=== PATIENT | female | born 1940 | race Caucasian/White ===

== ENCOUNTER → 2016-10-29 | Outpatient (REF) | payer OTHER ==
[2016-10-29 11:11] LABS: BASO # 0.1 K/mm3 (0.0-0.2); BASO % 1.7 % (0.0-1.0); EOS # 0.1 K/mm3 (0.0-0.50); EOS % 3.5 % (0.0-3.0); LARGE UNSTAINED CELL # 0.1 K/mm3 (0.0-0.4); LYMPH # 1.3 K/mm3 (1.5-4.5); LYMPH % 33.5 % (24.0-44.0); MEAN CORPUSCULAR HEMOGLOBIN 32.1 pg (27.0-33.0); MEAN CORPUSCULAR HGB CONC 32.7 g/dl (32.0-36.5); MEAN CORPUSCULAR VOLUME 98.2 fl (80.0-96.0); MONO # 0.2 K/mm3 (0.0-0.8); MONO % 5.1 % (0.0-5.0); NEUTROPHILS % 54.2 % (36.0-66.0); PLATELET COUNT, AUTOMATED 207 k/mm3 (150-450); RED CELL DISTRIBUTION WIDTH 13.3 % (11.5-14.5); WHITE BLOOD COUNT 3.7 K/mm3 (4.0-10.0)
[2016-10-29 11:36] LABS: ANION GAP 9 MEQ/L (8-16); BLOOD UREA NITROGEN 14 MG/DL (7-18); CALCIUM LEVEL 9.1 MG/DL (8.8-10.2); CARBON DIOXIDE LEVEL 29 MEQ/L (21-32); CHLORIDE LEVEL 106 MEQ/L (98-107); CHOLESTEROL LEVEL 180 MG/DL (<200); CREATININE FOR GFR 0.68 MG/DL (0.55-1.02); GLOMERULAR FILTRATION RATE > 60.0 (>39); GLUCOSE, FASTING 88 MG/DL (83-110); SODIUM LEVEL 144 MEQ/L (136-145); TRIGLYCERIDES LEVEL 96 MG/DL (<150)
== END ==
LOC: M LABDRAW1 10:57
PROVIDERS: ATTEND Physician Assistant Medical
DX: E78.2 Mixed hyperlipidemia (principal); K58.0 Irritable bowel syndrome with diarrhea; K21.9 Gastro-esophageal reflux disease without esophagitis

== ENCOUNTER → 2017-02-23 | Outpatient (CLI) | payer OTHER ==
[~2017-02-23] MED LIST: ACIDTAB16 PO; ASPI81TA85 PO; CALC600T57 PO; GLUC750C4 PO; IBUP200C PO; IMOD2TAB16 PO; MAGN500T5 PO; MULT1TAB18 PO; NASA1SPR; NATU400T PO; OMEP40CA2 PO; SALI0.653; VITA10006 PO; VITA100L PO
--- NOTE | 2017-02-23 15:43 | REPMRS ---
Patient History The patient states she has not had a clinical breast exam in over a year. Patient is postmenopausal. No known family history of cancer. Digital Woman Screen Mammo: February 23, 2017 - Exam #: [id number] Bilateral CC and MLO view(s) were taken. Technologist: Tata Yost Technologist Prior study comparison: February 26, 2016, digital woman screen mammo performed at [facility] to [facility]. February 23, 2015, digital woman screen mammo performed at [facility] to [facility]. FINDINGS: There are scattered fibroglandular densities. There has been no change in the appearance of the mammogram from the prior studies. There is a mild amount of residual fibroglandular tissue which is fairly symmetric. There is no interval development of dominant mass, architectural distortion, or clustered microcalcification suggestive of malignancy. ASSESSMENT: BI-RADS/ACR category 1 mammogram. Negative. Recommendation Routine screening mammogram in 1 year (for women over age 40). This mammogram was interpreted with the aid of an FDA-approved computer-aided dectection system. Electronically Signed By: Vincent Hare MD 02/23/17 0829
== END ==
LOC: M WHC 15:17
PROVIDERS: ATTEND Physician Assistant Medical
DX: Z12.31 Encounter for screening mammogram for malignant neoplasm of breast (principal)

== ENCOUNTER → 2017-02-25 | Day surgery (SDC) | payer OTHER ==
[~2017-02-25] VITALS: Ht 154.9 cm; Wt 68.0 kg
[~2017-02-25] MED LIST changes: +ACETAMINOPHEN 325 MG TAB PO PRN; +BSS with VANC/TOB/EPI for EYE CASES IR ONE; +CYCLOPENTOLATE 2% OPHTH SOLN OD ONE; +D5W/0.2% SODIUM CHLORIDE 250 ML IV ONE; +HEALON DUET (HEALON 10MG/ML 0.55ML & HEALON ENDOCOAT 30MG/ML 0.85ML) As Ordered ONE; +KETOROLAC 0.5% OPHTH SOLN OD ONE; +LIDOCAINE 1% SDV 5 ML VIAL As Ordered ONE; +LIDOCAINE 4% INJ 5 ML AMP OU ONE; +LIDOCAINE W/EPINEPHRINE 1% 20ML VIAL As Ordered ONE; +MIDAZOLAM INJ 2 MG/2 ML VIAL (J2250) As Ordered ONE; +MOXIFLOXACIN IN BSS 0.25MG/0.25ML INTRACAMERAL INJ (OR EYE ONLY)(J2280) As Ordered ONE; +OFLOXACIN 0.3 % (OCUFLOX) OPTH SOL 5ML OD ONE; +PHENYLEPHRINE 2.5% OPHTH SOL 2ML OD ONE; +POVIDONE-IODINE 5% OPHTH PREP SOL 30ML As Ordered ONE; +PROPARACAINE 0.5% OPHTH SOL 15ML OD PRN; +TRIAMCINOLONE PRES FR 40 MG/ML 1ML(TRIESENCE)(OR EYE ONLY)(J3300 PER 1MG) As Ordered ONE; +TRIMETHOBENZAMIDE 300 MG CAP PO PRN; +TROPICAMIDE 1% OPHTH SOLN 2 ML OD ONE; +fentaNYL 100 MCG/2 ML INJECTION (J3010) As Ordered ONE
[2017-02-25 10:47] VITALS: BP 180/79
== END | disposition home or self-care (01) ==
LOC: M SDC 06:05
PROVIDERS: ATTEND Ophthalmology
DX: H26.9 Unspecified cataract (principal); K21.9 Gastro-esophageal reflux disease without esophagitis; M79.7 Fibromyalgia; Z79.82 Long term (current) use of aspirin; Z79.899 Other long term (current) drug therapy; Z88.1 Allergy status to other antibiotic agents; Z88.2 Allergy status to sulfonamides
CPT/HCPCS: 66984; 67515; J2250; J2280; J3010; J3300; V2632

== ENCOUNTER → 2017-03-10 | Outpatient (REF) | payer OTHER ==
[~2017-03-10] MED LIST changes: -ACETAMINOPHEN 325 MG TAB PO PRN; -BSS with VANC/TOB/EPI for EYE CASES IR ONE; -CYCLOPENTOLATE 2% OPHTH SOLN OD ONE; -D5W/0.2% SODIUM CHLORIDE 250 ML IV ONE; -HEALON DUET (HEALON 10MG/ML 0.55ML & HEALON ENDOCOAT 30MG/ML 0.85ML) As Ordered ONE; -KETOROLAC 0.5% OPHTH SOLN OD ONE; -LIDOCAINE 1% SDV 5 ML VIAL As Ordered ONE; -LIDOCAINE 4% INJ 5 ML AMP OU ONE; -LIDOCAINE W/EPINEPHRINE 1% 20ML VIAL As Ordered ONE; -MIDAZOLAM INJ 2 MG/2 ML VIAL (J2250) As Ordered ONE; -MOXIFLOXACIN IN BSS 0.25MG/0.25ML INTRACAMERAL INJ (OR EYE ONLY)(J2280) As Ordered ONE; -OFLOXACIN 0.3 % (OCUFLOX) OPTH SOL 5ML OD ONE; -PHENYLEPHRINE 2.5% OPHTH SOL 2ML OD ONE; -POVIDONE-IODINE 5% OPHTH PREP SOL 30ML As Ordered ONE; -PROPARACAINE 0.5% OPHTH SOL 15ML OD PRN; -TRIAMCINOLONE PRES FR 40 MG/ML 1ML(TRIESENCE)(OR EYE ONLY)(J3300 PER 1MG) As Ordered ONE; -TRIMETHOBENZAMIDE 300 MG CAP PO PRN; -TROPICAMIDE 1% OPHTH SOLN 2 ML OD ONE; -fentaNYL 100 MCG/2 ML INJECTION (J3010) As Ordered ONE
[2017-03-10 11:43] LABS: BASO % 0.8 % (0.0-1.0); EOS # 0.1 K/mm3 (0.0-0.50); EOS % 2.5 % (0.0-3.0); LARGE UNSTAINED CELL # 0.1 K/mm3 (0.0-0.4); LARGE UNSTAINED CELL % 2.3 % (0.0-4.0); LYMPH # 1.6 K/mm3 (1.5-4.5); LYMPH % 27.6 % (24.0-44.0); MEAN CORPUSCULAR HEMOGLOBIN 33.6 pg (27.0-33.0); MEAN CORPUSCULAR HGB CONC 33.5 g/dl (32.0-36.5); MEAN CORPUSCULAR VOLUME 100.2 fl (80.0-96.0); MONO # 0.4 K/mm3 (0.0-0.8); MONO % 6.6 % (0.0-5.0); NEUTROPHILS # 3.2 K/mm3 (1.8-7.7); NEUTROPHILS % 60.3 % (36.0-66.0); PLATELET COUNT, AUTOMATED 201 k/mm3 (150-450); RED CELL DISTRIBUTION WIDTH 12.9 % (11.5-14.5); WHITE BLOOD COUNT 5.3 K/mm3 (4.0-10.0)
[2017-03-10 12:04] LABS: FOLATE 23.8 NG/ML (>5.4); VITAMIN B12 LEVEL 868 PG/ML (247-911)
[2017-03-10 12:44] LABS: ALBUMIN 4.1 GM/DL (3.2-5.2); ALBUMIN/GLOBULIN RATIO 1.17 (1.00-1.93); ALKALINE PHOSPHATASE 73 U/L (45-117); ALT/SGPT 26 U/L (12-78); ANION GAP 7 MEQ/L (8-16); AST/SGOT 17 U/L (15-37); BILIRUBIN,TOTAL 0.4 MG/DL (0.2-1.0); BLOOD UREA NITROGEN 14 MG/DL (7-18); CALCIUM LEVEL 9.5 MG/DL (8.8-10.2); CARBON DIOXIDE LEVEL 30 MEQ/L (21-32); CHLORIDE LEVEL 105 MEQ/L (98-107); GLOMERULAR FILTRATION RATE > 60.0 (>39); GLUCOSE, FASTING 87 MG/DL (83-110); MAGNESIUM LEVEL 2.4 MG/DL (1.8-2.4); POTASSIUM SERUM 4.5 MEQ/L (3.5-5.1); SODIUM LEVEL 142 MEQ/L (136-145); TOTAL PROTEIN 7.6 GM/DL (6.4-8.2)
== END ==
LOC: M LABDRAW1 11:26
PROVIDERS: ATTEND Emergency Medicine
DX: R53.83 Other fatigue (principal)

== ENCOUNTER → 2017-07-06 | Outpatient (REF) | payer OTHER ==
[~2017-07-06] MED LIST changes: -ACIDTAB16 PO; +ACIDTAB7 PO; -IBUP200C PO; +IBUP200C10 PO; +LIDO5DIS41 TD; +SALI0.6523; -SALI0.653; +TYLE650T35 PO; +VITA10002 PO; +VITA10005 PO; +VITA20008 PO
[2017-07-06 12:01] LABS: ALBUMIN 3.9 GM/DL (3.2-5.2); ALBUMIN/GLOBULIN RATIO 1.34 (1.00-1.93); BILIRUBIN,DIRECT 0.1 MG/DL (0.0-0.2); BILIRUBIN,TOTAL 0.5 MG/DL (0.2-1.0); TOTAL PROTEIN 6.8 GM/DL (6.4-8.2)
== END ==
LOC: M LABDRAW1 11:04
PROVIDERS: ATTEND Internal Medicine Cardiovascular Disease
DX: R94.31 Abnormal electrocardiogram [ECG] [EKG] (principal); E78.00 Pure hypercholesterolemia, unspecified

== ENCOUNTER 2017-07-15 09:52 | Day surgery (SDC) | payer OTHER ==
[~2017-07-15] VITALS: Ht 154.9 cm; Wt 66.9 kg
[~2017-07-15 09:52] MED LIST changes: +BSS with VANC/TOB/EPI for EYE CASES IR ONE; +CYCLOPENTOLATE 2% OPHTH SOLN 2ML BTL OS ONE; +HEALON DUET (HEALON 10MG/ML 0.55ML & HEALON ENDOCOAT 30MG/ML 0.85ML) As Ordered ONE; +LIDOCAINE 1% SDV 5 ML VIAL As Ordered ONE; +LIDOCAINE 3.5 % 1ML OPHTH TOPICAL GEL OU ONE; +OFLOXACIN 0.3 % (OCUFLOX) OPTH SOL 5ML OS ONE; +PHENYLEPHRINE 2.5% OPHTH SOL 2ML OS ONE; +POVIDONE-IODINE 5% OPHTH PREP SOL 30ML As Ordered ONE; +TRIAMCINOLONE PRES FR 40 MG/ML 1ML(TRIESENCE)(OR EYE ONLY)(J3300 PER 1MG) As Ordered ONE; +TROPICAMIDE 1% OPHTH SOLN 2ML OS ONE
[2017-07-15] MEDS ORDERED: LR 500 ML IV ONE (10:00)
[2017-07-15] MEDS ORDERED: fentaNYL 100 MCG/2 ML INJECTION (J3010) As Ordered ONE (10:47)
[2017-07-15] MEDS ORDERED: MIDAZOLAM INJ 2 MG/2 ML VIAL (J2250) As Ordered ONE (10:47)
[2017-07-15] MEDS ORDERED: CEFUROXIME 1MG/0.1ML INTRACAMERAL INJ As Ordered ONE (10:58)
[2017-07-15 11:30] VITALS: BP 127/60
--- NOTE | 2017-07-15 11:47 | RO ---
DATE OF PROCEDURE: 07/15/2017 PREOPERATIVE DIAGNOSES: Miosis and cataract left eye. POSTOPERATIVE DIAGNOSES: Miosis and cataract left eye. PROCEDURE: Phacoemulsification with intraocular lens implantation of Hoya, power 20.5 diopters and placement of the 7 mm Malyugin ring in the left eye. SURGEON: Mynor Robb MD REST ROOM ATTENDANT: None. ANESTHESIA: Local plus monitored anesthesia care (MAC). COMPLICATIONS: None. PROCEDURE IN DETAIL: Patient was brought to the operating room, laid in supine position. The left eye was prepped and draped in a sterile fashion for ophthalmic surgery, following which a lid speculum was placed. Sideport incision was made, and EndoCoat was injected into the anterior chamber. This was followed by temporal clear corneal incision with a 2.5 mm keratome, followed by placement of the Malyugin ring, which was placed with the help of the introducer. Once the pupil was well dilated, then capsulorrhexis was done, followed by hydrodissection and phacoemulsification in a [id number] method within the capsular bag. This was followed by aspiration of the cortical material, insertion of the Healon, and placement of the intraocular lens. Malyugin ring was then removed. Excess viscoelastic was aspirated, wound hydrated, intracameral moxifloxacin given, and sub-Tenon triamcinolone. Lid speculum removed, and patient returned to recovery room in stable condition. Edited: [facility] 07/17/2017 1110
== END 2017-07-15 11:59 | disposition home or self-care (01) ==
LOC: M SDC 09:52
PROVIDERS: ATTEND Ophthalmology
DX: H25.9 Unspecified age-related cataract (principal); H57.03 Miosis; E78.5 Hyperlipidemia, unspecified; K58.9 Irritable bowel syndrome, unspecified; G47.30 Sleep apnea, unspecified; F32.9 Major depressive disorder, single episode, unspecified; Z79.899 Other long term (current) drug therapy; Z88.2 Allergy status to sulfonamides; Z88.8 Allergy status to other drugs, medicaments and biological substances; Z79.82 Long term (current) use of aspirin
CPT/HCPCS: 66982; 67515; J2250; J3010; J3300; V2632

== ENCOUNTER → 2018-01-04 | Outpatient (REF) | payer OTHER | LOC: M LAB REF 16:58 | DX: N39.0 Urinary tract infection, site not specified (principal) | CPT/HCPCS: 87086 ==

== ENCOUNTER 2018-01-14 08:10 | Outpatient (RCR) | payer OTHER | END 2018-01-23 | LOC: M PT 08:10 | DX: Z51.89 Encounter for other specified aftercare (principal); M16.11 Unilateral primary osteoarthritis, right hip; M16.12 Unilateral primary osteoarthritis, left hip; M54.5 Low back pain | CPT/HCPCS: 97110 ==

== ENCOUNTER 2018-01-26 12:15 | Outpatient (RCR) | payer OTHER | END 2018-02-22 | LOC: M PT 12:15 | DX: Z51.89 Encounter for other specified aftercare (principal); M16.11 Unilateral primary osteoarthritis, right hip; M16.12 Unilateral primary osteoarthritis, left hip; M54.5 Low back pain | CPT/HCPCS: 97110 ==

== ENCOUNTER 2018-02-23 11:29 | Outpatient (RCR) | payer OTHER | END 2018-03-25 | LOC: M PT 02-25 08:37 | DX: Z51.89 Encounter for other specified aftercare (principal); M16.11 Unilateral primary osteoarthritis, right hip; M16.12 Unilateral primary osteoarthritis, left hip; M54.5 Low back pain | CPT/HCPCS: 97110 ==

== ENCOUNTER → 2018-02-24 | Outpatient (CLI) | payer OTHER | LOC: M WHC 08:52 | DX: Z12.31 Encounter for screening mammogram for malignant neoplasm of breast (principal) | CPT/HCPCS: 77067 ==

== ENCOUNTER 2018-03-29 11:39 | Outpatient (RCR) | payer OTHER | END 2018-04-24 | LOC: M PT 11:39 | DX: Z51.89 Encounter for other specified aftercare (principal); M16.11 Unilateral primary osteoarthritis, right hip; M16.12 Unilateral primary osteoarthritis, left hip; M51.36 Other intervertebral disc degeneration, lumbar region | CPT/HCPCS: 97110 ==

== ENCOUNTER → 2018-04-05 | Outpatient (CLI) | payer OTHER | LOC: M PLARAD 10:16 | DX: M51.36 Other intervertebral disc degeneration, lumbar region (principal); M47.896 Other spondylosis, lumbar region; M48.061 Spinal stenosis, lumbar region without neurogenic claudication | CPT/HCPCS: 72148 ==

== ENCOUNTER → 2018-06-10 | Outpatient (CLI) | payer OTHER | LOC: M PAIN 10:00 | DX: M47.817 Spondylosis without myelopathy or radiculopathy, lumbosacral region (principal); J30.2 Other seasonal allergic rhinitis; M51.36 Other intervertebral disc degeneration, lumbar region; M48.061 Spinal stenosis, lumbar region without neurogenic claudication; M19.041 Primary osteoarthritis, right hand; M19.042 Primary osteoarthritis, left hand; G47.33 Obstructive sleep apnea (adult) (pediatric); E78.5 Hyperlipidemia, unspecified; K21.9 Gastro-esophageal reflux disease without esophagitis; F32.9 Major depressive disorder, single episode, unspecified; M79.7 Fibromyalgia; R73.01 Impaired fasting glucose; D75.89 Other specified diseases of blood and blood-forming organs; M16.12 Unilateral primary osteoarthritis, left hip; Z79.82 Long term (current) use of aspirin; Z79.899 Other long term (current) drug therapy; Z79.1 Long term (current) use of non-steroidal anti-inflammatories (NSAID); Z88.2 Allergy status to sulfonamides; Z88.1 Allergy status to other antibiotic agents; Z88.8 Allergy status to other drugs, medicaments and biological substances | CPT/HCPCS: G0463 ==

== ENCOUNTER → 2018-07-20 | Outpatient (CLI) | payer OTHER, MEDICARE ==
[~2018-07-20] MED LIST changes: -ACIDTAB7 PO; -ASPI81TA85 PO; -BSS with VANC/TOB/EPI for EYE CASES IR ONE; -CALC600T57 PO; -CYCLOPENTOLATE 2% OPHTH SOLN 2ML BTL OS ONE; -GLUC750C4 PO; -HEALON DUET (HEALON 10MG/ML 0.55ML & HEALON ENDOCOAT 30MG/ML 0.85ML) As Ordered ONE; -IBUP200C10 PO; -IMOD2TAB16 PO; +ISOVUE-M 300 61% 15ML VIAL (Q9967) As Ordered; -LIDO5DIS41 TD; -LIDOCAINE 1% SDV 5 ML VIAL As Ordered ONE; +LIDOCAINE 1% SDV INJ 30 ML VIAL As Ordered; -LIDOCAINE 3.5 % 1ML OPHTH TOPICAL GEL OU ONE; -MAGN500T5 PO; -MULT1TAB18 PO; -NASA1SPR; -NATU400T PO; -OFLOXACIN 0.3 % (OCUFLOX) OPTH SOL 5ML OS ONE; -OMEP40CA2 PO; -PHENYLEPHRINE 2.5% OPHTH SOL 2ML OS ONE; -POVIDONE-IODINE 5% OPHTH PREP SOL 30ML As Ordered ONE; -SALI0.6523; -TRIAMCINOLONE PRES FR 40 MG/ML 1ML(TRIESENCE)(OR EYE ONLY)(J3300 PER 1MG) As Ordered ONE; -TROPICAMIDE 1% OPHTH SOLN 2ML OS ONE; -TYLE650T35 PO; -VITA10002 PO; -VITA10005 PO; -VITA10006 PO; -VITA100L PO; -VITA20008 PO; +diazePAM 5 MG TAB As Ordered; +methylPREDNISolone SUSP 40 MG/ML (DEPO-medrol) VIAL (J1030) As Ordered
== END ==
LOC: M PAIN 11:00
DX: G89.29 Other chronic pain (principal); M51.17 Intervertebral disc disorders with radiculopathy, lumbosacral region; M48.07 Spinal stenosis, lumbosacral region; M19.041 Primary osteoarthritis, right hand; M19.042 Primary osteoarthritis, left hand; G47.33 Obstructive sleep apnea (adult) (pediatric); E78.5 Hyperlipidemia, unspecified; K21.9 Gastro-esophageal reflux disease without esophagitis; F32.9 Major depressive disorder, single episode, unspecified; M79.1 Myalgia; R73.01 Impaired fasting glucose; D72.819 Decreased white blood cell count, unspecified; M16.12 Unilateral primary osteoarthritis, left hip; J30.9 Allergic rhinitis, unspecified; Z79.82 Long term (current) use of aspirin; Z79.899 Other long term (current) drug therapy; Z88.2 Allergy status to sulfonamides; Z88.8 Allergy status to other drugs, medicaments and biological substances
CPT/HCPCS: J1030

== ENCOUNTER → 2018-07-22 | Outpatient (REF) | payer OTHER, MEDICARE ==
[2018-07-22 12:15] LABS: BASO % 0.5 % (0.0-1.0); EOS # 0.1 10^3/uL (0.0-0.50); EOS % 0.8 % (0.0-3.0); HEMATOCRIT 37.1 % (36.0-47.0); HEMOGLOBIN 12.3 g/dl (12.0-15.5); IMMATURE GRANULOCYTE % 0.3 % (0-3.0); LYMPH # 1.5 10^3/uL (1.5-4.5); LYMPH % 17.7 % (24.0-44.0); MEAN CORPUSCULAR HEMOGLOBIN 32.8 pg (27.0-33.0); MEAN CORPUSCULAR HGB CONC 33.2 g/dl (32.0-36.5); MEAN CORPUSCULAR VOLUME 98.9 fl (80.0-96.0); MONO # 0.7 10^3/uL (0.0-0.8); MONO % 7.8 % (0.0-5.0); NEUTROPHILS # 6.3 10^3/uL (1.8-7.7); NEUTROPHILS % 72.9 % (36.0-66.0); PLATELET COUNT, AUTOMATED 204 10^3/uL (150-450); RED BLOOD COUNT 3.75 10^6/uL (4.00-5.40); RED CELL DISTRIBUTION WIDTH 12.8 % (11.5-14.5); WHITE BLOOD COUNT 8.6 10^3/uL (4.0-10.0)
== END ==
LOC: M LABDRAW1 11:03
DX: R53.83 Other fatigue (principal)
CPT/HCPCS: 85025

== ENCOUNTER → 2018-08-03 | Outpatient (CLI) | payer OTHER, MEDICARE | LOC: M PAIN 11:30 | DX: M47.817 Spondylosis without myelopathy or radiculopathy, lumbosacral region (principal); M19.041 Primary osteoarthritis, right hand; M19.042 Primary osteoarthritis, left hand; M16.12 Unilateral primary osteoarthritis, left hip; G47.33 Obstructive sleep apnea (adult) (pediatric); E78.5 Hyperlipidemia, unspecified; F32.9 Major depressive disorder, single episode, unspecified; M79.7 Fibromyalgia; R73.01 Impaired fasting glucose; D72.819 Decreased white blood cell count, unspecified; J30.9 Allergic rhinitis, unspecified; Z79.82 Long term (current) use of aspirin; Z79.899 Other long term (current) drug therapy; Z88.2 Allergy status to sulfonamides; Z88.5 Allergy status to narcotic agent; Z88.8 Allergy status to other drugs, medicaments and biological substances | CPT/HCPCS: G0463 ==

== ENCOUNTER → 2018-08-30 | Outpatient (CLI) | payer OTHER | LOC: M RAD 10:05 | DX: M19.012 Primary osteoarthritis, left shoulder (principal) | CPT/HCPCS: 73030 ==

== ENCOUNTER → 2018-09-14 | Outpatient (CLI) | payer OTHER, MEDICARE | LOC: M PAIN 09:45 | DX: M46.1 Sacroiliitis, not elsewhere classified (principal); G89.29 Other chronic pain; M19.041 Primary osteoarthritis, right hand; M19.042 Primary osteoarthritis, left hand; M16.12 Unilateral primary osteoarthritis, left hip; G47.33 Obstructive sleep apnea (adult) (pediatric); E78.5 Hyperlipidemia, unspecified; K21.9 Gastro-esophageal reflux disease without esophagitis; F32.9 Major depressive disorder, single episode, unspecified; M79.7 Fibromyalgia; J30.9 Allergic rhinitis, unspecified; D72.819 Decreased white blood cell count, unspecified; Z79.82 Long term (current) use of aspirin; Z79.899 Other long term (current) drug therapy; Z88.2 Allergy status to sulfonamides; Z88.5 Allergy status to narcotic agent; Z88.8 Allergy status to other drugs, medicaments and biological substances | CPT/HCPCS: G0463 ==

== ENCOUNTER 2018-09-20 08:02 | Outpatient (RCR) | payer OTHER | END 2018-09-24 | LOC: M PT 08:02 | DX: M25.512 Pain in left shoulder (principal) | CPT/HCPCS: 97110 ==

== ENCOUNTER → 2018-09-20 | Outpatient (CLI) | payer OTHER ==
[2018-09-20 10:59] LABS: ALBUMIN 4.1 GM/DL (3.2-5.2); ALBUMIN/GLOBULIN RATIO 1.37 (1.00-1.93); ALKALINE PHOSPHATASE 68 U/L (45-117); ALT/SGPT 22 U/L (12-78); ANION GAP 6 MEQ/L (8-16); AST/SGOT 18 U/L (7-37); BILIRUBIN,TOTAL 0.5 MG/DL (0.2-1.0); BLOOD UREA NITROGEN 19 MG/DL (7-18); CARBON DIOXIDE LEVEL 30 MEQ/L (21-32); CHLORIDE LEVEL 105 MEQ/L (98-107); CHOLESTEROL LEVEL 184 MG/DL (<200); CREATININE FOR GFR 0.71 MG/DL (0.55-1.30); GLOMERULAR FILTRATION RATE > 60.0 (>39); GLUCOSE, FASTING 87 MG/DL (70-100); HDL CHOLESTEROL 63 MG/DL (>40); LDL CHOLESTEROL 98 MG/DL (<100); NON-HDL-C 121 MG/DL; POTASSIUM SERUM 4.5 MEQ/L (3.5-5.1); SODIUM LEVEL 141 MEQ/L (136-145); TOTAL PROTEIN 7.1 GM/DL (6.4-8.2); TRIGLYCERIDES LEVEL 115 MG/DL (<150)
== END ==
LOC: M LAB 09:48
DX: E78.2 Mixed hyperlipidemia (principal)
CPT/HCPCS: 80053

== ENCOUNTER → 2018-10-25 | Outpatient (RCR) | payer OTHER ==
[~2018-10-25] MED LIST changes: +ACIDTAB7 PO; +ASPI81TA85 PO; +CALC600T57 PO; +GLUC750C4 PO; +IBUP200C25 PO; +IMOD2TAB16 PO; -ISOVUE-M 300 61% 15ML VIAL (Q9967) As Ordered; +LIDO5DIS41 TD; -LIDOCAINE 1% SDV INJ 30 ML VIAL As Ordered; +MAGN500T5 PO; +MULT1TAB18 PO; +NASA1SPR; +NATU400T PO; +OMEP40CA2 PO; +SALI0.6528; +TYLE650T35 PO; +VITA10002 PO; +VITA10005 PO; +VITA10006 PO; +VITA100L PO; +VITA20008 PO; -diazePAM 5 MG TAB As Ordered; -methylPREDNISolone SUSP 40 MG/ML (DEPO-medrol) VIAL (J1030) As Ordered
== END ==
LOC: M PT 09-28 09:18
PROVIDERS: ATTEND Physician Assistant
DX: M25.512 Pain in left shoulder (principal)
CPT/HCPCS: 97110; G8984; G8985

== ENCOUNTER 2018-10-28 09:33 | Outpatient (RCR) | payer MEDICARE, OTHER | END 2018-11-25 | LOC: M PT 09:33 | PROVIDERS: ATTEND Physician Assistant | DX: M25.512 Pain in left shoulder (principal) | CPT/HCPCS: 97110; G8985; G8986 ==

== ENCOUNTER → 2018-11-02 | Outpatient (CLI) | payer MEDICARE, OTHER ==
[~2018-11-02] MED LIST changes: +BUPIVACAINE HCL 0.25% 30 ML VIAL As Ordered ONE; +ISOVUE-M 300 61% 15ML VIAL (Q9967) As Ordered ONE; +LIDOCAINE 1% SDV INJ 30 ML VIAL As Ordered ONE; +TRIAMCINOLONE ACETONIDE SUSP 40 MG/ML VIAL (J3301) As Ordered ONE; +diazePAM 5 MG TAB As Ordered ONE
--- NOTE | 2018-11-02 14:18 | REP ---
SI joint series: Three views: History: Right SI joint injection for pain. 7 seconds of fluoroscopy time is reported. Findings: A sequence of three last image hold fluoroscopically obtained spot radiographs of the right SI joint document needle position and contrast injection associated with SI joint injection procedure. Electronically Signed by Power Cabrera MD 11/02/2018 04:42 P
--- NOTE | 2018-11-17 01:20 | ECWPNPC ---
PATIENT NAME: RENEE JACOBSEN : 1940 GENDER: FEMALE VISIT DATE: 11/02/2018 DISCHARGE DATE: 11/02/18 1319 VISIT LOCKED DATE TIME: PHYSICIAN: LOTUS QUINTANA MD RESOURCE: LOTUS QUINTANA MD REASON FOR APPOINTMENT 1. RIGHT SIJ. HISTORY OF PRESENT ILLNESS HISTORY OF PRESENT ILLNESS: PAIN THE PATIENT DESCRIBES THE PAIN... FALL RISK SCREENING: SCREENING :NO FALLS IN THE PAST YEAR CURRENT MEDICATIONS TAKING SALINE NASAL SPRAY 0.65 % SOLUTION 2 SRAYS IN EACH NOSTRIL NEEDED NASALLY EVERY 4 HRS NEEDED, NOTES: 11/01 2099 TAKING LOPERAMIDE HCL 2 MG CAPSULE 1 CAPSULE ORALLY ONCE A DAY, NOTES: 11/02 514 TAKING OMEPRAZOLE 20 MG CAPSULE DELAYED RELEASE 1 CAPSULE ORALLY DAILY, NOTES: 11/02 514 TAKING VITAMIN C 250 MG TABLET 1 TAB(S) ORALLY DAILY, NOTES: 11/01 2099 TAKING VITAMIN D3 2000 UNIT CAPSULE 1 CAPSULE ORALLY ONCE A DAY, NOTES: 11/01 2099 TAKING ACIDOPHILUS 10 MG CAPSULE DIRECTED ORALLY BID, NOTES: 11/02 514 TAKING CALCIUM 600+D HIGH POTENCY 600-400 MG-UNIT TABLET 1 TABLET ORALLY ONCE A DAY, NOTES: 11/01 2099 TAKING VITAMIN B12 1000 MCG TABLET 1 TABLET ORALLY ONCE A DAY, NOTES: 11/01 2099 TAKING SIMVASTATIN 20 MG TABLET 1 TAB ORALLY DAILY IN THE EVENING, NOTES: 11/01 2099 TAKING NAPROXEN 250 MG TABLET 1 TABLET WITH FOOD OR MILK ORALLY TWICE A DAY, NOTES: FEW DAYS AGO TAKING ASPIR-81 81 MG TABLET DELAYED RELEASE 1 TABLET ORALLY ONCE A DAY, NOTES: 1 WEEK AGO TAKING TYLENOL 500MGS 1 TAB ORAL EVERY 4 HOURS NEEDED, NOTES: 11/02 1134 TAKING VITAMIN E 200 UNIT CAPSULE 1 CAPSULE ORALLY ONCE A DAY, NOTES: 11/01 2099 TAKING GLUCOSAMINE 1500 COMPLEX - CAPSULE ORALLY , NOTES: 11/01 2099 TAKING IBUPROFEN 200 MGS 1-2 TAB ORAL FOUR TIMES DAILY NEEDED, NOTES: 10/30 TAKING FLONASE 50 MCG/ACT SUSPENSION 1 SPRAY IN EACH NOSTRIL NASALLY ONCE A DAY, NOTES: 11/01 599 TAKING BUPROPION HCL 150 MG TABLET EXTENDED RELEASE ORALLY DAILY, NOTES: 11/01 2099 TAKING ASTELIN 2 SPRAYS EACH NOSTRIL ONCE DAILY, NOTES: RIGHT SIDE 514 TAKING RANITIDINE ACID DIESEL TRUCK TECHNICIAN 75 MG TABLET 1 TABLET NEEDED ORALLY DAILY, NOTES: 11/01 1700 NOT-TAKING CARAFATE 1 GM TABLET 1 TABLET ON AN EMPTY STOMACH ORALLY THREE TIMES A DAY NOT-TAKING DYMISTA 137-50 MCG/ACT SUSPENSION 1 SPRAY, TO BOTH NOSTRILS NASALLY TWICE A DAY NOT-TAKING PROTONIX 40 MG TABLET DELAYED RELEASE 1 TABLET ORALLY BID NOT-TAKING CARAFATE 1 GM TABLET 1 TABLET ON AN EMPTY STOMACH ORALLY THREE TIMES A DAY NOT-TAKING REPLENS - GEL DIRECTED VAGINAL , NOTES: HAVEN'T GOTTEN YET DISCONTINUED SALINE NASAL SPRAY 0.65 % SOLUTION 2 DROPS IN EACH NOSTRIL NEEDED NASALLY 48 TIME(S) A DAY, NOTES: DUPLICATE MEDICATION LIST REVIEWED AND RECONCILED WITH THE PATIENT PAST MEDICAL HISTORY ALLERGIC RHINITIS/CONJUNCTIVITIS/CHRONIC RECURRENT SINUSITIS-01/2015 - ZONE 1, IGE <3.6 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 BY NOVEMBER 2010 CT/GRADE 1 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 X-RAY BILATERAL HAND OSTEOARTHRITIS-2007 NEGATIVE RHEUMATOLOGICAL WORKUP IMANI-02/2012 NPSG C RDI 25-ALLEN HYPERLIPIDEMIA 2B GERD-08/2014 NORMAL EGD-REINDL 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[address] OF THE PELVIS STONE PROTOCOL AND RENAL ULTRASOUND BILATERAL DEPRESSION FIBROMYALGIA ALLERGIC RHINITIS/CONJUNCTIVITIS IMPAIRED FASTING GLUCOSE LEUKOPENIA, 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, CHRONIC 2 SMALL ADENOMATOUS POLYPS, DIVERTICULOSIS, SIGMOID, 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-06/2011-REINDL//08/2014 MODERATE SIGMOID DIVERTICULOSIS-REINDL L HIP MILD OA BY 08/2013 XRAY ALLERGIES AVELOX: LEGS SHAKEY: SIDE EFFECTS CYMBALTA: NAUSEA/VOMITING: SIDE EFFECTS DOXYCYCLINE HYCLATE: INEFFECTIVE: SIDE EFFECTS PROZAC: FATIGUE: SIDE EFFECTS ZITHROMAX: DIARRHEA: SIDE EFFECTS SULFA (FOR ALLERGY USE ONLY): RASH: ALLERGY CODEINE SULFATE: NAUSEA/VOMITING: SIDE EFFECTS SURGICAL HISTORY BILATERAL BLEPHAROPLASTY-BRAD 09/2010 DEVIATED SEPTUM REPAIR TUBAL LIGATION KIDNEY STONE LASER COLONOSCOPY 08/2014 FAMILY HISTORY FATHER: 53 YRS, UNKNOWN CAUSE MOTHER: 96 YRS, LUNG CA, OSTEOPOROSIS, NO HIP FX. 1 BROTHER(S) , 2 SISTER(S) . 1 SON(S) , 2 DAUGHTER(S) - HEALTHY. DENIES FAMILY HX OF BREAST, COLON OR OVARIAN CANCER. DENIES FAMILY HX OF BREAST, COLON OR OVARIAN CANCER. SOCIAL HISTORY GENERAL: TOBACCO USE ARE YOU A:NONSMOKER ALCOHOL SCREENING DID YOU HAVE A DRINK CONTAINING ALCOHOL IN THE PAST YEAR?YES HOW OFTEN DID YOU HAVE A DRINK CONTAINING ALCOHOL IN THE PAST YEAR?MONTHLY OR LESS (1 POINT) HOW MANY DRINKS DID YOU HAVE ON A TYPICAL DAY WHEN YOU WERE DRINKING IN THE PAST YEAR?3 OR 4 (1 POINT) HOW OFTEN DID YOU HAVE SIX OR MORE DRINKS ON ONE OCCASION IN THE PAST YEAR?NEVER (0 POINTS) POINTS2 INTERPRETATIONNEGATIVE RECREATIONAL DRUG USE DRUG USE?NO CAFFEINE DECAF COFFEE ONLY.. SEXUAL HX HAD SEX IN THE LAST 12 MONTHS (VAGINAL, ORAL, OR ANAL)?NO HAVE YOU EVER HAD AN STD?NO LMP:POST MENOPAUSE UATSDIN [id number] [employer]RIAN LANGUAGE LANGUAGES SPOKEN:SWISS EDUCATION LEVEL OF EDUCATION:HIGH SCHOOL LEARNING BARRIERS / SPECIAL NEEDS CHANGE FROM LAST VISIT?NO BARRIERS TO LEARNING?NO HEARING IMPAIRED?NO VISION IMPAIRED?YES :CORRECTIVE LENSES COGNITIVELY IMPAIRED?NO READINESS TO LEARN?YES LEARNING PREFERENCES?NO LEARNING CAPABILITIES PRESENT?YES EMOTIONAL BARRIERS?NO SPECIAL DEVICES?NO DOMESTIC VIOLENCE DENIES. DIET: "TERRIBLE". EATS TOO MUCH DESSERT.. MARITAL STATUS: . OTHERS AT HOME: NONE. PAIN CLINIC PFS, CLERGY, PUBLIC HEALTH REFERRALS HAS THE PATIENT BEEN EDUCATED REGARDING HIS/HER PLAN OF CARE?YES HAS THE PATIENT BEEN EDUCATED REGARDING PAIN, THE RISK FOR PAIN, THE IMPORTANCE OF EFFECTIVE PAIN MANAGEMENT, AND THE PAIN ASSESSMENT PROCESS?YES ADVANCE DIRECTIVE ADVANCE DIRECTIVE DISCUSSED WITH PATIENT:YES HCP JOHN DIXON [phone] REVIEWED WITH PATIENT 08/03/18 1144 11/02/18 REVIEWED WITH PT. AD. HOSPITALIZATION/MAJOR DIAGNOSTIC PROCEDURE ABOVE REVIEW OF SYSTEMS REVIEWED BY: PROVIDER: . CONSTITUTIONAL: ANY CHANGE IN YOUR MEDICAL CONDITION? NO . CHILLS NO . FEVER NO . INFECTION: DO YOU HAVE NEW INFECTIONS? NO . DO YOU HAVE HISTORY OF MRSA? NO . MUSCULOSKELETAL: ANY NEW PATTERNS OF PAIN OR NUMBNESS? NO . GASTROENTEROLOGY: ANY NEW CHANGE IN BOWEL CONTROL? NO . GENITOURINARY: ANY NEW CHANGE IN BLADDER CONTROL? NO . IS THERE A CHANCE YOU COULD BE ? NO . HEMATOLOGY/LYMPH: DO YOU TAKE ANY BLOOD THINNERS? (FOR EXAMPLE- COUMADIN, PLAVIX, AGGRENOX, PLATEL, PRADAXA, OR XARELTO) NO . WHEN WAS YOUR LAST DOSE? DATE: TIME: . NEUROLOGY: HAVE YOU FALLEN IN THE PAST 6 MONTHS? NO . ANY NEW EXTREMITY NUMBNESS OR WEAKNESS? NO . CARDIOLOGY: DO YOU HAVE A PACEMAKER OR DEFIBRILLATOR? NO . RESPIRATORY: HAVE YOU BEEN SICK IN THE PAST WEEK? NO . FEVER NO . FLU LIKE SYMPTOMS? NO . COUGH NO . INTEGUMENTARY: DO YOU HAVE ANY RASHES OR OPEN SORES? NO . ALLERGIC/IMMUNO: ARE YOU ALLERGIC TO SHELLFISH OR IV DYE? NO HAS A BROTHER THAT IS ALLERGIC TO IVP DYE . ANY NEW ALLERGIES? NO . PSYCHIATRIC: DO YOU HAVE THOUGHTS OF HURTING YOURSELF OR SOMEONE ELSE? NO . ARE YOU ABUSED, NEGLECTED, OR IN AN UNSAFE ENVIRONMENT? NO . ENDOCRINOLOGY: ARE YOU DIABETIC? NO . OTHER: DO YOU NEED ANY PRESCRIPTIONS? NO . IF YES, PLEASE LIST: ____ . ANY NEW PROBLEMS WITH YOUR MEDICATIONS? NO . WHEN DID YOU LAST EAT? 11/02 514 . WHEN DID YOU LAST DRINK? 11/02 729 . WHAT DID YOU LAST DRINK? GINGERALE . NAME OF PERSON DRIVING YOU HOME? CATRACHITO JAVED . DO YOU HAVE ANY OTHER QUESTIONS OR CONCERNS NO PT. HAS NOT HAD ANY VACCINES IN THE PAST 30 DAYS . VITAL SIGNS WT 146 LBS, HT 61 IN, BMI 27.58 INDEX, BP 143/72 MM HG, HR 71 /MIN, RR 18 /MIN, TEMP 97.8 F, OXYGEN SAT % 96%, NA INITIALS AW 1059. ASSESSMENTS SACROILIITIS, NOT ELSEWHERE CLASSIFIED - M46.1 (PRIMARY) PROCEDURES PN SI PRE PROCEDURE DIAGNOSIS SACROILIITIS, SACROILIAC JOINT DYSFUNCTION POST PROCEDURE DIAGNOSIS SACROILIITIS, SACROILIAC JOINT DYSFUNCTION PROCEDURE RIGHT SACROILIAC JOINT BLOCK SURGEON DR. LOTUS QUINTANA AUCTION CLERK NONE ANESTHESIA LOCAL PRE PROCEDURE NOTE PATIENT WITH HISTORY OF CHRONIC LOW BACK PAIN. I EVALUATED THE PATIENT AND REVIEWED THE CHART. I WENT OVER THE RISKS, ALTERNATIVES, AND BENEFITS ASSOCIATED WITH THIS PROCEDURE. THE PATIENT WOULD LIKE TO PROCEED AND GAVE CONSENT TO PERFORM THE PROCEDURE. THE PATIENT DENIES UNEXPLAINABLE WEIGHT LOSS, FEVER, CHILLS, OR NEW CHANGES IN URINARY OR BOWEL CONTROL DESCRIPTION OF PROCEDURE THE PATIENT WAS BROUGHT TO THE PROCEDURE ROOM AND PLACED IN THE PRONE POSITION. THE LUMBOSACRAL AREA WAS CLEANED WITH CHLORAPREP SOLUTION AND DRAPED ASEPTICALLY. THE PROCEDURE WAS DONE UNDER STERILE CONDITIONS. I CHECKED LATERALITY AND THE LEVEL WHERE THE PROCEDURE WAS GOING TO BE PERFORMED WITH THE PATIENT AND THE SUPPORTING STAFF AT THE MOMENT OF THE TIME OUT IN THE PROCEDURE ROOM. UNDER FLUOROSCOPIC GUIDANCE, TARGET POINT WAS SELECTED AT THE LOWER BORDER OF THE RIGHT SACROILIAC JOINT. TARGET POINT WAS SELECTED AFTER MEDIAL ROTATION AND TILT OF THE MAGNIFIER OF THE C-ARM. LIDOCAINE WAS USED TO NUMB THE SKIN AND SUBCUTANEOUS TISSUE BELOW IT. A SPINAL NEEDLE, 22-GAUGE, WAS ADVANCED UNDER FLUOROSCOPIC GUIDANCE AND FOLLOWING PATIENT FEEDBACK UNTIL THE TARGET AREA WAS TOUCHED. THE POSITION OF THE NEEDLE WAS VERIFIED WITH AP AND LATERAL VIEWS. AFTER PROPER POSITION OF THE NEEDLE WAS ACHIEVED, ISOVUE M DYE 30%, 0.25 ML, WAS INJECTED SHOWING SPREAD OF THE DYE. THEN, A SOLUTION OF 20 MG OF KENALOG WAS INJECTED IN RIGHT JOINT WITH 3 ML OF BUPIVACAINE 0.125%. THERE WAS NO EVIDENCE OF BLOOD, PARESTHESIA OR CEREBROSPINAL FLUID DURING THE PROCEDURE. THE PATIENT WAS SENT TO THE RECOVERY ROOM. THE PATIENT WAS MOVING THE EXTREMITIES AND DOING WELL. THERE WAS NO COMPLICATION DURING THE PROCEDURE. FLUOROSCOPY TIME WAS 7 SECONDS POST PROCEDURE NOTE THE PATIENT WILL BE SEEN IN A FOLLOW UP IN THE NEXT FEW WEEKS. INSTRUCTIONS WERE GIVEN, QUESTIONS WERE ANSWERED, AND THE PATIENT EXPRESSED UNDERSTANDING AND AGREED WITH THE PLAN. I, YUMI ALMENDAREZ, DOCUMENTED THE ABOVE INFORMATION ACTING A SCRIBE FOR DR. QUINTANA. I HAVE REVIEWED THE ABOVE DOCUMENT, WRITTEN BY YUMI SINGLETON AND I VERIFY THAT IT IS ACCURATE. DIAGNOSTIC IMAGING [facility] FLUORO GUIDANCE (PAIN)[id number] PROCEDURE CODES 6045F RADXPS IN END [id number] PXD [id number] INJECT SACROILIAC JOINT, MODIFIERS: RT DISPOSITION & COMMUNICATION FOLLOW UP 3 WEEKS ELECTRONICALLY SIGNED BY LOTUS QUINTANA MD, MD ON 11/16/2018 AT 02:53 PM EST DISCLAIMER : THIS IS A VISIT SUMMARY EXTRACTED FROM THE [employer] CHART. IT IS NOT A COPY OF THE [employer] PROGRESS NOTE. MTDD
== END ==
LOC: M PAIN 11:00
PROVIDERS: ATTEND Anesthesiology
DX: G89.29 Other chronic pain (principal); M46.1 Sacroiliitis, not elsewhere classified; M53.88 Other specified dorsopathies, sacral and sacrococcygeal region; G47.33 Obstructive sleep apnea (adult) (pediatric); E78.5 Hyperlipidemia, unspecified; J32.9 Chronic sinusitis, unspecified; K21.9 Gastro-esophageal reflux disease without esophagitis; F32.9 Major depressive disorder, single episode, unspecified; M79.7 Fibromyalgia; J30.9 Allergic rhinitis, unspecified; D72.819 Decreased white blood cell count, unspecified; M16.12 Unilateral primary osteoarthritis, left hip; Z79.82 Long term (current) use of aspirin; Z79.899 Other long term (current) drug therapy; Z88.1 Allergy status to other antibiotic agents; Z88.2 Allergy status to sulfonamides; Z88.5 Allergy status to narcotic agent; Z88.8 Allergy status to other drugs, medicaments and biological substances; Z86.32 Personal history of gestational diabetes
CPT/HCPCS: G0260; J3301; Q9967

== ENCOUNTER → 2018-12-01 | Outpatient (CLI) | payer OTHER ==
[~2018-12-01] MED LIST changes: -BUPIVACAINE HCL 0.25% 30 ML VIAL As Ordered ONE; -ISOVUE-M 300 61% 15ML VIAL (Q9967) As Ordered ONE; -LIDOCAINE 1% SDV INJ 30 ML VIAL As Ordered ONE; -TRIAMCINOLONE ACETONIDE SUSP 40 MG/ML VIAL (J3301) As Ordered ONE; -diazePAM 5 MG TAB As Ordered ONE
--- NOTE | 2018-12-16 00:18 | ECWPNPC ---
PATIENT NAME: RENEE JACOBSEN : 1940 GENDER: FEMALE VISIT DATE: 12/01/2018 DISCHARGE DATE: 12/01/18 1509 VISIT LOCKED DATE TIME: PHYSICIAN: HECTOR DOAN RESOURCE: HECTOR DOAN REASON FOR APPOINTMENT 1. POST PROC HISTORY OF PRESENT ILLNESS HISTORY OF PRESENT ILLNESS: HERE FOR POST PROCEDURE F/U.HAD RIGHT SIJ ON 11/02/18.DID WELL POST PROCEDURE AND CONTINUES TO BENEFIT TODAY.RATING PAIN VAS 3/10. PAIN THE PATIENT DESCRIBES THE PAIN... FALL RISK SCREENING: SCREENING :NO FALLS IN THE PAST YEAR CURRENT MEDICATIONS TAKING SALINE NASAL SPRAY 0.65 % SOLUTION 2 SRAYS IN EACH NOSTRIL NEEDED NASALLY EVERY 4 HRS NEEDED TAKING LOPERAMIDE HCL 2 MG CAPSULE 1 CAPSULE ORALLY ONCE A DAY TAKING OMEPRAZOLE 20 MG CAPSULE DELAYED RELEASE 1 CAPSULE ORALLY DAILY TAKING VITAMIN C 250 MG TABLET 1 TAB(S) ORALLY DAILY TAKING VITAMIN D3 2000 UNIT CAPSULE 1 CAPSULE ORALLY ONCE A DAY TAKING ACIDOPHILUS 10 MG CAPSULE DIRECTED ORALLY BID TAKING CALCIUM 600+D HIGH POTENCY 600-400 MG-UNIT TABLET 1 TABLET ORALLY ONCE A DAY TAKING VITAMIN B12 1000 MCG TABLET 1 TABLET ORALLY ONCE A DAY TAKING SIMVASTATIN 20 MG TABLET 1 TAB ORALLY DAILY IN THE EVENING TAKING NAPROXEN 250 MG TABLET 1 TABLET WITH FOOD OR MILK ORALLY TWICE A DAY TAKING ASPIR-81 81 MG TABLET DELAYED RELEASE 1 TABLET ORALLY ONCE A DAY TAKING TYLENOL 500MGS 1 TAB ORAL EVERY 4 HOURS NEEDED TAKING VITAMIN E 200 UNIT CAPSULE 1 CAPSULE ORALLY ONCE A DAY TAKING GLUCOSAMINE 1500 COMPLEX - CAPSULE ORALLY TAKING IBUPROFEN 200 MGS 1-2 TAB ORAL FOUR TIMES DAILY NEEDED TAKING FLONASE 50 MCG/ACT SUSPENSION 1 SPRAY IN EACH NOSTRIL NASALLY ONCE A DAY TAKING BUPROPION HCL 150 MG TABLET EXTENDED RELEASE ORALLY DAILY TAKING ASTELIN 2 SPRAYS EACH NOSTRIL ONCE DAILY TAKING RANITIDINE ACID MILLWRIGHT SUPERVISOR 75 MG TABLET 1 TABLET NEEDED ORALLY DAILY NOT-TAKING CARAFATE 1 GM TABLET 1 TABLET ON AN EMPTY STOMACH ORALLY THREE TIMES A DAY NOT-TAKING DYMISTA 137-50 MCG/ACT SUSPENSION 1 SPRAY, TO BOTH NOSTRILS NASALLY TWICE A DAY NOT-TAKING PROTONIX 40 MG TABLET DELAYED RELEASE 1 TABLET ORALLY BID NOT-TAKING CARAFATE 1 GM TABLET 1 TABLET ON AN EMPTY STOMACH ORALLY THREE TIMES A DAY NOT-TAKING REPLENS - GEL DIRECTED VAGINAL , NOTES: HAVEN'T GOTTEN YET MEDICATION LIST REVIEWED AND RECONCILED WITH THE PATIENT PAST MEDICAL HISTORY ALLERGIC RHINITIS/CONJUNCTIVITIS/CHRONIC RECURRENT SINUSITIS-01/2015 - ZONE 1, IGE <3.6 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 BY NOVEMBER 2010 CT/GRADE 1 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 X-RAY BILATERAL HAND OSTEOARTHRITIS-2007 NEGATIVE RHEUMATOLOGICAL WORKUP IMANI-02/2012 NPSG C RDI 25-ALLEN HYPERLIPIDEMIA 2B GERD-08/2014 NORMAL EGD-REINDL 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[address] OF THE PELVIS STONE PROTOCOL AND RENAL ULTRASOUND BILATERAL DEPRESSION FIBROMYALGIA ALLERGIC RHINITIS/CONJUNCTIVITIS IMPAIRED FASTING GLUCOSE LEUKOPENIA, 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, CHRONIC 2 SMALL ADENOMATOUS POLYPS, DIVERTICULOSIS, SIGMOID, 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-06/2011-REINDL MODERATE SIGMOID DIVERTICULOSIS-REINDL L HIP MILD OA BY 08/2013 XRAY ALLERGIES AVELOX: LEGS SHAKEY: SIDE EFFECTS CYMBALTA: NAUSEA/VOMITING: SIDE EFFECTS DOXYCYCLINE HYCLATE: INEFFECTIVE: SIDE EFFECTS PROZAC: FATIGUE: SIDE EFFECTS ZITHROMAX: DIARRHEA: SIDE EFFECTS SULFA (FOR ALLERGY USE ONLY): RASH: ALLERGY CODEINE SULFATE: NAUSEA/VOMITING: SIDE EFFECTS SURGICAL HISTORY BILATERAL BLEPHAROPLASTY-BRAD 09/2010 DEVIATED SEPTUM REPAIR TUBAL LIGATION KIDNEY STONE LASER COLONOSCOPY 08/2014 FAMILY HISTORY FATHER: 53 YRS, UNKNOWN CAUSE MOTHER: 96 YRS, LUNG CA, OSTEOPOROSIS, NO HIP FX. 1 BROTHER(S) , 2 SISTER(S) . 1 SON(S) , 2 DAUGHTER(S) - HEALTHY. DENIES FAMILY HX OF BREAST, COLON OR OVARIAN CANCER. DENIES FAMILY HX OF BREAST, COLON OR OVARIAN CANCER. SOCIAL HISTORY GENERAL: TOBACCO USE ARE YOU A:NONSMOKER ALCOHOL SCREENING DID YOU HAVE A DRINK CONTAINING ALCOHOL IN THE PAST YEAR?YES HOW OFTEN DID YOU HAVE A DRINK CONTAINING ALCOHOL IN THE PAST YEAR?MONTHLY OR LESS (1 POINT) HOW MANY DRINKS DID YOU HAVE ON A TYPICAL DAY WHEN YOU WERE DRINKING IN THE PAST YEAR?3 OR 4 (1 POINT) HOW OFTEN DID YOU HAVE SIX OR MORE DRINKS ON ONE OCCASION IN THE PAST YEAR?NEVER (0 POINTS) POINTS2 INTERPRETATIONNEGATIVE RECREATIONAL DRUG USE DRUG USE?NO CAFFEINE DECAF COFFEE ONLY.. SEXUAL HX HAD SEX IN THE LAST 12 MONTHS (VAGINAL, ORAL, OR ANAL)?NO HAVE YOU EVER HAD AN STD?NO LMP:POST MENOPAUSE EPISCOPAL [id number] BUDDHISM LANGUAGE LANGUAGES SPOKEN:SETSWANA EDUCATION LEVEL OF EDUCATION:HIGH SCHOOL LEARNING BARRIERS / SPECIAL NEEDS CHANGE FROM LAST VISIT?NO BARRIERS TO LEARNING?NO HEARING IMPAIRED?NO VISION IMPAIRED?YES :CORRECTIVE LENSES COGNITIVELY IMPAIRED?NO READINESS TO LEARN?YES LEARNING PREFERENCES?NO LEARNING CAPABILITIES PRESENT?YES EMOTIONAL BARRIERS?NO SPECIAL DEVICES?NO DOMESTIC VIOLENCE DENIES. DIET: "TERRIBLE". EATS TOO MUCH DESSERT.. MARITAL STATUS: . OTHERS AT HOME: NONE. PAIN CLINIC PFS, CLERGY, PUBLIC HEALTH REFERRALS WAS THE PROVIDER NOTIFIED OF ANY PERTINENT INFO?YES HAS THE PATIENT BEEN EDUCATED REGARDING HIS/HER PLAN OF CARE?YES HAS THE PATIENT BEEN EDUCATED REGARDING PAIN, THE RISK FOR PAIN, THE IMPORTANCE OF EFFECTIVE PAIN MANAGEMENT, AND THE PAIN ASSESSMENT PROCESS?YES ADVANCE DIRECTIVE ADVANCE DIRECTIVE DISCUSSED WITH PATIENT:YES HCP JOHN DIXON [phone] REVIEWED WITH PATIENT 08/03/18 1144 11/02/18 REVIEWED WITH PT. AD. HOSPITALIZATION/MAJOR DIAGNOSTIC PROCEDURE ABOVE REVIEW OF SYSTEMS REVIEWED BY: PROVIDER: HECTOR MATTHEWS . CONSTITUTIONAL: ANY CHANGE IN YOUR MEDICAL CONDITION? NO . CHILLS NO . FEVER NO . INFECTION: DO YOU HAVE NEW INFECTIONS? NO . DO YOU HAVE HISTORY OF MRSA? NO . MUSCULOSKELETAL: ANY NEW PATTERNS OF PAIN OR NUMBNESS? NO . GASTROENTEROLOGY: ANY NEW CHANGE IN BOWEL CONTROL? NO . GENITOURINARY: ANY NEW CHANGE IN BLADDER CONTROL? NO . IS THERE A CHANCE YOU COULD BE ? NO . HEMATOLOGY/LYMPH: DO YOU TAKE ANY BLOOD THINNERS? (FOR EXAMPLE- COUMADIN, PLAVIX, AGGRENOX, PLATEL, PRADAXA, OR XARELTO) NO . WHEN WAS YOUR LAST DOSE? DATE: TIME: . NEUROLOGY: HAVE YOU FALLEN IN THE PAST 12 MONTHS? NO . ANY NEW EXTREMITY NUMBNESS OR WEAKNESS? NO . CARDIOLOGY: DO YOU HAVE A PACEMAKER OR DEFIBRILLATOR? NO . RESPIRATORY: HAVE YOU BEEN SICK IN THE PAST WEEK? NO . FEVER NO . FLU LIKE SYMPTOMS? NO . COUGH NO . INTEGUMENTARY: DO YOU HAVE ANY RASHES OR OPEN SORES? NO . ALLERGIC/IMMUNO: ARE YOU ALLERGIC TO IV DYE? NO . ANY NEW ALLERGIES? NO . PSYCHIATRIC: DO YOU HAVE THOUGHTS OF HURTING YOURSELF OR SOMEONE ELSE? NO . ARE YOU ABUSED, NEGLECTED, OR IN AN UNSAFE ENVIRONMENT? NO . ENDOCRINOLOGY: ARE YOU DIABETIC? NO . OTHER: DO YOU NEED ANY PRESCRIPTIONS? NO . IF YES, PLEASE LIST: ____ . ANY NEW PROBLEMS WITH YOUR MEDICATIONS? NO . WHEN DID YOU LAST EAT? ____ . WHEN DID YOU LAST DRINK? ____ . WHAT DID YOU LAST DRINK? ____ . NAME OF PERSON DRIVING YOU HOME? ____ . DO YOU HAVE ANY OTHER QUESTIONS OR CONCERNS PT STATES THAT SHE WAS EXPERIENCING LOW BACK PAIN DUE TO SHOVELING AND PROLONGED SITTING, PAIN HAS FINALLY DECREASED SLIGHTLY TODAY. DS . VITAL SIGNS WT 146.8 LBS, HT 61 IN, BMI 27.73 INDEX, BP 135/68 MM HG, HR 76 /MIN, RR 18 /MIN, TEMP 97.3 F, OXYGEN SAT % 95%, SAFE IN ENV? (Y/N) Y, NA INITIALS AW 1404, REVIEWED BY: AMY. EXAMINATION GENERAL EXAMINATION: GENERAL APPEARANCE:AWAKE,ALERT ,PLEAASANT . PSYCHAFFECT NORMAL . LUNGS:LUNG GROSS ARE CLEAR TO AUSCULTATION BILATERALLY. GOOD MOVEMENT OF AIR . HEART:S1, S2 IN A REGULAR RATE AND RHYTHM. NO SIGNIFICANT MURMURS, RUBS OR GALLOPS NOTED . ASSESSMENTS SACROILIITIS, NOT ELSEWHERE CLASSIFIED - M46.1 (PRIMARY) TREATMENT SACROILIITIS, NOT ELSEWHERE CLASSIFIED NOTES: CONTINUE HOME WALKING AND STRETCHING EXCERSISES. PROCEDURE CODES FA211 ESTABILISHED PATIENT [facility] CHARGE DISPOSITION & COMMUNICATION FOLLOW UP 3 MONTHS ELECTRONICALLY SIGNED BY BYRON WHITTAKER ON 12/15/2018 AT 03:41 PM EST DISCLAIMER : THIS IS A VISIT SUMMARY EXTRACTED FROM THE [employer] CHART. IT IS NOT A COPY OF THE [employer] PROGRESS NOTE. JOZEF
== END ==
LOC: M PAIN 14:15
PROVIDERS: ATTEND Nurse Practitioner Family
DX: M46.1 Sacroiliitis, not elsewhere classified (principal); J30.9 Allergic rhinitis, unspecified; M51.36 Other intervertebral disc degeneration, lumbar region; M19.041 Primary osteoarthritis, right hand; M19.042 Primary osteoarthritis, left hand; E78.5 Hyperlipidemia, unspecified; K21.9 Gastro-esophageal reflux disease without esophagitis; G47.33 Obstructive sleep apnea (adult) (pediatric); F32.9 Major depressive disorder, single episode, unspecified; M79.7 Fibromyalgia; R73.01 Impaired fasting glucose; H10.45 Other chronic allergic conjunctivitis; Z79.82 Long term (current) use of aspirin; Z79.899 Other long term (current) drug therapy; Z88.1 Allergy status to other antibiotic agents; Z88.5 Allergy status to narcotic agent; Z88.8 Allergy status to other drugs, medicaments and biological substances

== ENCOUNTER → 2018-12-08 | Outpatient (CLI) | payer MEDICARE ==
[2018-12-08 11:52] LABS: APPEARANCE, URINE HAZY (CLEAR); BACTERIA, URINE AUTO 2+ (NEGATIVE); BILIRUBIN, URINE AUTO NEGATIVE (NEGATIVE); BLOOD, URINE BLOOD 1+ (NEGATIVE); COLOR, URINE YELLOW (YELLOW); GLUCOSE, URINE (UA) AUTO NEGATIVE (NEGATIVE); KETONE, URINE AUTO NEGATIVE (NEGATIVE); LEUKOCYTE ESTERASE, URINE AUTO 3+ (NEGATIVE); MUCUS, URINE SMALL (NEGATIVE); NITRITE, URINE AUTO POSITIVE (NEGATIVE); PROTEIN, URINE AUTO NEGATIVE (NEGATIVE); RBC, URINE AUTO 5 /HPF (0-3); SPECIFIC GRAVITY URINE AUTO 1.008 (1.002-1.035); SQUAMOUS EPITHELIAL CELL UR AU 0 /HPF (0-6); UROBILINOGEN, URINE AUTO 0.2 mg/dL (0.0-2.0); WBC, URINE AUTO 179 /HPF (0-3)
== END ==
LOC: M LAB 10:33
PROVIDERS: ATTEND Physician Assistant Medical
DX: R30.0 Dysuria (principal)

== ENCOUNTER 2018-12-24 18:48 | Emergency (ER) | payer MEDICARE ==
[~2018-12-24] VITALS: Ht 154.9 cm; Wt 65.9 kg
--- NOTE | 2018-12-24 19:52 | REP ---
Clinical: Cough . Comparison: 09/07/2012 . Technique: PA and lateral. Findings: The mediastinum and cardiac silhouette are normal. The lung rincon are clear and without acute consolidation, effusion, or pneumothorax. The skeletal structures are intact and normal. Impression: 1. No acute cardiopulmonary process. Electronically Signed by Teofilo Baca MD 12/24/2018 07:43 P
[2018-12-24] MEDS ORDERED: dexameTHASONE 20 MG/5 ML VIAL (J1100) IV ONE (20:00)
[2018-12-24] MEDS: IPRATROPIUM 0.5MG/ALBUTEROL 2.5MG INH SOL UD 3ML (DUONEB)(J7620) NEB SCH ×3 (20:21→22:09)
[2018-12-24] MEDS ORDERED: NS 500 ML IV ONE ×2 (21:00→22:15)
[2018-12-24] MEDS ORDERED: ACETAMINOPHEN 325 MG TAB PO ONE (21:00)
[2018-12-24 21:12] LABS: HEMATOCRIT 32.8 % (36.0-47.0); HEMOGLOBIN 11.4 g/dl (12.0-15.5); MEAN CORPUSCULAR HEMOGLOBIN 32.9 pg (27.0-33.0); MEAN CORPUSCULAR HGB CONC 34.8 g/dl (32.0-36.5); MEAN CORPUSCULAR VOLUME 94.5 fl (80.0-96.0); PLATELET COUNT, AUTOMATED 122 10^3/uL (150-450); RED BLOOD COUNT 3.47 10^6/uL (4.00-5.40); WHITE BLOOD COUNT 4.2 10^3/uL (4.0-10.0)
[2018-12-24 21:15] LABS: BLOOD UREA NITROGEN 21 MG/DL (7-18); CALCIUM LEVEL 8.2 MG/DL (8.8-10.2); CARBON DIOXIDE LEVEL 25 MEQ/L (21-32); CHLORIDE LEVEL 103 MEQ/L (98-107); CREATININE FOR GFR 0.53 MG/DL (0.55-1.30); GLOMERULAR FILTRATION RATE > 60.0 (>39); GLUCOSE, FASTING 108 MG/DL (70-100); POTASSIUM SERUM 3.9 MEQ/L (3.5-5.1); SODIUM LEVEL 138 MEQ/L (136-145)
[2018-12-24 21:43] LABS: ATYPICAL LYMPH 3 % (0-5); BASOPHILS 2 % (0-4); EOSINOPHILS 4 % (0-5); LYMPHOCYTES 15 % (16-52); MONOCYTES 5 % (0-8); NEUTROPHILS 71 % (35-75)
[2018-12-24 21:44] LABS: PLATELET ESTIMATE DECREASED (NORMAL)
[2018-12-24 22:22] LABS: APPEARANCE, URINE CLEAR (CLEAR); BACTERIA, URINE AUTO NEGATIVE (NEGATIVE); BILIRUBIN, URINE AUTO NEGATIVE (NEGATIVE); BLOOD, URINE BLOOD NEGATIVE (NEGATIVE); COLOR, URINE AMBER (YELLOW); GLUCOSE, URINE (UA) AUTO NEGATIVE (NEGATIVE); KETONE, URINE AUTO 1+ mg/dL (NEGATIVE); LEUKOCYTE ESTERASE, URINE AUTO TRACE (NEGATIVE); MUCUS, URINE MODERATE (NEGATIVE); NITRITE, URINE AUTO NEGATIVE (NEGATIVE); PROTEIN, URINE AUTO 1+ mg/dL (NEGATIVE); RBC, URINE AUTO 3 /HPF (0-3); SPECIFIC GRAVITY URINE AUTO 1.023 (1.002-1.035); SQUAMOUS EPITHELIAL CELL UR AU 2 /HPF (0-6); WBC, URINE AUTO 6 /HPF (0-3)
[2018-12-24] MEDS ORDERED: PRED20TA PO (22:31)
[2018-12-24 23:00] VITALS: BP 117/56
== END 2018-12-24 23:17 | disposition home or self-care (01) ==
LOC: M ED 18:48
DX: J20.9 Acute bronchitis, unspecified (principal); K21.9 Gastro-esophageal reflux disease without esophagitis; M79.7 Fibromyalgia; F33.9 Major depressive disorder, recurrent, unspecified; G89.29 Other chronic pain; M54.5 Low back pain; Z79.899 Other long term (current) drug therapy; Z79.82 Long term (current) use of aspirin; Z88.1 Allergy status to other antibiotic agents; Z88.2 Allergy status to sulfonamides; Z88.5 Allergy status to narcotic agent; Z88.8 Allergy status to other drugs, medicaments and biological substances
CPT/HCPCS: 71046; 80048; 81001; 85025; 87040; 87086; 94640; 96374; 99285; J1100

== ENCOUNTER → 2018-12-30 | Outpatient (CLI) | payer MEDICARE ==
[~2018-12-30] MED LIST changes: +PRED20TA PO
--- NOTE | 2018-12-30 12:35 | REP ---
CHEST, TWO VIEWS: Two views of the chest performed and compared to a prior study of 12/24/2018. There is no evidence of acute infiltrate, no change since the prior study. The heart is normal in size. There is calcification of the thoracic aorta. Mediastinal silhouette is unchanged. There are degenerative changes of the spine. IMPRESSION: No acute infiltrate. No change since the prior study. Electronically Signed by Vincent Hare MD 12/30/2018 05:06 P
[2018-12-30 17:11] LABS: BASO % 0.3 % (0.0-1.0); EOS # 0.1 10^3/uL (0.0-0.50); EOS % 0.9 % (0.0-3.0); HEMATOCRIT 35.1 % (36.0-47.0); HEMOGLOBIN 11.7 g/dl (12.0-15.5); LYMPH # 3.7 10^3/uL (1.5-4.5); LYMPH % 36.1 % (24.0-44.0); MEAN CORPUSCULAR HEMOGLOBIN 32.5 pg (27.0-33.0); MEAN CORPUSCULAR HGB CONC 33.3 g/dl (32.0-36.5); MEAN CORPUSCULAR VOLUME 97.5 fl (80.0-96.0); MONO % 9.7 % (0.0-5.0); NEUTROPHILS % 48.9 % (36.0-66.0); PLATELET COUNT, AUTOMATED 332 10^3/uL (150-450); WHITE BLOOD COUNT 10.3 10^3/uL (4.0-10.0)
[2018-12-30 17:17] LABS: ALBUMIN 3.4 GM/DL (3.2-5.2); ALT/SGPT 46 U/L (12-78); BILIRUBIN,TOTAL 0.5 MG/DL (0.2-1.0); BLOOD UREA NITROGEN 15 MG/DL (7-18); CALCIUM LEVEL 8.5 MG/DL (8.8-10.2); CARBON DIOXIDE LEVEL 29 MEQ/L (21-32); CHLORIDE LEVEL 103 MEQ/L (98-107); CREATININE FOR GFR 0.68 MG/DL (0.55-1.30); GLOMERULAR FILTRATION RATE > 60.0 (>39); GLUCOSE, FASTING 78 MG/DL (70-100); POTASSIUM SERUM 3.5 MEQ/L (3.5-5.1); SODIUM LEVEL 140 MEQ/L (136-145); TOTAL PROTEIN 6.5 GM/DL (6.4-8.2)
== END ==
LOC: M WUC 11:44
PROVIDERS: ATTEND Physician Assistant
DX: R05 Cough (principal)

== ENCOUNTER → 2019-01-11 | Outpatient (CLI) | payer MEDICARE ==
[2019-01-11 12:42] LABS: EOS # 0.1 10^3/uL (0.0-0.50); EOS % 2.9 % (0.0-3.0); HEMATOCRIT 35.2 % (36.0-47.0); HEMOGLOBIN 11.4 g/dl (12.0-15.5); LYMPH # 1.6 10^3/uL (1.5-4.5); LYMPH % 38.3 % (24.0-44.0); MEAN CORPUSCULAR HEMOGLOBIN 32.7 pg (27.0-33.0); MEAN CORPUSCULAR HGB CONC 32.4 g/dl (32.0-36.5); MEAN CORPUSCULAR VOLUME 100.9 fl (80.0-96.0); MONO # 0.4 10^3/uL (0.0-0.8); NEUTROPHILS % 48.3 % (36.0-66.0); PLATELET COUNT, AUTOMATED 155 10^3/uL (150-450); RED BLOOD COUNT 3.49 10^6/uL (4.00-5.40); WHITE BLOOD COUNT 4.2 10^3/uL (4.0-10.0)
--- NOTE | 2019-01-12 02:48 | REP ---
Clinical: Cough . Comparison: 12/30/2018 . Technique: PA and lateral. Findings: The mediastinum and cardiac silhouette are normal. The lung rincon are clear and without acute consolidation, effusion, or pneumothorax. The skeletal structures are intact and normal. Impression: 1. No acute cardiopulmonary process. Electronically Signed by Teofilo Baca MD 01/12/2019 02:39 A
== END ==
LOC: M LAB 12:17
PROVIDERS: ATTEND Physician Assistant
DX: R05 Cough (principal)

== ENCOUNTER → 2019-01-13 | Outpatient (CLI) | payer OTHER ==
[~2019-01-13] MED LIST changes: +FLON1SPR; +RANI-280 PO; +SIMV20TA2 PO
--- NOTE | 2019-01-28 00:52 | ECWPNPC ---
PATIENT NAME: RENEE JACOBSEN : 1940 GENDER: FEMALE VISIT DATE: 01/13/2019 DISCHARGE DATE: 01/13/19 1059 VISIT LOCKED DATE TIME: PHYSICIAN: HECTOR DOAN RESOURCE: HECTOR DOAN REASON FOR APPOINTMENT 1. BACK PAIN HISTORY OF PRESENT ILLNESS HISTORY OF PRESENT ILLNESS: HERE FOR F/U OF CHRONIC LOW BACK PAIN R>L.RATING LOW BACK PAIN 8/10.PAIN IS AGGREVATED BY WALKING AND RELIEVED AT REST.HE SHE HAS BEEN ILL LATELY.CURRENTLY BEING TREATED FOR E COLI UTI AND BRONCHITIS.HAS CLOSE F/U AND LABS PENDING WITH PRIMARY CARE. PAIN THE PATIENT DESCRIBES THE PAIN... FALL RISK SCREENING: SCREENING : NO FALLS IN THE PAST YEAR. CURRENT MEDICATIONS TAKING SALINE NASAL SPRAY 0.65 % SOLUTION 2 SRAYS IN EACH NOSTRIL NEEDED NASALLY EVERY 4 HRS NEEDED TAKING LOPERAMIDE HCL 2 MG CAPSULE 1 CAPSULE ORALLY ONCE A DAY TAKING OMEPRAZOLE 20 MG CAPSULE DELAYED RELEASE 1 CAPSULE ORALLY DAILY TAKING VITAMIN C 250 MG TABLET 1 TAB(S) ORALLY DAILY TAKING VITAMIN D3 2000 UNIT CAPSULE 1 CAPSULE ORALLY ONCE A DAY TAKING ACIDOPHILUS 10 MG CAPSULE DIRECTED ORALLY BID TAKING CALCIUM 600+D HIGH POTENCY 600-400 MG-UNIT TABLET 1 TABLET ORALLY ONCE A DAY TAKING VITAMIN B12 1000 MCG TABLET 1 TABLET ORALLY ONCE A DAY TAKING SIMVASTATIN 20 MG TABLET 1 TAB ORALLY DAILY IN THE EVENING TAKING NAPROXEN 250 MG TABLET 1 TABLET WITH FOOD OR MILK ORALLY TWICE A DAY TAKING ASPIR-81 81 MG TABLET DELAYED RELEASE 1 TABLET ORALLY ONCE A DAY TAKING TYLENOL 500MGS 1 TAB ORAL EVERY 4 HOURS NEEDED TAKING VITAMIN E 200 UNIT CAPSULE 1 CAPSULE ORALLY ONCE A DAY TAKING GLUCOSAMINE 1500 COMPLEX - CAPSULE ORALLY TAKING IBUPROFEN 200 MGS 1-2 TAB ORAL FOUR TIMES DAILY NEEDED TAKING FLONASE 50 MCG/ACT SUSPENSION 1 SPRAY IN EACH NOSTRIL NASALLY ONCE A DAY TAKING BUPROPION HCL 150 MG TABLET EXTENDED RELEASE ORALLY DAILY TAKING ASTELIN 2 SPRAYS EACH NOSTRIL ONCE DAILY TAKING RANITIDINE ACID MUSICAL THERAPIST 75 MG TABLET 1 TABLET NEEDED ORALLY DAILY TAKING PREDNISOLONE 5 MG (21) TABLET THERAPY PACK DIRECTED ORALLY , NOTES: FOR BRONCHITIS NOT-TAKING CARAFATE 1 GM TABLET 1 TABLET ON AN EMPTY STOMACH ORALLY THREE TIMES A DAY NOT-TAKING DYMISTA 137-50 MCG/ACT SUSPENSION 1 SPRAY, TO BOTH NOSTRILS NASALLY TWICE A DAY NOT-TAKING PROTONIX 40 MG TABLET DELAYED RELEASE 1 TABLET ORALLY BID NOT-TAKING CARAFATE 1 GM TABLET 1 TABLET ON AN EMPTY STOMACH ORALLY THREE TIMES A DAY NOT-TAKING REPLENS - GEL DIRECTED VAGINAL , NOTES: HAVEN'T GOTTEN YET MEDICATION LIST REVIEWED AND RECONCILED WITH THE PATIENT PAST MEDICAL HISTORY ALLERGIC RHINITIS/CONJUNCTIVITIS/CHRONIC RECURRENT SINUSITIS-01/2015 - ZONE 1, IGE < 3.6 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 BY NOVEMBER 2010 CT/GRADE 1 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 X-RAY BILATERAL HAND OSTEOARTHRITIS-2007 NEGATIVE RHEUMATOLOGICAL WORKUP IMANI-02/2012 NPSG C RDI 25-ALLEN HYPERLIPIDEMIA 2B GERD-08/2014 NORMAL EGD-REINDL 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[address] OF THE PELVIS STONE PROTOCOL AND RENAL ULTRASOUND BILATERAL DEPRESSION FIBROMYALGIA ALLERGIC RHINITIS/CONJUNCTIVITIS IMPAIRED FASTING GLUCOSE LEUKOPENIA, 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, CHRONIC 2 SMALL ADENOMATOUS POLYPS, DIVERTICULOSIS, SIGMOID, 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-06/2011-REINDL/08/2014 MODERATE SIGMOID DIVERTICULOSIS-REINDL L HIP MILD OA BY 08/2013 XRAY 11/2018 ECOLI IN URINE 12/2018 BRONCHITIS ALLERGIES AVELOX: LEGS SHAKEY - SIDE EFFECTS CYMBALTA: NAUSEA/VOMITING - SIDE EFFECTS DOXYCYCLINE HYCLATE: INEFFECTIVE - SIDE EFFECTS PROZAC: FATIGUE - SIDE EFFECTS ZITHROMAX: DIARRHEA - SIDE EFFECTS SULFA (FOR ALLERGY USE ONLY): RASH - ALLERGY CODEINE SULFATE: NAUSEA/VOMITING - SIDE EFFECTS SURGICAL HISTORY BILATERAL BLEPHAROPLASTY-BRAD 09/2010 DEVIATED SEPTUM REPAIR TUBAL LIGATION KIDNEY STONE LASER COLONOSCOPY 08/2014 FAMILY HISTORY FATHER: 53 YRS, UNKNOWN CAUSE MOTHER: 96 YRS, LUNG CA, OSTEOPOROSIS, NO HIP FX. 1 BROTHER(S) , 2 SISTER(S) . 1 SON(S) , 2 DAUGHTER(S) - HEALTHY. DENIES FAMILY HX OF BREAST, COLON OR OVARIAN CANCER. DENIES FAMILY HX OF BREAST, COLON OR OVARIAN CANCER. SOCIAL HISTORY GENERAL: TOBACCO USE ARE YOU A:NONSMOKER LATEX QUESTIONNAIRE LATEX ALLERGY : HAVE YOU EVER DEVELOPED ANY TYPE OF REACTION AFTER HANDLING LATEX PRODUCTS SUCH RUBBER GLOVES, CONDOMS, DIAPHRAGMS, BALLOONS, SOCKS, OR UNDERWEAR?NO LATEX ALLERGY : HAVE YOU EVER DEVELOPED ANY TYPE OF REACTION DURING OR AFTER DENTAL APPOINTMENT, VAGINAL/RECTAL EXAMINATION, SURGICAL PROCEDURE, OR ANY OTHER EXPOSURE?NO LATEX RISK : HAVE YOU EVER HAD ANY DIFFICULTY BREATHING OR HIVES AFTER EATING OR HANDLING ANY FRUITS, OR VEGETABLES; SUCH KIWI, BANANAS, STONE FRUITS, OR CHESTNUTSNO LATEX RISK : DO YOU HAVE A PREVIOUS PERSONAL HISTORY OF MORE THAN NINE SURGERIES, SPINA BIFIDA, OR REPEATED CATHERTIZATIONS? NO LATEX RISK : ARE YOU FREQUENTLY EXPOSED TO LATEX PRODUCTS IN YOUR OCCUPATION?NO DATE ASKED : 01/13/2019 ALCOHOL SCREENING DID YOU HAVE A DRINK CONTAINING ALCOHOL IN THE PAST YEAR?YES HOW OFTEN DID YOU HAVE A DRINK CONTAINING ALCOHOL IN THE PAST YEAR?MONTHLY OR LESS (1 POINT) HOW MANY DRINKS DID YOU HAVE ON A TYPICAL DAY WHEN YOU WERE DRINKING IN THE PAST YEAR?3 OR 4 (1 POINT) HOW OFTEN DID YOU HAVE SIX OR MORE DRINKS ON ONE OCCASION IN THE PAST YEAR?NEVER (0 POINTS) POINTS2 INTERPRETATIONNEGATIVE RECREATIONAL DRUG USE DRUG USE?NO CAFFEINE DECAF COFFEE ONLY.. SEXUAL HX HAD SEX IN THE LAST 12 MONTHS (VAGINAL, ORAL, OR ANAL)?NO HAVE YOU EVER HAD AN STD?NO LMP:POST MENOPAUSE PROTESTANT PREUASRE85 LATTER DAY LANGUAGE LANGUAGES SPOKEN:CONGOLESE EDUCATION LEVEL OF EDUCATION:HIGH SCHOOL LEARNING BARRIERS / SPECIAL NEEDS CHANGE FROM LAST VISIT?NO BARRIERS TO LEARNING?NO HEARING IMPAIRED?NO VISION IMPAIRED?YES :CORRECTIVE LENSES COGNITIVELY IMPAIRED?NO READINESS TO LEARN?YES LEARNING PREFERENCES?NO LEARNING CAPABILITIES PRESENT?YES EMOTIONAL BARRIERS?NO SPECIAL DEVICES?NO DOMESTIC VIOLENCE DENIES. DIET: "TERRIBLE". EATS TOO MUCH DESSERT.. MARITAL STATUS: . OTHERS AT HOME: NONE. PAIN CLINIC PFS, CLERGY, PUBLIC HEALTH REFERRALS WAS THE PROVIDER NOTIFIED OF ANY PERTINENT INFO?YES HAS THE PATIENT BEEN EDUCATED REGARDING HIS/HER PLAN OF CARE?YES HAS THE PATIENT BEEN EDUCATED REGARDING PAIN, THE RISK FOR PAIN, THE IMPORTANCE OF EFFECTIVE PAIN MANAGEMENT, AND THE PAIN ASSESSMENT PROCESS?YES ADVANCE DIRECTIVE ADVANCE DIRECTIVE DISCUSSED WITH PATIENT:YES HCP JOHN DIXON [phone] REVIEWED WITH PATIENT 08/03/18 1144 JS11/02/18 REVIEWED WITH PT. AD. HOSPITALIZATION/MAJOR DIAGNOSTIC PROCEDURE ABOVE REVIEW OF SYSTEMS REVIEWED BY: PROVIDER: HECTOR MATTHEWS . CONSTITUTIONAL: ANY CHANGE IN YOUR MEDICAL CONDITION? YES, PT STATES THAT SHE HAD RECENT BLOOD WORK, IRON LEVELS AND B12 LEVELS ARE LOW . CHILLS NO . FEVER NO . INFECTION: DO YOU HAVE NEW INFECTIONS? YES, BRONCHITIS . DO YOU HAVE HISTORY OF MRSA? NO . MUSCULOSKELETAL: ANY NEW PATTERNS OF PAIN OR NUMBNESS? YES, RIGHT HIP PAIN HAS RETURNED . GASTROENTEROLOGY: ANY NEW CHANGE IN BOWEL CONTROL? NO . GENITOURINARY: ANY NEW CHANGE IN BLADDER CONTROL? NO . IS THERE A CHANCE YOU COULD BE ? NO . HEMATOLOGY/LYMPH: DO YOU TAKE ANY BLOOD THINNERS? (FOR EXAMPLE- COUMADIN, PLAVIX, AGGRENOX, PLATEL, PRADAXA, OR XARELTO) NO . WHEN WAS YOUR LAST DOSE? DATE: TIME: . NEUROLOGY: HAVE YOU FALLEN IN THE PAST 12 MONTHS? NO . ANY NEW EXTREMITY NUMBNESS OR WEAKNESS? NO . CARDIOLOGY: DO YOU HAVE A PACEMAKER OR DEFIBRILLATOR? NO . RESPIRATORY: HAVE YOU BEEN SICK IN THE PAST WEEK? 2 WEEKS AGO . FEVER NO . FLU LIKE SYMPTOMS? NO . COUGH NO . INTEGUMENTARY: DO YOU HAVE ANY RASHES OR OPEN SORES? NO . ALLERGIC/IMMUNO: ARE YOU ALLERGIC TO IV DYE? NO . ANY NEW ALLERGIES? NO . PSYCHIATRIC: DO YOU HAVE THOUGHTS OF HURTING YOURSELF OR SOMEONE ELSE? NO . ARE YOU ABUSED, NEGLECTED, OR IN AN UNSAFE ENVIRONMENT? NO . ENDOCRINOLOGY: ARE YOU DIABETIC? NO . OTHER: DO YOU NEED ANY PRESCRIPTIONS? NO . IF YES, PLEASE LIST: ____ . ANY NEW PROBLEMS WITH YOUR MEDICATIONS? NO . WHEN DID YOU LAST EAT? ____ . WHEN DID YOU LAST DRINK? ____ . WHAT DID YOU LAST DRINK? ____ . NAME OF PERSON DRIVING YOU HOME? ____ . DO YOU HAVE ANY OTHER QUESTIONS OR CONCERNS NO . VITAL SIGNS WT 145.0 LBS, HT 61 IN, BMI 27.39 INDEX, BP 162/75 MM HG, HR 69 /MIN, RR 18 /MIN, TEMP 97.8 F, OXYGEN SAT % 96%, SAFE IN ENV? (Y/N) Y, REVIEWED BY: AMY. EXAMINATION GENERAL EXAMINATION: GENERAL APPEARANCE:AWAKE,ALERT ,PLEAASANT . PSYCHAFFECT NORMAL . LUNGS:LUNG GROSS ARE CLEAR TO AUSCULTATION BILATERALLY. GOOD MOVEMENT OF AIR . HEART:S1, S2 IN A REGULAR RATE AND RHYTHM. NO SIGNIFICANT MURMURS, RUBS OR GALLOPS NOTED . ASSESSMENTS SACROILIITIS, NOT ELSEWHERE CLASSIFIED - M46.1 (PRIMARY) TREATMENT SACROILIITIS, NOT ELSEWHERE CLASSIFIED NOTES: CONTINUE CONSERVATIVE CARE FOR LOW BACK PAIN.CONTINUE CLOSE MONITORING WITH PRIMARY CARE FOR CURRENT UNSTABLE MEDICAL CONDITIONS. PROCEDURE CODES FA211 ESTABILISHED PATIENT [facility] CHARGE DISPOSITION & COMMUNICATION FOLLOW UP 2 MONTHS ELECTRONICALLY SIGNED BY HECTOR MATTHEWS, BYRON ON 01/27/2019 AT 01:52 PM EDT DISCLAIMER : THIS IS A VISIT SUMMARY EXTRACTED FROM THE [employer] CHART. IT IS NOT A COPY OF THE [employer] PROGRESS NOTE. JOZEF
== END ==
LOC: M PAIN 10:15
PROVIDERS: ATTEND Nurse Practitioner Family
DX: M46.1 Sacroiliitis, not elsewhere classified (principal); G89.29 Other chronic pain; G47.33 Obstructive sleep apnea (adult) (pediatric); E78.5 Hyperlipidemia, unspecified; K21.9 Gastro-esophageal reflux disease without esophagitis; Z86.59 Personal history of other mental and behavioral disorders; M79.7 Fibromyalgia; R73.01 Impaired fasting glucose; Z88.1 Allergy status to other antibiotic agents; Z88.2 Allergy status to sulfonamides; Z88.5 Allergy status to narcotic agent; Z88.8 Allergy status to other drugs, medicaments and biological substances; Z79.1 Long term (current) use of non-steroidal anti-inflammatories (NSAID); Z79.82 Long term (current) use of aspirin; Z79.899 Other long term (current) drug therapy
CPT/HCPCS: 36415; 82607; 82728; 82746; 83550; G0463

== ENCOUNTER → 2019-01-17 | Outpatient (REF) | payer OTHER ==
[2019-01-17 12:41] LABS: FREE T4 1.19 NG/DL (0.76-1.46); THYROID STIMULATING HORMONE 1.24 uIU/ML (0.358-3.740)
== END ==
LOC: M LABDRAW1 10:22
PROVIDERS: ATTEND Physician Assistant Medical
DX: R53.83 Other fatigue (principal)

== ENCOUNTER 2019-01-20 17:44 | Emergency (ER) | payer MEDICARE, OTHER ==
[~2019-01-20] VITALS: Ht 157.5 cm; Wt 66.3 kg
[~2019-01-20 17:44] MED LIST changes: -FLON1SPR; -RANI-280 PO; -SIMV20TA2 PO
--- NOTE | 2019-01-20 19:13 | REPVR ---
EXAM: US Duplex Left Upper Extremity Veins, Limited EXAM DATE/TIME: 01/20/2019 6:17 PM CLINICAL HISTORY: 78 years old, female; Pain; Arn, upper; Left; Additional info: Left arm pain/swelling 3 weeks TECHNIQUE: Imaging protocol: Real-time Duplex ultrasound of the Left Upper Extremity with 2-D figueroa scale, color Doppler flow and spectral waveform analysis. Limited exam focused on the left upper extremity veins. COMPARISON: No relevant prior studies available. FINDINGS: Left deep veins: Unremarkable. Axillary and brachial veins are patent throughout without thrombus. Normal Doppler waveforms. Normal compressibility and/or augmentation response. Visualized internal jugular and subclavian veins are patent. Left superficial veins: Unremarkable. Visualized cephalic and basilic veins are patent without thrombus. Soft tissues: Unremarkable. IMPRESSION: No acute findings. No evidence of deep vein thrombosis. Electronically signed by: Melonie Richardson On 01/20/2019 19:13:24 PM
[2019-01-20] MEDS ORDERED: FLON1SPR (19:44)
[2019-01-20] MEDS ORDERED: SIMV20TA2 PO (19:46)
[2019-01-20] MEDS ORDERED: RANI-280 PO (19:46)
[2019-01-20 20:32] LABS: BASO % 0.6 % (0.0-1.0); EOS # 0.3 10^3/uL (0.0-0.50); EOS % 5.3 % (0.0-3.0); HEMATOCRIT 33.4 % (36.0-47.0); HEMOGLOBIN 11.2 g/dl (12.0-15.5); LYMPH # 2.1 10^3/uL (1.5-4.5); LYMPH % 40.5 % (24.0-44.0); MEAN CORPUSCULAR HEMOGLOBIN 33.3 pg (27.0-33.0); MEAN CORPUSCULAR HGB CONC 33.5 g/dl (32.0-36.5); MEAN CORPUSCULAR VOLUME 99.4 fl (80.0-96.0); MONO # 0.5 10^3/uL (0.0-0.8); MONO % 8.9 % (0.0-5.0); NEUTROPHILS # 2.3 10^3/uL (1.8-7.7); NEUTROPHILS % 43.7 % (36.0-66.0); PLATELET COUNT, AUTOMATED 196 10^3/uL (150-450); RED BLOOD COUNT 3.36 10^6/uL (4.00-5.40); WHITE BLOOD COUNT 5.3 10^3/uL (4.0-10.0)
[2019-01-20 20:49] LABS: INR 1.05; PROTHROMBIN TIME 13.8 SECONDS (12.1-14.4)
[2019-01-20 20:50] LABS: PARTIAL THROMBOPLASTIN TIME 24.5 SECONDS (25.4-37.6)
[2019-01-20 21:28] VITALS: BP 194/88
== END 2019-01-20 21:34 | disposition home or self-care (01) ==
LOC: M ED 17:44
DX: R58 Hemorrhage, not elsewhere classified (principal); M79.602 Pain in left arm; E78.5 Hyperlipidemia, unspecified; K21.9 Gastro-esophageal reflux disease without esophagitis; Z79.899 Other long term (current) drug therapy; Z86.2 Personal history of diseases of the blood and blood-forming organs and certain disorders involving the immune mechanism; Z88.2 Allergy status to sulfonamides; Z88.5 Allergy status to narcotic agent; Z88.1 Allergy status to other antibiotic agents; Z88.8 Allergy status to other drugs, medicaments and biological substances

== ENCOUNTER → 2019-01-24 | Outpatient (REF) | payer MEDICARE ==
[~2019-01-24] MED LIST changes: +FLON1SPR; +RANI-280 PO; +SIMV20TA2 PO
== END ==
LOC: M LAB REF 18:12
PROVIDERS: ATTEND Otolaryngology
DX: J32.0 Chronic maxillary sinusitis (principal)

== ENCOUNTER → 2019-01-26 | Outpatient (CLI) | payer MEDICARE ==
--- NOTE | 2019-01-26 14:24 | REP ---
LEFT HUMERUS, TWO VIEWS: HISTORY: Rotator cuff tear. There is no acute fracture or dislocation. The joint spaces are normal in appearance. IMPRESSION: There is no acute fracture or dislocation. Electronically Signed by Emil Freedman MD 01/26/2019 02:26 P
== END ==
LOC: M RAD 11:37
PROVIDERS: ATTEND Nurse Practitioner Family
DX: Z87.828 Personal history of other (healed) physical injury and trauma (principal)

== ENCOUNTER → 2019-02-04 | Outpatient (REF) | payer MEDICARE ==
[2019-02-08 00:06] LABS: Lyme Disease IgG/IgM Antibodie <0.91 ISR (0.00-0.90); Lyme Disease IgM Ab Quantitati <0.80 index (0.00-0.79)
== END ==
LOC: M LABDRAW1 16:45
PROVIDERS: ATTEND Physician Assistant Medical
DX: M25.50 Pain in unspecified joint (principal)

== ENCOUNTER 2019-02-18 16:39 | Emergency (ER) | payer MEDICARE ==
[~2019-02-18] VITALS: Ht 157.5 cm; Wt 66.4 kg
[2019-02-18] MEDS ORDERED: NS 1,000 ML IV ONE (19:00)
[2019-02-18] MEDS ORDERED: FOLI800C PO (19:02)
[2019-02-18] MEDS ORDERED: ZINC1TAB2 PO (19:02)
[2019-02-18] MEDS ORDERED: GINK1CAP PO (19:02)
[2019-02-18] MEDS ORDERED: VENTAER INH (19:02)
[2019-02-18] MEDS ORDERED: GNP1000T11 PO (19:02)
[2019-02-18] MEDS ORDERED: ZANTTAB PO (19:02)
--- NOTE | 2019-02-18 20:07 | REPVR ---
EXAM: US Duplex Left Lower Extremity Veins, Limited EXAM DATE/TIME: 02/18/2019 7:32 PM CLINICAL HISTORY: 78 years old, female; Pain; Leg, lower; Left; Additional info: Pain/swelling TECHNIQUE: Imaging protocol: Real-time Duplex ultrasound of the Left Lower Extremity with 2-D figueroa scale, color Doppler flow and spectral waveform analysis. Limited exam focused on the left lower extremity veins. COMPARISON: No relevant prior studies available. FINDINGS: Left deep veins: The common femoral, femoral, proximal profunda femoral and popliteal veins are patent without thrombus. Normal Doppler waveforms. Normal compressibility and/or augmentation response. Left superficial veins: Saphenofemoral junction is patent without thrombus. Soft tissues: No popliteal cyst. IMPRESSION: No evidence of deep venous thrombosis in the left common femoral to left popliteal veins. Electronically signed by: Teofilo Penn On 02/18/2019 20:07:11 PM
[2019-02-18 20:35] LABS: BASO % 0.9 % (0.0-1.0); EOS # 0.1 10^3/uL (0.0-0.50); EOS % 2.6 % (0.0-3.0); HEMATOCRIT 36.5 % (36.0-47.0); LYMPH # 1.9 10^3/uL (1.5-4.5); LYMPH % 41.2 % (24.0-44.0); MEAN CORPUSCULAR HEMOGLOBIN 32.9 pg (27.0-33.0); MEAN CORPUSCULAR HGB CONC 32.9 g/dl (32.0-36.5); MONO # 0.5 10^3/uL (0.0-0.8); MONO % 9.6 % (0.0-5.0); NEUTROPHILS # 2.1 10^3/uL (1.8-7.7); NEUTROPHILS % 45.5 % (36.0-66.0); PLATELET COUNT, AUTOMATED 227 10^3/uL (150-450); RED BLOOD COUNT 3.65 10^6/uL (4.00-5.40); WHITE BLOOD COUNT 4.7 10^3/uL (4.0-10.0)
[2019-02-18 20:55] LABS: INR 0.99; PARTIAL THROMBOPLASTIN TIME 25.8 SECONDS (25.4-37.6); PROTHROMBIN TIME 13.2 SECONDS (12.1-14.4)
[2019-02-18 21:08] LABS: ALT/SGPT 26 U/L (12-78); BILIRUBIN,DIRECT 0.2 MG/DL (0.0-0.2); BILIRUBIN,TOTAL 0.6 MG/DL (0.2-1.0); BLOOD UREA NITROGEN 15 MG/DL (7-18); C REACTIVE PROTEIN QUANTITATIV < 0.30 MG/DL (0.00-0.30); CARBON DIOXIDE LEVEL 27 MEQ/L (21-32); CHLORIDE LEVEL 110 MEQ/L (98-107); CPK CREATINE PHOSPHOKINASE 97 U/L (26-192); CREATININE FOR GFR 0.56 MG/DL (0.55-1.30); GLOMERULAR FILTRATION RATE > 60.0 (>39); GLUCOSE, FASTING 84 MG/DL (70-100); MB/CK RELATIVE INDEX 1.75 (< OR =4); POTASSIUM SERUM 4.1 MEQ/L (3.5-5.1); SODIUM LEVEL 142 MEQ/L (136-145); TOTAL PROTEIN 7.4 GM/DL (6.4-8.2); TROPONIN I < 0.02 NG/ML (< 0.10)
[2019-02-18 21:24] LABS: ERYTHROCYTE SEDIMENTATION RATE 23 mm/hr (0-30)
[2019-02-18 22:41] VITALS: BP 167/86
== END 2019-02-18 22:42 | disposition home or self-care (01) ==
LOC: M ED 16:39
DX: R60.0 Localized edema (principal); M79.605 Pain in left leg; E78.5 Hyperlipidemia, unspecified; G47.30 Sleep apnea, unspecified; K21.9 Gastro-esophageal reflux disease without esophagitis; F32.9 Major depressive disorder, single episode, unspecified; Z87.442 Personal history of urinary calculi; Z87.828 Personal history of other (healed) physical injury and trauma; Z79.82 Long term (current) use of aspirin; Z79.899 Other long term (current) drug therapy; Z88.8 Allergy status to other drugs, medicaments and biological substances; Z88.2 Allergy status to sulfonamides; Z88.1 Allergy status to other antibiotic agents; Z88.5 Allergy status to narcotic agent

== ENCOUNTER → 2019-02-22 | Outpatient (RCR) | payer MEDICARE ==
[~2019-02-22] MED LIST changes: +FOLI800C PO; +GINK1CAP PO; +GNP1000T11 PO; +VENTAER INH; +ZANTTAB PO; +ZINC1TAB2 PO
== END ==
LOC: M PT 01-27 09:40
PROVIDERS: ATTEND Orthopaedic Surgery
DX: M25.511 Pain in right shoulder (principal); M25.512 Pain in left shoulder

== ENCOUNTER → 2019-02-25 | Outpatient (CLI) | payer MEDICARE ==
--- NOTE | 2019-02-25 11:49 | REPMRS ---
Patient History The patient states she has not had a clinical breast exam in over a year. Patient is postmenopausal. No known family history of cancer. 3D TOMOSYNTHESIS WAS PERFORMED. Digital Woman Screen Mammo: February 25, 2019 - Exam #: [id number] Bilateral CC and MLO view(s) were taken. Technologist: Trudy Mcdonough, Technologist Prior study comparison: February 24, 2018, digital woman screen mammo performed at [facility]. February 23, 2017, digital woman screen mammo performed at [facility]. FINDINGS: There are scattered fibroglandular densities. There has been no change in the appearance of the mammogram from the prior studies. There is a mild amount of residual fibroglandular tissue which is fairly symmetric. There is no interval development of dominant mass, architectural distortion, or clustered microcalcification suggestive of malignancy. Assessment: BI-RADS/ACR category 1 mammogram. Negative Mammogram. Recommendation Routine screening mammogram in 1 year (for women over age 40). This mammogram was interpreted with the aid of an FDA-approved computer-aided dectection system. Electronically Signed By: Vincent Hare MD 02/25/19 0575
== END ==
LOC: M WHC 08:24
PROVIDERS: ATTEND Physician Assistant Medical
DX: Z12.31 Encounter for screening mammogram for malignant neoplasm of breast (principal); Z78.0 Asymptomatic menopausal state

== ENCOUNTER 2019-03-03 09:29 | Outpatient (RCR) | payer MEDICARE | END 2019-03-25 | LOC: M PT 09:29 | PROVIDERS: ATTEND Orthopaedic Surgery | DX: M25.511 Pain in right shoulder (principal); M25.512 Pain in left shoulder ==

== ENCOUNTER → 2019-03-16 | Outpatient (CLI) | payer MEDICARE ==
--- NOTE | 2019-03-16 16:13 | REP ---
Clinical: Left lower extremity pain . Technique: Hare scale and color Doppler evaluation using linear high frequency transducer. Findings: Ultrasound examination of the left lower extremity deep venous structures from the common femoral vein to the popliteal vein demonstrates normal compressibility flow and wave patterns in response to respiration and augmentation. There is no evidence for deep venous thrombosis. Impression: No evidence for deep venous thrombosis. Electronically Signed by Teofilo Baca MD 03/16/2019 04:04 P
== END ==
LOC: M RAD 15:20
PROVIDERS: ATTEND Surgery Vascular Surgery
DX: M79.605 Pain in left leg (principal)

== ENCOUNTER → 2019-03-23 | Outpatient (CLI) | payer OTHER ==
--- NOTE | 2019-04-04 00:39 | ECWPNPC ---
PATIENT NAME: RENEE JACOBSEN : 1940 GENDER: FEMALE VISIT DATE: 03/23/2019 DISCHARGE DATE: 03/23/19 1045 VISIT LOCKED DATE TIME: PHYSICIAN: HECTOR DOAN RESOURCE: HECTOR DOAN REASON FOR APPOINTMENT 1. BACK HISTORY OF PRESENT ILLNESS HISTORY OF PRESENT ILLNESS: HERE FOR F/U OF CHRONIC LOW BACK PAIN R>L.RATING LOW BACK PAIN 5/10.PAIN IS AGGREVATED BY WALKING AND RELIEVED AT REST.HE SHE HAS BEEN ILL LATELY.CURRENTLY BEING TREATED FOR E COLI UTI AND BRONCHITIS.HAS CLOSE F/U AND LABS PENDING WITH PRIMARY CARE. PAIN THE PATIENT DESCRIBES THE PAIN... THE PATIENT DESCRIBES THE PAIN... FALL RISK SCREENING: SCREENING :NO FALLS REPORTED IN THE LAST YEAR CURRENT MEDICATIONS TAKING SALINE NASAL SPRAY 0.65 % SOLUTION 2 SRAYS IN EACH NOSTRIL NEEDED NASALLY EVERY 4 HRS NEEDED TAKING LOPERAMIDE HCL 2 MG CAPSULE 1 CAPSULE ORALLY ONCE A DAY TAKING OMEPRAZOLE 20 MG CAPSULE DELAYED RELEASE 1 CAPSULE ORALLY DAILY TAKING VITAMIN C 250 MG TABLET 1 TAB(S) ORALLY DAILY TAKING VITAMIN D3 2000 UNIT CAPSULE 1 CAPSULE ORALLY ONCE A DAY TAKING ACIDOPHILUS 10 MG CAPSULE DIRECTED ORALLY BID TAKING CALCIUM 600+D HIGH POTENCY 600-400 MG-UNIT TABLET 1 TABLET ORALLY ONCE A DAY TAKING VITAMIN B12 1000 MCG TABLET 1 TABLET ORALLY ONCE A DAY TAKING SIMVASTATIN 20 MG TABLET 1 TAB ORALLY DAILY IN THE EVENING TAKING NAPROXEN 250 MG TABLET 1 TABLET WITH FOOD OR MILK ORALLY TWICE A DAY, NOTES: NEEDED TAKING TYLENOL 500MGS 1 TAB ORAL EVERY 4 HOURS NEEDED, NOTES: NEEDED TAKING VITAMIN E 200 UNIT CAPSULE 1 CAPSULE ORALLY ONCE A DAY TAKING GLUCOSAMINE 1500 COMPLEX - CAPSULE ORALLY TAKING IBUPROFEN 200 MGS 1-2 TAB ORAL FOUR TIMES DAILY NEEDED TAKING FLONASE 50 MCG/ACT SUSPENSION 1 SPRAY IN EACH NOSTRIL NASALLY ONCE A DAY TAKING ASTELIN 2 SPRAYS EACH NOSTRIL ONCE DAILY TAKING RANITIDINE ACID MEAT PUMPER 75 MG TABLET 1 TABLET NEEDED ORALLY DAILY TAKING CHERI 500 MG CAPSULE DIRECTED ORALLY TAKING MAY HAVE - - TUMERIC NOT-TAKING ASPIR-81 81 MG TABLET DELAYED RELEASE 1 TABLET ORALLY ONCE A DAY NOT-TAKING BUPROPION HCL 150 MG TABLET EXTENDED RELEASE ORALLY DAILY NOT-TAKING PREDNISOLONE 5 MG (21) TABLET THERAPY PACK DIRECTED ORALLY , NOTES: FOR BRONCHITIS NOT-TAKING CARAFATE 1 GM TABLET 1 TABLET ON AN EMPTY STOMACH ORALLY THREE TIMES A DAY NOT-TAKING DYMISTA 137-50 MCG/ACT SUSPENSION 1 SPRAY, TO BOTH NOSTRILS NASALLY TWICE A DAY NOT-TAKING PROTONIX 40 MG TABLET DELAYED RELEASE 1 TABLET ORALLY BID NOT-TAKING CARAFATE 1 GM TABLET 1 TABLET ON AN EMPTY STOMACH ORALLY THREE TIMES A DAY NOT-TAKING REPLENS - GEL DIRECTED VAGINAL , NOTES: HAVEN'T GOTTEN YET MEDICATION LIST REVIEWED AND RECONCILED WITH THE PATIENT PAST MEDICAL HISTORY ALLERGIC RHINITIS/CONJUNCTIVITIS/CHRONIC RECURRENT SINUSITIS-01/2015 - ZONE 1, IGE < 3.6 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 BY NOVEMBER 2010 CT/GRADE 1 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 X-RAY BILATERAL HAND OSTEOARTHRITIS-2007 NEGATIVE RHEUMATOLOGICAL WORKUP IMANI-02/2012 NPSG C RDI 25-ALLEN HYPERLIPIDEMIA 2B GERD-08/2014 NORMAL EGD-REINDL 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[address] OF THE PELVIS STONE PROTOCOL AND RENAL ULTRASOUND BILATERAL DEPRESSION FIBROMYALGIA ALLERGIC RHINITIS/CONJUNCTIVITIS IMPAIRED FASTING GLUCOSE LEUKOPENIA, 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, CHRONIC 2 SMALL ADENOMATOUS POLYPS, DIVERTICULOSIS, SIGMOID, 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-06/2011-REINDL//08/2014 MODERATE SIGMOID DIVERTICULOSIS-REINDL L HIP MILD OA BY 08/2013 XRAY 11/2018 ECOLI IN URINE 12/2018 BRONCHITIS ALLERGIES AVELOX: LEGS SHAKEY - SIDE EFFECTS CYMBALTA: NAUSEA/VOMITING - SIDE EFFECTS DOXYCYCLINE HYCLATE: INEFFECTIVE - SIDE EFFECTS PROZAC: FATIGUE - SIDE EFFECTS SULFA (FOR ALLERGY USE ONLY): RASH - ALLERGY CODEINE SULFATE: NAUSEA/VOMITING - SIDE EFFECTS SURGICAL HISTORY BILATERAL BLEPHAROPLASTY-BRAD 09/2010 DEVIATED SEPTUM REPAIR TUBAL LIGATION KIDNEY STONE LASER COLONOSCOPY 08/2014 FAMILY HISTORY FATHER: 53 YRS, UNKNOWN CAUSE MOTHER: 96 YRS, LUNG CA, OSTEOPOROSIS, NO HIP FX. 1 BROTHER(S) , 2 SISTER(S) . 1 SON(S) , 2 DAUGHTER(S) - HEALTHY. DENIES FAMILY HX OF BREAST, COLON OR OVARIAN CANCER. DENIES FAMILY HX OF BREAST, COLON OR OVARIAN CANCER. SOCIAL HISTORY GENERAL: TOBACCO USE ARE YOU A:NONSMOKER OTHERS AT HOME: NONE. EDUCATION LEVEL OF EDUCATION:HIGH SCHOOL DIET: "TERRIBLE". EATS TOO MUCH DESSERT.. LANGUAGE LANGUAGES SPOKEN:HUNGARIAN DOMESTIC VIOLENCE DENIES. RECREATIONAL DRUG USE DRUG USE?NO LEARNING BARRIERS / SPECIAL NEEDS CHANGE FROM LAST VISIT?NO BARRIERS TO LEARNING?NO HEARING IMPAIRED?NO VISION IMPAIRED?YES :CORRECTIVE LENSES COGNITIVELY IMPAIRED?NO READINESS TO LEARN?YES LEARNING PREFERENCES?NO LEARNING CAPABILITIES PRESENT?YES EMOTIONAL BARRIERS?NO SPECIAL DEVICES?NO PAIN CLINIC PFS, CLERGY, PUBLIC HEALTH REFERRALS WAS THE PROVIDER NOTIFIED OF ANY PERTINENT INFO?YES HAS THE PATIENT BEEN EDUCATED REGARDING HIS/HER PLAN OF CARE?YES HAS THE PATIENT BEEN EDUCATED REGARDING PAIN, THE RISK FOR PAIN, THE IMPORTANCE OF EFFECTIVE PAIN MANAGEMENT, AND THE PAIN ASSESSMENT PROCESS?YES LATEX QUESTIONNAIRE LATEX ALLERGY : HAVE YOU EVER DEVELOPED ANY TYPE OF REACTION AFTER HANDLING LATEX PRODUCTS SUCH RUBBER GLOVES, CONDOMS, DIAPHRAGMS, BALLOONS, SOCKS, OR UNDERWEAR?NO LATEX ALLERGY : HAVE YOU EVER DEVELOPED ANY TYPE OF REACTION DURING OR AFTER DENTAL APPOINTMENT, VAGINAL/RECTAL EXAMINATION, SURGICAL PROCEDURE, OR ANY OTHER EXPOSURE?NO LATEX RISK : HAVE YOU EVER HAD ANY DIFFICULTY BREATHING OR HIVES AFTER EATING OR HANDLING ANY FRUITS, OR VEGETABLES; SUCH KIWI, BANANAS, STONE FRUITS, OR CHESTNUTSNO LATEX RISK : DO YOU HAVE A PREVIOUS PERSONAL HISTORY OF MORE THAN NINE SURGERIES, SPINA BIFIDA, OR REPEATED CATHERTIZATIONS? NO LATEX RISK : ARE YOU FREQUENTLY EXPOSED TO LATEX PRODUCTS IN YOUR OCCUPATION?NO DATE ASKED : 01/13/2019 CAFFEINE DECAF COFFEE ONLY.. ADVANCE DIRECTIVE ADVANCE DIRECTIVE DISCUSSED WITH PATIENT:YES HCP JOHN DESTINY [phone] RASTAFARIAN [id number] ISLAM MARITAL STATUS: . ALCOHOL SCREENING DID YOU HAVE A DRINK CONTAINING ALCOHOL IN THE PAST YEAR?YES HOW OFTEN DID YOU HAVE A DRINK CONTAINING ALCOHOL IN THE PAST YEAR?MONTHLY OR LESS (1 POINT) HOW MANY DRINKS DID YOU HAVE ON A TYPICAL DAY WHEN YOU WERE DRINKING IN THE PAST YEAR?3 OR 4 (1 POINT) HOW OFTEN DID YOU HAVE SIX OR MORE DRINKS ON ONE OCCASION IN THE PAST YEAR?NEVER (0 POINTS) POINTS2 INTERPRETATIONNEGATIVE SEXUAL HX HAD SEX IN THE LAST 12 MONTHS (VAGINAL, ORAL, OR ANAL)?NO HAVE YOU EVER HAD AN STD?NO LMP:POST MENOPAUSE REVIEWED WITH PATIENT 08/03/18 1144 JS11/02/18 REVIEWED WITH PT. MARCIWED WITH PT 5/29/19 1017 BV. HOSPITALIZATION/MAJOR DIAGNOSTIC PROCEDURE ABOVE REVIEW OF SYSTEMS REVIEWED BY: PROVIDER: HECTOR MATTHEWS . CONSTITUTIONAL: ANY CHANGE IN YOUR MEDICAL CONDITION? YES, PT STATES SHE IS GOING TO PHYSICAL THERAPY FOR A PARTIAL LEFT SHOULDER TEAR. SHE WAS SENT THERE BY HER ORTHO DOCTOR. . CHILLS NO . FEVER NO . INFECTION: DO YOU HAVE NEW INFECTIONS? NO . DO YOU HAVE HISTORY OF MRSA? NO . MUSCULOSKELETAL: ANY NEW PATTERNS OF PAIN OR NUMBNESS? NO . GASTROENTEROLOGY: ANY NEW CHANGE IN BOWEL CONTROL? NO . GENITOURINARY: ANY NEW CHANGE IN BLADDER CONTROL? NO . IS THERE A CHANCE YOU COULD BE ? NO . HEMATOLOGY/LYMPH: DO YOU TAKE ANY BLOOD THINNERS? (FOR EXAMPLE- COUMADIN, PLAVIX, AGGRENOX, PLATEL, PRADAXA, OR XARELTO) NO . WHEN WAS YOUR LAST DOSE? DATE: TIME: . NEUROLOGY: HAVE YOU FALLEN IN THE PAST 12 MONTHS? NO . ANY NEW EXTREMITY NUMBNESS OR WEAKNESS? NO . CARDIOLOGY: DO YOU HAVE A PACEMAKER OR DEFIBRILLATOR? NO . RESPIRATORY: HAVE YOU BEEN SICK IN THE PAST WEEK? NO . FEVER NO . FLU LIKE SYMPTOMS? NO . COUGH NO . INTEGUMENTARY: DO YOU HAVE ANY RASHES OR OPEN SORES? NO . ALLERGIC/IMMUNO: ARE YOU ALLERGIC TO IV DYE? NO . ANY NEW ALLERGIES? NO . PSYCHIATRIC: DO YOU HAVE THOUGHTS OF HURTING YOURSELF OR SOMEONE ELSE? NO . ARE YOU ABUSED, NEGLECTED, OR IN AN UNSAFE ENVIRONMENT? NO . ENDOCRINOLOGY: ARE YOU DIABETIC? NO . OTHER: DO YOU NEED ANY PRESCRIPTIONS? NO . IF YES, PLEASE LIST: ____ . ANY NEW PROBLEMS WITH YOUR MEDICATIONS? NO . WHEN DID YOU LAST EAT? ____ . WHEN DID YOU LAST DRINK? ____ . WHAT DID YOU LAST DRINK? ____ . NAME OF PERSON DRIVING YOU HOME? ____ . DO YOU HAVE ANY OTHER QUESTIONS OR CONCERNS NO . VITAL SIGNS WT 144.0 LBS, HT 61 IN, BMI 27.21 INDEX, BP 176/80 MM HG, HR 72 /MIN, RR 18 /MIN, TEMP 97.7 F, OXYGEN SAT % 95%, NA INITIALS AW 1004, REVIEWED BY: BV. EXAMINATION GENERAL EXAMINATION: GENERAL APPEARANCE:AWAKE,ALERT ,PLEAASANT . PSYCHAFFECT NORMAL . LUNGS:LUNG GROSS ARE CLEAR TO AUSCULTATION BILATERALLY. GOOD MOVEMENT OF AIR . HEART:S1, S2 IN A REGULAR RATE AND RHYTHM. NO SIGNIFICANT MURMURS, RUBS OR GALLOPS NOTED . 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 PROCEDURE CODES FA211 ESTABILISHED PATIENT [facility] CHARGE DISPOSITION & COMMUNICATION FOLLOW UP 2 MONTHS ELECTRONICALLY SIGNED BY BYRON WHITTAKER ON 04/03/2019 AT 09:57 AM EDT DISCLAIMER : THIS IS A VISIT SUMMARY EXTRACTED FROM THE [employer] CHART. IT IS NOT A COPY OF THE [employer] PROGRESS NOTE. JOZEF
== END ==
LOC: M PAIN 09:45
PROVIDERS: ATTEND Nurse Practitioner Family
DX: M46.1 Sacroiliitis, not elsewhere classified (principal); M51.37 Other intervertebral disc degeneration, lumbosacral region; G89.29 Other chronic pain; G47.33 Obstructive sleep apnea (adult) (pediatric); E78.5 Hyperlipidemia, unspecified; K21.9 Gastro-esophageal reflux disease without esophagitis; Z86.59 Personal history of other mental and behavioral disorders; M79.7 Fibromyalgia; R73.01 Impaired fasting glucose; Z88.1 Allergy status to other antibiotic agents; Z88.2 Allergy status to sulfonamides; Z88.6 Allergy status to analgesic agent; Z88.8 Allergy status to other drugs, medicaments and biological substances; Z79.899 Other long term (current) drug therapy

== ENCOUNTER → 2019-04-05 | Outpatient (CLI) | payer MEDICARE ==
--- NOTE | 2019-04-05 13:19 | REP ---
Unilateral left lower extremity arterial Doppler ultrasound: History: Left leg pain. Findings: The ankle brachial index on the left is normal at 1.0. There is mild plaquing seen diffusely. No high-grade stenosis or occlusion is seen. Triphasic and biphasic waveforms are observed. Arterial Doppler velocity chart left lower extremity: Left CF A 89 cm/S Profunda 60 Proximal SFA 105 Mid SFA 90 Distal SFA 62 Popliteal 96 Proximal AT A 51 Tibioperoneal trunk 55 Proximal BRAIN PICKER 53 Distal BRAIN PICKER 57 Distal AT A 62 Electronically Signed by Power Cabrera MD 04/05/2019 01:11 P
== END ==
LOC: M RAD 11:52
PROVIDERS: ATTEND Surgery Vascular Surgery
DX: I70.212 Atherosclerosis of native arteries of extremities with intermittent claudication, left leg (principal); M79.606 Pain in leg, unspecified

== ENCOUNTER 2019-04-12 10:14 | Outpatient (RCR) | payer MEDICARE | END 2019-04-24 | LOC: M PT 10:14 | PROVIDERS: ATTEND Nurse Practitioner Family | DX: M25.511 Pain in right shoulder (principal); M25.512 Pain in left shoulder ==

== ENCOUNTER → 2019-04-20 | Outpatient (REF) | payer MEDICARE ==
[2019-04-20 18:17] LABS: APPEARANCE, URINE CLEAR (CLEAR); BACTERIA, URINE AUTO NEGATIVE (NEGATIVE); BILIRUBIN, URINE AUTO NEGATIVE (NEGATIVE); BLOOD, URINE BLOOD NEGATIVE (NEGATIVE); COLOR, URINE STRAW (YELLOW); GLUCOSE, URINE (UA) AUTO NEGATIVE (NEGATIVE); KETONE, URINE AUTO NEGATIVE (NEGATIVE); LEUKOCYTE ESTERASE, URINE AUTO TRACE (NEGATIVE); MUCUS, URINE SMALL (NEGATIVE); NITRITE, URINE AUTO NEGATIVE (NEGATIVE); PROTEIN, URINE AUTO NEGATIVE (NEGATIVE); RBC, URINE AUTO 1 /HPF (0-3); SQUAMOUS EPITHELIAL CELL UR AU 0 /HPF (0-6); UROBILINOGEN, URINE AUTO 0.2 mg/dL (0.0-2.0); WBC, URINE AUTO 1 /HPF (0-3)
== END ==
LOC: M LAB REF 17:16
PROVIDERS: ATTEND Physician Assistant
DX: R35.0 Frequency of micturition (principal)

== ENCOUNTER → 2019-04-20 | Outpatient (CLI) | payer MEDICARE ==
[2019-04-20 17:36] LABS: EOS # 0.1 10^3/uL (0.0-0.50); EOS % 2.9 % (0.0-3.0); HEMATOCRIT 35.8 % (36.0-47.0); HEMOGLOBIN 11.8 g/dl (12.0-15.5); LYMPH # 1.5 10^3/uL (1.5-4.5); MEAN CORPUSCULAR HEMOGLOBIN 33.8 pg (27.0-33.0); MEAN CORPUSCULAR VOLUME 102.6 fl (80.0-96.0); MONO # 0.4 10^3/uL (0.0-0.8); NEUTROPHILS # 2.1 10^3/uL (1.8-7.7); NEUTROPHILS % 49.9 % (36.0-66.0); PLATELET COUNT, AUTOMATED 189 10^3/uL (150-450); RED BLOOD COUNT 3.49 10^6/uL (4.00-5.40); WHITE BLOOD COUNT 4.2 10^3/uL (4.0-10.0)
[2019-04-20 18:15] LABS: IMMUNOGLOBULIN E < 3.6 IU/ML (<100); IMMUNOGLOBULIN G 797 MG/DL (681-1648); IMMUNOGLOBULIN M 26.5 MG/DL (40-230); RUBELLA IgG QUALITATIVE IMMUNE (IMMUNE)
== END ==
LOC: M SMT 11:41
PROVIDERS: ATTEND Allergy & Immunology Allergy
DX: J31.0 Chronic rhinitis (principal); D84.9 Immunodeficiency, unspecified; R35.0 Frequency of micturition

== ENCOUNTER → 2019-04-22 | Outpatient (CLI) | payer MEDICARE ==
[~2019-04-22] MED LIST changes: +CYAN100049 PO; +ISOVUE-370 76% 100ML VIAL (Q9967) As Ordered ONE; -VITA10002 PO; +ZANT150T40 PO; -ZANTTAB PO
[2019-04-22 16:51] LABS: BASO % 0.8 % (0.0-1.0); EOS # 0.1 10^3/uL (0.0-0.50); EOS % 2.2 % (0.0-3.0); HEMATOCRIT 38.5 % (36.0-47.0); HEMOGLOBIN 12.9 g/dl (12.0-15.5); LYMPH # 1.8 10^3/uL (1.5-4.5); LYMPH % 36.2 % (24.0-44.0); MEAN CORPUSCULAR HEMOGLOBIN 33.9 pg (27.0-33.0); MEAN CORPUSCULAR HGB CONC 33.5 g/dl (32.0-36.5); MEAN CORPUSCULAR VOLUME 101.3 fl (80.0-96.0); MONO # 0.5 10^3/uL (0.0-0.8); MONO % 9.3 % (0.0-5.0); NEUTROPHILS # 2.5 10^3/uL (1.8-7.7); NEUTROPHILS % 51.3 % (36.0-66.0); PLATELET COUNT, AUTOMATED 191 10^3/uL (150-450); WHITE BLOOD COUNT 4.9 10^3/uL (4.0-10.0)
[2019-04-22 17:18] LABS: ALBUMIN 4.3 GM/DL (3.2-5.2); ALT/SGPT 23 U/L (12-78); BILIRUBIN,TOTAL 0.3 MG/DL (0.2-1.0); BLOOD UREA NITROGEN 18 MG/DL (7-18); CALCIUM LEVEL 8.9 MG/DL (8.8-10.2); CARBON DIOXIDE LEVEL 29 MEQ/L (21-32); CHLORIDE LEVEL 108 MEQ/L (98-107); CREATININE FOR GFR 0.68 MG/DL (0.55-1.30); GLOMERULAR FILTRATION RATE > 60.0 (>39); GLUCOSE, FASTING 89 MG/DL (70-100); POTASSIUM SERUM 4.3 MEQ/L (3.5-5.1); SODIUM LEVEL 143 MEQ/L (136-145); TOTAL PROTEIN 7.6 GM/DL (6.4-8.2)
--- NOTE | 2019-04-22 17:57 | REP ---
Clinical: Right lower quadrant pain. Technique: Axial contrast enhanced images from the lung bases to the pubic symphysis using 100 ml Isovue 70 intravenous contrast material with coronal and sagittal re-formations. Comparison: 01/30/2015. Findings: Lung bases are clear. Visualized heart and pericardium within normal limits. Fatty infiltration to the liver noted without focal hepatic lesion. Spleen, atrophic pancreas, bilateral adrenal glands and kidneys are normal. Evidence of prior cholecystectomy. The enteric system is without obstruction or acute inflammatory process. Normal terminal ileum and appendix identified in the right lower quadrant. Colonic and sigmoid diverticulosis noted without acute diverticulitis. Pelvis demonstrates normal bladder and age-appropriate uterus/adnexa. No pelvic fluid or ascites. No free air. No adenopathy. Atherosclerotic changes to the aorta noted without aneurysm or dissection. Surrounding musculoskeletal structures demonstrate age-related degenerative changes without focal osseous abnormality. Impression: 1. No acute abdominopelvic pathology appreciated. 2. Normal appendix and right lower quadrant. 3. Sigmoid diverticulosis without acute diverticulitis. 4. No ascites, focal inflammatory stranding, or adenopathy. 5. Further chronic changes as noted above. Electronically Signed by Teofilo Baca MD 04/22/2019 05:48 P
== END ==
LOC: M RAD 16:34
PROVIDERS: ATTEND Physician Assistant
DX: K57.30 Diverticulosis of large intestine without perforation or abscess without bleeding (principal); K76.0 Fatty (change of) liver, not elsewhere classified
CPT/HCPCS: 36415; 74178; 80053; 85025; Q9967

== ENCOUNTER → 2019-04-22 | Outpatient (REF) | payer MEDICARE ==
[~2019-04-22] MED LIST changes: -CYAN100049 PO; -ISOVUE-370 76% 100ML VIAL (Q9967) As Ordered ONE; +VITA10002 PO; -ZANT150T40 PO; +ZANTTAB PO
== END ==
LOC: M LAB REF 10:06
PROVIDERS: ATTEND Physician Assistant
DX: R10.31 Right lower quadrant pain (principal)

== ENCOUNTER → 2019-05-11 | Outpatient (REF) | payer MEDICARE ==
[~2019-05-11] MED LIST changes: +CYAN100049 PO; -OMEP40CA2 PO; +OMEP40CA97 PO; -SIMV20TA2 PO; +SIMV20TA22 PO; -VITA10002 PO; +ZANT150T40 PO; -ZANTTAB PO
[2019-05-11 11:09] LABS: CHOLESTEROL RISK RATIO 2.579 (<5); PERCENT SATURATION 27.2 % (13.2-45.0)
[2019-05-11 11:19] LABS: FOLATE 19.6 NG/ML
== END ==
LOC: M LABDRAW1 07:34
PROVIDERS: ATTEND Physician Assistant Medical
DX: D64.9 Anemia, unspecified (principal); E78.2 Mixed hyperlipidemia

== ENCOUNTER → 2019-06-13 | Outpatient (CLI) | payer MEDICARE, OTHER ==
[~2019-06-13] MED LIST changes: +OMEP40CA2 PO; -OMEP40CA97 PO; +SIMV20TA2 PO; -SIMV20TA22 PO
--- NOTE | 2019-07-01 03:02 | ECWPNPC ---
PATIENT NAME: RENEE JACOBSEN : 1940 GENDER: FEMALE VISIT DATE: 06/13/2019 DISCHARGE DATE: 06/13/19 1136 VISIT LOCKED DATE TIME: PHYSICIAN: HECTOR DOAN RESOURCE: HECTOR DOAN DISCLAIMER : THIS IS A VISIT SUMMARY EXTRACTED FROM THE [facility] CH[facility]. IT IS NOT A COPY OF THE [employer] PROGRESS NOTE. MTDD
== END ==
LOC: M PAIN 10:45
PROVIDERS: ATTEND Nurse Practitioner Family
DX: M48.07 Spinal stenosis, lumbosacral region (principal); G89.29 Other chronic pain; Z79.899 Other long term (current) drug therapy; Z88.2 Allergy status to sulfonamides; Z88.5 Allergy status to narcotic agent; Z88.8 Allergy status to other drugs, medicaments and biological substances

== ENCOUNTER 2019-07-21 11:30 | Outpatient (RCR) | payer MEDICARE | END 2019-07-25 | LOC: M PT 11:30 | PROVIDERS: ATTEND Orthopaedic Surgery | DX: M25.512 Pain in left shoulder (principal) ==

== ENCOUNTER 2019-08-24 08:29 | Outpatient (RCR) | payer MEDICARE ==
[~2019-08-24 08:29] MED LIST changes: -OMEP40CA2 PO; +OMEP40CA97 PO
== END 2019-08-25 ==
LOC: M PT 08:29
PROVIDERS: ATTEND Orthopaedic Surgery
DX: M25.512 Pain in left shoulder (principal)

== ENCOUNTER → 2019-09-05 | Outpatient (REF) | payer MEDICARE | LOC: M SFHCWAGY 13:30 | PROVIDERS: ATTEND Nurse Practitioner Women's Health | DX: R10.30 Lower abdominal pain, unspecified (principal); R35.0 Frequency of micturition; N95.2 Postmenopausal atrophic vaginitis | CPT/HCPCS: 81002; 87070; G0463 ==

== ENCOUNTER → 2019-09-07 | Outpatient (CLI) | payer MEDICARE ==
[~2019-09-07] MED LIST changes: -SIMV20TA2 PO; +SIMV20TA22 PO
--- NOTE | 2019-09-27 02:45 | ECWPNPC ---
PATIENT NAME: RENEE JACOBSEN : 1940 GENDER: FEMALE VISIT DATE: 09/07/2019 DISCHARGE DATE: 09/07/19 1037 VISIT LOCKED DATE TIME: PHYSICIAN: HECTOR DOAN RESOURCE: HECTOR DOAN REASON FOR APPOINTMENT 1. BACK HISTORY OF PRESENT ILLNESS HISTORY OF PRESENT ILLNESS: HERE FOR F/U OF CHRONIC LOW BACK PAIN.CONTINUES TO HAVE PAIN WHEN AMBULATING MODERATE DISTANCE.RATING LBP 7/10 VAS.BRIEFLY DISCUSSED MILD PROCEDURE.SHE WOULD LIKE TO THINK ABOUT THIS AND F/U WITH ME IN A FEW MONTHS.SHE WOULD NEED A MRI UPDATE.SHE ALSO TELLS ME ABOUT SEVERE PAIN AND HYPERTENSION WITH LAST LESI HERE.SHE WOULD NEED IV SEDATION POSSIBLY. PAIN THE PATIENT DESCRIBES THE PAIN... FALL RISK SCREENING: SCREENING :NO FALLS REPORTED IN THE LAST YEAR CURRENT MEDICATIONS TAKING SALINE NASAL SPRAY 0.65 % SOLUTION 2 SRAYS IN EACH NOSTRIL NEEDED NASALLY EVERY 4 HRS NEEDED TAKING LOPERAMIDE HCL 2 MG CAPSULE 1 CAPSULE ORALLY ONCE A DAY TAKING OMEPRAZOLE 20 MG CAPSULE DELAYED RELEASE 1 CAPSULE ORALLY DAILY TAKING VITAMIN C 250 MG TABLET 1 TAB(S) ORALLY DAILY TAKING VITAMIN D3 2000 UNIT CAPSULE 1 CAPSULE ORALLY ONCE A DAY TAKING ACIDOPHILUS 10 MG CAPSULE DIRECTED ORALLY BID TAKING CALCIUM 600+D HIGH POTENCY 600-400 MG-UNIT TABLET 1 TABLET ORALLY ONCE A DAY TAKING VITAMIN B12 1000 MCG TABLET 1 TABLET ORALLY ONCE A DAY TAKING SIMVASTATIN 20 MG TABLET 1 TAB ORALLY DAILY IN THE EVENING TAKING TYLENOL 500MGS 1 TAB ORAL EVERY 4 HOURS NEEDED, NOTES: NEEDED TAKING IBUPROFEN 200 MGS 1-2 TAB ORAL FOUR TIMES DAILY NEEDED TAKING FLONASE 50 MCG/ACT SUSPENSION 1 SPRAY IN EACH NOSTRIL NASALLY ONCE A DAY TAKING ASTELIN 2 SPRAYS EACH NOSTRIL ONCE DAILY TAKING RANITIDINE ACID LEAD SEWAGE PLANT OPERATOR 75 MG TABLET 1 TABLET NEEDED ORALLY DAILY TAKING FOLIC ACID 800 MCG TABLET 1 TABLET ORALLY ONCE A DAY TAKING HAIR SKIN & NAILS ADVANCED - TABLET DIRECTED ORALLY NOT-TAKING NAPROXEN 250 MG TABLET 1 TABLET WITH FOOD OR MILK ORALLY TWICE A DAY, NOTES: NEEDED NOT-TAKING VITAMIN E 200 UNIT CAPSULE 1 CAPSULE ORALLY ONCE A DAY NOT-TAKING GLUCOSAMINE 1500 COMPLEX - CAPSULE ORALLY NOT-TAKING BUPROPION HCL 150 MG TABLET EXTENDED RELEASE ORALLY DAILY NOT-TAKING CHERI 500 MG CAPSULE DIRECTED ORALLY NOT-TAKING MAY HAVE - - TUMERIC NOT-TAKING ASPIR-81 81 MG TABLET DELAYED RELEASE 1 TABLET ORALLY ONCE A DAY NOT-TAKING PREDNISOLONE 5 MG (21) TABLET THERAPY PACK DIRECTED ORALLY , NOTES: FOR BRONCHITIS NOT-TAKING CARAFATE 1 GM TABLET 1 TABLET ON AN EMPTY STOMACH ORALLY THREE TIMES A DAY NOT-TAKING DYMISTA 137-50 MCG/ACT SUSPENSION 1 SPRAY, TO BOTH NOSTRILS NASALLY TWICE A DAY NOT-TAKING PROTONIX 40 MG TABLET DELAYED RELEASE 1 TABLET ORALLY BID NOT-TAKING CARAFATE 1 GM TABLET 1 TABLET ON AN EMPTY STOMACH ORALLY THREE TIMES A DAY NOT-TAKING REPLENS - GEL DIRECTED VAGINAL , NOTES: HAVEN'T GOTTEN YET DISCONTINUED ESTRADIOL 0.1 MG/GM CREAM 1/2 GRAM VAGINAL TWICE WEEKLY MEDICATION LIST REVIEWED AND RECONCILED WITH THE PATIENT PAST MEDICAL HISTORY ALLERGIC RHINITIS/CONJUNCTIVITIS/CHRONIC RECURRENT SINUSITIS-01/2015 - ZONE 1, IGE < 3.6 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 BY NOVEMBER 2010 CT/GRADE 1 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 X-RAY BILATERAL HAND OSTEOARTHRITIS-2007 NEGATIVE RHEUMATOLOGICAL WORKUP IMANI-02/2012 NPSG C RDI 25-ALLEN HYPERLIPIDEMIA 2B GERD-08/2014 NORMAL EGD-REINDL 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[address] OF THE PELVIS STONE PROTOCOL AND RENAL ULTRASOUND BILATERAL DEPRESSION FIBROMYALGIA ALLERGIC RHINITIS/CONJUNCTIVITIS IMPAIRED FASTING GLUCOSE LEUKOPENIA, 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, CHRONIC 2 SMALL ADENOMATOUS POLYPS, DIVERTICULOSIS, SIGMOID, 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-06/2011-REINDL//08/2014 MODERATE SIGMOID DIVERTICULOSIS-REINDL L HIP MILD OA BY 08/2013 XRAY 11/2018 ECOLI IN URINE 12/2018 BRONCHITIS ALLERGIES AVELOX: LEGS SHAKEY - SIDE EFFECTS CYMBALTA: NAUSEA/VOMITING - SIDE EFFECTS DOXYCYCLINE HYCLATE: INEFFECTIVE - SIDE EFFECTS PROZAC: FATIGUE - SIDE EFFECTS SULFA (FOR ALLERGY USE ONLY): RASH - ALLERGY CODEINE SULFATE: NAUSEA/VOMITING - SIDE EFFECTS SURGICAL HISTORY BILATERAL BLEPHAROPLASTY-BRAD 09/2010 DEVIATED SEPTUM REPAIR TUBAL LIGATION KIDNEY STONE LASER COLONOSCOPY 08/2014 BILAT EYELID REPAIR FAMILY HISTORY FATHER: 53 YRS, UNKNOWN CAUSE MOTHER: 96 YRS, LUNG CA, OSTEOPOROSIS, NO HIP FX. 1 BROTHER(S) , 2 SISTER(S) . 1 SON(S) , 2 DAUGHTER(S) - HEALTHY. DENIES FAMILY HX OF BREAST, COLON OR OVARIAN CANCER. DENIES FAMILY HX OF BREAST, COLON OR OVARIAN CANCER. SOCIAL HISTORY GENERAL: TOBACCO USE ARE YOU A:NONSMOKER OTHERS AT HOME: NONE. EDUCATION LEVEL OF EDUCATION:HIGH SCHOOL DIET: "TERRIBLE". EATS TOO MUCH DESSERT.. LANGUAGE LANGUAGES SPOKEN:GU[place]EMALAN DOMESTIC VIOLENCE DENIES. RECREATIONAL DRUG USE DRUG USE?NO LEARNING BARRIERS / SPECIAL NEEDS CHANGE FROM LAST VISIT?NO BARRIERS TO LEARNING?NO HEARING IMPAIRED?NO VISION IMPAIRED?YES COGNITIVELY IMPAIRED?NO :CORRECTIVE LENSES READINESS TO LEARN?YES LEARNING PREFERENCES?NO LEARNING CAPABILITIES PRESENT?YES EMOTIONAL BARRIERS?NO SPECIAL DEVICES?NO PAIN CLINIC PFS, CLERGY, PUBLIC HEALTH REFERRALS WAS THE PROVIDER NOTIFIED OF ANY PERTINENT INFO?YES HAS THE PATIENT BEEN EDUCATED REGARDING HIS/HER PLAN OF CARE?YES HAS THE PATIENT BEEN EDUCATED REGARDING PAIN, THE RISK FOR PAIN, THE IMPORTANCE OF EFFECTIVE PAIN MANAGEMENT, AND THE PAIN ASSESSMENT PROCESS?YES LATEX QUESTIONNAIRE LATEX ALLERGY : HAVE YOU EVER DEVELOPED ANY TYPE OF REACTION AFTER HANDLING LATEX PRODUCTS SUCH RUBBER GLOVES, CONDOMS, DIAPHRAGMS, BALLOONS, SOCKS, OR UNDERWEAR?NO LATEX ALLERGY : HAVE YOU EVER DEVELOPED ANY TYPE OF REACTION DURING OR AFTER DENTAL APPOINTMENT, VAGINAL/RECTAL EXAMINATION, SURGICAL PROCEDURE, OR ANY OTHER EXPOSURE?NO DATE ASKED : 01/13/2019 LATEX RISK : HAVE YOU EVER HAD ANY DIFFICULTY BREATHING OR HIVES AFTER EATING OR HANDLING ANY FRUITS, OR VEGETABLES; SUCH KIWI, BANANAS, STONE FRUITS, OR CHESTNUTSNO LATEX RISK : DO YOU HAVE A PREVIOUS PERSONAL HISTORY OF MORE THAN NINE SURGERIES, SPINA BIFIDA, OR REPEATED CATHERIZATIONS? NO LATEX RISK : ARE YOU FREQUENTLY EXPOSED TO LATEX PRODUCTS IN YOUR OCCUPATION?NO CAFFEINE DECAF COFFEE ONLY.. ADVANCE DIRECTIVE ADVANCE DIRECTIVE DISCUSSED WITH PATIENT:YES HCP JOHN DIXON [phone] MU-ISM [id number] [facility] STATUS: . ALCOHOL SCREENING DID YOU HAVE A DRINK CONTAINING ALCOHOL IN THE PAST YEAR?YES HOW OFTEN DID YOU HAVE SIX OR MORE DRINKS ON ONE OCCASION IN THE PAST YEAR?NEVER (0 POINTS) HOW MANY DRINKS DID YOU HAVE ON A TYPICAL DAY WHEN YOU WERE DRINKING IN THE PAST YEAR?3 OR 4 (1 POINT) HOW OFTEN DID YOU HAVE A DRINK CONTAINING ALCOHOL IN THE PAST YEAR?MONTHLY OR LESS (1 POINT) POINTS2 INTERPRETATIONNEGATIVE SEXUAL HX HAD SEX IN THE LAST 12 MONTHS (VAGINAL, ORAL, OR ANAL)?NO LMP:POST MENOPAUSE HAVE YOU EVER HAD AN STD?NO REVIEWED WITH PATIENT 08/03/18 1144 JS11/02/18 REVIEWED WITH PT. ANANDIEWED WITH PT 03/23/19 1017 BV. HOSPITALIZATION/MAJOR DIAGNOSTIC PROCEDURE ABOVE REVIEW OF SYSTEMS REVIEWED BY: PROVIDER: HECTOR MATTHEWS . CONSTITUTIONAL: ANY CHANGE IN YOUR MEDICAL CONDITION? NO . CHILLS NO . FEVER NO . INFECTION: DO YOU HAVE NEW INFECTIONS? YES, PT THINKS SHE HAS LEFT EYE INFECTION S/P SURGERY, HAS APPT TO SEE EYE [facility] NEXT WEEK, PT ENCOURAGED TO CALL MD SOONER IF SHE THINKS IT IS INFECTED . DO YOU HAVE HISTORY OF MRSA? NO . MUSCULOSKELETAL: ANY NEW PATTERNS OF PAIN OR NUMBNESS? NO . GASTROENTEROLOGY: ANY NEW CHANGE IN BOWEL CONTROL? NO . GENITOURINARY: ANY NEW CHANGE IN BLADDER CONTROL? NO . IS THERE A CHANCE YOU COULD BE ? NO . HEMATOLOGY/LYMPH: DO YOU TAKE ANY BLOOD THINNERS? (FOR EXAMPLE- COUMADIN, PLAVIX, AGGRENOX, PLATEL, PRADAXA, OR XARELTO) NO . WHEN WAS YOUR LAST DOSE? DATE: TIME: . NEUROLOGY: HAVE YOU FALLEN IN THE PAST 12 MONTHS? NO . ANY NEW EXTREMITY NUMBNESS OR WEAKNESS? NO . CARDIOLOGY: DO YOU HAVE A PACEMAKER OR DEFIBRILLATOR? NO . RESPIRATORY: HAVE YOU BEEN SICK IN THE PAST WEEK? NO . FEVER NO . FLU LIKE SYMPTOMS? NO . COUGH NO . INTEGUMENTARY: DO YOU HAVE ANY RASHES OR OPEN SORES? NO . ALLERGIC/IMMUNO: ARE YOU ALLERGIC TO IV DYE? NOT SURE, PROBABLY NOT . ANY NEW ALLERGIES? NO . PSYCHIATRIC: DO YOU HAVE THOUGHTS OF HURTING YOURSELF OR SOMEONE ELSE? NO . ARE YOU ABUSED, NEGLECTED, OR IN AN UNSAFE ENVIRONMENT? NO . ENDOCRINOLOGY: ARE YOU DIABETIC? NO . OTHER: DO YOU NEED ANY PRESCRIPTIONS? NO . IF YES, PLEASE LIST: ____ . ANY NEW PROBLEMS WITH YOUR MEDICATIONS? NO . WHEN DID YOU LAST EAT? ____ . WHEN DID YOU LAST DRINK? ____ . WHAT DID YOU LAST DRINK? ____ . NAME OF PERSON DRIVING YOU HOME? ____ . DO YOU HAVE ANY OTHER QUESTIONS OR CONCERNS NO . VITAL SIGNS WT 141.6 LBS, HT 61 IN, BMI 26.75 INDEX, BP 120/61 MM HG, HR 74 /MIN, RR 18 /MIN, TEMP 97.5 F, OXYGEN SAT % 96%, NA INITIALS AW 1000, REVIEWED BY: EM. EXAMINATION GENERAL EXAMINATION: GENERALAWAKE,ALERT ,PLEAASANT .SLOW TO RISE DUE TO PAIN.WALKS IN BENT FORWARD POSITION WITH SLOW GAIT.. PSYCH AFFECT NORMAL . LUNGS: LUNG GROSS ARE CLEAR TO AUSCULTATION BILATERALLY. GOOD MOVEMENT OF AIR . HEART: S1, S2 IN A REGULAR RATE AND RHYTHM. NO SIGNIFICANT MURMURS, RUBS OR GALLOPS NOTED . DIAGNOSTIC TESTS REVIEWED MRI L/S SPINE-04/05/18-MARKED LIGAMENTUM HYPERTROPHY. ASSESSMENTS LUMBOSACRAL SPINAL STENOSIS - M48.07 (PRIMARY) TREATMENT LUMBOSACRAL SPINAL STENOSIS NOTES: CONTINUE HOME EXCERSISE AND STRETCHING. PROCEDURE CODES FA211 ESTABILISHED PATIENT [facility] CHARGE DISPOSITION & COMMUNICATION FOLLOW UP 3 MONTHS ELECTRONICALLY SIGNED BY BYRON WHITTAKER ON 09/26/2019 AT 08:35 AM EST DISCLAIMER : THIS IS A VISIT SUMMARY EXTRACTED FROM THE [email or web address] CHART. IT IS NOT A COPY OF THE [email or web address] PROGRESS NOTE. JOZEF
== END ==
LOC: M PAIN 10:00
PROVIDERS: ATTEND Nurse Practitioner Family
DX: M48.07 Spinal stenosis, lumbosacral region (principal); G89.29 Other chronic pain; G47.33 Obstructive sleep apnea (adult) (pediatric); E78.5 Hyperlipidemia, unspecified; K21.9 Gastro-esophageal reflux disease without esophagitis; Z86.59 Personal history of other mental and behavioral disorders; M79.7 Fibromyalgia; R73.01 Impaired fasting glucose; Z88.1 Allergy status to other antibiotic agents; Z88.2 Allergy status to sulfonamides; Z88.5 Allergy status to narcotic agent; Z88.8 Allergy status to other drugs, medicaments and biological substances; Z79.899 Other long term (current) drug therapy

== ENCOUNTER 2019-09-20 10:19 | Outpatient (RCR) | payer MEDICARE | END 2019-09-24 | LOC: M PT 10:19 | PROVIDERS: ATTEND Orthopaedic Surgery | DX: Z47.89 Encounter for other orthopedic aftercare (principal) ==

== ENCOUNTER → 2019-12-19 | Outpatient (CLI) | payer MEDICARE ==
--- NOTE | 2019-12-19 13:34 | REP ---
CHEST, TWO VIEWS: Two views of the chest are performed and compared to prior study of 12/30/2018. There is no acute infiltrate or pulmonary edema. Heart is normal in size. There is calcification of the thoracic aorta. Mediastinal silhouette is unchanged. There are degenerative changes of the spine. IMPRESSION: No acute pulmonary disease. Electronically Signed by Vincent Hare MD 12/19/2019 04:01 P
== END ==
LOC: M WUC 12:08
PROVIDERS: ATTEND Physician Assistant
DX: J20.9 Acute bronchitis, unspecified (principal); R05 Cough

== ENCOUNTER → 2020-01-02 | Outpatient (CLI) | payer MEDICARE ==
[2020-01-02 18:10] LABS: APPEARANCE, URINE CLEAR (CLEAR); BACTERIA, URINE AUTO NEGATIVE (NEGATIVE); BILIRUBIN, URINE AUTO NEGATIVE (NEGATIVE); BLOOD, URINE BLOOD NEGATIVE (NEGATIVE); COLOR, URINE YELLOW (YELLOW); GLUCOSE, URINE (UA) AUTO NEGATIVE (NEGATIVE); KETONE, URINE AUTO NEGATIVE (NEGATIVE); LEUKOCYTE ESTERASE, URINE AUTO NEGATIVE (NEGATIVE); NITRITE, URINE AUTO NEGATIVE (NEGATIVE); PROTEIN, URINE AUTO NEGATIVE (NEGATIVE); RBC, URINE AUTO 0 /HPF (0-3); SPECIFIC GRAVITY URINE AUTO 1.011 (1.002-1.035); SQUAMOUS EPITHELIAL CELL UR AU 0 /HPF (0-6); UROBILINOGEN, URINE AUTO 0.2 mg/dL (0.0-2.0); WBC, URINE AUTO 0 /HPF (0-3)
[2020-01-02 18:17] LABS: BLOOD UREA NITROGEN 17 MG/DL (7-18); CALCIUM LEVEL 9.2 MG/DL (8.8-10.2); CARBON DIOXIDE LEVEL 29 MEQ/L (21-32); CHLORIDE LEVEL 110 MEQ/L (98-107); CREATININE FOR GFR 0.68 MG/DL (0.55-1.30); GLOMERULAR FILTRATION RATE > 60.0 (>39); GLUCOSE, FASTING 88 MG/DL (70-100); POTASSIUM SERUM 4.7 MEQ/L (3.5-5.1); SODIUM LEVEL 142 MEQ/L (136-145)
== END ==
LOC: M PLALAB 14:28
PROVIDERS: ATTEND Physician Assistant Medical
DX: R35.0 Frequency of micturition (principal)

== ENCOUNTER → 2020-01-02 | Outpatient (CLI) | payer MEDICARE ==
--- NOTE | 2020-01-18 01:42 | ECWPNPC ---
PATIENT NAME: RENEE JACOBSEN : 1940 GENDER: FEMALE VISIT DATE: 01/02/2020 DISCHARGE DATE: 01/02/20 1159 VISIT LOCKED DATE TIME: PHYSICIAN: HECTOR DOAN RESOURCE: HECTOR DOAN REASON FOR APPOINTMENT 1. LUMBOSACRAL SPINAL STENOSIS HISTORY OF PRESENT ILLNESS HISTORY OF PRESENT ILLNESS: HERE FOR FOLLOW-UP OF CHRONIC LOW BACK PAIN. CHIEF AREA OF PAIN IS RIGHT LOW BACK. RATING PAIN LEVEL A 5/10. PAIN IS MOSTLY DURING THE DAY. DESCRIBES PAIN ACHING AND BURNING. REVIEWED MRI AND DISCUSS TREATMENT OPTIONS. PAIN THE PATIENT DESCRIBES THE PAIN... FALL RISK SCREENING: SCREENING :NO FALLS REPORTED IN THE LAST YEAR CURRENT MEDICATIONS TAKING SALINE NASAL SPRAY 0.65 % SOLUTION 2 SRAYS IN EACH NOSTRIL NEEDED NASALLY EVERY 4 HRS NEEDED TAKING LOPERAMIDE HCL 2 MG CAPSULE 1 CAPSULE ORALLY ONCE A DAY TAKING OMEPRAZOLE 20 MG CAPSULE DELAYED RELEASE 1 CAPSULE ORALLY DAILY TAKING VITAMIN C 250 MG TABLET 1 TAB(S) ORALLY DAILY TAKING VITAMIN D3 2000 UNIT CAPSULE 1 CAPSULE ORALLY ONCE A DAY TAKING ACIDOPHILUS 10 MG CAPSULE DIRECTED ORALLY BID TAKING CALCIUM 600+D HIGH POTENCY 600-400 MG-UNIT TABLET 1 TABLET ORALLY ONCE A DAY TAKING VITAMIN B12 1000 MCG TABLET 1 TABLET ORALLY ONCE A DAY TAKING SIMVASTATIN 20 MG TABLET 1 TAB ORALLY DAILY IN THE EVENING TAKING TYLENOL 500MGS 1 TAB ORAL EVERY 4 HOURS NEEDED, NOTES: NEEDED TAKING IBUPROFEN 200 MGS 1-2 TAB ORAL FOUR TIMES DAILY NEEDED TAKING FLONASE 50 MCG/ACT SUSPENSION 1 SPRAY IN EACH NOSTRIL NASALLY ONCE A DAY TAKING RANITIDINE ACID MEDICAL OFFICE WORKER 75 MG TABLET 1 TABLET NEEDED ORALLY DAILY TAKING FOLIC ACID 800 MCG TABLET 1 TABLET ORALLY ONCE A DAY TAKING HAIR SKIN & NAILS ADVANCED - TABLET DIRECTED ORALLY NOT-TAKING ASTELIN 2 SPRAYS EACH NOSTRIL ONCE DAILY NOT-TAKING NAPROXEN 250 MG TABLET 1 TABLET WITH FOOD OR MILK ORALLY TWICE A DAY, NOTES: NEEDED NOT-TAKING VITAMIN E 200 UNIT CAPSULE 1 CAPSULE ORALLY ONCE A DAY NOT-TAKING GLUCOSAMINE 1500 COMPLEX - CAPSULE ORALLY NOT-TAKING BUPROPION HCL 150 MG TABLET EXTENDED RELEASE ORALLY DAILY NOT-TAKING CHERI 500 MG CAPSULE DIRECTED ORALLY NOT-TAKING MAY HAVE - - TUMERIC NOT-TAKING ASPIR-81 81 MG TABLET DELAYED RELEASE 1 TABLET ORALLY ONCE A DAY NOT-TAKING PREDNISOLONE 5 MG (21) TABLET THERAPY PACK DIRECTED ORALLY , NOTES: FOR BRONCHITIS NOT-TAKING CARAFATE 1 GM TABLET 1 TABLET ON AN EMPTY STOMACH ORALLY THREE TIMES A DAY NOT-TAKING DYMISTA 137-50 MCG/ACT SUSPENSION 1 SPRAY, TO BOTH NOSTRILS NASALLY TWICE A DAY NOT-TAKING PROTONIX 40 MG TABLET DELAYED RELEASE 1 TABLET ORALLY BID NOT-TAKING CARAFATE 1 GM TABLET 1 TABLET ON AN EMPTY STOMACH ORALLY THREE TIMES A DAY NOT-TAKING REPLENS - GEL DIRECTED VAGINAL , NOTES: HAVEN'T GOTTEN YET MEDICATION LIST REVIEWED AND RECONCILED WITH THE PATIENT PAST MEDICAL HISTORY ALLERGIC RHINITIS/CONJUNCTIVITIS/CHRONIC RECURRENT SINUSITIS-01/2015 - ZONE 1, IGE < 3.6 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 BY NOVEMBER 2010 CT/GRADE 1 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 X-RAY BILATERAL HAND OSTEOARTHRITIS-2007 NEGATIVE RHEUMATOLOGICAL WORKUP IMANI-02/2012 NPSG C RDI 25-ALLEN HYPERLIPIDEMIA 2B GERD-08/2014 NORMAL EGD-REINDL 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[address] OF THE PELVIS STONE PROTOCOL AND RENAL ULTRASOUND BILATERAL DEPRESSION FIBROMYALGIA ALLERGIC RHINITIS/CONJUNCTIVITIS IMPAIRED FASTING GLUCOSE LEUKOPENIA, 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, CHRONIC 2 SMALL ADENOMATOUS POLYPS, DIVERTICULOSIS, SIGMOID, 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-06/2011-REINDL/08/2014 MODERATE SIGMOID DIVERTICULOSIS-REINDL L HIP MILD OA BY 08/2013 XRAY 11/2018 ECOLI IN URINE 12/2018 BRONCHITIS ALLERGIES AVELOX: LEGS SHAKEY - SIDE EFFECTS CYMBALTA: NAUSEA/VOMITING - SIDE EFFECTS DOXYCYCLINE HYCLATE: INEFFECTIVE - SIDE EFFECTS PROZAC: FATIGUE - SIDE EFFECTS SULFA (FOR ALLERGY USE ONLY): RASH - ALLERGY CODEINE SULFATE: NAUSEA/VOMITING - SIDE EFFECTS SURGICAL HISTORY BILATERAL BLEPHAROPLASTY-BRAD 09/2010 DEVIATED SEPTUM REPAIR TUBAL LIGATION KIDNEY STONE LASER COLONOSCOPY 08/2014 BILAT EYELID REPAIR FAMILY HISTORY FATHER: 53 YRS, UNKNOWN CAUSE MOTHER: 96 YRS, LUNG CA, OSTEOPOROSIS, NO HIP FX. 1 BROTHER(S) , 2 SISTER(S) . 1 SON(S) , 2 DAUGHTER(S) - HEALTHY. DENIES FAMILY HX OF BREAST, COLON OR OVARIAN CANCER. DENIES FAMILY HX OF BREAST, COLON OR OVARIAN CANCER. SOCIAL HISTORY GENERAL: TOBACCO USE ARE YOU A:NONSMOKER OTHERS AT HOME: NONE. EDUCATION LEVEL OF EDUCATION:HIGH SCHOOL DIET: "TERRIBLE". EATS TOO MUCH DESSERT.. LANGUAGE LANGUAGES SPOKEN:INDONESIAN DOMESTIC VIOLENCE DENIES. RECREATIONAL DRUG USE DRUG USE?NO LEARNING BARRIERS / SPECIAL NEEDS CHANGE FROM LAST VISIT?NO BARRIERS TO LEARNING?NO HEARING IMPAIRED?NO VISION IMPAIRED?YES COGNITIVELY IMPAIRED?NO :CORRECTIVE LENSES READINESS TO LEARN?YES LEARNING PREFERENCES?NO LEARNING CAPABILITIES PRESENT?YES EMOTIONAL BARRIERS?NO SPECIAL DEVICES?NO PAIN CLINIC PFS, CLERGY, PUBLIC HEALTH REFERRALS WAS THE PROVIDER NOTIFIED OF ANY PERTINENT INFO?YES HAS THE PATIENT BEEN EDUCATED REGARDING HIS/HER PLAN OF CARE?YES HAS THE PATIENT BEEN EDUCATED REGARDING PAIN, THE RISK FOR PAIN, THE IMPORTANCE OF EFFECTIVE PAIN MANAGEMENT, AND THE PAIN ASSESSMENT PROCESS?YES LATEX QUESTIONNAIRE LATEX ALLERGY : HAVE YOU EVER DEVELOPED ANY TYPE OF REACTION AFTER HANDLING LATEX PRODUCTS SUCH RUBBER GLOVES, CONDOMS, DIAPHRAGMS, BALLOONS, SOCKS, OR UNDERWEAR?NO LATEX ALLERGY : HAVE YOU EVER DEVELOPED ANY TYPE OF REACTION DURING OR AFTER DENTAL APPOINTMENT, VAGINAL/RECTAL EXAMINATION, SURGICAL PROCEDURE, OR ANY OTHER EXPOSURE?NO LATEX RISK : HAVE YOU EVER HAD ANY DIFFICULTY BREATHING OR HIVES AFTER EATING OR HANDLING ANY FRUITS, OR VEGETABLES; SUCH KIWI, BANANAS, STONE FRUITS, OR CHESTNUTSNO LATEX RISK : DO YOU HAVE A PREVIOUS PERSONAL HISTORY OF MORE THAN NINE SURGERIES, SPINA BIFIDA, OR REPEATED CATHERIZATIONS? NO LATEX RISK : ARE YOU FREQUENTLY EXPOSED TO LATEX PRODUCTS IN YOUR OCCUPATION?NO DATE ASKED : 01/13/2019 CAFFEINE DECAF COFFEE ONLY.. ADVANCE DIRECTIVE ADVANCE DIRECTIVE DISCUSSED WITH PATIENT:YES HCP JOHN DIXON [phone] SCIENTOLOGIST [id number] [facility] MARITAL STATUS: . ALCOHOL SCREENING DID YOU HAVE A DRINK CONTAINING ALCOHOL IN THE PAST YEAR?YES HOW OFTEN DID YOU HAVE SIX OR MORE DRINKS ON ONE OCCASION IN THE PAST YEAR?NEVER (0 POINTS) HOW MANY DRINKS DID YOU HAVE ON A TYPICAL DAY WHEN YOU WERE DRINKING IN THE PAST YEAR?3 OR 4 (1 POINT) HOW OFTEN DID YOU HAVE A DRINK CONTAINING ALCOHOL IN THE PAST YEAR?MONTHLY OR LESS (1 POINT) POINTS2 INTERPRETATIONNEGATIVE SEXUAL HX HAD SEX IN THE LAST 12 MONTHS (VAGINAL, ORAL, OR ANAL)?NO LMP:POST MENOPAUSE HAVE YOU EVER HAD AN STD?NO HOSPITALIZATION/MAJOR DIAGNOSTIC PROCEDURE ABOVE REVIEW OF SYSTEMS REVIEWED BY: PROVIDER: HECTOR MATTHEWS . CONSTITUTIONAL: ANY CHANGE IN YOUR MEDICAL CONDITION? YES, STATES EXCESS MUCUS WITH PRODUCTIVE COUGH - COMES UP GREEN . CHILLS NO . FEVER NO . INFECTION: DO YOU HAVE NEW INFECTIONS? YES, HAS BEEN ON ANTIBIOTICS TWICE TO HELP WITH CHEST CONGESTION BUT SHE IS STILL NOT FEELING WELL . DO YOU HAVE HISTORY OF MRSA? NO . MUSCULOSKELETAL: ANY NEW PATTERNS OF PAIN OR NUMBNESS? NO . GASTROENTEROLOGY: ANY NEW CHANGE IN BOWEL CONTROL? NO . GENITOURINARY: ANY NEW CHANGE IN BLADDER CONTROL? YES, URINARY URGENCY AND FREQUENCY FOR THE PAST 6 WEEKS OR SO . IS THERE A CHANCE YOU COULD BE ? NO . HEMATOLOGY/LYMPH: DO YOU TAKE ANY BLOOD THINNERS? (FOR EXAMPLE- COUMADIN, PLAVIX, AGGRENOX, PLATEL, PRADAXA, OR XARELTO) NO . WHEN WAS YOUR LAST DOSE? DATE: TIME: . NEUROLOGY: HAVE YOU FALLEN IN THE PAST 12 MONTHS? NO . ANY NEW EXTREMITY NUMBNESS OR WEAKNESS? NO . CARDIOLOGY: DO YOU HAVE A PACEMAKER OR DEFIBRILLATOR? NO . RESPIRATORY: HAVE YOU BEEN SICK IN THE PAST WEEK? YES, COUGH WITHOUT FEVER . FEVER NO . FLU LIKE SYMPTOMS? NO . COUGH YES, PRODUCTIVE - GREEN SPUTUM . INTEGUMENTARY: DO YOU HAVE ANY RASHES OR OPEN SORES? NO . ALLERGIC/IMMUNO: ARE YOU ALLERGIC TO IV DYE? NO . ANY NEW ALLERGIES? NO . PSYCHIATRIC: DO YOU HAVE THOUGHTS OF HURTING YOURSELF OR SOMEONE ELSE? NO . ARE YOU ABUSED, NEGLECTED, OR IN AN UNSAFE ENVIRONMENT? NO . ENDOCRINOLOGY: ARE YOU DIABETIC? NO . OTHER: DO YOU NEED ANY PRESCRIPTIONS? NO . IF YES, PLEASE LIST: ____ . ANY NEW PROBLEMS WITH YOUR MEDICATIONS? NO . WHEN DID YOU LAST EAT? ____ . WHEN DID YOU LAST DRINK? ____ . WHAT DID YOU LAST DRINK? ____ . NAME OF PERSON DRIVING YOU HOME? ____ . DO YOU HAVE ANY OTHER QUESTIONS OR CONCERNS NO . VITAL SIGNS WT 139.2 LBS, HT 61 IN, BMI 26.30 INDEX, BP 135/64 MM HG, HR 75 /MIN, RR 18 /MIN, TEMP 97.4 F, OXYGEN SAT % 96%, NA INITIALS AW 1122. EXAMINATION GENERAL EXAMINATION: GENERAL AWAKE,ALERT ,PLEAASANT . PSYCH AFFECT NORMAL . LUNGS: LUNG GROSS ARE CLEAR TO AUSCULTATION BILATERALLY. GOOD MOVEMENT OF AIR . HEART: S1, S2 IN A REGULAR RATE AND RHYTHM. NO SIGNIFICANT MURMURS, RUBS OR GALLOPS NOTED . LUMBAR:PALPATION:TENDER OVER RIGHT . L4/5-L5/S1 LUMBAR FACETS WITH FACET LOADING.. 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 OTHERS NOTES: FACET JOINT INJECTION MATERIAL WAS PRINTED. PREVENTIVE MEDICINE PAIN CLINIC TEACHING: PROCEDURE TEACHING PRINTED AND REVIEWED INFORMATION ON FACET JOINT INJECTION PROCEDURE WITH PATIENT. ALSO REVIEWED PRE-PROCEDURE INSTRUCTIONS. PATIENT VERBALIZED AN UNDERSTANDING. DEANN WEIR 01/02/2020 2:43:20 PM > . PROCEDURE CODES FA211 ESTABILISHED PATIENT [facility] CHARGE DISPOSITION & COMMUNICATION FOLLOW UP POST (REASON: L3/4-L4/5 RIGHT LFBT) ELECTRONICALLY SIGNED BY BYRON WHITTAKER ON 01/17/2020 AT 03:31 PM EDT DISCLAIMER : THIS IS A VISIT SUMMARY EXTRACTED FROM THE [employer] CHART. IT IS NOT A COPY OF THE [employer] PROGRESS NOTE. JOZEF
== END ==
LOC: M PAIN 10:30
PROVIDERS: ATTEND Nurse Practitioner Family
DX: M47.817 Spondylosis without myelopathy or radiculopathy, lumbosacral region (principal); G89.29 Other chronic pain; G47.30 Sleep apnea, unspecified; E78.5 Hyperlipidemia, unspecified; K21.9 Gastro-esophageal reflux disease without esophagitis; Z86.59 Personal history of other mental and behavioral disorders; M79.7 Fibromyalgia; R73.01 Impaired fasting glucose; Z88.1 Allergy status to other antibiotic agents; Z88.2 Allergy status to sulfonamides; Z88.5 Allergy status to narcotic agent; Z88.8 Allergy status to other drugs, medicaments and biological substances; R35.0 Frequency of micturition; Z79.899 Other long term (current) drug therapy
CPT/HCPCS: 36415; 80048; 81001; G0463

== ENCOUNTER → 2020-02-18 | Outpatient (CLI) | payer MEDICARE | LOC: M LABSMTC 13:54 | PROVIDERS: ATTEND Anesthesiology | DX: Z11.59 Encounter for screening for other viral diseases (principal) ==

== ENCOUNTER → 2020-02-21 | Outpatient (CLI) | payer MEDICARE ==
[~2020-02-21] MED LIST changes: +BUPIVACAINE HCL 0.25% 30ML VIAL As Ordered ONE; +ISOVUE-M 300 61% 15ML VIAL As Ordered ONE; +LIDOCAINE 1% SDV 30ML VIAL As Ordered ONE; +dexameTHASONE 10MG/1ML VIAL PRES.FREE (J1100 PER 1MG) As Ordered ONE; +diazePAM 5 MG TAB As Ordered ONE
--- NOTE | 2020-02-21 12:47 | REP ---
C-ARM VIEWS OF THE LOWER LUMBAR SPINE: CLINICAL: Pain. Three C-arm views of the lower lumbar spine performed during facet injection by Dr. Arias. [place] are seen along the lower lumbar facet joints. 22 seconds of fluoroscopy time utilized. Electronically Signed by Vincent Hare MD 02/21/2020 01:05 P
--- NOTE | 2020-02-24 02:58 | ECWPNPC ---
PATIENT NAME: RENEE JACOBSEN : 1940 GENDER: FEMALE VISIT DATE: 02/21/2020 DISCHARGE DATE: 02/21/20 1215 VISIT LOCKED DATE TIME: PHYSICIAN: LOTUS QUINTANA MD RESOURCE: LOTUS QUINTANA MD REASON FOR APPOINTMENT 1. RIGHT L3/L4, L4/L5 THERAPEUTIC LUMBAR FACET BLOCK HISTORY OF PRESENT ILLNESS HISTORY OF PRESENT ILLNESS: PAIN THE PATIENT DESCRIBES THE PAIN... FALL RISK SCREENING: SCREENING :NO FALLS REPORTED IN THE LAST YEAR CURRENT MEDICATIONS TAKING SALINE NASAL SPRAY 0.65 % SOLUTION 2 SRAYS IN EACH NOSTRIL NEEDED NASALLY EVERY 4 HRS NEEDED, NOTES: 02/20 745 TAKING LOPERAMIDE HCL 2 MG CAPSULE 1 CAPSULE ORALLY ONCE A DAY, NOTES: 02/20 530 TAKING OMEPRAZOLE 20 MG CAPSULE DELAYED RELEASE 1 CAPSULE ORALLY DAILY, NOTES: 02/20 745 TAKING VITAMIN C 1000 MG TABLET 1.5 TAB(S) ORALLY DAILY, NOTES: 02/20 745 TAKING VITAMIN D3 2000 UNIT CAPSULE 1 CAPSULE ORALLY ONCE A DAY, NOTES: 02/20 745 TAKING ACIDOPHILUS 10 MG CAPSULE DIRECTED ORALLY BID, NOTES: 02/20 745 TAKING CALCIUM 600+D HIGH POTENCY 600-400 MG-UNIT TABLET 1 TABLET ORALLY ONCE A DAY, NOTES: 02/20 745 TAKING VITAMIN B12 1000 MCG TABLET 2 TABLETS ORALLY ONCE A DAY, NOTES: 02/20 745 TAKING SIMVASTATIN 20 MG TABLET 1 TAB ORALLY DAILY IN THE EVENING, NOTES: 02/19 2100 TAKING TYLENOL 500MGS 1 TAB ORAL EVERY 4 HOURS NEEDED, NOTES: 02/20 845 TAKING IBUPROFEN 200 MGS 1-2 TAB ORAL FOUR TIMES DAILY NEEDED, NOTES: 02/20 TAB 45 TAKING FLONASE 50 MCG/ACT SUSPENSION 1 SPRAY IN EACH NOSTRIL NASALLY ONCE A DAY, NOTES: 02/20 730 TAKING RANITIDINE ACID COAL DUMPING EQUIPMENT OPERATOR 75 MG TABLET 1 TABLET NEEDED ORALLY DAILY, NOTES: 02/19 1700 TAKING FOLIC ACID 800 MCG TABLET 1 TABLET ORALLY ONCE A DAY, NOTES: 02/20 745 TAKING HAIR SKIN & NAILS ADVANCED - TABLET DIRECTED ORALLY , NOTES: 02/20 600 TAKING POTASSIUM 99 MG TABLET 1 TABLET ORALLY ONCE A DAY, NOTES: 02/20 845 TAKING TURMERIC 500 MG CAPSULE DIRECTED ORALLY DAILY, NOTES: 02/20 600 TAKING SUPER B-COMPLEX - TABLET DIRECTED ORALLY DAILY, NOTES: 02/20 845 TAKING BIOFLEX - TABLET DIRECTED ORALLY DAILY, NOTES: 02/20 745 TAKING CLARITIN 10 MG TABLET 1 TABLET ORALLY ONCE A DAY, NOTES: 02/20 745 TAKING VITAMIN E 400 UNIT CAPSULE 1 CAPSULE ORALLY ONCE A DAY, NOTES: 02/20 745 TAKING GLUCOSAMINE 1500 COMPLEX - CAPSULE ORALLY DAILY, NOTES: 02/20 745 DISCONTINUED MAY HAVE - - TUMERIC , NOTES: DUPLICATE UNKNOWN ASTELIN 2 SPRAYS EACH NOSTRIL ONCE DAILY UNKNOWN NAPROXEN 250 MG TABLET 1 TABLET WITH FOOD OR MILK ORALLY TWICE A DAY, NOTES: NEEDED UNKNOWN VITAMIN E 200 UNIT CAPSULE 1 CAPSULE ORALLY ONCE A DAY UNKNOWN BUPROPION HCL 150 MG TABLET EXTENDED RELEASE ORALLY DAILY UNKNOWN CHERI 500 MG CAPSULE DIRECTED ORALLY UNKNOWN ASPIR-81 81 MG TABLET DELAYED RELEASE 1 TABLET ORALLY ONCE A DAY UNKNOWN PREDNISOLONE 5 MG (21) TABLET THERAPY PACK DIRECTED ORALLY , NOTES: FOR BRONCHITIS UNKNOWN CARAFATE 1 GM TABLET 1 TABLET ON AN EMPTY STOMACH ORALLY THREE TIMES A DAY UNKNOWN DYMISTA 137-50 MCG/ACT SUSPENSION 1 SPRAY, TO BOTH NOSTRILS NASALLY TWICE A DAY UNKNOWN PROTONIX 40 MG TABLET DELAYED RELEASE 1 TABLET ORALLY BID UNKNOWN CARAFATE 1 GM TABLET 1 TABLET ON AN EMPTY STOMACH ORALLY THREE TIMES A DAY UNKNOWN REPLENS - GEL DIRECTED VAGINAL , NOTES: HAVEN'T GOTTEN YET MEDICATION LIST REVIEWED AND RECONCILED WITH THE PATIENT PAST MEDICAL HISTORY ALLERGIC RHINITIS/CONJUNCTIVITIS/CHRONIC RECURRENT SINUSITIS-01/2015 - ZONE 1, IGE < 3.6 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 BY NOVEMBER 2010 CT/GRADE 1 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 X-RAY BILATERAL HAND OSTEOARTHRITIS-2007 NEGATIVE RHEUMATOLOGICAL WORKUP IMANI-02/2012 NPSG C RDI 25-ALLEN HYPERLIPIDEMIA 2B GERD-08/2014 NORMAL EGD-REINDL 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[address] OF THE PELVIS STONE PROTOCOL AND RENAL ULTRASOUND BILATERAL DEPRESSION FIBROMYALGIA ALLERGIC RHINITIS/CONJUNCTIVITIS IMPAIRED FASTING GLUCOSE LEUKOPENIA, 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, CHRONIC 2 SMALL ADENOMATOUS POLYPS, DIVERTICULOSIS, SIGMOID, 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-06/2011-REINDL//08/2014 MODERATE SIGMOID DIVERTICULOSIS-REINDL L HIP MILD OA BY 08/2013 XRAY 11/2018 ECOLI IN URINE 12/2018 BRONCHITIS ALLERGIES AVELOX: LEGS SHAKEY - SIDE EFFECTS CYMBALTA: NAUSEA/VOMITING - SIDE EFFECTS DOXYCYCLINE HYCLATE: INEFFECTIVE - SIDE EFFECTS PROZAC: FATIGUE - SIDE EFFECTS SULFA (FOR ALLERGY USE ONLY): RASH - ALLERGY CODEINE SULFATE: NAUSEA/VOMITING - SIDE EFFECTS SURGICAL HISTORY BILATERAL BLEPHAROPLASTY-BRAD 09/2010 DEVIATED SEPTUM REPAIR TUBAL LIGATION KIDNEY STONE LASER COLONOSCOPY 08/2014 BILAT EYELID REPAIR FAMILY HISTORY FATHER: 53 YRS, UNKNOWN CAUSE MOTHER: 96 YRS, LUNG CA, OSTEOPOROSIS, NO HIP FX. 1 BROTHER(S) , 2 SISTER(S) . 1 SON(S) , 2 DAUGHTER(S) - HEALTHY. DENIES FAMILY HX OF BREAST, COLON OR OVARIAN CANCER. DENIES FAMILY HX OF BREAST, COLON OR OVARIAN CANCER. SOCIAL HISTORY GENERAL: TOBACCO USE ARE YOU A:NONSMOKER LATEX QUESTIONNAIRE LATEX ALLERGY : HAVE YOU EVER DEVELOPED ANY TYPE OF REACTION AFTER HANDLING LATEX PRODUCTS SUCH RUBBER GLOVES, CONDOMS, DIAPHRAGMS, BALLOONS, SOCKS, OR UNDERWEAR?NO LATEX ALLERGY : HAVE YOU EVER DEVELOPED ANY TYPE OF REACTION DURING OR AFTER DENTAL APPOINTMENT, VAGINAL/RECTAL EXAMINATION, SURGICAL PROCEDURE, OR ANY OTHER EXPOSURE?NO LATEX RISK : HAVE YOU EVER HAD ANY DIFFICULTY BREATHING OR HIVES AFTER EATING OR HANDLING ANY FRUITS, OR VEGETABLES; SUCH KIWI, BANANAS, STONE FRUITS, OR CHESTNUTSNO LATEX RISK : DO YOU HAVE A PREVIOUS PERSONAL HISTORY OF MORE THAN NINE SURGERIES, SPINA BIFIDA, OR REPEATED CATHERIZATIONS? NO LATEX RISK : ARE YOU FREQUENTLY EXPOSED TO LATEX PRODUCTS IN YOUR OCCUPATION?NO DATE ASKED : 02/21/2020 ALCOHOL SCREENING DID YOU HAVE A DRINK CONTAINING ALCOHOL IN THE PAST YEAR?YES HOW OFTEN DID YOU HAVE SIX OR MORE DRINKS ON ONE OCCASION IN THE PAST YEAR?NEVER (0 POINTS) HOW MANY DRINKS DID YOU HAVE ON A TYPICAL DAY WHEN YOU WERE DRINKING IN THE PAST YEAR?3 OR 4 (1 POINT) HOW OFTEN DID YOU HAVE A DRINK CONTAINING ALCOHOL IN THE PAST YEAR?MONTHLY OR LESS (1 POINT) POINTS2 INTERPRETATIONNEGATIVE RECREATIONAL DRUG USE DRUG USE?NO CAFFEINE DECAF COFFEE ONLY.. SEXUAL HX HAD SEX IN THE LAST 12 MONTHS (VAGINAL, ORAL, OR ANAL)?NO LMP:POST MENOPAUSE HAVE YOU EVER HAD AN STD?NO [employer]ICAL [id number] LANGUAGES SPOKEN:BELARUSIAN EDUCATION LEVEL OF EDUCATION:HIGH SCHOOL LEARNING BARRIERS / SPECIAL NEEDS CHANGE FROM LAST VISIT?NO BARRIERS TO LEARNING?NO HEARING IMPAIRED?NO VISION IMPAIRED?YES COGNITIVELY IMPAIRED?NO :CORRECTIVE LENSES READINESS TO LEARN?YES LEARNING PREFERENCES?NO LEARNING CAPABILITIES PRESENT?YES EMOTIONAL BARRIERS?NO SPECIAL DEVICES?NO DOMESTIC VIOLENCE DENIES. DIET: "TERRIBLE". EATS TOO MUCH DESSERT.. MARITAL STATUS: . OTHERS AT HOME: NONE. NEW PATIENT PAIN DIARY TODAY'S VISIT 02/21/2020 PATIENT DESCRIBES PAIN :ACHING, BURNING, HAVE IT ALL THE TIME, TENDER, THROBBING, SORE, OTHER NUMB FROM 0-10, WHAT LEVEL IS YOUR PAIN TODAY?5 AT TIMES 10 PRECIPITATING FACTORS WALKING, LIFTING, RAISING ARMS OVER HER HEAD ALLEVIATING FACTORS LYING DONE, IBUPROFEN, TYLENOL, STRETCHING EXERCISING IMPACT ON FUNCTION LIMITS HER ON WHAT SHE IS ABLE TO DO. PAIN CLINIC PFS, CLERGY, PUBLIC HEALTH REFERRALS WAS THE PROVIDER NOTIFIED OF ANY PERTINENT INFO?YES HAS THE PATIENT BEEN EDUCATED REGARDING HIS/HER PLAN OF CARE?YES HAS THE PATIENT BEEN EDUCATED REGARDING PAIN, THE RISK FOR PAIN, THE IMPORTANCE OF EFFECTIVE PAIN MANAGEMENT, AND THE PAIN ASSESSMENT PROCESS?YES ADVANCE DIRECTIVE ADVANCE DIRECTIVE DISCUSSED WITH PATIENT:YES HCP JOHN CHAPINCristy [phone] PRE-SCREENING COMPLETED 02/20/2020 1630 JS. HOSPITALIZATION/MAJOR DIAGNOSTIC PROCEDURE ABOVE REVIEW OF SYSTEMS REVIEWED BY: PROVIDER: LOTUS QUINTANA MD . CONSTITUTIONAL: ANY CHANGE IN YOUR MEDICAL CONDITION? NO . CHILLS NO . FEVER NO . INFECTION: DO YOU HAVE NEW INFECTIONS? NO . DO YOU HAVE HISTORY OF MRSA? NO . MUSCULOSKELETAL: ANY NEW PATTERNS OF PAIN OR NUMBNESS? NO . GASTROENTEROLOGY: ANY NEW CHANGE IN BOWEL CONTROL? NO . GENITOURINARY: ANY NEW CHANGE IN BLADDER CONTROL? NO . IS THERE A CHANCE YOU COULD BE ? NO . HEMATOLOGY/LYMPH: DO YOU TAKE ANY BLOOD THINNERS? (FOR EXAMPLE- COUMADIN, PLAVIX, AGGRENOX, PLATEL, PRADAXA, OR XARELTO) NO . WHEN WAS YOUR LAST DOSE? DATE: TIME: . NEUROLOGY: HAVE YOU FALLEN IN THE PAST 12 MONTHS? NO . ANY NEW EXTREMITY NUMBNESS OR WEAKNESS? NO . CARDIOLOGY: DO YOU HAVE A PACEMAKER OR DEFIBRILLATOR? NO . RESPIRATORY: HAVE YOU BEEN SICK IN THE PAST WEEK? NO . FEVER NO . FLU LIKE SYMPTOMS? NO . COUGH YES, SLIGHT FOR THE PAST 2 MONTHS-HAS BEEN EVALUATED BY PCP . INTEGUMENTARY: DO YOU HAVE ANY RASHES OR OPEN SORES? YES, SMALL SORE TOP OF LEFT FOOT . ALLERGIC/IMMUNO: ARE YOU ALLERGIC TO IV DYE? NO . ANY NEW ALLERGIES? NO . PSYCHIATRIC: DO YOU HAVE THOUGHTS OF HURTING YOURSELF OR SOMEONE ELSE? NO . ARE YOU ABUSED, NEGLECTED, OR IN AN UNSAFE ENVIRONMENT? NO . ENDOCRINOLOGY: ARE YOU DIABETIC? NO . OTHER: DO YOU NEED ANY PRESCRIPTIONS? NO . IF YES, PLEASE LIST: ____ . ANY NEW PROBLEMS WITH YOUR MEDICATIONS? NO . WHEN DID YOU LAST EAT? 02/20 0200 . WHEN DID YOU LAST DRINK? 0745 . WHAT DID YOU LAST DRINK? SIP OF WATER AND GA . NAME OF PERSON DRIVING YOU HOME? YUN . DO YOU HAVE ANY OTHER QUESTIONS OR CONCERNS NO, PT HAS NOT HAD ANY VACCINES IN THE PAST 30 DAYS . VITAL SIGNS WT 138.2 LBS, HT 61 IN, BMI 26.11 INDEX, BP 121/74 MM HG, HR 75 /MIN, RR 18 /MIN, TEMP 97.7 F, OXYGEN SAT % 95%, NA INITIALS AW 0917, REVIEWED BY: AD. 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 POST PROCEDURE DIAGNOSIS LUMBAR SPONDYLOSIS, LUMBAR FACET ARTHROPATHY. PROCEDURE RIGHT L3 - L4, L4 - L5 LUMBAR FACET THERAPEUTIC BLOCK SURGEON DR. LOTUS QUINTANA LINE SUPERVISOR NONE ANESTHESIA LOCAL PRE PROCEDURE NOTE THE PATIENT HAS A HISTORY OF CHRONIC LOW BACK PAIN. I EVALUATED THE PATIENT AND REVIEWED THE CHART. I WENT OVER THE RISKS, ALTERNATIVES, AND BENEFITS ASSOCIATED WITH THIS PROCEDURE. I DISCUSSED WITH THE PATIENT THAT THE USE OF STEROIDS MAY CONTRIBUTE TO IMMUNOSUPPRESSION OF HER BODY AGAINST INFECTIONS SUCH THE SOTO VIRUS, COVID-19. SHE IS AWARE OF THE POTENTIAL COMPLICATIONS ASSOCIATED WITH AN INFECTION OF THIS VIRUS INCLUDING . THE PATIENT WOULD LIKE TO PROCEED AND GIVES CONSENT TO PERFORM THE PROCEDURE. THE PATIENT DENIES UNEXPLAINABLE WEIGHT LOSS, FEVER, CHILLS, OR NEW CHANGES IN URINARY OR BOWEL CONTROL. THE PATIENT TESTED NEGATIVE FOR COVID-19 DESCRIPTION OF PROCEDURE THE PATIENT WAS BROUGHT TO THE PROCEDURE ROOM AND PLACED IN THE PRONE POSITION. THE LUMBOSACRAL AREA WAS CLEANED WITH CHLORAPREP SOLUTION AND DRAPED ASEPTICALLY. THE PROCEDURE WAS DONE UNDER STERILE CONDITIONS. I CHECKED LATERALITY AND THE LEVEL WHERE THE PROCEDURE WAS GOING TO BE PERFORMED WITH THE PATIENT AND THE SUPPORTING STAFF AT THE MOMENT OF THE TIME OUT IN THE PROCEDURE ROOM. UNDER FLUOROSCOPIC GUIDANCE, THE TARGET POINT WAS SELECTED AT THE RIGHT L3-L4 AND RIGHT L4-L5 FACET JOINTS. TARGET POINT WAS SELECTED AFTER LATERAL ROTATION AND TILT OF THE MAGNIFIER OF THE C-ARM. LIDOCAINE 0.5% WAS USED TO NUMB THE SKIN AND THE SUBCUTANEOUS TISSUE BELOW IT. SPINAL NEEDLES, 22-GAUGE, WERE ADVANCED UNDER FLUOROSCOPIC GUIDANCE AND FOLLOWING PATIENT FEEDBACK UNTIL THE TARGETS WERE TOUCHED. THE POSITION OF THE NEEDLES WAS VERIFIED WITH AP AND LATERAL VIEWS. AFTER PROPER POSITION OF THE NEEDLES WAS ACHIEVED, ISOVUE-M DYE 30% 0.1 ML WAS INJECTED SHOWING ADEQUATE SPREAD OF THE DYE. THEN A SOLUTION OF 1.0 ML OF BUPIVACAINE 0.125% OF DEXAMETHASONE 5 MG WAS INJECTED AT EACH SITE. THERE WAS NO EVIDENCE OF BLOOD, PARESTHESIA OR CEREBROSPINAL FLUID DURING THE PROCEDURE. THE PATIENT WAS SENT TO THE RECOVERY ROOM. THE PATIENT WAS MOVING THE EXTREMITIES AND DOING WELL. THERE WAS NO COMPLICATION DURING THE PROCEDURE. FLUOROSCOPY TIME WAS 22 SECONDS POST PROCEDURE NOTE I CHECKED THE PATIENT UNDER X-RAY, PLEASE CONSIDER A RIGHT L5-S1 FACET BLOCK OR A RIGHT LOWER BACK TRIGGER POINT INJECTION. THE PATIENT WILL BE SEEN IN A FOLLOW UP IN THE NEXT FEW WEEKS. I AM LOOKING FOR LONG LASTING PAIN RELIEF FOR THE PATIENT WITH THIS INJECTION. INSTRUCTIONS WERE GIVEN, QUESTIONS WERE ANSWERED, AND THE PATIENT EXPRESSED UNDERSTANDING AND AGREES WITH THE PLAN. I INSTRUCTED THE PATIENT TO STAY HOME, IF POSSIBLE, FOR A WEEK DUE TO COVID-19. I, SRUTHI MARTIN , DOCUMENTED THE ABOVE INFORMATION ACTING A SCRIBE FOR DR. QUINTANA. I HAVE REVIEWED THE ABOVE DOCUMENT, WRITTEN BY ARELI RICHARDS, AND I VERIFY THAT IT IS ACCURATE. DIAGNOSTIC IMAGING [facility] FACET BLOCK (PAIN)[id number] PROCEDURE CODES 98281 INJ PARAVERT F JNT L/S 1 LEV, MODIFIERS: [place] [address] INJ PARAVERT F JNT L/S 2 LEV, MODIFIERS: RT 6045F RADXPS IN END [id number] PXD DISPOSITION & COMMUNICATION FOLLOW UP F/UP CASE FILLER (REASON: POST PROCEDURE F/UP) ELECTRONICALLY SIGNED BY LOTUS QUINTANA MD, MD ON 02/23/2020 AT 12:52 PM EDT DISCLAIMER : THIS IS A VISIT SUMMARY EXTRACTED FROM THE [employer] CHART. IT IS NOT A COPY OF THE [employer] PROGRESS NOTE. JOZEF
== END ==
LOC: M PAIN 09:45
PROVIDERS: ATTEND Anesthesiology
DX: M43.06 Spondylolysis, lumbar region (principal); M47.817 Spondylosis without myelopathy or radiculopathy, lumbosacral region; G47.33 Obstructive sleep apnea (adult) (pediatric); K21.9 Gastro-esophageal reflux disease without esophagitis; Z86.59 Personal history of other mental and behavioral disorders; M79.7 Fibromyalgia; R73.01 Impaired fasting glucose; Z88.1 Allergy status to other antibiotic agents; Z88.2 Allergy status to sulfonamides; Z88.5 Allergy status to narcotic agent; Z88.8 Allergy status to other drugs, medicaments and biological substances; Z79.899 Other long term (current) drug therapy
CPT/HCPCS: 64493; 64494; J1100; Q9967

== ENCOUNTER → 2020-02-23 | Outpatient (RCR) | payer MEDICARE ==
[~2020-02-23] MED LIST changes: -BUPIVACAINE HCL 0.25% 30ML VIAL As Ordered ONE; -ISOVUE-M 300 61% 15ML VIAL As Ordered ONE; -LIDOCAINE 1% SDV 30ML VIAL As Ordered ONE; -dexameTHASONE 10MG/1ML VIAL PRES.FREE (J1100 PER 1MG) As Ordered ONE; -diazePAM 5 MG TAB As Ordered ONE
== END | disposition home or self-care (01) ==
LOC: M PT 09:55
PROVIDERS: ATTEND Physician Assistant Medical
DX: Z51.89 Encounter for other specified aftercare (principal); M25.511 Pain in right shoulder

== ENCOUNTER → 2020-03-01 | Outpatient (CLI) | payer MEDICARE ==
[2020-03-01 14:36] LABS: ALBUMIN 3.8 GM/DL (3.2-5.2); ALT/SGPT 27 U/L (12-78); BILIRUBIN,TOTAL 0.3 MG/DL (0.2-1.0); BLOOD UREA NITROGEN 24 MG/DL (7-18); CALCIUM LEVEL 9.3 MG/DL (8.8-10.2); CARBON DIOXIDE LEVEL 28 MEQ/L (21-32); CHLORIDE LEVEL 108 MEQ/L (98-107); CHOLESTEROL LEVEL 192 MG/DL (<200); CHOLESTEROL RISK RATIO 2.909 (<5); CREATININE FOR GFR 0.68 MG/DL (0.55-1.30); FOLATE > 24.0 NG/ML; GLOMERULAR FILTRATION RATE > 60.0 (>39); GLUCOSE, FASTING 93 MG/DL (70-100); HDL CHOLESTEROL 66 MG/DL (>40); LDL CHOLESTEROL 111 MG/DL (<100); NON-HDL-C 126 MG/DL; POTASSIUM SERUM 4.5 MEQ/L (3.5-5.1); SODIUM LEVEL 142 MEQ/L (136-145); TOTAL PROTEIN 6.9 GM/DL (6.4-8.2); TRIGLYCERIDES LEVEL 77 MG/DL (<150); VITAMIN B12 LEVEL 1425 PG/ML
== END ==
LOC: M PLALAB 12:06
PROVIDERS: ATTEND Family Medicine
DX: I10 Essential (primary) hypertension (principal); E55.9 Vitamin D deficiency, unspecified; D51.9 Vitamin B12 deficiency anemia, unspecified

== ENCOUNTER → 2020-03-06 | Outpatient (REF) | payer MEDICARE ==
[~2020-03-06] MED LIST changes: +ACET650T61 PO; +ALBU8.5H; +ALBU83IN; +AMOX500T2; -ASPI81TA85 PO; +ASPI81TA86 PO; +BREO1INH3; +FAMO40TA3; +TESS100C PO; -TYLE650T35 PO
== END ==
LOC: M LAB REF 12:59
PROVIDERS: ATTEND Internal Medicine Pulmonary Disease
DX: R05 Cough (principal)

== ENCOUNTER → 2020-03-06 | Outpatient (CLI) | payer MEDICARE ==
[~2020-03-06] MED LIST changes: -ACET650T61 PO; -ALBU8.5H; -ALBU83IN; -AMOX500T2; +ASPI81TA85 PO; -ASPI81TA86 PO; -BREO1INH3; -FAMO40TA3; -TESS100C PO; +TYLE650T35 PO
--- NOTE | 2020-03-08 03:40 | ECWPNPC ---
PATIENT NAME: RENEE JACOBSEN : 1940 GENDER: FEMALE VISIT DATE: 03/06/2020 DISCHARGE DATE: 03/06/20841 VISIT LOCKED DATE TIME: PHYSICIAN: HECTOR DOAN RESOURCE: HECTOR DOAN REASON FOR APPOINTMENT 1. POST PROCEDURE [phone] PAT COMPLETED HISTORY OF PRESENT ILLNESS HISTORY OF PRESENT ILLNESS: PATIENT IS AGREEABLE TO TELEPHONE VISIT TODAY. HAD RIGHT LUMBAR FACET BLOCK, THERAPEUTIC L3-4, L4-5 ON 02/21/2020. REPORTING SIGNIFICANT REDUCTION IN PAIN POST PROCEDURE THAT CONTINUES TODAY. RATING PAIN VAS 3/10. DISCUSSED MEDICATION AND TREATMENT OPTIONS. PAIN THE PATIENT DESCRIBES THE PAIN... FALL RISK SCREENING: SCREENING :NO FALLS REPORTED IN THE LAST YEAR CURRENT MEDICATIONS TAKING SALINE NASAL SPRAY 0.65 % SOLUTION 2 SRAYS IN EACH NOSTRIL NEEDED NASALLY EVERY 4 HRS NEEDED TAKING LOPERAMIDE HCL 2 MG CAPSULE 1 CAPSULE ORALLY ONCE A DAY TAKING OMEPRAZOLE 20 MG CAPSULE DELAYED RELEASE 1 CAPSULE ORALLY DAILY TAKING VITAMIN C 1000 MG TABLET 1.5 TAB(S) ORALLY DAILY TAKING VITAMIN D3 2000 UNIT CAPSULE 1 CAPSULE ORALLY ONCE A DAY TAKING ACIDOPHILUS 10 MG CAPSULE DIRECTED ORALLY BID TAKING CALCIUM 600+D HIGH POTENCY 600-400 MG-UNIT TABLET 1 TABLET ORALLY ONCE A DAY TAKING VITAMIN B12 1000 MCG TABLET 2 TABLETS ORALLY ONCE A DAY TAKING SIMVASTATIN 40 MG TABLET 1/2 TABLET ORALLY DAILY IN THE EVENING TAKING TYLENOL 500MGS 1 TAB ORAL EVERY 4 HOURS NEEDED TAKING IBUPROFEN 800 MGS DAILY NEEDED TAKING FLONASE 50 MCG/ACT SUSPENSION 1 SPRAY IN EACH NOSTRIL NASALLY ONCE A DAY TAKING RANITIDINE ACID CHILD LIFE THERAPIST 75 MG TABLET 1 TABLET NEEDED ORALLY DAILY TAKING FOLIC ACID 800 MCG TABLET 1 TABLET ORALLY ONCE A DAY TAKING HAIR SKIN & NAILS ADVANCED - TABLET DIRECTED ORALLY TAKING POTASSIUM 99 MG TABLET 1 TABLET ORALLY ONCE A DAY TAKING TURMERIC 500 MG CAPSULE DIRECTED ORALLY DAILY TAKING SUPER B-COMPLEX - TABLET DIRECTED ORALLY DAILY TAKING BIOFLEX - TABLET DIRECTED ORALLY DAILY TAKING CLARITIN 10 MG TABLET 1 TABLET ORALLY ONCE A DAY TAKING VITAMIN E 400 UNIT CAPSULE 1 CAPSULE ORALLY ONCE A DAY TAKING GLUCOSAMINE 1500 COMPLEX - CAPSULE ORALLY DAILY TAKING MUCINEX DM 30-600 MG TABLET EXTENDED RELEASE 12 HOUR 1 TABLET NEEDED ORALLY EVERY 12 HRS TAKING FISH OIL 1000 MG CAPSULE 1 CAPSULE ORALLY ONCE A DAY TAKING CHERI 500 MG CAPSULE DIRECTED ORALLY DAILY UNKNOWN ASTELIN 2 SPRAYS EACH NOSTRIL ONCE DAILY UNKNOWN NAPROXEN 250 MG TABLET 1 TABLET WITH FOOD OR MILK ORALLY TWICE A DAY, NOTES: NEEDED UNKNOWN VITAMIN E 200 UNIT CAPSULE 1 CAPSULE ORALLY ONCE A DAY UNKNOWN BUPROPION HCL 150 MG TABLET EXTENDED RELEASE ORALLY DAILY UNKNOWN CHERI 500 MG CAPSULE DIRECTED ORALLY UNKNOWN ASPIR-81 81 MG TABLET DELAYED RELEASE 1 TABLET ORALLY ONCE A DAY UNKNOWN PREDNISOLONE 5 MG (21) TABLET THERAPY PACK DIRECTED ORALLY , NOTES: FOR BRONCHITIS UNKNOWN CARAFATE 1 GM TABLET 1 TABLET ON AN EMPTY STOMACH ORALLY THREE TIMES A DAY UNKNOWN DYMISTA 137-50 MCG/ACT SUSPENSION 1 SPRAY, TO BOTH NOSTRILS NASALLY TWICE A DAY UNKNOWN PROTONIX 40 MG TABLET DELAYED RELEASE 1 TABLET ORALLY BID UNKNOWN CARAFATE 1 GM TABLET 1 TABLET ON AN EMPTY STOMACH ORALLY THREE TIMES A DAY UNKNOWN REPLENS - GEL DIRECTED VAGINAL , NOTES: HAVEN'T GOTTEN YET MEDICATION LIST REVIEWED AND RECONCILED WITH THE PATIENT PAST MEDICAL HISTORY ALLERGIC RHINITIS/CONJUNCTIVITIS/CHRONIC RECURRENT SINUSITIS-01/2015 - ZONE 1, IGE < 3.6 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 BY NOVEMBER 2010 CT/GRADE 1 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 X-RAY BILATERAL HAND OSTEOARTHRITIS-2007 NEGATIVE RHEUMATOLOGICAL WORKUP IMANI-02/2012 NPSG C RDI 25-ALLEN HYPERLIPIDEMIA 2B GERD-08/2014 NORMAL EGD-REINDL 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[address] OF THE PELVIS STONE PROTOCOL AND RENAL ULTRASOUND BILATERAL DEPRESSION FIBROMYALGIA ALLERGIC RHINITIS/CONJUNCTIVITIS IMPAIRED FASTING GLUCOSE LEUKOPENIA, 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, CHRONIC 2 SMALL ADENOMATOUS POLYPS, DIVERTICULOSIS, SIGMOID, 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-06/2011-REINDL//08/2014 MODERATE SIGMOID DIVERTICULOSIS-REINDL L HIP MILD OA BY 08/2013 XRAY 11/2018 ECOLI IN URINE 12/2018 BRONCHITIS ALLERGIES AVELOX: LEGS SHAKEY - SIDE EFFECTS CYMBALTA: NAUSEA/VOMITING - SIDE EFFECTS DOXYCYCLINE HYCLATE: INEFFECTIVE - SIDE EFFECTS PROZAC: FATIGUE - SIDE EFFECTS SULFA (FOR ALLERGY USE ONLY): RASH - ALLERGY CODEINE SULFATE: NAUSEA/VOMITING - SIDE EFFECTS SURGICAL HISTORY BILATERAL BLEPHAROPLASTY-BRAD 09/2010 DEVIATED SEPTUM REPAIR TUBAL LIGATION KIDNEY STONE LASER COLONOSCOPY 08/2014 BILAT EYELID REPAIR FAMILY HISTORY FATHER: 53 YRS, UNKNOWN CAUSE MOTHER: 96 YRS, LUNG CA, OSTEOPOROSIS, NO HIP FX. 1 BROTHER(S) , 2 SISTER(S) . 1 SON(S) , 2 DAUGHTER(S) - HEALTHY. DENIES FAMILY HX OF BREAST, COLON OR OVARIAN CANCER. DENIES FAMILY HX OF BREAST, COLON OR OVARIAN CANCER. SOCIAL HISTORY GENERAL: TOBACCO USE ARE YOU A:NONSMOKER LATEX QUESTIONNAIRE LATEX ALLERGY : HAVE YOU EVER DEVELOPED ANY TYPE OF REACTION AFTER HANDLING LATEX PRODUCTS SUCH RUBBER GLOVES, CONDOMS, DIAPHRAGMS, BALLOONS, SOCKS, OR UNDERWEAR?NO LATEX ALLERGY : HAVE YOU EVER DEVELOPED ANY TYPE OF REACTION DURING OR AFTER DENTAL APPOINTMENT, VAGINAL/RECTAL EXAMINATION, SURGICAL PROCEDURE, OR ANY OTHER EXPOSURE?NO DATE ASKED : 02/21/2020 LATEX RISK : HAVE YOU EVER HAD ANY DIFFICULTY BREATHING OR HIVES AFTER EATING OR HANDLING ANY FRUITS, OR VEGETABLES; SUCH KIWI, BANANAS, STONE FRUITS, OR CHESTNUTSNO LATEX RISK : DO YOU HAVE A PREVIOUS PERSONAL HISTORY OF MORE THAN NINE SURGERIES, SPINA BIFIDA, OR REPEATED CATHERIZATIONS? NO LATEX RISK : ARE YOU FREQUENTLY EXPOSED TO LATEX PRODUCTS IN YOUR OCCUPATION?NO ALCOHOL SCREENING DID YOU HAVE A DRINK CONTAINING ALCOHOL IN THE PAST YEAR?YES HOW OFTEN DID YOU HAVE SIX OR MORE DRINKS ON ONE OCCASION IN THE PAST YEAR?NEVER (0 POINTS) HOW MANY DRINKS DID YOU HAVE ON A TYPICAL DAY WHEN YOU WERE DRINKING IN THE PAST YEAR?3 OR 4 (1 POINT) HOW OFTEN DID YOU HAVE A DRINK CONTAINING ALCOHOL IN THE PAST YEAR?MONTHLY OR LESS (1 POINT) POINTS2 INTERPRETATIONNEGATIVE RECREATIONAL DRUG USE DRUG USE?NO DENIES 03/06/20 CAFFEINE DECAF COFFEE ONLY.. SEXUAL HX HAD SEX IN THE LAST 12 MONTHS (VAGINAL, ORAL, OR ANAL)?NO LMP:POST MENOPAUSE HAVE YOU EVER HAD AN STD?NO [id number] LANGUAGES SPOKEN:TAMAZIGHT EDUCATION LEVEL OF EDUCATION:HIGH SCHOOL LEARNING BARRIERS / SPECIAL NEEDS CHANGE FROM LAST VISIT?NO BARRIERS TO LEARNING?NO HEARING IMPAIRED?NO VISION IMPAIRED?YES COGNITIVELY IMPAIRED?NO :CORRECTIVE LENSES READINESS TO LEARN?YES LEARNING PREFERENCES?NO LEARNING CAPABILITIES PRESENT?YES EMOTIONAL BARRIERS?NO SPECIAL DEVICES?NO DOMESTIC VIOLENCE DENIES. DIET: "TERRIBLE". EATS TOO MUCH DESSERT.. MARITAL STATUS: . OTHERS AT HOME: NONE. NEW PATIENT PAIN DIARY TODAY'S VISIT 03/06/2020 PATIENT DESCRIBES PAIN :ACHING, IT COMES AND GOES, SORE, OTHER NUMB FROM 0-10, WHAT LEVEL IS YOUR PAIN TODAY?3 PRECIPITATING FACTORS WALKING, LIFTING, RAISING ARMS OVER HER HEAD ALLEVIATING FACTORS LAYING DONE, IBUPROFEN, TYLENOL, STRETCHING EXERCISING IMPACT ON FUNCTION LIMITS HER ON WHAT SHE IS ABLE TO DO. PAIN CLINIC PFS, CLERGY, PUBLIC HEALTH REFERRALS WAS THE PROVIDER NOTIFIED OF ANY PERTINENT INFO?YES HAS THE PATIENT BEEN EDUCATED REGARDING HIS/HER PLAN OF CARE?YES HAS THE PATIENT BEEN EDUCATED REGARDING PAIN, THE RISK FOR PAIN, THE IMPORTANCE OF EFFECTIVE PAIN MANAGEMENT, AND THE PAIN ASSESSMENT PROCESS?YES ADVANCE DIRECTIVE ADVANCE DIRECTIVE DISCUSSED WITH PATIENT:YES HCP JOHN DIXON [phone] PRE-SCREENING COMPLETED 02/20/2020 1630 JS. HOSPITALIZATION/MAJOR DIAGNOSTIC PROCEDURE ABOVE REVIEW OF SYSTEMS REVIEWED BY: PROVIDER: HECTOR MATTHEWS . CONSTITUTIONAL: ANY CHANGE IN YOUR MEDICAL CONDITION? YES - PRODUCTIVE COUGH . CHILLS NO . FEVER NO . INFECTION: DO YOU HAVE NEW INFECTIONS? YES . DO YOU HAVE HISTORY OF MRSA? NO . MUSCULOSKELETAL: ANY NEW PATTERNS OF PAIN OR NUMBNESS? NO, RIGHT LEG NUMBNESS NOT NEW . GASTROENTEROLOGY: ANY NEW CHANGE IN BOWEL CONTROL? NO . GENITOURINARY: ANY NEW CHANGE IN BLADDER CONTROL? NO . IS THERE A CHANCE YOU COULD BE ? NO . HEMATOLOGY/LYMPH: DO YOU TAKE ANY BLOOD THINNERS? (FOR EXAMPLE- COUMADIN, PLAVIX, AGGRENOX, PLATEL, PRADAXA, OR XARELTO) NO . WHEN WAS YOUR LAST DOSE? DATE: TIME: . NEUROLOGY: HAVE YOU FALLEN IN THE PAST 12 MONTHS? NO . ANY NEW EXTREMITY NUMBNESS OR WEAKNESS? NO . CARDIOLOGY: DO YOU HAVE A PACEMAKER OR DEFIBRILLATOR? NO . RESPIRATORY: HAVE YOU BEEN SICK IN THE PAST WEEK? YES . FEVER NO . FLU LIKE SYMPTOMS? NO . COUGH YES . INTEGUMENTARY: DO YOU HAVE ANY RASHES OR OPEN SORES? NO . ALLERGIC/IMMUNO: ARE YOU ALLERGIC TO IV DYE? NO . ANY NEW ALLERGIES? NO . PSYCHIATRIC: DO YOU HAVE THOUGHTS OF HURTING YOURSELF OR SOMEONE ELSE? NO . ARE YOU ABUSED, NEGLECTED, OR IN AN UNSAFE ENVIRONMENT? NO . ENDOCRINOLOGY: ARE YOU DIABETIC? NO . OTHER: DO YOU NEED ANY PRESCRIPTIONS? NO . IF YES, PLEASE LIST: ____ . ANY NEW PROBLEMS WITH YOUR MEDICATIONS? NO . WHEN DID YOU LAST EAT? ____ . WHEN DID YOU LAST DRINK? ____ . WHAT DID YOU LAST DRINK? ____ . NAME OF PERSON DRIVING YOU HOME? ____ . DO YOU HAVE ANY OTHER QUESTIONS OR CONCERNS NO . 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 FOLLOW-UP IS SCHEDULED IN 2 MONTHS. TOTAL TIME SPENT AT TELEPHONE VISIT WAS APPROXIMATELY 11 MINUTES. DISPOSITION & COMMUNICATION FOLLOW UP 2 MONTHS (REASON: RIGHT LBP) ELECTRONICALLY SIGNED BY BYRON WHITTAKER ON 03/07/2020 AT 03:49 PM EDT DISCLAIMER : THIS IS A VISIT SUMMARY EXTRACTED FROM THE [employer] CHART. IT IS NOT A COPY OF THE [employer] PROGRESS NOTE. JOZEF
== END ==
LOC: M PAIN 11:15
PROVIDERS: ATTEND Nurse Practitioner Family
DX: M43.06 Spondylolysis, lumbar region (principal); G47.33 Obstructive sleep apnea (adult) (pediatric); K21.9 Gastro-esophageal reflux disease without esophagitis; Z86.59 Personal history of other mental and behavioral disorders; M79.7 Fibromyalgia; R73.01 Impaired fasting glucose; Z88.1 Allergy status to other antibiotic agents; Z88.2 Allergy status to sulfonamides; Z88.5 Allergy status to narcotic agent; Z88.8 Allergy status to other drugs, medicaments and biological substances; Z79.899 Other long term (current) drug therapy

== ENCOUNTER → 2020-03-13 | Outpatient (CLI) | payer MEDICARE ==
--- NOTE | 2020-03-13 08:23 | REPMRS ---
Patient History The patient states she has not had a clinical breast exam in over a year. No known family history of cancer. Digital Woman Screen Mammo: March 13, 2020 - Exam #: [id number] Bilateral CC and MLO view(s) were taken. Technologist: Amalia Marquez Technologist Prior study comparison: February 25, 2019, bilateral digital woman screen mammo performed at [facility]. February 24, 2018, digital woman screen mammo performed at [facility]. February 23, 2017, digital woman screen mammo performed at [facility]. FINDINGS: There are scattered fibroglandular densities. The Volpara volumetric breast density category is:B. There has been no change in the appearance of the mammogram from the prior studies. There is a mild amount of scattered fibroglandular density which is fairly symmetric. There is no interval development of dominant mass, architectural distortion, or grouped microcalcification suggestive of malignancy. 3-D tomosynthesis shows no additional findings. Assessment: BI-RADS/ACR category 1 mammogram. Negative Mammogram. Recommendation Routine screening mammogram of both breasts in 1 year (for women over age 40). This patient's Lifetime Breast Cancer Risk is estimated at 2.3 %. This mammogram was interpreted with the aid of an FDA-approved computer-aided dectection system. Electronically Signed By: Mark Cabrera MD 03/13/20 0822
--- NOTE | 2020-03-15 15:08 | DEXA ---
AP SPINE L1 - L4 1.541 2.8 4.6 LT FEMUR TOTAL 0.949 -0.5 1.4 LT NECK 0.854 -1.3 0.7 RT FEMUR TOTAL 0.957 -0.4 1.5 RT NECK 0.890 -1.1 1.0 TOTAL BODY TOTAL OTHER COMMENTS: Normal bone densitometry of the spine. There is low bone density of the hips. The increased density of the spine does represent a significant change. The decreased density of the left hip does represent a significant change. The decreased density of the right hip does represent a significant change. The density of the spine has increased 8.7% since initial exam on 11/17/2000. The increased 7.9% since the most recent exam on 02/06/2011. The density of the left hip has decreased 12% since the initial exam on 11/17/2000. The density of the left hip has decreased 6.5% since the most recent exam on 02/06/2011. The density of the right hip has decreased 1.5% since the initial exam on 11/17/2000. The density of the right hip has decreased 7.7% since the most recent exam on 02/06/2011. FOLLOW-UP: Recommendation for the next bone density exam: 2 years. JOZEF
== END ==
LOC: M WHC 07:06
PROVIDERS: ATTEND Family Medicine
DX: Z12.31 Encounter for screening mammogram for malignant neoplasm of breast (principal); M89.9 Disorder of bone, unspecified

== ENCOUNTER 2020-03-23 12:45 | Outpatient (RCR) | payer MEDICARE | END 2020-03-25 | LOC: M PT 12:45 | PROVIDERS: ATTEND Physician Assistant Medical | DX: Z51.89 Encounter for other specified aftercare (principal); M25.511 Pain in right shoulder ==

== ENCOUNTER → 2020-03-29 | Outpatient (CLI) | payer MEDICARE | LOC: M LABSMTC 10:24 | PROVIDERS: ATTEND Family Medicine | DX: Z03.818 Encounter for observation for suspected exposure to other biological agents ruled out (principal); Z11.59 Encounter for screening for other viral diseases | CPT/HCPCS: C9803; U0003 ==

== ENCOUNTER → 2020-04-03 | Outpatient (CLI) | payer MEDICARE ==
--- NOTE | 2020-04-05 17:13 | REP ---
Clinical: Cough. Technique: Axial noncontrast images from the thoracic inlet to the upper abdomen with coronal and sagittal re-formations. Findings: There is a small non solid density in the right apex (image 24) measuring roughly 12 mm maximal diameter along with 10 x 4 mm nodular density in the left upper lobe (image 45). Primarily calcified mediastinal and hilar adenopathy is also appreciated and these findings may reflect sequelae of prior granulomas disease. There also appears to be an area of soft tissue within the right suprahilar region of the right upper lobe measuring roughly 16 mm maximal diameter (images 29 - 35). No further acute consolidation, effusion, or pneumothorax. Tracheobronchial tree is relatively patent. Mediastinum demonstrates atherosclerotic changes to the thoracic aorta and coronary arteries without aortic aneurysm or cardiomegaly. No pericardial effusion. Musculoskeletal structures demonstrate degenerative changes without acute focal osseous abnormality. Limited upper abdomen demonstrates normal bilateral adrenal glands and evidence for prior cholecystectomy. Impression: 1. Findings described above including few scattered noncalcified nodular densities and primarily calcified mediastinal/hilar adenopathy may reflect sequelae of prior granulomas disease. However, no prior examinations are available for comparison and acute, active pathology cannot be excluded. Consider 3-6 month short-term follow-up reevaluation to evaluate for stability. Electronically Signed by Teofilo Baca MD 04/05/2020 05:04 P
== END ==
LOC: M RAD 09:30
PROVIDERS: ATTEND Internal Medicine Pulmonary Disease
DX: R05 Cough (principal)

== ENCOUNTER → 2020-04-07 | Outpatient (REF) | payer MEDICARE | LOC: M WUC 17:39 | PROVIDERS: ATTEND Nurse Practitioner Family | DX: R30.0 Dysuria (principal) ==

== ENCOUNTER 2020-04-17 12:41 | Outpatient (RCR) | payer MEDICARE ==
[~2020-04-17 12:41] MED LIST changes: +ACET650T61 PO; -ASPI81TA85 PO; +ASPI81TA86 PO; -TYLE650T35 PO
== END 2020-04-24 ==
LOC: M PT 12:41
PROVIDERS: ATTEND Physician Assistant Medical
DX: M25.511 Pain in right shoulder (principal); M25.512 Pain in left shoulder
CPT/HCPCS: 97035; 97110; 97140; G0283

== ENCOUNTER 2020-04-30 12:00 | Outpatient (RCR) | payer MEDICARE | END 2020-05-25 | LOC: M PT 12:00 | PROVIDERS: ATTEND Physician Assistant Medical | DX: M25.511 Pain in right shoulder (principal) | CPT/HCPCS: 97110; 97530; G0283 ==

== ENCOUNTER → 2020-05-07 | Outpatient (CLI) | payer MEDICARE ==
--- NOTE | 2020-05-11 06:11 | ECWPNPC ---
PATIENT NAME: RENEE JACOBSEN : 1940 GENDER: FEMALE VISIT DATE: 05/07/2020 DISCHARGE DATE: 05/07/20 1124 VISIT LOCKED DATE TIME: PHYSICIAN: HECTOR DOAN RESOURCE: HECTOR DOAN REASON FOR APPOINTMENT 1. RIGHT LBP HISTORY OF PRESENT ILLNESS GENERAL: HERE FOR FOLLOW-UP OF CHRONIC LOW BACK PAIN. REPORTING INCREASE IN LOW BACK PAIN OVER THE PAST FEW WEEKS. REVIEWED MRI L/S SPINE. DISCUSSED TREATMENT OPTIONS. -. FALL RISK SCREENING: SCREENING :NO FALLS REPORTED IN THE LAST YEAR PAIN SCREENING: PATIENT HAS A COMPLAINT OF ACUTE OR CHRONIC PAIN :YES MID BACK MORE ON LEFT LOCATION OF PAIN:MID BACK INTENSITY OF PAIN (SCALE OF 1 TO 10):5 WHAT DOES YOUR PAIN FEEL LIKE:ACHING, CONTINOUS "TIGHTNESS" DEPENDS ON HOW I SIT PAIN IS INCREASED BY:ACTIVITIES REACHING UP FOR THINGS PAIN IS DECREASED BY: BUPROFEN AND TYLENOL HELP NURSING NOTE: -. PAIN CENTER INTAKE QUESTIONS: DO YOU HAVE A HISTORY OF MRSA? :NO DO YOU TAKE A BLOOD THINNERS? :NO DO YOU HAVE ANY BLEEDING DISORDERS? :NO ANY NEW NUMBNESS OR WEAKNESS IN YOUR LEGS OR ARMS? :NO ANY PACEMAKER,DEFIBRILLATOR, OR DORSAL COLUMN STIMULATOR? :NO DO YOU HAVE ANY RASHES OR OPEN SORES? :NO ARE YOU ALLERGIC TO IV DYE? :NO ARE YOU DIABETIC? :NO ANY NEW PROBLEMS WITH YOUR MEDICATIONS? :NO HAVE YOU RECEIVED A VACCINE IN THE PAST 30 DAYS? :NO DO YOU PLAN TO RECEIVE A VACCINE IN THE NEXT 21 DAYS? :NO DO YOU NEED ANY PRESCRIPTION? :NO DO YOU TAKE ANY IMMUNOSUPPRESSIVE MEDICATIONS? :NO IS THERE A CHANCE YOU COULD BE ? :NO ARE YOU BREAST FEEDING? :NO CURRENT MEDICATIONS TAKING SALINE NASAL SPRAY 0.65 % SOLUTION 2 SRAYS IN EACH NOSTRIL NEEDED NASALLY EVERY 4 HRS NEEDED TAKING LOPERAMIDE HCL 2 MG CAPSULE 1 CAPSULE ORALLY ONCE A DAY TAKING OMEPRAZOLE 20 MG CAPSULE DELAYED RELEASE 1 CAPSULE ORALLY DAILY TAKING VITAMIN C 1000 MG TABLET 1.5 TAB(S) ORALLY DAILY TAKING VITAMIN D3 2000 UNIT CAPSULE 1 CAPSULE ORALLY ONCE A DAY TAKING ACIDOPHILUS 10 MG CAPSULE DIRECTED ORALLY BID TAKING CALCIUM 600+D HIGH POTENCY 600-400 MG-UNIT TABLET 1 TABLET ORALLY ONCE A DAY TAKING VITAMIN B12 1000 MCG TABLET 2 TABLETS ORALLY ONCE A DAY TAKING SIMVASTATIN 40 MG TABLET 1/2 TABLET ORALLY DAILY IN THE EVENING TAKING TYLENOL 500MGS 1 TAB ORAL EVERY 4 HOURS NEEDED TAKING IBUPROFEN 800 MGS DAILY NEEDED TAKING FLONASE 50 MCG/ACT SUSPENSION 1 SPRAY IN EACH NOSTRIL NASALLY ONCE A DAY TAKING RANITIDINE ACID MANAGER CONTENT 75 MG TABLET 1 TABLET NEEDED ORALLY DAILY TAKING FOLIC ACID 800 MCG TABLET 1 TABLET ORALLY ONCE A DAY TAKING HAIR SKIN & NAILS ADVANCED - TABLET DIRECTED ORALLY TAKING POTASSIUM 99 MG TABLET 1 TABLET ORALLY ONCE A DAY TAKING TURMERIC 500 MG CAPSULE DIRECTED ORALLY DAILY TAKING SUPER B-COMPLEX - TABLET DIRECTED ORALLY DAILY TAKING BIOFLEX - TABLET DIRECTED ORALLY DAILY TAKING CLARITIN 10 MG TABLET 1 TABLET ORALLY ONCE A DAY TAKING VITAMIN E 400 UNIT CAPSULE 1 CAPSULE ORALLY ONCE A DAY TAKING GLUCOSAMINE 1500 COMPLEX - CAPSULE ORALLY DAILY TAKING MUCINEX DM 30-600 MG TABLET EXTENDED RELEASE 12 HOUR 1 TABLET NEEDED ORALLY EVERY 12 HRS TAKING FISH OIL 1000 MG CAPSULE 1 CAPSULE ORALLY ONCE A DAY TAKING CHERI 500 MG CAPSULE DIRECTED ORALLY DAILY UNKNOWN ASTELIN 2 SPRAYS EACH NOSTRIL ONCE DAILY UNKNOWN NAPROXEN 250 MG TABLET 1 TABLET WITH FOOD OR MILK ORALLY TWICE A DAY, NOTES: NEEDED UNKNOWN VITAMIN E 200 UNIT CAPSULE 1 CAPSULE ORALLY ONCE A DAY UNKNOWN BUPROPION HCL 150 MG TABLET EXTENDED RELEASE ORALLY DAILY UNKNOWN CHERI 500 MG CAPSULE DIRECTED ORALLY UNKNOWN ASPIR-81 81 MG TABLET DELAYED RELEASE 1 TABLET ORALLY ONCE A DAY UNKNOWN PREDNISOLONE 5 MG (21) TABLET THERAPY PACK DIRECTED ORALLY , NOTES: FOR BRONCHITIS UNKNOWN CARAFATE 1 GM TABLET 1 TABLET ON AN EMPTY STOMACH ORALLY THREE TIMES A DAY UNKNOWN DYMISTA 137-50 MCG/ACT SUSPENSION 1 SPRAY, TO BOTH NOSTRILS NASALLY TWICE A DAY UNKNOWN PROTONIX 40 MG TABLET DELAYED RELEASE 1 TABLET ORALLY BID UNKNOWN CARAFATE 1 GM TABLET 1 TABLET ON AN EMPTY STOMACH ORALLY THREE TIMES A DAY UNKNOWN REPLENS - GEL DIRECTED VAGINAL , NOTES: HAVEN'T GOTTEN YET MEDICATION LIST REVIEWED AND RECONCILED WITH THE PATIENT PAST MEDICAL HISTORY ALLERGIC RHINITIS/CONJUNCTIVITIS/CHRONIC RECURRENT SINUSITIS-01/2015 - ZONE 1, IGE < 3.6 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 BY NOVEMBER 2010 CT/GRADE 1 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 X-RAY BILATERAL HAND OSTEOARTHRITIS-2007 NEGATIVE RHEUMATOLOGICAL WORKUP IMANI-02/2012 NPSG C RDI 25-ALLEN HYPERLIPIDEMIA 2B GERD-08/2014 NORMAL EGD-REINDL 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[address] OF THE PELVIS STONE PROTOCOL AND RENAL ULTRASOUND BILATERAL DEPRESSION FIBROMYALGIA ALLERGIC RHINITIS/CONJUNCTIVITIS IMPAIRED FASTING GLUCOSE LEUKOPENIA, 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, CHRONIC 2 SMALL ADENOMATOUS POLYPS, DIVERTICULOSIS, SIGMOID, 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-06/2011-REINDL MODERATE SIGMOID DIVERTICULOSIS-REINDL L HIP MILD OA BY 08/2013 XRAY 11/2018 ECOLI IN URINE 12/2018 BRONCHITIS ALLERGIES AVELOX: LEGS SHAKEY - SIDE EFFECTS CYMBALTA: NAUSEA/VOMITING - SIDE EFFECTS DOXYCYCLINE HYCLATE: INEFFECTIVE - SIDE EFFECTS PROZAC: FATIGUE - SIDE EFFECTS SULFA (FOR ALLERGY USE ONLY): RASH - ALLERGY CODEINE SULFATE: NAUSEA/VOMITING - SIDE EFFECTS SURGICAL HISTORY BILATERAL BLEPHAROPLASTY-BRAD 09/2010 DEVIATED SEPTUM REPAIR TUBAL LIGATION KIDNEY STONE LASER COLONOSCOPY 08/2014 BILAT EYELID REPAIR FAMILY HISTORY FATHER: 53 YRS, UNKNOWN CAUSE MOTHER: 96 YRS, LUNG CA, OSTEOPOROSIS, NO HIP FX. 1 BROTHER(S) , 2 SISTER(S) . 1 SON(S) , 2 DAUGHTER(S) - HEALTHY. DENIES FAMILY HX OF BREAST, COLON OR OVARIAN CANCER. DENIES FAMILY HX OF BREAST, COLON OR OVARIAN CANCER. SOCIAL HISTORY GENERAL: TOBACCO USE ARE YOU A:NONSMOKER LATEX QUESTIONNAIRE LATEX ALLERGY : HAVE YOU EVER DEVELOPED ANY TYPE OF REACTION AFTER HANDLING LATEX PRODUCTS SUCH RUBBER GLOVES, CONDOMS, DIAPHRAGMS, BALLOONS, SOCKS, OR UNDERWEAR?NO LATEX ALLERGY : HAVE YOU EVER DEVELOPED ANY TYPE OF REACTION DURING OR AFTER DENTAL APPOINTMENT, VAGINAL/RECTAL EXAMINATION, SURGICAL PROCEDURE, OR ANY OTHER EXPOSURE?NO DATE ASKED : 02/21/2020 LATEX RISK : HAVE YOU EVER HAD ANY DIFFICULTY BREATHING OR HIVES AFTER EATING OR HANDLING ANY FRUITS, OR VEGETABLES; SUCH KIWI, BANANAS, STONE FRUITS, OR CHESTNUTSNO LATEX RISK : DO YOU HAVE A PREVIOUS PERSONAL HISTORY OF MORE THAN NINE SURGERIES, SPINA BIFIDA, OR REPEATED CATHERIZATIONS? NO LATEX RISK : ARE YOU FREQUENTLY EXPOSED TO LATEX PRODUCTS IN YOUR OCCUPATION?NO ALCOHOL SCREENING DID YOU HAVE A DRINK CONTAINING ALCOHOL IN THE PAST YEAR?YES HOW OFTEN DID YOU HAVE SIX OR MORE DRINKS ON ONE OCCASION IN THE PAST YEAR?NEVER (0 POINTS) HOW MANY DRINKS DID YOU HAVE ON A TYPICAL DAY WHEN YOU WERE DRINKING IN THE PAST YEAR?3 OR 4 (1 POINT) HOW OFTEN DID YOU HAVE A DRINK CONTAINING ALCOHOL IN THE PAST YEAR?MONTHLY OR LESS (1 POINT) POINTS2 INTERPRETATIONNEGATIVE RECREATIONAL DRUG USE DRUG USE?NO DENIES 03/06/20 CAFFEINE DECAF COFFEE ONLY.. SEXUAL HX HAD SEX IN THE LAST 12 MONTHS (VAGINAL, ORAL, OR ANAL)?NO LMP:POST MENOPAUSE HAVE YOU EVER HAD AN STD?NO PRESYBETERIAN [id number] MOSQUE LANGUAGE LANGUAGES SPOKEN:PASHTO EDUCATION LEVEL OF EDUCATION:HIGH SCHOOL LEARNING BARRIERS / SPECIAL NEEDS CHANGE FROM LAST VISIT?NO BARRIERS TO LEARNING?NO HEARING IMPAIRED?NO VISION IMPAIRED?YES COGNITIVELY IMPAIRED?NO :CORRECTIVE LENSES READINESS TO LEARN?YES LEARNING PREFERENCES?NO LEARNING CAPABILITIES PRESENT?YES EMOTIONAL BARRIERS?NO SPECIAL DEVICES?NO DOMESTIC VIOLENCE DENIES. DIET: "TERRIBLE". EATS TOO MUCH DESSERT.. MARITAL STATUS: . OTHERS AT HOME: NONE. NEW PATIENT PAIN DIARY TODAY'S VISIT 03/06/2020 PATIENT DESCRIBES PAIN :ACHING, IT COMES AND GOES, SORE, OTHER NUMB FROM 0-10, WHAT LEVEL IS YOUR PAIN TODAY?3 PRECIPITATING FACTORS WALKING, LIFTING, RAISING ARMS OVER HER HEAD ALLEVIATING FACTORS LAYING DONE, IBUPROFEN, TYLENOL, STRETCHING EXERCISING IMPACT ON FUNCTION LIMITS HER ON WHAT SHE IS ABLE TO DO. PAIN CLINIC PFS, CLERGY, PUBLIC HEALTH REFERRALS WAS THE PROVIDER NOTIFIED OF ANY PERTINENT INFO?YES HAS THE PATIENT BEEN EDUCATED REGARDING HIS/HER PLAN OF CARE?YES HAS THE PATIENT BEEN EDUCATED REGARDING PAIN, THE RISK FOR PAIN, THE IMPORTANCE OF EFFECTIVE PAIN MANAGEMENT, AND THE PAIN ASSESSMENT PROCESS?YES ADVANCE DIRECTIVE ADVANCE DIRECTIVE DISCUSSED WITH PATIENT:YES HCP JOHN DIXON [phone] PRE-SCREENING COMPLETED 02/20/2020 1630 JS. HOSPITALIZATION/MAJOR DIAGNOSTIC PROCEDURE ABOVE REVIEW OF SYSTEMS CONSTITUTIONAL: ANY RECENT FEVER NO . CHILLS NO . WEIGHT CHANGE OF UNKNOWN REASONS NO . GASTROENTEROLOGY: NEW UNEXPLAINABLE CHANGES IN BOWEL CONTROL NO . CONSTIPATION NO . GENITOURINARY: ANY NEW CHANGE IN BLADDER CONTROL? NO . NEUROLOGY: NEW ONSET DIZZINESS OR NEUROLOGICAL CHANGES NOT MENTIONED NO . NEW NUMBNESS OR PAIN PATTERNS NOT MENTIONED AND PERTINENT TO TODAY'S VISIT NO . CARDIOLOGY: NEW CHEST PRESSURE NO . NEW CHEST PAIN NO . RESPIRATORY: UNEXPLAINABLE COUGH NO . NEW SHORTNESS OF BREATH NO . VITAL SIGNS WT 136.8 LBS, HT 61 IN, BMI 25.85 INDEX, BP 140/66 MM HG, HR 74 /MIN, RR 18 /MIN, TEMP 98.5 F, OXYGEN SAT % 96%, NA INITIALS SC 10:41. EXAMINATION GENERAL EXAMINATION: GENERAL AWAKE,ALERT ,PLEAASANT VAGUE HISTORIAN. PSYCH AFFECT NORMAL . LUNGS: LUNG GROSS ARE CLEAR TO AUSCULTATION BILATERALLY. GOOD MOVEMENT OF AIR . HEART: S1, S2 IN A REGULAR RATE AND RHYTHM. PANSYSTOLIC MURMUR NOTED . MUSCULOSKELETAL: MUSCLE STRENGTH TESTING 4/5 BILATERAL LOWER EXTREMITIES. LUMBAR: TRIGGER POINTS:, ELICITED WITH PALPATION OVER LUMBAR PARAVERTEBRAL MUSCLES AND RESTRICTION OF ROM IN THIS AREA. 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 PROCEDURE CODES FA211 ESTABILISHED PATIENT [facility] CHARGE DISPOSITION & COMMUNICATION FOLLOW UP 2 MONTHS (REASON: LOW BACK PAIN) ELECTRONICALLY SIGNED BY BYRON WHITTAKER ON 05/10/2020 AT 03:24 PM EDT DISCLAIMER : THIS IS A VISIT SUMMARY EXTRACTED FROM THE [employer] CHART. IT IS NOT A COPY OF THE [employer] PROGRESS NOTE. JOZEF
== END ==
LOC: M PAIN 10:30
PROVIDERS: ATTEND Nurse Practitioner Family
DX: M79.18 Myalgia, other site (principal); M43.06 Spondylolysis, lumbar region

== ENCOUNTER → 2020-06-08 | Outpatient (POV) | payer MEDICARE ==
[~2020-06-08] MED LIST changes: +BUPIVACAINE HCL 0.25% 10ML VIAL As Ordered ONE; +BUPIVACAINE HCL 0.25% 10ML VIAL ONE; +BUPIVACAINE HCL 0.25% 30ML VIAL As Ordered ONE; +BUPIVACAINE HCL 0.25% 30ML VIAL ONE; +diazePAM 2 MG TAB As Ordered ONE; +diazePAM 2 MG TAB ONE
== END ==
LOC: M PAIN 09:00
PROVIDERS: ATTEND Anesthesiology
DX: M79.18 Myalgia, other site (principal)

== ENCOUNTER → 2020-06-14 | Outpatient (CLI) | payer MEDICARE ==
[~2020-06-14] MED LIST changes: -BUPIVACAINE HCL 0.25% 10ML VIAL As Ordered ONE; -BUPIVACAINE HCL 0.25% 10ML VIAL ONE; -BUPIVACAINE HCL 0.25% 30ML VIAL As Ordered ONE; -BUPIVACAINE HCL 0.25% 30ML VIAL ONE; +METHACHOLINE KIT (J7674) INH ONE; -diazePAM 2 MG TAB As Ordered ONE; -diazePAM 2 MG TAB ONE
== END ==
LOC: M CARPUL 08:03
PROVIDERS: ATTEND Internal Medicine Pulmonary Disease
DX: R05 Cough (principal)

== ENCOUNTER 2020-06-28 08:51 | Day surgery (SDC) | payer MEDICARE ==
[~2020-06-28] VITALS: Ht 154.9 cm; Wt 60.3 kg
[~2020-06-28 08:51] MED LIST changes: -METHACHOLINE KIT (J7674) INH ONE; +NS 1,000 ML IV ONE
[2020-06-28] MEDS ORDERED: ONDANSETRON 4MG/2ML VIAL As Ordered ONE (10:32)
[2020-06-28] MEDS ORDERED: propofoL 200 MG/20 ML VIAL As Ordered ONE (10:37)
[2020-06-28] MEDS ORDERED: LIDOCAINE 2% 100MG/5ML SDV (FOR ANES.) As Ordered ONE (10:37)
[2020-06-28] MEDS ORDERED: GLUCAGON INJ 1MG VIAL As Ordered ONE (10:46)
[2020-06-28 11:15] VITALS: BP 144/69
--- NOTE | 2020-07-04 11:37 | ROOR ---
Patient Name: Lizzie Herrera Procedure Date: 06/28/2020 9:18 AM Date of : 1940 Age: 80 Room: [facility] Gender: Female Note Status: Finalized Procedure: Colonoscopy Indications: High risk colon cancer surveillance: Personal history of colonic polyps Providers: Jorge BACH MD Referring MD: MIGDALIA Pelaez Requesting Provider: Medicines: Monitored Anesthesia Care Complications: No immediate complications. Procedure: Pre-Anesthesia Assessment: - The heart rate, respiratory rate, oxygen saturations, blood pressure, adequacy of pulmonary ventilation, and response to care were monitored throughout the procedure. The Colonoscope was introduced through the anus and advanced to the terminal ileum, with identification of the appendiceal orifice and IC valve. The colonoscopy was performed without difficulty. The patient tolerated the procedure well. The quality of the bowel preparation was good. Findings: The perianal and digital rectal examinations were normal. Multiple small and large-mouthed diverticula were found in the sigmoid colon. There was evidence of diverticular spasm. The exam was otherwise without abnormality on direct and retroflexion views. Impression: - Moderate diverticulosis in the sigmoid colon. There was evidence of diverticular spasm. - The examination was otherwise normal on direct and retroflexion views. - No specimens collected. Recommendation: - Repeat colonoscopy PRN for screening purposes. Jorge BACH MD 06/28/2020 10:48:39 AM Number of Addenda: 0 Note Initiated On: 06/28/2020 9:18 AM Estimated Blood Loss: Estimated blood loss: none.
== END 2020-06-28 11:17 | disposition home or self-care (01) ==
LOC: M OPP 08:51
PROVIDERS: ATTEND Internal Medicine Gastroenterology
DX: Z12.11 Encounter for screening for malignant neoplasm of colon (principal); Z86.010 Personal history of colon polyps; K57.30 Diverticulosis of large intestine without perforation or abscess without bleeding; Z88.1 Allergy status to other antibiotic agents; Z88.2 Allergy status to sulfonamides; Z88.5 Allergy status to narcotic agent; Z88.8 Allergy status to other drugs, medicaments and biological substances
CPT/HCPCS: G0105; J2405

== ENCOUNTER → 2020-07-17 | Outpatient (CLI) | payer MEDICARE ==
[~2020-07-17] MED LIST changes: +METHACHOLINE KIT (J7674) INH ONE; -NS 1,000 ML IV ONE
--- NOTE | 2020-07-17 09:37 | PFTRPT ---
Visit Date: 07/17/2020 Second ID: [id number] Referring Doctor: Hussain Art D.O. Height: 61.00 Inches Weight: 135.00 Lbs BSA: 1.60 Diagnosis: R05 QUALITY: Study of excellent technical quality. PROCEDURE: Under protocol, methacholine was administered. At a dose of 0.25 mg or 1.375 CDUs, a 25% decline of the FEV1 was noted. PC of 0.11 is significant. Flow rates did return to baseline post-bronchodilator administration. IMPRESSION: Positive methacholine challenge study. MTDD
== END ==
LOC: M CARPUL 07-12 08:30
PROVIDERS: ATTEND Internal Medicine Pulmonary Disease
DX: R05 Cough (principal)
CPT/HCPCS: 94070; 95070; J7674

== ENCOUNTER → 2020-08-06 | Outpatient (CLI) | payer MEDICARE ==
[~2020-08-06] MED LIST changes: -METHACHOLINE KIT (J7674) INH ONE
--- NOTE | 2020-08-09 07:06 | REP ---
NONCONTRAST CHEST CT CLINICAL: Follow up abnormal lung findings. COMPARISON: 04/03/2020 TECHNIQUE: Axial noncontrast images from the thoracic inlet to the upper abdomen with coronal and sagittal reformations. FINDINGS: Moderate to significant calcified and noncalcified mediastinal/hilar adenopathy is again noted and essentially unchanged. Small nonsolid area of opacity in the right apex measuring roughly 10.6 mm along with a small somewhat elongated opacity in the posterior left upper lobe (image 42) measuring approximately 10.7 cm in length remain stable. The previously suspected opacity in the right hilar region likely represented normal pulmonary vasculature and adjacent subtle adenopathy which appears less prominent than prior examination and without definite mass lesion. The lung rincon are otherwise well aerated and essentially clear without significant or acute consolidation, nodule, or mass lesion. No effusion. No pneumothorax. Tracheobronchial tree is patent. Further evaluation of the mediastinum demonstrates atherosclerotic changes to the thoracic aorta and coronary arteries without aortic aneurysm or cardiomegaly. No pericardial effusion. Thyroid gland is relatively normal/stable. Surrounding musculoskeletal structures demonstrate stable age related changes. IMPRESSION: * Findings as described above remain essentially unchanged and consistent with sequelae of granulomatous disease. * No significant or acute mediastinal/pleuroparenchymal process appreciated. MTDD
== END ==
LOC: M RAD 07:03
PROVIDERS: ATTEND Internal Medicine Pulmonary Disease
DX: R91.8 Other nonspecific abnormal finding of lung field (principal)

== ENCOUNTER → 2020-09-07 | Outpatient (CLI) | payer MEDICARE ==
[2020-09-07 16:05] LABS: BASO # 0.1 10^3/uL (0.0-0.2); BASO % 0.8 % (0.0-1.0); EOS # 0.1 10^3/uL (0.0-0.5); EOS % 1.3 % (0.0-3.0); LYMPH # 1.6 10^3/uL (1.5-5.0); LYMPH % 27.3 % (24.0-44.0); MEAN CORPUSCULAR HEMOGLOBIN 31.3 pg (27.0-33.0); MEAN CORPUSCULAR HGB CONC 31.6 g/dl (32.0-36.5); MEAN CORPUSCULAR VOLUME 99.2 fl (80.0-96.0); MONO # 0.6 10^3/uL (0.0-0.8); MONO % 9.5 % (0.0-5.0); NEUTROPHILS # 3.6 10^3/uL (1.5-8.5); NEUTROPHILS % 60.4 % (36.0-66.0); PLATELET COUNT, AUTOMATED 241 10^3/uL (150-450); RED BLOOD COUNT 3.83 10^6/uL (4.00-5.40)
[2020-09-07 16:27] LABS: ALBUMIN 4.3 GM/DL (3.2-5.2); ALT/SGPT 26 U/L (12-78); BILIRUBIN,TOTAL 0.3 MG/DL (0.2-1.0); BLOOD UREA NITROGEN 20 MG/DL (7-18); CALCIUM LEVEL 9.6 MG/DL (8.8-10.2); CARBON DIOXIDE LEVEL 29 MEQ/L (21-32); CHLORIDE LEVEL 105 MEQ/L (98-107); CHOLESTEROL LEVEL 217 MG/DL (<200); CHOLESTEROL RISK RATIO 2.646 (<5); CREATININE FOR GFR 0.73 MG/DL (0.55-1.30); FREE T4 1.04 NG/DL (0.76-1.46); GLOMERULAR FILTRATION RATE > 60.0 (>39); GLUCOSE, FASTING 88 MG/DL (70-100); HDL CHOLESTEROL 82 MG/DL (>40); LDL CHOLESTEROL 116 MG/DL (<100); NON-HDL-C 135 MG/DL; POTASSIUM SERUM 4.2 MEQ/L (3.5-5.1); SODIUM LEVEL 139 MEQ/L (136-145); TOTAL PROTEIN 7.7 GM/DL (6.4-8.2); TRIGLYCERIDES LEVEL 97 MG/DL (<150)
[2020-09-07 16:31] LABS: FOLATE 19.6 NG/ML (>5.4); VITAMIN B12 LEVEL 1921 PG/ML (247-911)
== END ==
LOC: M PLALAB 12:25
PROVIDERS: ATTEND Nurse Practitioner Family
DX: I10 Essential (primary) hypertension (principal)

== ENCOUNTER → 2020-09-13 | Outpatient (REF) | payer MEDICARE | LOC: M LAB REF 17:05 | PROVIDERS: ATTEND Internal Medicine Pulmonary Disease | DX: J32.0 Chronic maxillary sinusitis (principal) ==

== ENCOUNTER → 2020-09-17 | Outpatient (REF) | payer MEDICARE | LOC: M LAB REF 16:53 | PROVIDERS: ATTEND Internal Medicine Pulmonary Disease | DX: J45.20 Mild intermittent asthma, uncomplicated (principal) ==

== ENCOUNTER → 2020-09-18 | Outpatient (REF) | payer MEDICARE | LOC: M LAB REF 11:10 | PROVIDERS: ATTEND Internal Medicine Pulmonary Disease | DX: R05 Cough (principal); J45.20 Mild intermittent asthma, uncomplicated ==

== ENCOUNTER → 2020-09-24 | Outpatient (RCR) | payer MEDICARE | LOC: M PT 09-10 09:38 | PROVIDERS: ATTEND Nurse Practitioner Family | DX: Z47.89 Encounter for other orthopedic aftercare (principal); M25.511 Pain in right shoulder ==

== ENCOUNTER 2020-10-24 10:38 | Outpatient (RCR) | payer MEDICARE | END 2020-10-25 | LOC: M PT 10:38 | PROVIDERS: ATTEND Nurse Practitioner Family | DX: Z51.89 Encounter for other specified aftercare (principal); M25.511 Pain in right shoulder ==

== ENCOUNTER 2020-11-22 06:19 | Emergency (ER) | payer MEDICARE ==
[~2020-11-22] VITALS: Ht 154.9 cm; Wt 65.9 kg
--- OUTSIDE RECORDS SUMMARY | 2020-11-22 06:31 | CCD | Continuity of Care Document ---
Author Author Lizzie CONTRERAS NM Organization Unknown Address [address] [place] [address] [place] [address] Phone [phone] Care Team Providers Care Flight Tower Dispatcher Name Role Phone Bushra Giron AUTM [phone] Vlad [place] [employer] AUTM [phone] Problems Active Problems Provider Date Acute bronchitis Ely Wilks Onset: 2012 Social History Type Date Description Comments Sex Unknown ETOH Use Occasionally consumes alcohol Tobacco Use Start: Unknown Patient has never smoked Tobacco Use Start: Unknown The Patient Has Never Vaped Smoking Status Reviewed: 11/02/20 The Patient Has Never Vaped Allergies, Adverse Reactions, Alerts Active Allergies Reaction Severity Comments Date Sulfa rash 09/07/2012 Avelox shakey legs 09/07/2012 Cymbalta nausea/vomiting 12/19/2019 Codeine 12/19/2019 Fluoxetine Fatigue 12/19/2019 Medications Active Medications SIG Qnty Indications Ordering Provide r Date Prednisone 20mg Tablets take one tablet three times a day for three days, then take one tab twice a day for three days, then take one tab daily for three days 18tabs U07.1 Arianne Grove JR., M.D. 11/02/2020 Cefdinir 300mg Capsules 1 tab by mouth twice a day x10 days 20caps U07.1 Sp Chow JR. 11/02/2020 Saline Nasal [place] 0.65% Solution Unknown Albuterol Fha 90mcg/Act Aerosol not using d/t leg cramps 2 puffs q4hrs./prn sob or wheezing Unknown Turmeric Unknown Folic Acid Unknown Niacin Unknown Albuterol Sulfate ER via neb,last use this am U nknown Breo Ellipta Unknown Vitamin E 100Unit Capsules Unknown Fluticasone Propionate Nasal [place] 24- H our 50mcg/Act Suspension 1 spray each nostril qd/prn Unknown Vitamin B12 1000mcg Tablets ER qd Unknown Simvastatin 40mg Tablets qd Unknown Calcium 600 + D [id number]-Nult Tablets qd Unknown Vitamin D3 1000Unit Capsules qd Unknown Vitamin C 250mg Tablets qd Unknown Glucosamine 500mg Capsules qd Unknown Loperamide HCL 2mg Capsules p rn Unknown Omeprazole 40mg Capsules DR 1 po daily. take 1 hour before eating Unknown History Medications Methylprednisolone 4mg Tablets 6 tablets po today, 5 tabs po day 2, 4 tabs po day 3, 3 tabs po day 4, 2 tabs po day 5, 1 tab po day 6 21talindsey J01.Jojo Grove JR., M.D. 08/2020 - 10/11/2020 Amoxicillin/Clavulanate Potassium 875-125mg Tablets 1 tab by mouth twice a day for 10 days 20talindsey León01.Jojo Grove JR., M.D. 10/05/2020 - 10/15/2020 Cefdinir 300mg Capsules 1 tab by mouth q12 hours for 14 days 28caps Artis Grove JR., M.D. 1 - 09/06/2020 Cefdinir 300mg Capsules 1 tab by mouth q12 hours for 10 days 20mandy Grove JR., M.D. 0 06/23/2020 - 07/03/2020 Immunizations Description No Information Available Vital Signs Date Vital Result Comment 11/02/2020 8:14am BP Systolic 154 mmHg BP Diastolic 81 mmHg Heart Rate 67 /min Respiratory Rate 16 /min O2 % BldC Oximetry 98 % Body Temperature 96.8 F Weight 136.00 lb Height 61 inches 5'1" BMI (Body Mass Index) 25.7 kg/m2 Pain Level 7 10/05/2020 2:02pm BP Systolic 147 mmHg BP Diastolic 82 mmHg Heart Rate 69 /min Respiratory Rate 20 /min O2 % BldC Oximetry 97 % Body Temperature 98.6 F Weight 133.00 lb Height 61 inches 5'1" BMI (Body Mass Index) 25.1 kg/m2 Pain Level 6 Results Description No Information Available Procedures Description No Information Available Medical Devices Description No Information Available Encounters Type Date Location Provider Dx Diagnosis Office Visit 11/02/2020 8:10a Main Office MIGDALIA Hanson U07 .1 Covid-19 J45.21 Mild intermittent asthma wit h (acute) exacerbation Z20.828 Contact w and exposure to ot h viral communicable diseases Office Visit 10/05/2020 1:15p [facility] Inna Juarez J01.90 Acute sinusitis, unspecified Z20.828 Contact w and exposure to ot h viral communicable diseases Office Visit 08/23/2020 2:10p Main Office MIGDALIA Vu J01.9 0 Acute sinusitis, unspecified R35.0 Frequency of micturition J45.901 Unspecified asthma with (acu te) exacerbation Office Visit 06/23/2020 8:55a Main Office MIGDALIA Ratliff J01.90 Acute sinusitis, unspecified Assessments Date Code Description Provider 11/02/2020 U07.1 Covid-19 MIGDALIA Berman 11/02/2020 J45.21 Mild intermittent asthma with (a cute) exacerbation MIGDALIA Hanson 11/02/2020 Z20.828 Contact with and (garcia spected) exposure to other viral communicable diseases MIGDALIA Hanson 10/05/2020 J01.90 Acute sinusitis, unspecified Ely Merritt 10/05/2020 Z20.828 Contact with and (garcia spected) exposure to other viral communicable diseases Ely Juarez 08/23/2020 J01.90 Acute sinusitis, unspecified MIGDALIA Frances 08/23/2020 R35.0 Frequency of micturition MIGDALIA Boyd 08/23/2020 J45.901 Unspecified asthma with (acute) exacerbation MIGDALIA Vu 06/23/2020 J01.90 Acute sinusitis, unspecified Ivanna MIGDALIA Ramos Plan of Treatment No Information Available Functional Status Description No Information Available Mental Status Description No Information Available Referrals Description No Information Available
--- OUTSIDE RECORDS SUMMARY | 2020-11-22 06:31 | CCD | Continuity of Care Document ---
Author Author Lizzie CONTRERAS LA Organization Unknown Address [address] [place] [address] [place] [address] Phone [phone] Care Team Providers Care Spray Gun Operator Name Role Phone Bushra Giron AUTM [phone] [place] AUTM [phone] Problems Active Problems Provider Date Acute bronchitis [...] U07.1 Sp Chow JR. 11/02/2020 Saline Nasal [place] 0.65% Solution Unknown Albuterol Fha 90mcg/Act Aerosol not using d/t leg cramps 2 puffs q4hrs./prn sob or wheezing Unknown Turmeric Unknown Folic Acid Unknown Niacin Unknown Albuterol Sulfate ER via neb,last use this am U nknown Breo Ellipta Unknown Vitamin E 100Unit Capsules Unknown Fluticasone Propionate Nasal [place] 24- H our 50mcg/Act Suspension 1 spray each nostril qd/prn Unknown Vitamin B12 1000mcg Tablets ER qd Unknown Simvastatin 40mg Tablets qd Unknown Calcium 600 + D [id number] Tablets qd Unknown Vitamin D3 1000Unit Capsules [...] viral communicable diseases Office Visit 10/05/2020 1:15p [facility] Inna Juarez J01.90 Acute sinusitis, [...] exposure to other viral communicable diseases Ely uJarez 08/23/2020 J01.90 Acute sinusitis, unspecified MIGDALIA Frances 08/23/2020 R35.0 Frequency of micturition MIGDALIA Boyd 08/23/2020 J45.901 Unspecified asthma with (acute) exacerbation MIGDALIA Vu 06/23/2020 J01.90 Acute sinusitis, unspecified Ivanna MIGDALIA Ramos Plan of Treatment No Information Available Functional Status Description No Information Available Mental Status Description No Information Available Referrals Description No Information Available
--- OUTSIDE RECORDS SUMMARY | 2020-11-22 06:31 | CCD | Continuity of Care Document ---
Author Author Lizzie HARRIS M.D. Organization Unknown Address [address] [place] [address] Phone [phone] Care Team Providers Care Bible Teacher Name Role Phone Estephania Ocampo MD [facility] [phone] Problems Description No Information Available Social History Type Date Description Comments Sex Unknown ETOH Use Social Tobacco Use Start: Unknown Patient has never smoked Recreational Drug Use Denies Drug Use Allergies, Adverse Reactions, Alerts Active Allergies Reaction Severity Comments Date Cymbalta Nausea 10/10/2020 Sulfa Antibiotics Red/swollen legs 2019 Codeine Rash 10/10/2020 Avelox Weak/shaky 10/10/2020 Medications Active Medications SIG Qnty Indications Ordering Provide r Date Nystatin [id number]/ML Suspension 5 milliliters swish and spit three times daily for one week 105ml Katerine Harris M.D. 10/11/2020 Benadryl Allergy Unknown 00 Claritin Unknown Mucinex 600mg Tablets ER 12HR Unknown Folic Acid Unknown Saline Nasal [place] Unknown Calcium 600 Unknown Vitamin D3 Unknown Albuterol Sulfate Unknown 000 Vitamin C 500mg Chewtabs Unknown Azelastine HCL (Nasal) 0.1% Soluti on 1 spray in each nostril twice a day as directed Un known Fluticasone Propionate 50mcg/Act Suspension 2 sprays to each nostril once daily Unkno wn Famotidine Unknown Omeprazole Unknown Vitamin B12 Unknown Amoxicillin/Clavulanate Potassium 875-125mg Tablets 1 tablet by mouth twice a day x 14 days U nknown Simvastatin 20mg Tablets Unknown Glucosamine Unknown Bioflex Tablets Unknown Immunizations Description No Information Available Vital Signs Date Vital Result Comment 10/11/2020 3:42pm Body Temperature 96.8 F Results Description No Information Available Procedures Date Code Description Status 10/11/2020 09490 Endoscopy Nasal Diagnostic Compl eted Medical Devices Description No Information Available Encounters Type Date Location Provider Dx Diagnosis Office Visit 10/11/2020 3:00p [facility], [facility] Am rebekah Harris M.D. J32.0 Chronic maxillary sinusitis J32.2 Chronic ethmoidal sinusitis R09.82 Postnasal drip J34.3 Hypertrophy of nasal turbina carlos B37.9 Candidiasis, unspecified Assessments Date Code Description Provider 10/11/2020 J32.0 Chronic maxillary sinusitis Katerine Harris M.D. 10/11/2020 J32.2 Chronic ethmoidal sinusitis Katerine Harris M.D. 10/11/2020 R09.82 Postnasal drip Katerine Harris M.D. 10/11/2020 J34.3 Hypertrophy of nasal turbinates Katerine Harris M.D. 10/11/2020 B37.9 Candidiasis, unspecified Katerine Harris M.D. Plan of Treatment 10/11/2020 - Katerine Harris M.D.* J32.0 Chronic maxillary sinusitis * J32.2 Chronic ethmoidal sinusitis * R09.82 Postnasal drip * J34.3 Hypertrophy of nasal turbinates * B37.9 Candidiasis, unspecified * * Recommendations:* Ms. Herrera is a 80-year-old female with a history of chronic rhinosinusitis. She has had worsening symptoms over the past couple years. She is currently on a course of antibiotics and steroids for sinusitis and I do not see any sign of purulence along the sinus outflow tracts. Previous imaging in 2018 revealed postsurgical changes with mild chronic maxillary and ethmoidal sinusitis. I reviewed with her options of an updated imaging study or if she has an acute flare to contact the office so I can evaluate her. Given that she comes from [place], we will plan that she contacts the office with any worsening symptoms. I will then get her in for evaluation and determine if we should proceed with additional imaging. Incidentally on exam today, she has findings consistent with oral candidiasis. I am going to place her on a course of nystatin rinses. She is comfortable with this plan. Functional Status Description No Information Available Mental Status Description No Information Available Referrals Description No Information Available
--- OUTSIDE RECORDS SUMMARY | 2020-11-22 06:31 | CCD | Continuity of Care Document ---
Author Author Lizzie CHAVEZ Organization Unknown Address [address] [place] [address] Phone [phone] Care Team Providers Care Brasswind Instrument Repairer Name Role Phone Wilmer Donohue MD AUTM [phone] Jeffery SOLIS., Ju AUTM [phone] [facility] - Orthopaedic Surgery AUTM [phone] [facility] AUTM [phone] [facility] AUTM [phone] [facility] - Otolaryngology AUTM [phone] [facility] - Otolaryngology AUTM [phone] Problems Active Problems Provider Date Adjustment disorder with mixed emotional features Yessy Carson RPA-C Onset: 05/02/2019 Obstructive sleep apnea syndrome Kamilla Carson RPA-C On set: 05/02/2019 Irritable bowel syndrome with diarrhea Kamilla Carson RP A-Arianne Onset: 05/02/2019 Gastroesophageal reflux disease Kamilla Carson RPA-C Ons et: 05/02/2019 Fibromyalgia Kamilla Carson RPA-C Onset: 05/02/20 19 Unspecified osteoarthritis, unspecified site Kamilla Carson RPA-C Onset: 05/02/2019 Mixed hyperlipidemia Kamilla Carson RPA-C Onset: 019 Essential hypertension Ritu Chavez FNP Onset: 0 Social History Type Date Description Comments Sex Unknown Tobacco Use Start: Unknown Never Used Smokeless Tobacco ETOH Use Occasionally consumes beer Tobacco Use Start: Unknown Patient has never smoked Recreational Drug Use Denies Drug Use Smoking Status Reviewed: 10/24/20 Patient has never smoked Exercise Type/Frequency Does not exercise Tattoo/Piercing Pierced ears Sun Exposure Uses sunscreen Occasionally Seat Belt/Car Seat Always uses seat belt Bike Helmet Never Smoke Alarms Yes Smoke Alarms Carbon Monoxide Detector: Yes Allergies, Adverse Reactions, Alerts Active Allergies Reaction Severity Comments Date Sulfa Antibiotics rash 05/17/2015 Codeine N/V 05/17/2015 Avelox weak and shakey 05/17/2015 Cymbalta very nauseated 02/07/2019 Medications Active Medications SIG Qnty Indications Ordering Provide r Date Azelastine HCL (Nasal) 0.1% Soluti on two sprays each nare bid 90ml J30.9 Ritu Chavez FNP 2019 Famotidine 40mg Tablets take one tablet by mouth every evening 90tabs Estephania Ocampo M.D. Ibuprofen 800mg Tablets 1 tab by mouth three times a day as needed for pain, take with food 60tabs M75.102 Estephania Ocampo M.D. 01/17/2019 Simvastatin 20mg Tablets 1 by mouth every day 90tabs Estephania Ocampo M.D. 018 Nystatin 576608Mjhq/ML Suspension 1 teaspoon by mouth three times a day for 7 days, swish around mouth for as long as possible then swallow Unknown 000 Breo Ellipta 200-25mcg/Inh Aerosol inhale one puff by mouth every day [facility] Albuterol Sulfate (2 .5mg/3ML) 0.083% Nebulizer 1 unit dose ampule in nebulizer and inha led up to 4 times a day for coughing and wheezing [facility] Claritin 10mg Capsules 1 by mouth every day as needed for allergy symptoms Unknown Folic Acid 800mcg Tablets 2 by mouth every day Unknown Hair/Skin/Nails Capsules 1 t ab daily Unknown Omeprazole 40mg Capsules DR take 1 capsule by mouth once daily 90caps Estephania Ocampo M.D. Vitamin D3 High Potency 1000Unit C apsules 2 by mouth every day Unknown Saline Nasal [place] Solution use bid Unknown Vitamin B 12 1000mcg Tablets 2 po qd Unknown Calcium & Vitamin D3 [facility] T ablets one qd Unknown Vitamin C 500mg Tablets 2 po qd Unknown Loperamide HCL 2mg Tablets on e po bid Unknown History Medications Doxycycline Monohydrate 100mg Caps ules 1 tab po bid for 10 days 20caps J32.9 Ritu Chavez FNP 04/26 - 05/26/2020 Immunizations CPT Code Status Date Vaccine Lot # [id number] Given 07/22/2019 Influenza Virus Vaccine, Quadrivalent,age 3 and up,multidose vial [id number] Given 05/05/2019 Pneumococcal Vaccine [id number] 64217 Given 07/22/2018 Influenza Virus Vaccine, Quadrivalent,age 3 and up,multidose vial [id number] Given 07/03/2017 Influenza Vaccine (Fluzone)( medicare) [id number] 01759 Given 10/24/2016 Pneumococcal Vaccine [id number] Q2038 Given 07/15/2016 Influenza Vaccine (Fluzone)( medicare) [id number] 22663 Given 10/23/2015 Prevnar 13 For Adults [id number] Given 07/18/2015 Influenza Vaccine (Fluzone)( medicare) [id number] Vital Signs Date Vital Result Comment 10/24/2020 11:55am BP Systolic 170 mmHg BP Diastolic 80 mmHg BP Systolic Recheck 165 mmHg recheck BP Diastolic Recheck 87 mmHg recheck Heart Rate 78 /min Body Temperature 97.1 F Respiratory Rate 16 /min Height 60.25 inches 5'0.25" Weight 146.31 lb O2 % BldC Oximetry 98 % Peak Expiratory Flow Rate 285 Estimated Peak Flow Rate [place] Body Weight 100 lb BMI (Body Mass Index) 28.3 kg/m2 09/07/2020 11:48am BP Systolic 142 mmHg BP Diastolic 88 mmHg Heart Rate 81 /min Body Temperature 97.7 F Respiratory Rate 18 /min Height 60.25 inches 5'0.25" Weight 139.00 lb O2 % BldC Oximetry 96 % Peak Expiratory Flow Rate 285 Estimated Peak Flow Rate [place] Body Weight 100 lb BMI (Body Mass Index) 26.9 kg/m2 Results Test Acquired Date Facility Test Result H/L Range Note CBC With Differential 09/07/2020 [place] [address] [phone] White Blood Count 6.0 10 Normal 4.0-10.0 Red Blood Count 3.83 10 Low 4.00-5.40 Hemoglobin 12.0 g/dL Normal 12.0-15.5 Hematocrit 38.0 % Normal 36.0-47.0 Mean Corpuscular Volume 99.2 fl High 80.0-96.0 Mean Corpuscular Hemoglobin 31.3 pg Normal 27.0-33.0 Mean Corpuscular HGB Conc 31.6 g/dL Low 32.0-36.5 Red Cell Distribution Width 13.1 % Normal 11.5-14.5 Platelet Count, Automated 241 10 Normal 150-450 Neutrophils % 60.4 % Normal 36.0-66.0 Lymph % 27.3 % Normal 24.0-44.0 Clinch % 9.5 % High 0.0-5.0 Eos % 1.3 % Normal 0.0-3.0 Baso % 0.8 % Normal 0.0-1.0 Immature Granulocyte % 0.7 % Normal 0-3.0 Nucleated Red Blood Cell % 0.3 % High 0-0 Neutrophils # 3.6 10 Normal 1.5-8.5 Lymph # 1.6 10 Normal 1.5-5.0 Clinch # 0.6 10 Normal 0.0-0.8 Eos # 0.1 10 Normal 0.0-0.5 Baso # 0.1 10 Normal 0.0-0.2 Comprehensive Metabolic Profil 09/07/[address] [place] [address] [phone] Glucose, Fasting 88 mg/dL Normal 70-100 Blood Urea Nitrogen 20 mg/dL High 7-18 Creatinine For GFR 0.73 mg/dL Normal 0.55-1.30 Glomerular Filtration Rate > 60.0 Normal >39 1 Sodium Level 139 mEq/L Normal 136-145 Potassium Serum 4.2 mEq/L Normal 3.5-5.1 Chloride Level 105 mEq/L Normal 98-107 Carbon Dioxide Level 29 mEq/L Normal 21-32 Anion Gap 5 mEq/L Low 8-16 Calcium Level 9.6 mg/dL Normal 8.8-10.2 Ast/Sgot 21 U/L Normal 7-37 Alt/SGPT 26 U/L Normal 12-78 Alkaline Phosphatase 71 U/L Normal 45-117 Bilirubin,Total 0.3 mg/dL Normal 0.2-1.0 Total Protein 7.7 GM/DL Normal 6.4-8.2 Albumin 4.3 GM/DL Normal 3.2-5.2 Albumin/Globulin Ratio 1.3 Normal 1.2-2.2 Lipid Panel 09/07/2020 Patient Service [place], [place] [id number] [phone] Triglycerides Level 97 mg/dL Normal <150 Cholesterol Level 217 mg/dL High <200 HDL Cholesterol 82 mg/dL Normal >40 LDL Cholesterol 116 mg/dL High <100 Non-HDL-C 135 mg/dL Normal Cholesterol Risk Ratio 2.646 Normal <5 Laboratory test finding 09/07/2020 [place] [address] [phone] Thyroid Stimulating Hormone 2.040 uIU/ML Normal 0. 358-3.740 2 Free T4 1.04 ng/dL Normal 0.76-1.46 3 Vitamin B12 Level 1921 pg/mL High 247-911 4 Folate 19.6 NG/ML Normal >5.4 5 1 Units are mL/min/1.73 m2 Chronic Kidney Disease Staging per NKF: Stage I & II GFR >=60 Normal to Mildly Decreased Stage III GFR 30-59 Moderately Decreased Stage IV GFR 15-29 Severely Decreased Stage V GFR <15 Very Little GFR Left ESRD GFR <15 on CHIEF ENGINEER 2 note:<nlbl:demographic_chang ed> note:<nlbl:demographic_changed> 3 note:<nlbl:demographic_chang ed> note:<nlbl:demographic_changed> 4 VITAMIN B12 NORMAL RANGE NORMAL 247 - 911 PG/ML INDETERMINATE 211 - 246 PG/ML DEFICIENT LESS THAN 211 PG/ML 5 FOLATE NORMAL RANGE NORMAL GREATER THAN 5.4 NG/ML INDETERMINATE 3.4-5.4 NG/ML DEFICIENT LESS THAN 3.4 NG/ML Procedures Date Code Description Status 03/13/2020 [id number] Mammogram Completed 03/13/2020 [id number] Bone Mineral Density Test Comple dagoberto 02/25/2019 [id number] Mammogram Completed 02/24/2018 [id number] Mammogram Completed 02/23/2017 [id number] Mammogram Completed 02/26/2016 [id number] Mammogram Completed Medical Devices Description No Information Available Encounters Type Date Location Provider Dx Diagnosis Office Visit 10/24/2020 11:45a Main Office PlequintonachOzziey, CLIENT TECHNOLOGIES SPECIALIST J32.9 Chronic sinusitis, unspecified M25.511 Pain in right shoulder M54.5 Low back pain Office Visit 09/07/2020 11:30a Main Office Pleskach, Ritu, CLIENT TECHNOLOGIES SPECIALIST I10 Essential (primary) hypertension F43.23 Adjustment disorder with mix ed anxiety and depressed mood E78.2 Mixed hyperlipidemia K21.9 Gastro-esophageal reflux dis ease without esophagitis K58.0 Irritable bowel syndrome wit h diarrhea G47.33 Obstructive sleep apnea (juan lt) (pediatric) M79.7 Fibromyalgia M25.511 Pain in right shoulder M54.5 Low back pain Office Visit 05/16/2020 10:00a Main Office Pleskach, Ritu, CLIENT TECHNOLOGIES SPECIALIST J01.9 0 Acute sinusitis, unspecified Assessments Date Code Description Provider 10/24/2020 J32.9 Chronic sinusitis, unspecified P Ritu burgess, CLIENT TECHNOLOGIES SPECIALIST 10/24/2020 M25.511 Pain in right shoulder Pleskach, Ritu, CLIENT TECHNOLOGIES SPECIALIST 10/24/2020 M54.5 Low back pain Pleskach, Ritu, CLIENT TECHNOLOGIES SPECIALIST 09/07/2020 I10 Essential (primary) hypertension Pleskach, Ritu, CLIENT TECHNOLOGIES SPECIALIST 09/07/2020 F43.23 Adjustment disorder with mixed a nxiety and depressed mood Pleskach, Ritu, CLIENT TECHNOLOGIES SPECIALIST 09/07/2020 E78.2 Mixed hyperlipidemia Pleskach, M kt, CLIENT TECHNOLOGIES SPECIALIST 09/07/2020 K21.9 Gastro-esophageal reflux disease without esophagitis Pleskach, Ritu, CLIENT TECHNOLOGIES SPECIALIST 09/07/2020 K58.0 Irritable bowel syndrome with di arrhea Pleskach, Ritu, CLIENT TECHNOLOGIES SPECIALIST 09/07/2020 G47.33 Obstructive sleep apnea (adult) (pediatric) Pleskach, Ritu, CLIENT TECHNOLOGIES SPECIALIST 09/07/2020 M79.7 Fibromyalgia Pleskach, Ritu, CLIENT TECHNOLOGIES SPECIALIST 09/07/2020 M25.511 Pain in right shoulder Ritu Chavez FNP 09/07/2020 M54.5 Low back pain Ritu Chavez FNP 05/16/2020 J01.90 Acute sinusitis, unspecified Ritu Bustillo FNP Plan of Treatment Future Appointment(s):* 03/07/2021 11:15 am - Ritu Chavez FNP at Main Office 10/24/2020 - Ritu Chavez FNP* J32.9 Chronic sinusitis, unspecified* Comments:* patient instructed to call her ENT for appointment * M25.511 Pain in right shoulder* Comments:* continue with PT and use tylenol as needed * M54.5 Low back pain* Comments:* follow up with pain management Functional Status Functional Condition Comment Date Status Bifocal glasses Active Independent with all ADL's Activ e Complete lower and upper and lower dentures Active Cognitive Impairment Active Mental Status Mental Condition Comment Date Status None Active Referrals Refer to Dr Reason for Referral Status Appt Date [facility] 2nd opinion for chronic sinusitus/rhinitis Closed 10/11/2020 [address] [place] [address] [phone]
--- OUTSIDE RECORDS SUMMARY | 2020-11-22 06:31 | CCD | Continuity of Care Document ---
Author Author Lizzie CHAVEZP Organization Unknown Address [address] [place] [address] Phone [phone] Care Team Providers Care Claim Administrator Name Role Phone Wilmer Donohue MD AUTM [phone] Jeffery SOLIS., Ju AUTM [phone] [facility] - Orthopaedic Surgery AUTM [phone] [facility] AUTM [phone] [facility] AUTM [phone] [facility] - Otolaryngology AUTM [phone] [facility] - Otolaryngology AUTM [phone] Problems Active Problems Provider Date Adjustment disorder [...] day 90tabs Estephania Ocampo M.D. 018 Nystatin 612864Zbnu/ML Suspension 1 teaspoon by mouth three times [...] by mouth every day Unknown Saline Nasal [place] Solution use bid Unknown Vitamin B 12 1000mcg Tablets 2 po qd Unknown Calcium & Vitamin D3 [facility] T ablets one qd Unknown Vitamin C 500mg Tablets 2 po qd Unknown Loperamide HCL 2mg Tablets on e po bid Unknown History Medications Doxycycline Monohydrate 100mg Caps ules 1 tab po bid for 10 days 20caps J01.90 Ritu Chavez FNP 04/26 - 05/26/2020 Immunizations CPT Code Status Date Vaccine Lot # [id number] Given 07/22/2019 Influenza Virus Vaccine, Quadrivalent,age 3 and up,multidose vial [id number] Given 05/05/2019 Pneumococcal Vaccine [id number] 24230 Given 07/22/2018 Influenza Virus Vaccine, Quadrivalent,age 3 and up,multidose vial [id number] Q2038 Given 07/03/2017 Influenza Vaccine (Fluzone)( medicare) [id number] 85119 Given 10/24/2016 Pneumococcal Vaccine [id number] Q2038 Given 07/15/2016 Influenza Vaccine (Fluzone)( medicare) [id number] Given 10/23/2015 Prevnar 13 For Adults [id number] Q2038 Given 07/18/2015 Influenza Vaccine (Fluzone)( medicare) [id number] Vital Signs Date Vital Result Comment 10/24/2020 11:55am BP Systolic 170 mmHg BP Diastolic 80 mmHg BP Systolic Recheck 165 mmHg recheck BP Diastolic Recheck 87 mmHg recheck Heart Rate 78 /min Body Temperature 97.1 F Respiratory Rate 16 /min Height 60.25 inches 5'0.25" Weight 146.31 lb O2 % BldC Oximetry 98 % Peak Expiratory Flow Rate 285 Estimated Peak Flow Rate [place] Body Weight 100 lb BMI (Body Mass Index) 28.3 kg/m2 09/07/2020 11:48am BP Systolic 142 mmHg BP Diastolic 88 mmHg Heart Rate 81 /min Body Temperature 97.7 F Respiratory Rate 18 /min Height 60.25 inches 5'0.25" Weight 139.00 lb O2 % BldC Oximetry 96 % Peak Expiratory Flow Rate 285 Estimated Peak Flow Rate [place] Body Weight 100 lb BMI (Body Mass Index) 26.9 kg/m2 Results Test Acquired Date Facility Test Result H/L Range Note CBC With Differential 09/07/2020 [place] [address] [phone] White Blood Count 6.0 10 Normal 4.0-10.0 [...] 36.0-66.0 Lymph % 27.3 % Normal 24.0-44.0 [place] % 9.5 % High 0.0-5.0 Eos % 1.3 % Normal 0.0-3.0 Baso % 0.8 % Normal 0.0-1.0 Immature Granulocyte % 0.7 % Normal 0-3.0 Nucleated Red Blood Cell % 0.3 % High 0-0 Neutrophils # 3.6 10 Normal 1.5-8.5 Lymph # 1.6 10 Normal 1.5-5.0 [place] # 0.6 10 Normal 0.0-0.8 Eos # 0.1 10 Normal 0.0-0.5 Baso # 0.1 10 Normal 0.0-0.2 Comprehensive Metabolic Profil 09/07/[address] [place] [address] [phone] Glucose, Fasting 88 mg/dL Normal 70-100 Blood [...] Normal 1.2-2.2 Lipid Panel 09/07/2020 Patient Service [place], [place] 0[address] [phone] Triglycerides Level 97 mg/dL Normal <150 Cholesterol Level 217 mg/dL High <200 HDL Cholesterol 82 mg/dL Normal >40 LDL Cholesterol 116 mg/dL High <100 Non-HDL-C 135 mg/dL Normal Cholesterol Risk Ratio 2.646 Normal <5 Laboratory test finding 09/07/2020 Patient Service [place], [place] [address] [phone] Thyroid Stimulating Hormone 2.040 uIU/ML Normal 0. [...] Little GFR Left ESRD GFR <[address] 2 note:<nlbl:demographic_chang ed> note:<nlbl:demographic_changed> 3 note:<nlbl:demographic_chang ed> note:<nlbl:demographic_changed> 4 VITAMIN B12 NORMAL RANGE NORMAL 247 - 911 PG/ML INDETERMINATE 211 - 246 PG/ML DEFICIENT LESS THAN 211 PG/ML 5 FOLATE NORMAL RANGE NORMAL GREATER THAN 5.4 NG/ML INDETERMINATE 3.4-5.4 NG/ML DEFICIENT LESS THAN 3.4 NG/ML Procedures Date Code Description Status 03/13/2020 [id number] Mammogram Completed 03/13/2020 [id number] Bone Mineral Density Test Comple dagoberto 02/25/2019 [id number] Mammogram Completed 02/24/2018 [id number] Mammogram Completed 02/23/2017 [id number] Mammogram Completed 02/26/2016 [id number] Mammogram Completed Medical Devices Description No Information Available Encounters Type Date Location Provider Dx Diagnosis Office Visit 09/07/2020 11:30a Main Office Pleskach, Ritu, HIGHWAY MAINTENANCE CREW WORKER I10 Essential (primary) hypertension F43.23 Adjustment disorder with mix ed anxiety and depressed mood E78.2 Mixed hyperlipidemia K21.9 Gastro-esophageal reflux dis ease without esophagitis K58.0 Irritable bowel syndrome wit h diarrhea G47.33 Obstructive sleep apnea (juan lt) (pediatric) M79.7 Fibromyalgia M25.511 Pain in right shoulder M54.5 Low back pain Office Visit 05/16/2020 10:00a Main Office Pleskach, Ritu, HIGHWAY MAINTENANCE CREW WORKER J01.9 0 Acute sinusitis, unspecified Assessments Date Code Description Provider 10/24/2020 J01.90 Acute sinusitis, unspecified Ple skach, Ritu, HIGHWAY MAINTENANCE CREW WORKER 09/07/2020 I10 Essential (primary) hypertension Pleskach, Ritu, HIGHWAY MAINTENANCE CREW WORKER 09/07/2020 F43.23 Adjustment disorder with mixed a nxiety and depressed mood Pleskach, Ritu, HIGHWAY MAINTENANCE CREW WORKER 09/07/2020 E78.2 Mixed hyperlipidemia Pleskach, M kt, HIGHWAY MAINTENANCE CREW WORKER 09/07/2020 K21.9 Gastro-esophageal reflux disease without esophagitis Pleskach, Ritu, HIGHWAY MAINTENANCE CREW WORKER 09/07/2020 K58.0 Irritable bowel syndrome with di arrhea Pleskach, Ritu, HIGHWAY MAINTENANCE CREW WORKER 09/07/2020 G47.33 Obstructive sleep apnea (adult) (pediatric) Pleskach, Ritu, HIGHWAY MAINTENANCE CREW WORKER 09/07/2020 M79.7 Fibromyalgia Pleskach, Ritu, HIGHWAY MAINTENANCE CREW WORKER 09/07/2020 M25.511 Pain in right shoulder Pleskach, Ritu, HIGHWAY MAINTENANCE CREW WORKER 09/07/2020 M54.5 Low back pain Pleskach, Ritu, HIGHWAY MAINTENANCE CREW WORKER 05/16/2020 J01.90 Acute sinusitis, unspecified Ple skach, Ritu, HIGHWAY MAINTENANCE CREW WORKER Plan of Treatment Future Appointment(s):* 03/07/2021 11:15 am - Ritu Chavez FNP at Main Office 10/24/2020 - Ritu Chavez FNP* J01.90 Acute sinusitis, unspecified* Comments:* patient instructed to call her ENT for appointment Functional Status Functional Condition Comment Date Status Bifocal glasses Active Independent with all ADL's Activ e Complete lower and upper and lower dentures Active Cognitive Impairment Active Mental Status Mental Condition Comment Date Status None Active Referrals Refer to Reason for Referral Status Appt Date [facility] 2nd opinion for chronic sinusitus/rhinitis Closed 10/11/2020 [address] [place] [address] [phone]
--- OUTSIDE RECORDS SUMMARY | 2020-11-22 06:32 | CCD | Continuity of Care Document ---
Author Author Lizzie HARRIS M.D. Organization Unknown Address [address] [place] [address] Phone [phone] Care Team Providers Care Waiter/Waitress Room Service Name Role Phone Estephania Ocampo MD [facility] [phone] Problems Description No Information Available Social History [...] Qnty Indications Ordering Provide r Date Nystatin 710567Quav/ML Suspension 5 milliliters swish and spit three times daily for one week 105ml Katerine Harris M.D. 10/11/2020 Benadryl Allergy Unknown 00 Claritin Unknown Mucinex 600mg Tablets ER 12HR Unknown Folic Acid Unknown Saline Nasal [place] Unknown Calcium 600 Unknown Vitamin D3 Unknown [...] Available Procedures Date Code Description Status 10/11/2020 21797 Endoscopy Nasal Diagnostic Compl eted Medical Devices Description No Information Available Encounters Type Date Location Provider Dx Diagnosis Office Visit 10/11/2020 3:00p [facility], [facility] Am rebekah Harris M.D. J32.0 Chronic maxillary [...] evaluate her. Given that she comes from [place], we will plan that she contacts the [...]
--- OUTSIDE RECORDS SUMMARY | 2020-11-22 06:32 | CCD | Continuity of Care Document ---
Author Author Lizzie VANG D.O. [place] [address] Phone [phone] Care Team Providers Care Software Development Specialist Name Role Phone Estephania Ocampo M.D. AUTM [phone] AUTM Unavailable AUTM Unavailable Problems Active Problems Provider Date Allergic rhinitis Dewey Little II, PA-C Onset: 07/06/2014 Chronic maxillary sinusitis Dewey Little II, PA-C Onset: 08/2014 Impacted cerumen Anne L Page DO Onset: 07/06/2014 Deviated nasal septum Anne L Page DO Onset: 07/06/2014 Diverticular disease of colon Jorge Munson MD Onset: 08/2014 Diarrhea Jorge Munson MD Onset: 07/06/2014 Incontinence of feces Jorge Munson MD Onset: 07/06/2014 Disorder of rectum Jorge Munson MD Onset: 07/06/2014 Diaphragmatic hernia Jorge Munson MD Onset: 07/06/2014 Heartburn Jorge Munson MD Onset: 07/06/2014 Candidiasis of the esophagus Jorge Munson MD Onset: 06/26 Indigestion Jorge Munson MD Onset: 07/06/2014 Digestive symptom Jorge Munson MD Onset: 07/06/2014 Gastroesophageal reflux disease Jorge Munson MD Onset: 0 07/06/2014 Screening for malignant neoplasm of colon Jorge Munson MD Onset: 07/06/2014 Intestinal disaccharidase deficiency Jorge Munson MD Ons et: 07/06/2014 Chronic rhinitis Tim Crespo MD Onset: 02/01/2019 Acute maxillary sinusitis Tim Crespo MD Onset: 019 History of polyp of colon Jorge Munson MD Onset: 04/09/2 019 Gastro-esophageal reflux disease with esophagitis Jorge germain MD Onset: 02/01/2019 Headache Tim Crespo MD Onset: 02/01/2019 Chronic rhinitis Tim Crespo MD Onset: 02/01/2019 Cough Hussain Vang D.O. Onset: 03/06/2020 Other nonspecific abnormal finding of lung field Hussain Vang D.O. Onset: 05/31/2020 Mild intermittent asthma Hussain Vang D.O. Onset: 08/09/20 Social History Type Date Description Comments Sex Unknown Tobacco Use Start: Unknown Never Smoked Cigarettes ETOH Use Occasionally consumes alcohol ETOH Use 4 A Month Recreational Drug Use Denies Drug Use Tobacco Use Reviewed: 05/31/20 Patient has never smoked Smoking Status Reviewed: 09/17/20 Patient has never smoked Allergies, Adverse Reactions, Alerts Active Allergies Reaction Severity Comments Date Sulfa RASH 05/14/2011 Cymbalta Nausea 05/14/2011 Codeine Nausea 05/14/2011 Avelox WEAK, SHAKEY 01/24/2019 Doxycycline Hyclate 01/25/20 19 Prozac 01/24/2019 Medications Active Medications SIG Qnty Indications Ordering Provide r Date Albuterol Sulfate (2 .5mg/3ML) 0.083% Nebulizer use 1 vial in nebulizer 4 times daily - and as needed 360ml J45.20 Hussain Vang D.O. 09/17/2020 Prednisone 10mg Tablets 4 tabs po qd x5d, 3 tabs po qd x5d, 2 tabs po qd x5d, 1 tab x 5 days, then 1/2 tab po x 5 days 53tabs J45.20 Hussain Vang D.O. 09/17/2020 Levofloxacin 500mg Tablets 1 by mouth every day 7tabs Hussain Vang D.O. 09/17/2020 Ventolin HFA 108(90Base) mcg/Act A erosol 2 puffs qid/prn 54gm Hussain Vang D.O. 08/14/2020 Breo Ellipta 200-25mcg/Inh Aerosol inhale one puff by mouth every day 180units R91.8 Hussain Vang D.O. Famotidine 40mg Tablets take 1 tablet by mouth daily Unknown Vitamin E 1 tab by mouth every day Unknown Acidophilus Capsules 1 tab by mouth twice a day Unknown Turmeric 500mg Tablets 1 tab by mouth every day Unknown Potassium 99mg Tablets 1 tab by mouth every day Unknown Hair Skin & Nails Advanced Formula Tablets 1 tab by mouth every day Unknown Loratadine 10mg Capsules Take as directed. Unknown Calcium 600-D [id number] Table ts 1 by mouth daily Unknown Glucosamine 1000 MG Daily Unknown Simvastatin 20mg Tablets 1 by mouth every day Unknown Folic Acid 800mcg Tablets 1 by mouth every day Unknown Vitamin D3 2000Unit Capsules 1 qd Unknown Saline Mist [place] 0.65% Solution 2 sprays to each nostril 4-5 times daily as needed Unknow n Vitamin B12 1000mcg Tablets ER 2 by mouth every day Unknown Fluticasone Propionate 50mcg/Act Suspension 2 sprays to each nostril daily Unknown Ibuprofen 800mg Tablets 1 by mouth three times a day prn Unknown Vitamin C 500mg Tablets 1 by mouth every day Unknown Omeprazole 20mg Capsules DR 1 tab by mouth every day 90caps Unknown History Medications Ventolin HFA 108(90Base) mcg/Act A erosol 2 puffs qid/prn 18gm R91.8 Chauncey MckinleyO. 08/09/2020 - Levofloxacin 500mg Tablets 1 by mouth every day 7tabs Chauncey MckinleyO. 07/23/2020 - Prednisone 10mg Tablets 4 tabs po qd x5d, 3 tabs po qd x5d, 2 tabs po qd x5d, 1 tab x 5 days, then 1/2 tab po x 5 days 53tabs Maria Victoria Mckinley.O. 07/23/2020 - 020 Suprep Bowel Prep Kit 17.5-3.13-1.6GM/177ML Solution take per doctor's bowel prep instructions. 354ml Z12.1 1 Jorge Munson MD 06/12/2020 - 11/09/2019 Immunizations Description No Information Available Vital Signs Date Vital Result Comment 09/17/2020 8:37am BP Systolic 130 mmHg BP Diastolic 72 mmHg Heart Rate 70 /min O2 % BldC Oximetry 97 % Body Temperature 97.2 F Height 61 inches 5'1" Weight 140.00 lb BMI (Body Mass Index) 26.4 kg/m2 [place] Body Weight 105 lb Weight 63.504 kg BSA (Body Surface Area) 1.62 m2 08/09/2020 2:49pm BP Systolic 110 mmHg BP Diastolic 70 mmHg Heart Rate 89 /min O2 % BldC Oximetry 94 % Body Temperature 96.3 F Height 61 inches 5'1" Weight 139.00 lb BMI (Body Mass Index) 26.3 kg/m2 [place] Body Weight 105 lb Weight 63.050 kg BSA (Body Surface Area) 1.62 m2 Results Test Acquired Date Facility Test Result H/L Range Note Culture Sputum And Gram Stain 09/18/2020 [facility] Main Lab [address] [place] [address] [id number] [phone] Gram Stain (SEE NOTE) Normal 1 Sputum Culture Sputum culture n <SEE NOTE> 2 Culture Sputum And Gram Stain 09/17/2020 [facility] Main Lab [address] [place], [place] [id number] [phone] Gram Stain (SEE NOTE) Normal 3 Sputum Culture Sputum culture n <SEE NOTE> 4 FVL/[place] 09/17/2020 [employer] PDFReport SEE IMAGE FVC-Pred 2.34 L FVC-Pre 2.04 L FVC-%Pred-Pre 87 L FVC-LLN 1.70 L Fev1-Pred 1.73 L Fev1-Pre 1.61 L Fev1-%Pred-Pre 92 L Fev1-LLN 1.20 L Fev6-Pred 2.20 L Fev6-Pre 2.04 L Fev6-%Pred-Pre 92 L Fev6-LLN 1.59 L Maq7hsh-Cmpx 74 % Jrd9oww-Jlm 79 % Yhf1pex-%Pred-Pre 106 % Owi5pll-ZPQ 64 % Kbs6vdt-Vaoh 94 % Jzx7uco-Bsy 100 % Mlz1tjt-%Pred-Pre 105 % FEFMax-Pred 4.53 L/E/sec FEFMax-Pre 5.42 L/E/sec FEFMax-%Pred-Pre 119 L/E/sec FEFMax-LLN 2.97 L/E/sec Mpr6746-Zquw 1.34 L/E/sec Fgy9760-Kge 1.45 L/E/sec Jwy5350-%Pred-Pre 108 L/E/sec Czh2940-FLS 0.21 L/E/sec ExpTime-Pre 5.12 sec Qpk4qia4-Duvf 78 % Lmt3cct8-Lml 79 % Jae3ldl0-%Pred-Pre 101 % Swp9ajp3-ZEJ 69 % Sputum Culture And Gram Stain 09/13/2020 [facility] Main Lab [address] [place] [address] [phone] Gram Stain (SEE NOTE) Normal 5 Sputum Culture FULL REPORT IN L <SEE NOTE> Normal 6 1 QUALITY: POOR MANY EPITHELIAL CELLS FEW GRAM POSITIVE COCCI IN PAIRS, CHAINS AND CLUSTERS 2 Sputum culture not performed due to oropharyngeal contamination. Further processing of such specimens would not yield useful information about the possible pathogens from the lower respiratory tract. Test not performed 3 QUALITY: POOR MANY EPITHELIAL CELLS FEW WBCS MANY GRAM POSITIVE COCCI IN PAIRS, CHAINS AND CLUSTERS FEW GRAM POSITIVE RODS 4 Sputum culture not performed due to oropharyngeal contamination. Further processing of such specimens would not yield useful information about the possible pathogens from the lower respiratory tract. Test not performed 5 QUALITY: GOOD MODERATE WBCS FEW EPITHELIAL CELLS FEW GRAM POSITIVE COCCI IN PAIRS AND CHAINS FEW GRAM POSITIVE RODS 6 FULL REPORT IN LAB NOTES (eC W and Medent). NORMAL AUDREY PRESENT Procedures Date Code Description Status 09/17/2020 13253 Airway Inhalation Treatment Comp leted 09/17/2020 73815 Spirometry Completed 08/09/2020 52999 Aerosol Or Vapor Inhalations Com pleted 06/28/2020 03915 Colonoscopy Flexible Proximal To Splenic Flexure Diagnostic W/Or Completed 05/29/2020 07892 Diffusing Capacity Completed 05/29/2020 25301 Plethysmography Determination Kiya ng Volumes & Per Airway Resist Completed 05/29/2020 93953 Maximum Breathing Capacity, Maxi mal Voluntary Ventilation Completed 05/29/2020 64190 Bronchospasm Evaluation Complete d Medical Devices Description No Information Available Encounters Type Date Location Provider Dx Diagnosis Office Visit 09/17/2020 8:30a [facility] Pulmonary[facility]Thoracic Hussain Se ars, D.O. J45.20 Mild intermittent asthma, uncomplicated R91.8 Other nonspecific abnormal f inding of lung field J31.0 Chronic rhinitis Office Visit 08/09/2020 3:00p [facility] Pulmonary/Thoracic Hussain Se ars, D.O. R91.8 Other nonspecific abnormal finding of kiya ng field J45.20 Mild intermittent asthma, un complicated Office Visit 08/01/2020 10:30a [facility] Dewey smith II, PA-C J31.0 Chronic rhinitis Office Visit 05/31/2020 9:30a [facility] Pulmonary/Thoracic Hussain Se ars, D.O. R05 Cough R91.8 Other nonspecific abnormal f inding of lung field Assessments Date Code Description Provider 09/17/2020 J45.20 Mild intermittent asthma, uncomp licated Hussain Sears, D.O. 09/17/2020 R91.8 Other nonspecific abnormal findi ng of lung field Hussian Sears, D.O. 09/17/2020 J31.0 Chronic rhinitis Hussain Sears, D.O . 08/09/2020 R91.8 Other nonspecific abnormal findi ng of lung field Hussain Sears, D.O. 08/09/2020 J45.20 Mild intermittent asthma, uncomp licated Hussain Sears, D.O. 08/01/2020 J31.0 Chronic rhinitis Dewey Little II, PA-C 06/28/2020 Z12.11 Encounter for screening for talya gnant neoplasm of colon Jorge Munson MD 06/28/2020 Z86.010 Personal history of colonic poly ps Jorge Munson MD 06/28/2020 K57.30 Diverticulosis of la rge intestine without perforation or abscess without bleeding Jorge Munson MD 06/12/2020 Z12.11 Encounter for screening for talya gnant neoplasm of colon Meredith A Alexanderbojoceline, RPA-C 06/12/2020 Z86.010 Personal history of colonic poly ps Meredith A Antonio, RPA-C 06/12/2020 K21.9 Gastro-esophageal reflux disease without esophagitis Meredith A Alexanderbojoceline, RPA-C 05/31/2020 R05 Cough Hussain Sears, D.O. 05/31/2020 R91.8 Other nonspecific abnormal findi ng of lung field Hussain Sears, D.O. 05/29/2020 R05 Cough Pulmonary Lab Plan of Treatment Future Appointment(s):* 02/11/2021 10:00 am - Hussain Vang D.O. at [facility] Pulmonary/Thoracic 09/17/2020 - Hussain Vang D.O.* J45.20 Mild intermittent asthma, uncomplicated * R91.8 Other nonspecific abnormal finding of lung field * J31.0 Chronic rhinitis * * New Medication:* Albuterol Sulfate (2.5 mg/3ML) 0.083% * Prednisone 10 mg * Follow up:* Follow up in January with chest CT as scheduled, 30 minutes, Remind patient to come 15 minutes prior to appointment. Functional Status Functional Condition Comment Date Status Independent with all ADL's Activ e Independent with all IADL's Acti ve Mental Status Mental Condition Comment Date Status None Active Can understand information Activ e Referrals Refer to Reason for Referral Status Appt Date Radiology/Procedure updated auth with corrected facility [facility] roved Closed Radiology/Procedure CT CHEST NO CONTRAST-[id number] @NR Closed
--- OUTSIDE RECORDS SUMMARY | 2020-11-22 06:32 | CCD | Continuity of Care Document ---
Author Author Lizzie HERNANDEZ PRhonda Tsai Organization Unknown Address [address] [place] [address] [place] [address] Phone [phone] Prov[address] Care [address] Lab Technician Name Role Phone Bushra Giron AUTM [phone] Vlad Co Sinan AUTM [phone] Problems Active Problems Provider Date Acute bronchitis Ely Wilks Onset: 2012 Social History Type Date Description Comments Sex Unknown ETOH Use Occasionally consumes alcohol Tobacco Use Start: Unknown Patient has never smoked Tobacco Use Start: Unknown The Patient Has Never Vaped Smoking Status Reviewed: 10/05/20 The Patient Has Never Vaped Allergies, Adverse Reactions, Alerts Active Allergies Reaction Severity Comments Date Sulfa rash 09/07/2012 Avelox shakey legs 09/07/2012 Cymbalta nausea/vomiting 12/19/2019 Codeine 12/19/2019 Fluoxetine Fatigue 12/19/2019 Medications Active Medications SIG Qnty Indications Ordering Provide r Date Methylprednisolone 4mg Tablets 6 tablets po today, 5 tabs po day 2, 4 tabs po day 3, 3 tabs po day 4, 2 tabs po day 5, 1 tab po day 6 21tabs J01.90 Ryan Grove JR., M.D. 08/2020 Amoxicillin/Clavulanate Potassium 875-125mg Tablets 1 tab by mouth twice a day for 10 days 20tabs J01.90 Ryan Grove JR., M.D. 10/05/2020 Saline Nasal [place] 0.65% Solution Unknown Albuterol Fha 90mcg/Act Aerosol not using d/t leg cramps 2 puffs q4hrs./prn sob or wheezing Unknown Turmeric Unknown Folic Acid Unknown Niacin Unknown Albuterol Sulfate ER via neb,last use this am U nknown Breo Ellipta Unknown Vitamin E 100Unit Capsules Unknown Fluticasone Propionate Nasal [place] 24- H our 50mcg/Act Suspension 1 spray each nostril qd/prn Unknown Vitamin B12 1000mcg Tablets ER qd Unknown Simvastatin 40mg Tablets qd Unknown Calcium 600 + D [id number] Tablets qd Unknown Vitamin D3 1000Unit Capsules qd Unknown Vitamin C 250mg Tablets qd Unknown Glucosamine 500mg Capsules qd Unknown Loperamide HCL 2mg Capsules p rn Unknown Omeprazole 40mg Capsules DR 1 po daily. take 1 hour before eating Unknown History Medications Cefdinir 300mg Capsules 1 tab by mouth q12 hours for 14 days 28caps J01.90 Ryan Grove JR., M.D. 1 - 09/06/2020 Cefdinir 300mg Capsules 1 tab by mouth q12 hours for 10 days 20caps J01.90 Ryan Grove JR., M.D. 0 06/23/2020 - 07/03/2020 Prednisone 20mg Tablets 2 tab by mouth daily x 5 days 10tabs J32.9 Ryan Grove JR., M.D. 11/2019 - 05/01/2020 Mucinex DM 30-600mg Tablets ER 12H R 1 tab PO bid for cough 14tabs J01.00 Ryan Grove JR., M.D. - 04/22/2020 Cefdinir 300mg Capsules 1 tab by mouth twice a day for 10 days 20caps J01.00 Ryan Grove JR., M.D. 04/07/2020 - 04/17/2020 Immunizations Description No Information Available Vital Signs Date Vital Result Comment 10/05/2020 2:02pm BP Systolic 147 mmHg BP Diastolic 82 mmHg Heart Rate 69 /min Respiratory Rate 20 /min O2 % BldC Oximetry 97 % Body Temperature 98.6 F Weight 133.00 lb Height 61 inches 5'1" BMI (Body Mass Index) 25.1 kg/m2 Pain Level 6 08/23/2020 1:26pm BP Systolic 168 mmHg BP Diastolic 78 mmHg Heart Rate 69 /min Respiratory Rate 16 /min O2 % BldC Oximetry 97 % Body Temperature 97.8 F Weight 133.00 lb Height 61 inches 5'1" BMI (Body Mass Index) 25.1 kg/m2 Pain Level 8 Results Test Acquired Date Facility Test Result H/L Range Note Laboratory test finding 04/07/2020 [facility] [address] [id number] [phone] Urine Culture FULL REPORT IN L <SEE NOTE> Normal 1 1 FULL REPORT IN LAB NOTES (eC W and Medent). NO GROWTH CLINICAL SIGNIFICANCE 1 ORGANISM Procedures Description No Information Available Medical Devices Description No Information Available Encounters Type Date Location Provider Dx Diagnosis Office Visit 10/05/2020 1:15p [facility] Humberto Hernandez, P .A. J01.90 Acute sinusitis, unspecified Z20.828 Contact w and exposure to ot h viral communicable diseases Office Visit 08/23/2020 2:10p Main Office MIGDALIA Vu J01.9 0 Acute sinusitis, unspecified R35.0 Frequency of micturition J45.901 Unspecified asthma with (acu te) exacerbation Office Visit 06/23/2020 8:55a Main Office MIGDALIA Ratliff J01.90 Acute sinusitis, unspecified Office Visit 04/26/2020 11:45a Main Office Humberto Hernandez, P.A. J3 2.9 Chronic sinusitis, unspecified J30.89 Other allergic rhinitis Office Visit 04/07/2020 11:25a Main Office Roxane Gonzalez NP J01. 00 Acute maxillary sinusitis, unspecified S39.012A Strain of muscle, fascia and tendon of lower back, init R30.0 Dysuria Assessments Date Code Description Provider 10/05/2020 J01.90 Acute sinusitis, unspecified Félix Hernandez, P.A. 10/05/2020 Z20.828 Contact with and (garcia spected) exposure to other viral communicable diseases Humberto Hernandez, P.A. 08/23/2020 J01.90 Acute sinusitis, unspecified MIGDALIA Frances 08/23/2020 R35.0 Frequency of micturition MIGDALIA Boyd 08/23/2020 J45.901 Unspecified asthma with (acute) exacerbation MIGDALIA Vu 06/23/2020 J01.90 Acute sinusitis, unspecified Ivanna MIGDALIA Ramos 04/26/2020 J32.9 Chronic sinusitis, unspecified J jasbir Hernandez, P.A. 04/26/2020 J30.89 Other allergic rhinitis Humberto Hernandez, P.A. 04/07/2020 J01.00 Acute maxillary sinusitis, unspe cified Roxane Gonzalez NP 04/07/2020 S39.012A Strain of muscle, fa scia and tendon of lower back, initial encounter Roxane Gonzalez NP 04/07/2020 R30.0 Dysuria Roxane quintana NP Plan of Treatment No Information Available Functional Status Description No Information Available Mental Status Description No Information Available Referrals Description No Information Available
--- OUTSIDE RECORDS SUMMARY | 2020-11-22 06:32 | CCD | Continuity of Care Document ---
Author Author Lizzie VANG D.O. [place] [address] Phone [phone] Care Team Providers Care Comedian Name Role Phone Estephania Ocampo M.D. AUTM [phone] AUTM Unavailable AUTM Unavailable Problems Active Problems Provider Date Allergic rhinitis Dweey Little II, PA-C Onset: 07/06/2014 Chronic maxillary [...] Capsules Take as directed. Unknown Calcium 600-D [id number] Table ts 1 by mouth daily Unknown Glucosamine 1000 MG Daily Unknown Simvastatin 20mg Tablets 1 by mouth every day Unknown Folic Acid 800mcg Tablets 1 by mouth every day Unknown Vitamin D3 2000Unit Capsules 1 qd Unknown Saline Mist [place] 0.65% Solution 2 sprays to each nostril [...] lb BMI (Body Mass Index) 26.4 kg/m2 [place] Body Weight 105 lb Weight 63.504 kg BSA (Body Surface Area) 1.62 m2 08/09/2020 2:49pm BP Systolic 110 mmHg BP Diastolic 70 mmHg Heart Rate 89 /min O2 % BldC Oximetry 94 % Body Temperature 96.3 F Height 61 inches 5'1" Weight 139.00 lb BMI (Body Mass Index) 26.3 kg/m2 [place] Body Weight 105 lb Weight 63.050 kg BSA (Body Surface Area) 1.62 m2 Results Test Acquired Date Facility Test Result H/L Range Note Laboratory test finding 09/17/2020 [facility] Main Lab [address] [place] [address] [phone] Culture Sputum And Gram Stain <pending> FVL/[place] 09/17/2020 [employer] PDFReport SEE IMAGE FVC-Pred 2.34 L FVC-Pre 2.04 L FVC-%Pred-Pre 87 L FVC-LLN 1.70 L Fev1-Pred 1.73 L Fev1-Pre 1.61 L Fev1-%Pred-Pre 92 L Fev1-LLN 1.20 L Fev6-Pred 2.20 L Fev6-Pre 2.04 L Fev6-%Pred-Pre 92 L Fev6-LLN 1.59 L Yxj7fwh-Fcfl 74 % Qfc2htm-Pud 79 % Zhp8oiz-%Pred-Pre 106 % Lvp9cnt-SDR 64 % Krz3wlr-Mwzb 94 % Hce9zth-Rco 100 % Osl8ltw-%Pred-Pre 105 % FEFMax-Pred 4.53 L/E/sec FEFMax-Pre 5.42 L/E/sec FEFMax-%Pred-Pre 119 L/E/sec FEFMax-LLN 2.97 L/E/sec Vbq8565-Rbqp 1.34 L/E/sec Hxl5629-Sio 1.45 L/E/sec Jik9478-%Pred-Pre 108 L/E/sec Llq6325-PUQ 0.21 L/E/sec ExpTime-Pre 5.12 sec Fge5acg5-Oqoo 78 % Sfi8qjf6-Pdy 79 % Mqe5mpm0-%Pred-Pre 101 % Yif0kuj1-ZJB 69 % Sputum Culture And Gram Stain 09/13/2020 [facility] Main Lab [address] [place] [address] [phone] Gram Stain (SEE NOTE) Normal 1 Sputum Culture FULL REPORT IN L <SEE NOTE> Normal 2 1 QUALITY: GOOD MODERATE WBCS FEW EPITHELIAL CELLS FEW GRAM POSITIVE COCCI IN PAIRS AND CHAINS FEW GRAM POSITIVE RODS 2 FULL REPORT IN LAB NOTES (eC W and Medent). NORMAL AUDREY PRESENT Procedures Date Code Description Status 08/09/2020 91368 Aerosol Or Vapor Inhalations Com pleted 06/28/2020 63206 Colonoscopy Flexible Proximal To Splenic Flexure Diagnostic W/Or Completed 05/29/2020 18744 Diffusing Capacity Completed 05/29/2020 13252 Plethysmography Determination Kiya ng Volumes & Per Airway Resist Completed 05/29/2020 72533 Maximum Breathing Capacity, Maxi mal Voluntary Ventilation Completed 05/29/2020 74898 Bronchospasm Evaluation Complete d Medical Devices Description No Information Available Encounters Type Date Location Provider Dx Diagnosis Office Visit 08/09/2020 3:00p [facility] Pulmonary/Thoracic Hussain Se ars, D.O. R91.8 Other nonspecific abnormal finding of kiya ng field J45.20 Mild intermittent asthma, un complicated Office Visit 08/01/2020 10:30a [facility] E[facility]GI Practice Dewey smith II, LUIS FELIPE J31.0 Chronic rhinitis Office Visit 05/31/2020 9:30a [facility] Pulmonary/Thoracic Hussain Se ars, D.O. R05 Cough R91.8 Other nonspecific abnormal f inding of lung field Assessments Date Code Description Provider 09/17/2020 J45.20 Mild intermittent asthma, uncomp licated Hussain Sears, D.O. 09/17/2020 R91.8 Other nonspecific abnormal findi ng of lung field Hussain Sears, D.O. 09/17/2020 J31.0 Chronic rhinitis Hussain Sears, D.O . 08/09/2020 R91.8 Other nonspecific abnormal findi ng of lung field Hussain Sears, D.O. 08/09/2020 J45.20 Mild intermittent asthma, uncomp licated Hussain Vang D.O. 08/01/2020 J31.0 Chronic rhinitis Dewey Little II, PA-C 06/28/2020 Z12.11 Encounter for screening for talya gnant neoplasm of colon Jorge Munson MD 06/28/2020 Z86.010 Personal history of colonic poly ps Jorge Munson MD 06/28/2020 K57.30 Diverticulosis of la rge intestine without perforation or abscess without bleeding Jorge Munson MD 06/12/2020 Z12.11 Encounter for screening for talya gnant neoplasm of colon Meredith Munozbojoceline, RPA-C 06/12/2020 Z86.010 Personal history of colonic poly ps Meredith Munozbojoceline, RPA-C 06/12/2020 K21.9 Gastro-esophageal reflux disease without esophagitis Meredith Munozbojoceline, RPA-C 05/31/2020 R05 Cough Chauncey MckinleyO. 05/31/2020 R91.8 Other nonspecific abnormal findi ng of lung field Hussain Vang D.O. 05/29/2020 R05 Cough Pulmonary Lab Plan of Treatment Future Appointment(s):* 02/11/2021 10:00 am - Hussain Vang D.O. at [facility] Pulmonary/Thoracic 09/17/2020 - Hussain Vang D.O.* J45.20 Mild intermittent asthma, uncomplicated * R91.8 Other nonspecific abnormal finding of lung field * J31.0 Chronic rhinitis * * New Medication:* Albuterol Sulfate (2.5 mg/3ML) 0.083% * Prednisone 10 mg * New Orders:* Nebulizer Kits, Ordered: 09/17/20 * Follow up:* Follow up in January with chest CT as scheduled. 30 minutes Remind patient to come 15 minutes prior to apt. Functional Status Functional Condition Comment Date Status Independent with all ADL's Activ e Independent with all IADL's Acti ve Mental Status Mental Condition Comment Date Status None Active Can understand information Activ e Referrals Refer to Reason for Referral Status Appt Date Radiology/Procedure updated auth with corrected facility [facility] roved Closed Radiology/Procedure CT CHEST NO CONTRAST-[id number] @NR Closed
--- OUTSIDE RECORDS SUMMARY | 2020-11-22 06:32 | CCD | Continuity of Care Document ---
Author Author Lizzie VANG D.O. [place] [address] Phone [phone] Care Team Providers Care Biofuels Production Technician Name Role Phone Estephania Ocampo M.D. AUTM [phone] AUTM Unavailable AUTM Unavailable Problems Active Problems [...] Capsules Take as directed. Unknown Calcium 600-D 873-875qh-Skvg Table ts 1 by mouth daily Unknown Glucosamine 1000 MG Daily Unknown Simvastatin 20mg Tablets 1 by mouth every day Unknown Folic Acid 800mcg Tablets 1 by mouth every day Unknown Vitamin D3 2000Unit Capsules 1 qd Unknown Saline Mist [place] 0.65% Solution 2 sprays to each nostril [...] lb BMI (Body Mass Index) 26.4 kg/m2 [place] Body Weight 105 lb Weight 63.504 kg BSA (Body Surface Area) 1.62 m2 08/09/2020 2:49pm BP Systolic 110 mmHg BP Diastolic 70 mmHg Heart Rate 89 /min O2 % BldC Oximetry 94 % Body Temperature 96.3 F Height 61 inches 5'1" Weight 139.00 lb BMI (Body Mass Index) 26.3 kg/m2 [place] Body Weight 105 lb Weight 63.050 kg BSA (Body Surface Area) 1.62 m2 Results Test Acquired Date Facility Test Result H/L Range Note Culture Sputum And Gram Stain 09/18/2020 [facility] [address] [place] [address] [id number] [phone] Gram Stain (SEE NOTE) Normal 1 Sputum Culture Sputum culture n <SEE NOTE> 2 Culture Sputum And Gram Stain 09/17/2020 [facility] [address] [place], [place] [id number] [phone] Gram Stain (SEE NOTE) Normal 3 Sputum Culture Sputum culture n <SEE NOTE> 4 FVL/[place] 09/17/2020 [employer] PDFReport SEE IMAGE FVC-Pred 2.34 L FVC-Pre 2.04 L FVC-%Pred-Pre 87 L FVC-LLN 1.70 L Fev1-Pred 1.73 L Fev1-Pre 1.61 L Fev1-%Pred-Pre 92 L Fev1-LLN 1.20 L Fev6-Pred 2.20 L Fev6-Pre 2.04 L Fev6-%Pred-Pre 92 L Fev6-LLN 1.59 L Eay7oyp-Icvj 74 % Cep1vas-Rnc 79 % Ehu0vzv-%Pred-Pre 106 % Xph6phn-LJB 64 % Jmk1vxt-Suut 94 % Qsl8bog-Rol 100 % Vcj6xcz-%Pred-Pre 105 % FEFMax-Pred 4.53 L/E/sec FEFMax-Pre 5.42 L/E/sec FEFMax-%Pred-Pre 119 L/E/sec FEFMax-LLN 2.97 L/E/sec Aod5087-Intz 1.34 L/E/sec Anh7996-Nsu 1.45 L/E/sec Imy6431-%Pred-Pre 108 L/E/sec Lhy1271-INS 0.21 L/E/sec ExpTime-Pre 5.12 sec Zeh5dkp6-Lqsf 78 % Zxe2eje2-Qvb 79 % Zrp9gne8-%Pred-Pre 101 % Zph6xve0-UOD 69 % Sputum Culture And Gram Stain 09/13/2020 [facility] [address] [place] [address] [phone] Gram Stain (SEE NOTE) Normal 5 Sputum [...] PRESENT Procedures Date Code Description Status 09/17/2020 03919 Airway Inhalation Treatment Comp leted 09/17/2020 75012 Spirometry Completed 08/09/2020 48241 Aerosol Or Vapor Inhalations Com pleted 06/28/2020 53589 Colonoscopy Flexible Proximal To Splenic Flexure Diagnostic W/Or Completed 05/29/2020 76335 Diffusing Capacity Completed 05/29/2020 44900 Plethysmography Determination Kiya ng Volumes & Per Airway Resist Completed 05/29/2020 61749 Maximum Breathing Capacity, Maxi mal Voluntary Ventilation Completed 05/29/2020 81691 Bronchospasm Evaluation Complete d Medical Devices Description No Information Available Encounters Type Date Location Provider Dx Diagnosis Office Visit 09/17/2020 8:30a [facility] Pulmonary/Thoracic Hussain Se ars, D.O. J45.20 Mild intermittent asthma, uncomplicated R91.8 Other nonspecific abnormal f inding of lung field J31.0 Chronic rhinitis Office Visit 08/09/2020 3:00p [facility] Pulmonary/Thoracic Hussain Se ars, D.O. R91.8 Other nonspecific abnormal finding of kiya ng field J45.20 Mild intermittent asthma, un complicated Office Visit 08/01/2020 10:30a [facility] ENT/GI Practice Dewey smith II, PA-C J31.0 Chronic rhinitis Office Visit 05/31/2020 9:30a [facility] Pulmonary/Thoracic Hussain Se ars, D.O. R05 Cough [...] nonspecific abnormal findi ng of lung field Husasin Sears, D.O. 05/29/2020 R05 Cough Pulmonary Lab Plan of Treatment Future Appointment(s):* 02/11/2021 10:00 am - Hussain Vang D.O. at [facility] Pulmonary/Thoracic 09/17/2020 - Hussain Vang D.O.* J45.20 [...] Date Radiology/Procedure updated auth with corrected facility [facility]arias roved Closed Radiology/Procedure CT CHEST NO CONTRAST-[id number] @NR Closed
--- OUTSIDE RECORDS SUMMARY | 2020-11-22 06:32 | CCD | Continuity of Care Document ---
Author Author Lizzie VANG D.O. [place] [address] Phone [phone] Care Team Providers Care Trimmer Press Clippings Name Role Phone Estephania Ocampo M.D. AUTM [phone] AUTM Unavailable AUTM Unavailable Problems Active Problems [...] Capsules Take as directed. Unknown Calcium 600-D [id number]-Drwp Table ts 1 by mouth daily Unknown Glucosamine 1000 MG Daily Unknown Simvastatin 20mg Tablets 1 by mouth every day Unknown Folic Acid 800mcg Tablets 1 by mouth every day Unknown Vitamin D3 2000Unit Capsules 1 qd Unknown Saline Mist [place] 0.65% Solution 2 sprays to each nostril [...] lb BMI (Body Mass Index) 26.4 kg/m2 [place] Body Weight 105 lb Weight 63.504 kg BSA (Body Surface Area) 1.62 m2 08/09/2020 2:49pm BP Systolic 110 mmHg BP Diastolic 70 mmHg Heart Rate 89 /min O2 % BldC Oximetry 94 % Body Temperature 96.3 F Height 61 inches 5'1" Weight 139.00 lb BMI (Body Mass Index) 26.3 kg/m2 [place] Body Weight 105 lb Weight 63.050 kg BSA (Body Surface Area) 1.62 m2 Results Test Acquired Date Facility Test Result H/L Range Note Culture Sputum And Gram Stain 09/18/2020 [facility] [address] [place] [address] [phone] Gram Stain (SEE NOTE) Normal 1 Sputum Culture Sputum culture n <SEE NOTE> 2 Culture Sputum And Gram Stain 09/17/2020 [facility] 0 [place], [place] [id number] [phone] Gram Stain (SEE NOTE) Normal 3 Sputum Culture Sputum culture n <SEE NOTE> 4 FVL/[place] 09/17/2020 [employer] PDFReport SEE IMAGE FVC-Pred 2.34 L FVC-Pre 2.04 L FVC-%Pred-Pre 87 L FVC-LLN 1.70 L Fev1-Pred 1.73 L Fev1-Pre 1.61 L Fev1-%Pred-Pre 92 L Fev1-LLN 1.20 L Fev6-Pred 2.20 L Fev6-Pre 2.04 L Fev6-%Pred-Pre 92 L Fev6-LLN 1.59 L Lnp3dnx-Yzkt 74 % Cjr5jhs-Vum 79 % Qmx5drp-%Pred-Pre 106 % Szy6boo-AHF 64 % Hti1ahm-Stdz 94 % Yeq5olk-Ysa 100 % Fzj5nyv-%Pred-Pre 105 % FEFMax-Pred 4.53 L/E/sec FEFMax-Pre 5.42 L/E/sec FEFMax-%Pred-Pre 119 L/E/sec FEFMax-LLN 2.97 L/E/sec Cpf9562-Tlwa 1.34 L/E/sec Qnx1134-Ohx 1.45 L/E/sec Jno3542-%Pred-Pre 108 L/E/sec Dyu8034-STR 0.21 L/E/sec ExpTime-Pre 5.12 sec Krk3jcf6-Fgdr 78 % Cgt5bac7-Zxa 79 % Jjd4yfp8-%Pred-Pre 101 % Gkm7wpz1-ZIX 69 % Sputum Culture And Gram Stain 09/13/2020 [facility] [address] [place] [address] [phone] Gram Stain (SEE NOTE) Normal 5 Sputum [...] PRESENT Procedures Date Code Description Status 09/17/2020 64080 Airway Inhalation Treatment Comp leted 09/17/2020 18809 Spirometry Completed 08/09/2020 30052 Aerosol Or Vapor Inhalations Com pleted 06/28/2020 02094 Colonoscopy Flexible Proximal To Splenic Flexure Diagnostic W/Or Completed 05/29/2020 38217 Diffusing Capacity Completed 05/29/2020 84421 Plethysmography Determination Kiya ng Volumes & Per Airway Resist Completed 05/29/2020 45702 Maximum Breathing Capacity, Maxi mal Voluntary Ventilation Completed 05/29/2020 85435 Bronchospasm Evaluation Complete d Medical Devices Description No Information Available Encounters Type Date Location Provider Dx Diagnosis Office Visit 09/17/2020 8:30a [facility] Pulmonary/Thoracic Hussain Se ars, D.O. J45.20 Mild intermittent asthma, uncomplicated R91.8 Other nonspecific abnormal f inding of lung field J31.0 Chronic rhinitis Office Visit 08/09/2020 3:00p [facility] Pulmonary/Thoracic Hussain Se ars, D.O. R91.8 Other nonspecific abnormal finding of kiya ng field J45.20 Mild intermittent asthma, un complicated Office Visit 08/01/2020 10:30a [facility] ENT/GI Practice Dewey smith II, PA-C J31.0 Chronic rhinitis Office Visit 05/31/2020 9:30a [facility] Pulmonary/Thoracic Hussain Se ars, D.O. R05 [...] 10:00 am - Hussain Vang D.O. at [facility] Pulmonary/Thoracic 09/17/2020 - Hussain Vang D.O.* [...] Date Radiology/Procedure updated auth with corrected facility [facility]ac[facility] roved Closed Radiology/Procedure CT CHEST NO CONTRAST-[id number] @NR Closed
--- OUTSIDE RECORDS SUMMARY | 2020-11-22 06:32 | CCD | Continuity of Care Document ---
Author Author Lizzie HERNANDEZ PRhonda Tsai Organization Unknown Address [address] [place] [address] [place] [address] Phone [phone] Care Team Providers Care Scrap Preparer Name Role Phone Bushra Giron AUTM [phone] Vlad Co Sinan AUTM [phone] Problems Active Problems Provider Date Acute bronchitis [...] Ryan [place] JR., M.D. 10/05/2020 Saline Nasal [place] 0.65% Solution Unknown Albuterol Fha 90mcg/Act Aerosol not using d/t leg cramps 2 puffs q4hrs./prn sob or wheezing Unknown Turmeric Unknown Folic Acid Unknown Niacin Unknown Albuterol Sulfate ER via neb,last use this am U nknown Breo Ellipta Unknown Vitamin E 100Unit Capsules Unknown Fluticasone Propionate Nasal [place] 24- H our 50mcg/Act Suspension 1 spray each nostril qd/prn Unknown Vitamin B12 1000mcg Tablets ER qd Unknown Simvastatin 40mg Tablets qd Unknown Calcium 600 + D [id number]-Jucj Tablets qd Unknown Vitamin D3 1000Unit Capsules [...] H/L Range Note Laboratory test finding 04/07/2020 [facility] [address] [id number] [phone] Urine Culture FULL REPORT IN L <SEE NOTE> Normal 1 1 FULL REPORT IN LAB NOTES (eC W and Medent). NO GROWTH CLINICAL SIGNIFICANCE 1 ORGANISM Procedures Description No Information Available Medical Devices Description No Information Available Encounters Type Date Location Provider Dx Diagnosis Office Visit 10/05/2020 1:15p [facility] Humberto Hernandez, P .A. J01.90 [...]
--- OUTSIDE RECORDS SUMMARY | 2020-11-22 06:32 | CCD | Continuity of Care Document ---
Author Author Lizzie VANG D.O. [place] [address] Phone [phone] Care Team Providers Care Personnel Security Assistant Name Role Phone Estephania Ocampo M.D. AUTM [phone] AUTM Unavailable AUTM Unavailable Problems Active Problems [...] Capsules Take as directed. Unknown Calcium 600-D [id number]-Gfys Table ts 1 by mouth daily Unknown Glucosamine 1000 MG Daily Unknown Simvastatin 20mg Tablets 1 by mouth every day Unknown Folic Acid 800mcg Tablets 1 by mouth every day Unknown Vitamin D3 2000Unit Capsules 1 qd Unknown Saline Mist [place] 0.65% Solution 2 sprays to each nostril [...] lb BMI (Body Mass Index) 26.4 kg/m2 [place] Body Weight 105 lb Weight 63.504 kg BSA (Body Surface Area) 1.62 m2 08/09/2020 2:49pm BP Systolic 110 mmHg BP Diastolic 70 mmHg Heart Rate 89 /min O2 % BldC Oximetry 94 % Body Temperature 96.3 F Height 61 inches 5'1" Weight 139.00 lb BMI (Body Mass Index) 26.3 kg/m2 [place] Body Weight 105 lb Weight 63.050 kg BSA (Body Surface Area) 1.62 m2 Results Test Acquired Date Facility Test Result H/L Range Note Laboratory test finding 09/17/2020 [facility] [address] [place] [address] [phone] Culture Sputum And Gram Stain <pending> FVL/[place] 09/17/2020 [employer] PDFReport SEE IMAGE FVC-Pred 2.34 L FVC-Pre 2.04 L FVC-%Pred-Pre 87 L FVC-LLN 1.70 L Fev1-Pred 1.73 L Fev1-Pre 1.61 L Fev1-%Pred-Pre 92 L Fev1-LLN 1.20 L Fev6-Pred 2.20 L Fev6-Pre 2.04 L Fev6-%Pred-Pre 92 L Fev6-LLN 1.59 L Cao9gim-Gufh 74 % Wdd3nms-Dvc 79 % Mnz3gat-%Pred-Pre 106 % Hhg8osh-ZVU 64 % Juk2hdg-Hsid 94 % Ezj1pkh-Tdt 100 % Soi5ely-%Pred-Pre 105 % FEFMax-Pred 4.53 L/E/sec FEFMax-Pre 5.42 L/E/sec FEFMax-%Pred-Pre 119 L/E/sec FEFMax-LLN 2.97 L/E/sec Wzi1426-Lwgb 1.34 L/E/sec Jky5219-Mgj 1.45 L/E/sec Vpy8582-%Pred-Pre 108 L/E/sec Zqh0490-FPS 0.21 L/E/sec ExpTime-Pre 5.12 sec Vjy9izm1-Uoql 78 % Cil1jmz5-Ctv 79 % Oml2pzu2-%Pred-Pre 101 % Nme9pcd6-TEL 69 % Sputum Culture And Gram Stain 09/13/2020 [facility] Lab 0 [place] [address] [phone] Gram Stain (SEE NOTE) Normal 1 Sputum Culture FULL REPORT IN L <SEE NOTE> Normal 2 1 QUALITY: GOOD MODERATE WBCS FEW EPITHELIAL CELLS FEW GRAM POSITIVE COCCI IN PAIRS AND CHAINS FEW GRAM POSITIVE RODS 2 FULL REPORT IN LAB NOTES (eC W and [facility]). NORMAL AUDREY PRESENT Procedures Date Code Description Status 08/09/2020 60447 Aerosol Or Vapor Inhalations Com pleted 06/28/2020 60807 Colonoscopy Flexible Proximal To Splenic Flexure Diagnostic W/Or Completed 05/29/2020 36425 Diffusing Capacity Completed 05/29/2020 82858 Plethysmography Determination Kiya ng Volumes & Per Airway Resist Completed 05/29/2020 63021 Maximum Breathing Capacity, Maxi mal Voluntary Ventilation Completed 05/29/2020 33572 Bronchospasm Evaluation Complete d Medical Devices Description No Information Available Encounters Type Date Location Provider Dx Diagnosis Office Visit 08/09/2020 3:00p [facility] Pulmonary/Thoracic Hussain Se ars, D.O. R91.8 Other nonspecific abnormal finding of kiya ng field J45.20 Mild intermittent asthma, un complicated Office Visit 08/01/2020 10:30a [facility] ENT/GI Practice Dewey smith II, LUIS FELIPE J31.0 Chronic rhinitis Office Visit 05/31/2020 9:30a [facility] Pulmonary/Thoracic Hussain Se ars, D.O. R05 Cough [...] 10:00 am - Hussain Vang D.O. at [facility] Pulmonary/Thoracic 09/17/2020 - Hussain Vang D.O.* J45.20 [...] Date Radiology/Procedure updated auth with corrected facility [facility]acarias roved Closed Radiology/Procedure CT CHEST NO CONTRAST-[id number] @NR Closed
--- OUTSIDE RECORDS SUMMARY | 2020-11-22 06:33 | CCD | Continuity of Care Document ---
Author Author Lizzie VANG D.O. Organization [place] [address] Phone [phone] Care Team Providers Care Floater Operator Name Role Phone Estephania Ocampo M.D. AUTM [phone] AUTM Unavailable AUTM Unavailable Problems Active Problems [...] esophagus Jorge Munson MD Onset: 06/26 Indigestion oJrge Munson MD Onset: 07/06/2014 Digestive symptom Jorge Munson MD Onset: 07/06/2014 Gastroesophageal reflux disease Jroge Munson MD Onset: 0 07/06/2014 Screening for [...] intermittent asthma Hussain Vang D.O. Onset: 08/09/20 20 Social History Type Date Description Comments Sex Unknown Tobacco Use Start: Unknown Never Smoked Cigarettes ETOH Use Occasionally consumes alcohol ETOH Use 4 A Month Recreational Drug Use Denies Drug Use Tobacco Use Reviewed: 05/31/20 Patient has never smoked Smoking Status Reviewed: 08/09/20 Patient has never smoked Allergies, Adverse Reactions, Alerts Active Allergies Reaction Severity Comments Date Sulfa RASH 05/14/2011 Cymbalta Nausea 05/14/2011 Codeine Nausea 05/14/2011 Avelox WEAK, SHAKEY 01/24/2019 Doxycycline Hyclate 01/25/20 19 Prozac 01/24/2019 Medications Active Medications SIG Qnty Indications Ordering Provide r Date Ventolin HFA 108(90Base) mcg/Act A erosol 2 puffs qid/prn 54gm Hussain Vang D.O. 08/14/2020 Breo Ellipta 200-25mcg/Inh Aerosol inhale one puff by mouth every day 180units R91.8 Hussain Vang D.O. Ventolin HFA 108(90Base) mcg/Act A erosol 2 puffs qid/prn 18gm R91.8 Hussain Vang D.O. 08/09/2020 Tablets 1 by anton th every day Unknown Famotidine 40mg Tablets take 1 tablet by mouth daily Unknown Vitamin E 1 tab by mouth every day Unknown Acidophilus Capsules 1 tab by mouth twice a day Unknown Turmeric 500mg Tablets 1 tab by mouth every day Unknown Potassium 99mg Tablets 1 tab by mouth every day Unknown Hair Skin & Nails Advanced Formula Tablets 1 tab by mouth every day Unknown Tylenol Extra Strength 500mg Table ts 1 tab by mouth every 4 hours as needed Unknown Loratadine 10mg Capsules Take as directed. Unknown Calcium 600-D 084-233yf-Deyl Table ts 1 by mouth daily Unknown Glucosamine 1000 MG Daily Unknown Simvastatin 20mg Tablets 1 by mouth every day Unknown Folic Acid 800mcg Tablets 1 by mouth every day Unknown Vitamin D3 2000Unit Capsules 1 qd Unknown Saline Mist [place] 0.65% Solution 2 sprays to each nostril 4-5 times daily as needed Unknow n Vitamin B12 1000mcg Tablets ER 2 by mouth every day Unknown Loperamide HCL 2mg Tablets 1 tab by mouth bid Unknown Fluticasone Propionate 50mcg/Act Suspension 2 sprays to each nostril daily Unknown Ibuprofen 800mg Tablets 1 by mouth three times a day prn Unknown Vitamin C 500mg Tablets 1 by mouth every day Unknown Omeprazole 20mg Capsules DR 1 tab by mouth every day 90caps Unknown History Medications Levofloxacin 500mg Tablets 1 by mouth every day 7tabs Hussain Vang D.O. 07/23/2020 - Prednisone 10mg Tablets 4 tabs po qd x5d, 3 tabs po qd x5d, 2 tabs po qd x5d, 1 tab x 5 days, then 1/2 tab po x 5 days 53tabs Hussain Vang D.O. 07/23/2020 - 020 Suprep Bowel Prep Kit 17.5-3.13-1.6GM/177ML Solution take per doctor's bowel prep instructions. 354ml Z12.1 1 Jorge Munson MD 06/12/2020 - 11/09/2019 Immunizations Description No Information Available Vital Signs Date Vital Result Comment 08/09/2020 2:49pm BP Systolic 110 mmHg BP Diastolic 70 mmHg Heart Rate 89 /min O2 % BldC Oximetry 94 % Body Temperature 96.3 F Height 61 inches 5'1" Weight 139.00 lb BMI (Body Mass Index) 26.3 kg/m2 [place] Body Weight 105 lb Weight 63.050 kg 06/12/2020 9:34am BP Systolic 140 mmHg BP Diastolic 80 mmHg Height 61 inches 5'1" Weight 137.00 lb BMI (Body Mass Index) 25.9 kg/m2 [place] Body Weight 105 lb Weight 62.143 kg Results Test Acquired Date Facility Test Result H/L Range Note Sputum Culture And Gram Stain 03/06/2020 [facility] [address] [place] [address] [phone] Gram Stain (SEE NOTE) Normal 1 Sputum Culture Sputum culture n <SEE NOTE> 2 FVL/[place] 03/06/2020 [employer] PDFReport SEE IMAGE FVC-Pred 2.34 L FVC-Pre 2.22 L FVC-%Pred-Pre 94 L FVC-LLN 1.70 L Fev1-Pred 1.73 L Fev1-Pre 1.76 L Fev1-%Pred-Pre 101 L Fev1-LLN 1.20 L Fev6-Pred 2.20 L Fev6-Pre 2.22 L Fev6-%Pred-Pre 100 L Fev6-LLN 1.59 L Nxh2eqe-Gfik 74 % Krc0syb-Tiu 79 % Ucx9syu-%Pred-Pre 106 % Gjr1bpw-RTH 64 % Noh0mpq-Uthl 94 % Dfw3lmx-Pve 100 % Gyz5gbc-%Pred-Pre 105 % FEFMax-Pred 4.53 L/E/sec FEFMax-Pre 3.91 L/E/sec FEFMax-%Pred-Pre 86 L/E/sec FEFMax-LLN 2.97 L/E/sec Tgx0803-Ninp 1.34 L/E/sec Ysx0719-Ity 1.66 L/E/sec Iou6949-%Pred-Pre 123 L/E/sec Dhh0613-EQJ 0.21 L/E/sec ExpTime-Pre 6.59 sec Tsr1cjr0-Wfsb 78 % Brv5lxo9-Xny 79 % Jhz4kox7-%Pred-Pre 101 % Tmm0vwk9-ROA 69 % 1 QUALITY: POOR MANY EPITHELIAL CELLS FEW WBCS MANY GRAM POSITIVE COCCI IN PAIRS, CHAINS AND CLUSTERS FEW GRAM POSITIVE RODS 2 Sputum culture not performed due to oropharyngeal contamination. Further processing of such specimens would not yield useful information about the possible pathogens from the lower respiratory tract. Test not performed Procedures Date Code Description Status 08/09/2020 28588 Aerosol Or Vapor Inhalations Com pleted 06/28/2020 07068 Colonoscopy Flexible Proximal To Splenic Flexure Diagnostic W/Or Completed 05/29/2020 06733 Diffusing Capacity Completed 05/29/2020 95632 Plethysmography Determination Kiya ng Volumes & Per Airway Resist Completed 05/29/2020 33401 Maximum Breathing Capacity, Maxi mal Voluntary Ventilation Completed 05/29/2020 44184 Bronchospasm Evaluation Complete d 03/06/2020 16036 Spirometry Completed Medical Devices Description No Information Available Encounters Type Date Location Provider Dx Diagnosis Office Visit 08/09/2020 3:00p [facility] Pulmonary/Thoracic Hussain Se ars, D.O. R91.8 Other nonspecific abnormal finding of kiya ng field J45.20 Mild intermittent asthma, un complicated Office Visit 08/01/2020 10:30a [facility] ENT/GI Practice Dewey smith II, PA-C J31.0 Chronic rhinitis Office Visit 05/31/2020 9:30a [facility] Pulmonary/Thoracic Hussain Se ars, D.O. R05 Cough R91.8 Other nonspecific abnormal f inding of lung field Office Visit 03/06/2020 10:30a [facility] Pulmonary/Thoracic Hussain Se ars, D.O. R05 Cough Assessments Date Code Description Provider 08/09/2020 R91.8 Other nonspecific abnormal findi ng [...] talya gnant neoplasm of colon Meredith A JONAH Alvarez 06/12/2020 Z86.010 Personal history of colonic poly ps Meredith A KIMMY AlvarezC 06/12/2020 K21.9 Gastro-esophageal reflux disease without esophagitis Meredith A Antonio, RPA-C 05/31/2020 R05 Cough Hussain Vang D.O. 05/31/2020 R91.8 Other nonspecific abnormal findi ng of lung field Hussain Vang D.O. 05/29/2020 R05 Cough Pulmonary Lab 03/06/2020 R05 Cough Hussain Vang D.O. Plan of Treatment Future Appointment(s):* 02/11/2021 10:00 am - Hussain Vang D.O. at [facility] Pulmonary/Thoracic 08/09/2020 - Hussain Vang D.O.* R91.8 Other nonspecific abnormal finding of lung field * J45.20 Mild intermittent asthma, uncomplicated * * New Medication:* Breo Ellipta 200-25 mcg/Inh * Ventolin HFA 108(90 Base) mcg/Act * New Labs:* FVL/[place], Ordered: 08/09/20 * New Xrays:* CT Chest No Contrast, Ordered: 08/09/20 * Follow up:* Follow up in one month with erick Follow up in [address] Functional Status Functional Condition Comment Date Status Independent with all ADL's Activ e Independent with all IADL's Acti ve Mental Status Mental Condition Comment Date Status None Active Can understand information Activ e Referrals Refer to Reason for Referral Status Appt Date Radiology/Procedure updated auth with corrected facility [facility] zacarias roved Closed Radiology/Procedure CT CHEST NO CONTRAST-[id number] @NR Closed Radiology/Procedure [facility] auth [id number] Closed
--- OUTSIDE RECORDS SUMMARY | 2020-11-22 06:33 | CCD | Continuity of Care Document ---
Author Author Lizzie CHAVEZ Organization Unknown Address [address] [place] [address] Phone [phone] Care Team Providers Care Will Call Clerk Name Role Phone Wilmer Donohue MD AUTM [phone] Jeffery SOLIS., Ju AUTM [phone] [facility] - Orthopaedic Surgery AUTM [phone] [facility] AUTM [phone] [facility] AUTM [phone] [facility] - Otolaryngology AUTM [phone] [facility] - Otolaryngology AUTM [phone] Problems Active Problems Provider Date Adjustment disorder with mixed emotional features Yessy Carson RPA-C Onset: 05/02/2019 Obstructive sleep apnea syndrome Kamilla Carson RPA-C On set: 05/02/2019 Irritable bowel syndrome with diarrhea Kamilla Carson RP A-Arinane Onset: 05/02/2019 Gastroesophageal reflux disease Kamilla Carson [...] Use Denies Drug Use Smoking Status Reviewed: 09/07/20 Patient has never smoked Exercise Type/Frequency Does [...] bid 90ml J30.9 Ritu Chavez FNP 2019 Benzonatate 100mg Capsules one by mouth three times a day as needed cough 60caps J30.9 Ozzie Chavez FNP 03/30/2020 Famotidine 40mg Tablets take one tablet by mouth every evening 90tabs Estephania Ocampo M.D. Ibuprofen 800mg Tablets 1 tab by mouth three times a day as needed for pain, take with food 60tabs M75.102 Estephania Ocampo M.D. 01/17/2019 Simvastatin 20mg Tablets 1 by mouth every day 90tabs Estephania Ocampo M.D. 018 Cefdinir 300mg Capsules 1 by mouth twice a day Unknown Claritin 10mg Capsules 1 by mouth every day as needed for allergy symptoms Unknown Mucinex DM 30-600mg Tablets ER 12H R 1 tab by mouth twice a day for cough Unknown 0 Folic Acid 800mcg Tablets 2 by mouth every day Unknown Hair/Skin/Nails Capsules 1 t ab daily Unknown Omeprazole 40mg Capsules DR take 1 capsule by mouth once daily 90caps Estephania Ocampo M.D. Vitamin D3 High Potency 1000Unit C apsules 2 by mouth every day Unknown Saline Nasal [place] Solution use bid Unknown Vitamin B 12 1000mcg Tablets 2 po qd Unknown Calcium & Vitamin D3 [facility] T ablets one qd Unknown Vitamin C 500mg Tablets 2 po qd Unknown Loperamide HCL 2mg Tablets on e po bid Unknown History Medications Doxycycline Monohydrate 100mg Caps ules 1 tab po bid for 10 days 20caps J01.90 Ritu Chavez FNP 04/26 - 05/26/2020 Mometasone Furoate 50mcg/Act Suspe nsion 2 sprays daily 17gm J30.9 Ritu Chavez FNP 03/30/2020 - 04/02/2020 Immunizations CPT Code Status Date Vaccine Lot # [id number] Given 07/22/2019 Influenza Virus Vaccine, Quadrivalent,age 3 and up,multidose vial [id number] 15386 Given 05/05/2019 Pneumococcal Vaccine [id number] 68030 Given 07/22/2018 Influenza Virus Vaccine, Quadrivalent,age 3 and up,multidose vial [id number] Q2038 Given 07/03/2017 Influenza Vaccine (Fluzone)( medicare) [id number] 92197 Given 10/24/2016 Pneumococcal Vaccine [id number] Q2038 Given 07/15/2016 Influenza Vaccine (Fluzone)( medicare) [id number] 16198 Given 10/23/2015 Prevnar 13 For Adults [id number] Q2038 Given 07/18/2015 Influenza Vaccine (Fluzone)( medicare) [id number] Vital Signs Date Vital Result Comment 09/07/2020 11:48am BP Systolic 142 mmHg BP Diastolic 88 mmHg Heart Rate 81 /min Body Temperature 97.7 F Respiratory Rate 18 /min Height 60.25 inches 5'0.25" Weight 139.00 lb O2 % BldC Oximetry 96 % Peak Expiratory Flow Rate 285 Estimated Peak Flow Rate [place] Body Weight 100 lb BMI (Body Mass Index) 26.9 kg/m2 05/16/2020 9:57am BP Systolic 158 mmHg BP Diastolic 75 mmHg BP Systolic Recheck 139 mmHg BP Diastolic Recheck 77 mmHg Heart Rate 68 /min Body Temperature 97.7 F Respiratory Rate 20 /min Height 60.25 inches 5'0.25" Weight 136.56 lb O2 % BldC Oximetry 20 % Peak Expiratory Flow Rate 285 Estimated Peak Flow Rate [place] Body Weight 100 lb BMI (Body Mass Index) 26.4 kg/m2 Results Test Acquired Date Facility Test Result H/L Range Note CBC With Differential 09/07/2020 [place] [address] [phone] White Blood Count 6.0 10 Normal 4.0-10.0 [...] 36.0-66.0 Lymph % 27.3 % Normal 24.0-44.0 [place] % 9.5 % High 0.0-5.0 Eos % 1.3 % Normal 0.0-3.0 Baso % 0.8 % Normal 0.0-1.0 Immature Granulocyte % 0.7 % Normal 0-3.0 Nucleated Red Blood Cell % 0.3 % High 0-0 Neutrophils # 3.6 10 Normal 1.5-8.5 Lymph # 1.6 10 Normal 1.5-5.0 [place] # 0.6 10 Normal 0.0-0.8 Eos # 0.1 10 Normal 0.0-0.5 Baso # 0.1 10 Normal 0.0-0.2 Comprehensive Metabolic Profil 09/07/[address] [place] [address] [phone] Glucose, Fasting 88 mg/dL Normal 70-100 Blood [...] Normal 1.2-2.2 Lipid Panel 09/07/2020 [place] [address] [phone] Triglycerides Level 97 mg/dL Normal <150 Cholesterol Level 217 mg/dL High <200 HDL Cholesterol 82 mg/dL Normal >40 LDL Cholesterol 116 mg/dL High <100 Non-HDL-C 135 mg/dL Normal Cholesterol Risk Ratio 2.646 Normal <5 Laboratory test finding 09/07/2020 Patient Service [place] [id number] [phone] Thyroid Stimulating Hormone 2.040 uIU/ML Normal 0. 358-3.740 2 Free T4 1.04 ng/dL Normal 0.76-1.46 3 Vitamin B12 Level 1921 pg/mL High 247-911 4 Folate 19.6 NG/ML Normal >5.4 5 Coronavirus 2019 Nasopharygeal 03/29/2020 [facility] [place] [address] [phone] Coronavirus 2019 Nasopharygeal Testing was perf <SEE N OTE> 6 1 Units are mL/min/1.73 m2 Chronic Kidney Disease Staging per NKF: Stage I & II GFR >=60 Normal to Mildly Decreased Stage III GFR 30-59 Moderately Decreased Stage IV GFR 15-29 Severely Decreased Stage V GFR <15 Very Little GFR Left ESRD GFR <15 on HORTICULTURAL AGENT 2 note:<nlbl:demographic_chang ed> note:<nlbl:demographic_changed> 3 note:<nlbl:demographic_chang ed> note:<nlbl:demographic_changed> 4 VITAMIN B12 NORMAL RANGE NORMAL 247 - 911 PG/ML INDETERMINATE 211 - 246 PG/ML DEFICIENT LESS THAN 211 PG/ML 5 FOLATE NORMAL RANGE NORMAL GREATER THAN 5.4 NG/ML INDETERMINATE 3.4-5.4 NG/ML DEFICIENT LESS THAN 3.4 NG/ML 6 Testing was performed using the maura(R) SARS-CoV-2 test. This test was developed and its performance characteristics determined by [employer]. This test has not been FDA cleared or approved. This test has been authorized by FDA under an Emergency Use Authorization (EUA). This test is only authorized for the duration of time the declaration that circumstances exist justifying the authorization of the emergency use of in vitro diagnostic tests for detection of SARS-CoV-2 virus and/or diagnosis of COVID-19 infection under section 564(b)(1) of the Act, 21 U.S.C. 360bbb-3(b)(1), unless the authorization is terminated or revoked sooner. When diagnostic testing is negative, the possibility of a false negative result should be considered in the context of a patient's recent exposures and the presence of clinical signs and symptoms consistent with COVID-19. An individual without symptoms of COVID-19 and who is not shedding SARS-CoV-2 virus would expect to have a negative (not detected) result in this assay. Performed at: [address] [id number] Sales And Business Development Manager: Caroline Aguilera MD, Phone: [phone] Not Detected Procedures Date Code Description Status 03/13/2020 [id number] Mammogram Completed 03/13/2020 [id number] Bone Mineral Density Test Comple dagoberto 02/25/2019 [id number] Mammogram Completed 02/24/2018 [id number] Mammogram Completed 02/23/2017 [id number] Mammogram Completed 02/26/2016 [id number] Mammogram Completed Medical Devices Description No Information Available Encounters Type Date Location Provider Dx Diagnosis Office Visit 09/07/2020 11:30a Main Office Ritu Chavez FNP I10 Essential (primary) hypertension F43.23 Adjustment disorder with mix ed anxiety and depressed mood E78.2 Mixed hyperlipidemia K21.9 Gastro-esophageal reflux dis ease without esophagitis K58.0 Irritable bowel syndrome wit h diarrhea G47.33 Obstructive sleep apnea (juan lt) (pediatric) M79.7 Fibromyalgia M25.511 Pain in right shoulder M54.5 Low back pain Office Visit 05/16/2020 10:00a Main Office PlequintonachOzziey, HEAD WAITER/WAITRESS BANQUET J01.9 0 Acute sinusitis, unspecified Office Visit 03/30/2020 10:00a Main Office Pleskach, Ritu, HEAD WAITER/WAITRESS BANQUET J30.9 Allergic rhinitis, unspecified Assessments Date Code Description Provider 09/07/2020 I10 Essential (primary) hypertension Plequintonach Ritu, HEAD WAITER/WAITRESS BANQUET 09/07/2020 F43.23 Adjustment disorder with mixed a nxiety and depressed mood Pleskach Ritu, HEAD WAITER/WAITRESS BANQUET 09/07/2020 E78.2 Mixed hyperlipidemia PleskachKhai, HEAD WAITER/WAITRESS BANQUET 09/07/2020 K21.9 Gastro-esophageal reflux disease without esophagitis Ritu Chavez, HEAD WAITER/WAITRESS BANQUET 09/07/2020 K58.0 Irritable bowel syndrome with di arrhea Pleskkamilah Ritu, HEAD WAITER/WAITRESS BANQUET 09/07/2020 G47.33 Obstructive sleep apnea (adult) (pediatric) PleOzzie juarezy, HEAD WAITER/WAITRESS BANQUET 09/07/2020 M79.7 Fibromyalgia Pleskach, Ritu, HEAD WAITER/WAITRESS BANQUET 09/07/2020 M25.511 Pain in right shoulder PleskachRitu, HEAD WAITER/WAITRESS BANQUET 09/07/2020 M54.5 Low back pain PleRitu juarez, HEAD WAITER/WAITRESS BANQUET 05/16/2020 J01.90 Acute sinusitis, unspecified Ple skRitu triana, HEAD WAITER/WAITRESS BANQUET 03/30/2020 J30.9 Allergic rhinitis, unspecified P Ritu burgess FNP Plan of Treatment Future Appointment(s):* 03/07/2021 11:15 am - Ritu Chavez HEAD WAITER/WAITRESS BANQUET at Main Office 09/07/2020 - PleRitu juarez, HEAD WAITER/WAITRESS BANQUET* I10 Essential (primary) hypertension* New Labs:* Comprehensive Metabolic Profil, Scheduled: 02/25/21 * CBC With Differential, Scheduled: 02/25/21 * Lipid Panel, Scheduled: 02/25/21 * TSH And T4 Free (Carlos), Scheduled: 02/25/21 * Vitamin B12 & Folate, Scheduled: 02/25/21 * Comments:* controlled, continue current medications * Follow up:* 6 months, with labs * F43.23 Adjustment disorder with mixed anxiety and depressed mood * E78.2 Mixed hyperlipidemia* Comments:* continue statin * K21.9 Gastro-esophageal reflux disease without esophagitis* Comments:* controlled * K58.0 Irritable bowel syndrome with diarrhea * G47.33 Obstructive sleep apnea (adult) (pediatric) * M79.7 Fibromyalgia * M25.511 Pain in right shoulder* New Orders:* PT Order, Scheduled: 09/07/20 * M54.5 Low back pain Functional Status Functional Condition Comment Date Status Bifocal glasses Active Independent with all ADL's Activ e Complete lower and upper and lower dentures Active Cognitive Impairment Active Mental Status Mental Condition Comment Date Status None Active Referrals Refer to Reason for Referral Status Appt Date [facility] 2nd opinion for chronic sinusitus/rhinitis Sent [address] [place] [address] [phone]
--- OUTSIDE RECORDS SUMMARY | 2020-11-22 06:33 | CCD | Continuity of Care Document ---
Author Author Lizzie VANG D.O. [place] [address] Phone [phone] Care Team Providers Care Stiff Leg Operator Name Role Phone Estephania Ocampo M.D. AUTM [phone] AUTM Unavailable AUTM Unavailable Problems Active Problems [...] Capsules Take as directed. Unknown Calcium 600-D 480-808yq-Bpma Table ts 1 by mouth daily Unknown Glucosamine 1000 MG Daily Unknown Simvastatin 20mg Tablets 1 by mouth every day Unknown Folic Acid 800mcg Tablets 1 by mouth every day Unknown Vitamin D3 2000Unit Capsules 1 qd Unknown Saline Mist [place] 0.65% Solution 2 sprays to each nostril [...] lb BMI (Body Mass Index) 26.3 kg/m2 [place] Body Weight 105 lb Weight 63.050 kg 06/12/2020 9:34am BP Systolic 140 mmHg BP Diastolic 80 mmHg Height 61 inches 5'1" Weight 137.00 lb BMI (Body Mass Index) 25.9 kg/m2 [place] Body Weight 105 lb Weight 62.143 kg Results Test Acquired Date Facility Test Result H/L Range Note Sputum Culture And Gram Stain 03/06/2020 [facility] [address] [place] [address] [phone] Gram Stain (SEE NOTE) Normal 1 Sputum Culture Sputum culture n <SEE NOTE> 2 FVL/[place] 03/06/2020 [employer] [facility] SEE IMAGE FVC-Pred 2.34 L FVC-Pre 2.22 L FVC-%Pred-Pre 94 L FVC-LLN 1.70 L Fev1-Pred 1.73 L Fev1-Pre 1.76 L Fev1-%Pred-Pre 101 L Fev1-LLN 1.20 L Fev6-Pred 2.20 L Fev6-Pre 2.22 L Fev6-%Pred-Pre 100 L Fev6-LLN 1.59 L Whz6tkz-Wkpy 74 % Sjs8elg-Dsk 79 % Sni3xdy-%Pred-Pre 106 % Jqr4rqo-SVK 64 % Giz0cex-Tset 94 % Gsy6pgn-Bxr 100 % Kdy8six-%Pred-Pre 105 % FEFMax-Pred 4.53 L/E/sec FEFMax-Pre 3.91 L/E/sec FEFMax-%Pred-Pre 86 L/E/sec FEFMax-LLN 2.97 L/E/sec Nlm0166-Txrn 1.34 L/E/sec Sab5465-Eey 1.66 L/E/sec Ajn7342-%Pred-Pre 123 L/E/sec Mii7356-WYS 0.21 L/E/sec ExpTime-Pre 6.59 sec Sks4gna8-Rdrv 78 % Cda9nwc3-Zkv 79 % Gls8cfg6-%Pred-Pre 101 % Dtj2gyn6-AEW 69 % 1 QUALITY: POOR MANY EPITHELIAL CELLS FEW WBCS MANY GRAM POSITIVE COCCI IN PAIRS, CHAINS AND CLUSTERS FEW GRAM POSITIVE RODS 2 Sputum culture not performed due to oropharyngeal contamination. Further processing of such specimens would not yield useful information about the possible pathogens from the lower respiratory tract. Test not performed Procedures Date Code Description Status 08/09/2020 72350 Aerosol Or Vapor Inhalations Com pleted 06/28/2020 40487 Colonoscopy Flexible Proximal To Splenic Flexure Diagnostic W/Or Completed 05/29/2020 75560 Diffusing Capacity Completed 05/29/2020 85027 Plethysmography Determination Kiya ng Volumes & Per Airway Resist Completed 05/29/2020 26647 Maximum Breathing Capacity, Maxi mal Voluntary Ventilation Completed 05/29/2020 58768 Bronchospasm Evaluation Complete d 03/06/2020 18923 Spirometry Completed Medical Devices Description No Information Available Encounters Type Date Location Provider Dx Diagnosis Office Visit 08/09/2020 3:00p [facility]Th[facility]acic Hussain Se ars, D.O. R91.8 Other nonspecific abnormal finding of kiya ng field J45.20 Mild intermittent asthma, un complicated Office Visit 08/01/2020 10:30a [facility] Dewey smith II, PA-C J31.0 Chronic rhinitis Office Visit 05/31/2020 9:30a [facility]Thoracic Hussain Se ars, D.O. R05 Cough R91.8 Other nonspecific abnormal f inding of lung field Office Visit 03/06/2020 10:30a [facility]Thoracic Hussain Se ars, D.O. R05 [...] 10:00 am - Hussain Vang D.O. at [facility] Pulmonary/Thoracic 08/09/2020 - Hussain Vang D.O.* [...] Date Radiology/Procedure updated auth with corrected facility [facility] Closed Radiology/Procedure CT CHEST NO CONTRAST-[id number] @NR Closed Radiology/Procedure [facility] auth [id number] Closed
--- OUTSIDE RECORDS SUMMARY | 2020-11-22 06:33 | CCD | Continuity of Care Document ---
Author Author Lizzie CHAVEZ [employer]IVERSAL BRANCH CONSULTANT Organization Unknown Address [address] [place] [address] Phone [phone] Care Team Providers Care Patient Financial Rep Name Role Phone Wilmer Donohue MD AUTM [phone] Jeffery SOLIS., Ju AUTM [phone] [facility] - Orthopaedic Surgery AUTM [phone] [facility] AUTM [phone] [facility] AUTM [phone] Problems Active Problems Provider Date Adjustment disorder with mixed emotional features Yessy Carson RPA-C Onset: 05/02/2019 Obstructive sleep apnea syndrome Kamilla Carson RPA-C On set: 05/02/2019 Irritable bowel syndrome with diarrhea Kamilla Carson RP A-C Onset: 05/02/2019 Gastroesophageal reflux disease Kamilla Carson [...] sprays each nare bid 90ml J30.9 Ritu Chavez, UNIVERSAL BRANCH CONSULTANT 2019 Benzonatate 100mg Capsules one by mouth three times a day as needed cough 60caps J30.9 Ozzie Chavez, UNIVERSAL BRANCH CONSULTANT 03/30/2020 Famotidine 40mg Tablets take one tablet [...] by mouth every day Unknown Saline Nasal [place] Solution use bid Unknown Vitamin B 12 [...] CPT Code Status Date Vaccine Lot # [id number] Given 07/22/2019 Influenza Virus Vaccine, Quadrivalent,age 3 and up,multidose vial [id number] 76741 Given 05/05/2019 Pneumococcal Vaccine [id number] 86533 Given 07/22/2018 Influenza Virus Vaccine, Quadrivalent,age 3 and up,multidose vial [id number] Q2038 Given 07/03/2017 Influenza Vaccine (Fluzone)( medicare) [id number] 17357 Given 10/24/2016 Pneumococcal Vaccine [id number] Q2038 Given 07/15/2016 Influenza Vaccine (Fluzone)( medicare) [id number] 34615 Given 10/23/2015 Prevnar 13 For Adults [id number] Q2038 Given 07/18/2015 Influenza Vaccine (Fluzone)( medicare) [id number] Vital Signs Date Vital Result Comment 09/07/2020 11:48am BP Systolic 142 mmHg BP Diastolic 88 mmHg Heart Rate 81 /min Body Temperature 97.7 F Respiratory Rate 18 /min Height 60.25 inches 5'0.25" Weight 139.00 lb O2 % BldC Oximetry 96 % Peak Expiratory Flow Rate 285 Estimated Peak Flow Rate [place] Body Weight 100 lb BMI (Body Mass [...] Flow Rate 285 Estimated Peak Flow Rate [place] Body Weight 100 lb BMI (Body Mass Index) 26.4 kg/m2 Results Test Acquired Date Facility Test Result H/L Range Note CBC With Differential 09/07/2020 Patient Service [place], [place] [id number] [phone] White Blood Count 6.0 10 Normal 4.0-10.0 [...] 36.0-66.0 Lymph % 27.3 % Normal 24.0-44.0 [place] % 9.5 % High 0.0-5.0 Eos % 1.3 % Normal 0.0-3.0 Baso % 0.8 % Normal 0.0-1.0 Immature Granulocyte % 0.7 % Normal 0-3.0 Nucleated Red Blood Cell % 0.3 % High 0-0 Neutrophils # 3.6 10 Normal 1.5-8.5 Lymph # 1.6 10 Normal 1.5-5.0 [place] # 0.6 10 Normal 0.0-0.8 Eos # 0.1 10 Normal 0.0-0.5 Baso # 0.1 10 Normal 0.0-0.2 Comprehensive Metabolic Profil 09/07/2020 [place] [address] [phone] Glucose, Fasting 88 mg/dL Normal 70-100 Blood [...] Normal 1.2-2.2 Lipid Panel 09/07/2020 [place] [address] [phone] Triglycerides Level 97 mg/dL Normal <150 Cholesterol Level 217 mg/dL High <200 HDL Cholesterol 82 mg/dL Normal >40 LDL Cholesterol 116 mg/dL High <100 Non-HDL-C 135 mg/dL Normal Cholesterol Risk Ratio 2.646 Normal <5 Laboratory test finding 09/07/2020 Patient Service [place] [id number] [phone] Thyroid Stimulating Hormone 2.040 uIU/ML Normal 0. 358-3.740 2 Free T4 1.04 ng/dL Normal 0.76-1.46 3 Vitamin B12 Level 1921 pg/mL High 247-911 4 Folate 19.6 NG/ML Normal >5.4 5 Coronavirus 2019 Nasopharygeal 03/29/2020 Patient S [place] 8652095 [phone] Coronavirus 2019 Nasopharygeal Testing was perf <SEE N OTE> 6 1 Units are mL/min/1.73 m2 Chronic Kidney Disease Staging per NKF: Stage I & II GFR >=60 Normal to Mildly Decreased Stage III GFR 30-59 Moderately Decreased Stage IV GFR 15-29 Severely Decreased Stage V GFR <15 Very Little GFR Left ESRD GFR <15 on INFORMATION SYSTEMS SECURITY MANAGER 2 note:<nlbl:demographic_chang ed> note:<nlbl:demographic_changed> 3 note:<nlbl:demographic_chang ed> [...] developed and its performance characteristics determined by [employer]. This test has not been FDA cleared [...] detected) result in this assay. Performed at: [address] [id number] Adjunct Professor Of English: Caroline Aguilera MD, Phone: [phone] Not Detected Procedures Date Code Description Status 03/13/2020 [id number] Mammogram Completed 03/13/2020 [id number] Bone Mineral Density Test Comple dagoberto 02/25/2019 [id number] Mammogram Completed 02/24/2018 [id number] Mammogram Completed 02/23/2017 [id number] Mammogram Completed 02/26/2016 [id number] Mammogram Completed Medical Devices Description No Information [...] pain Office Visit 05/16/2020 10:00a Main Office Ritu Chavez FNP J01.9 0 Acute sinusitis, unspecified Office Visit 03/30/2020 10:00a Main Office Ritu Chavez FNP J30.9 Allergic rhinitis, unspecified Assessments Date Code Description Provider 09/07/2020 I10 Essential (primary) hypertension Ritu Chavez FNP 09/07/2020 F43.23 Adjustment disorder with mixed a nxiety and depressed mood Ritu Chavez, [employer] CONSULTANT 09/07/2020 E78.2 Mixed hyperlipidemia Khai Chavez [employer]AL BR[employer]CH CONSULTANT 09/07/2020 K21.9 Gastro-esophageal reflux disease without esophagitis Ritu Chavez, [employer]IV[employer]CH CONSULTANT 09/07/2020 K58.0 Irritable bowel syndrome with di arrhea Ritu Chavez, [employer]IV[employer] BR[employer]CH CONSULTANT 09/07/2020 G47.33 Obstructive sleep apnea (adult) (pediatric) Ritu Chavez FNP 09/07/2020 M79.7 Fibromyalgia Ritu Chavez FNP 09/07/2020 M25.511 Pain in right shoulder Ritu Chavez FNP 09/07/2020 M54.5 Low back pain Ritu Chavez FNP 05/16/2020 J01.90 Acute sinusitis, unspecified Ple Ritu juarez, [employer] CONSULTANT 03/30/2020 J30.9 Allergic rhinitis, unspecified P Ritu burgess FNP Plan of Treatment Future Appointment(s):* 03/07/2021 11:15 am - Ritu Chavez FNP at Main Office 09/07/2020 - Ritu Chavez FNP* I10 Essential (primary) hypertension* New Labs:* Comprehensive [...] Condition Comment Date Status None Active Referrals Description No Information Available
--- OUTSIDE RECORDS SUMMARY | 2020-11-22 06:33 | CCD | Continuity of Care Document ---
Author Author Lizzie VANG D.O. [place] [address] Phone [phone] Care Team Providers Care Military Communications Specialist Name Role Phone Estephania Ocampo M.D. AUTM [phone] AUTM Unavailable AUTM Unavailable Problems Active Problems [...] Capsules Take as directed. Unknown Calcium 600-D [id number] Table ts 1 by mouth daily Unknown Glucosamine 1000 MG Daily Unknown Simvastatin 20mg Tablets 1 by mouth every day Unknown Folic Acid 800mcg Tablets 1 by mouth every day Unknown Vitamin D3 2000Unit Capsules 1 qd Unknown Saline Mist [place] 0.65% Solution 2 sprays to each nostril [...] lb BMI (Body Mass Index) 26.3 kg/m2 [place] Body Weight 105 lb Weight 63.050 kg 06/12/2020 9:34am BP Systolic 140 mmHg BP Diastolic 80 mmHg Height 61 inches 5'1" Weight 137.00 lb BMI (Body Mass Index) 25.9 kg/m2 [place] Body Weight 105 lb Weight 62.143 kg Results Test Acquired Date Facility Test Result H/L Range Note Sputum Culture And Gram Stain 03/06/2020 [facility] [address] [place] [address] [phone] Gram Stain (SEE NOTE) Normal 1 Sputum Culture Sputum culture n <SEE NOTE> 2 FVL/[place] 03/06/2020 [facility] SEE IMAGE FVC-Pred 2.34 L FVC-Pre 2.22 L FVC-%Pred-Pre 94 L FVC-LLN 1.70 L Fev1-Pred 1.73 L Fev1-Pre 1.76 L Fev1-%Pred-Pre 101 L Fev1-LLN 1.20 L Fev6-Pred 2.20 L Fev6-Pre 2.22 L Fev6-%Pred-Pre 100 L Fev6-LLN 1.59 L Nge3stk-Ahbq 74 % Yau7xat-Ohm 79 % Yck2pmr-%Pred-Pre 106 % Luh6ngs-PTX 64 % Mkq1vpu-Frpd 94 % Epw4vvx-Neg 100 % Zpi8pqu-%Pred-Pre 105 % FEFMax-Pred 4.53 L/E/sec FEFMax-Pre 3.91 L/E/sec FEFMax-%Pred-Pre 86 L/E/sec FEFMax-LLN 2.97 L/E/sec Shq3451-Jxvs 1.34 L/E/sec Xpk6086-Use 1.66 L/E/sec Dto2227-%Pred-Pre 123 L/E/sec Qdu1070-XRT 0.21 L/E/sec ExpTime-Pre 6.59 sec Eqj5jrm8-Yjxl 78 % Gcy4mdv2-Jws 79 % Zxp7owe8-%Pred-Pre 101 % Dem4knr9-ISN 69 % 1 QUALITY: POOR MANY EPITHELIAL CELLS FEW WBCS MANY GRAM POSITIVE COCCI IN PAIRS, CHAINS AND CLUSTERS FEW GRAM POSITIVE RODS 2 Sputum culture not performed due to oropharyngeal contamination. Further processing of such specimens would not yield useful information about the possible pathogens from the lower respiratory tract. Test not performed Procedures Date Code Description Status 08/09/2020 49479 Aerosol Or Vapor Inhalations Com pleted 06/28/2020 84178 Colonoscopy Flexible Proximal To Splenic Flexure Diagnostic W/Or Completed 05/29/2020 02555 Diffusing Capacity Completed 05/29/2020 44573 Plethysmography Determination Kiya ng Volumes & Per Airway Resist Completed 05/29/2020 86280 Maximum Breathing Capacity, Maxi mal Voluntary Ventilation Completed 05/29/2020 31267 Bronchospasm Evaluation Complete d 03/06/2020 50912 Spirometry Completed Medical Devices Description No Information Available Encounters Type Date Location Provider Dx Diagnosis Office Visit 08/09/2020 3:00p [facility] Pulmonary[facility]Thoracic Hussain Se ars, D.O. R91.8 Other nonspecific abnormal finding of kiya ng field J45.20 Mild intermittent asthma, un complicated Office Visit 08/01/2020 10:30a [facility] Dewey smith II, PA-C J31.0 Chronic rhinitis Office Visit 05/31/2020 9:30a [facility] Pulmonary[facility]Thoracic Hussain Se ars, D.O. R05 Cough R91.8 Other nonspecific abnormal f inding of lung field Office Visit 03/06/2020 10:30a [facility] Pul[facility]Thoracic Hussain Se ars, D.O. R05 Cough [...] 10:00 am - Hussain Vang D.O. at [facility] Pulmonary/Thoracic 08/09/2020 - Hussain Vang D.O.* R91.8 [...] Date Radiology/Procedure updated auth with corrected facility [facility] zacarias roved Closed Radiology/Procedure CT CHEST NO CONTRAST-[id number] @NR Closed Radiology/Procedure [facility] auth [id number] Closed
--- OUTSIDE RECORDS SUMMARY | 2020-11-22 06:33 | CCD | Continuity of Care Document ---
Author Author Lizzie CHAVEZ KNIFE FINISHER Organization Unknown Address [address] [place] [address] Phone [phone] Care Team Providers Care Assistant Chief Engineer Name Role Phone Wilmer Donohue MD AUTM [phone] Jeffery SOLIS., Ju AUTM [phone] [facility] Surgery AUTM [phone] [facility] AUTM [phone] [facility] AUTM [phone] Problems Active Problems Provider Date Adjustment disorder [...] each nare bid 90ml J30.9 Ritu Chavez, KNIFE FINISHER 2019 Benzonatate 100mg Capsules one by mouth three times a day as needed cough 60caps J30.9 Ozzie Chavez, KNIFE FINISHER 03/30/2020 Famotidine 40mg Tablets take one tablet [...] by mouth every day Unknown Saline Nasal [place] Solution use bid Unknown Vitamin B 12 [...] CPT Code Status Date Vaccine Lot # [id number] Given 07/22/2019 Influenza Virus Vaccine, Quadrivalent,age 3 and up,multidose vial [id number] Given 05/05/2019 Pneumococcal Vaccine [id number] 80422 Given 07/22/2018 Influenza Virus Vaccine, Quadrivalent,age 3 and up,multidose vial [id number] Q2038 Given 07/03/2017 Influenza Vaccine (Fluzone)( medicare) [id number] 26405 Given 10/24/2016 Pneumococcal Vaccine [id number] Q2038 Given 07/15/2016 Influenza Vaccine (Fluzone)( medicare) [id number] 86757 Given 10/23/2015 Prevnar 13 For Adults [id number] Q2038 Given 07/18/2015 Influenza Vaccine (Fluzone)( medicare) [id number] Vital Signs Date Vital Result Comment 09/07/2020 11:48am BP Systolic 142 mmHg BP Diastolic 88 mmHg Heart Rate 81 /min Body Temperature 97.7 F Respiratory Rate 18 /min Height 60.25 inches 5'0.25" Weight 139.00 lb O2 % BldC Oximetry 96 % Peak Expiratory Flow Rate 285 Estimated Peak Flow Rate [place] Body Weight 100 lb BMI (Body Mass [...] Flow Rate 285 Estimated Peak Flow Rate [place] Body Weight 100 lb BMI (Body Mass Index) 26.4 kg/m2 Results Test Acquired Date Facility Test Result H/L Range Note Coronavirus 2019 Nasopharygeal 03/29/2020 [facility] [place] [address] [phone] Coronavirus 2019 Nasopharygeal Testing was perf <SEE N OTE> 1 1 Testing was performed using the maura(R) SARS-CoV-2 test. This test was developed and its performance characteristics determined by [facility]. This test has not been FDA cleared [...] detected) result in this assay. Performed at: [address] [id number] Brake Specialist: Caroline Aguilera MD, Phone: [phone] Not Detected Procedures Date Code Description Status 03/13/2020 [id number] Mammogram Completed 03/13/2020 [id number] Bone Mineral Density Test Comple dagoberto 02/25/2019 [id number] Mammogram Completed 02/24/2018 92641411 Mammogram Completed 02/23/2017 65380920 Mammogram Completed 02/26/2016 16478439 Mammogram Completed Medical Devices Description No Information Available Encounters Type Date Location Provider Dx Diagnosis Office Visit 05/16/2020 10:00a Main Office Ritu Chavez FNP J01.9 0 Acute sinusitis, unspecified Office Visit 03/30/2020 10:00a Main Office Ritu Chavez FNP J30.9 Allergic rhinitis, unspecified Assessments Date Code Description Provider 09/07/2020 I10 Essential (primary) hypertension Ritu Chavez FNP 09/07/2020 F43.23 Adjustment disorder with mixed a nxiety and depressed mood Ritu Chavez, [employer] 09/07/2020 E78.2 Mixed hyperlipidemia Khai Chavez, [facility] 09/07/2020 K21.9 Gastro-esophageal reflux disease without esophagitis Ritu Chavez, [employer]NIFE FINISHER 09/07/2020 K58.0 Irritable bowel syndrome with di arrhea Ritu Chavez, [facility] 09/07/2020 G47.33 Obstructive sleep apnea (adult) (pediatric) Ritu Chavez, [facility] 09/07/2020 M79.7 Fibromyalgia Ritu Chavez, [facility] 09/07/2020 M25.511 Pain in right shoulder Ritu Chavez, [facility] 09/07/2020 M54.5 Low back pain Ritu Chavez, [employer] 05/16/2020 J01.90 Acute sinusitis, unspecified Ple Ritu juarez, [employer]NIFE FINISHER 03/30/2020 J30.9 Allergic rhinitis, unspecified P Ritu burgess, [facility] Plan of Treatment 09/07/2020 - Ritu Chavez, [facility]* I10 Essential (primary) hypertension* New Labs:* Comprehensive Metabolic Profil, Scheduled: 02/25/21 * CBC With Differential, Scheduled: 02/25/21 * Lipid Panel, Scheduled: 02/25/21 * TSH And T4 Free (Carlos), Scheduled: 02/25/21 * Vitamin B12 & Folate, Scheduled: 02/25/21 * Comments:* controlled, continue current medications * Follow up:* 6 months, with labs * F43.23 Adjustment disorder with mixed anxiety and depressed mood * E78.2 Mixed hyperlipidemia * K21.9 Gastro-esophageal reflux disease without esophagitis * K58.0 Irritable bowel syndrome with diarrhea [...]
--- OUTSIDE RECORDS SUMMARY | 2020-11-22 06:34 | CCD ---
Author Author [facility] Organization [facility] Address Unknown Phone Unavailable Care Team Providers Care Paper Spooler Name Role Phone DAVID, TABBY PA Unavailable Unavailable DAVID, TABBY PA Unavailable Unavailable DAVID, TABBY PA Unavailable Unavailable DAVID, TABBY PA Unavailable Unavailable DAVID, TABBY PA Unavailable Unavailable DAVID, TABBY PA Unavailable Unavailable DAVID, TABBY PA Unavailable Unavailable DAVID, TABBY PA Unavailable Unavailable DAVID, TABBY PA Unavailable Unavailable DAVID, TABBY PA Unavailable Unavailable DAVID, TABBY PA Unavailable Unavailable DAVID, TABBY PA Unavailable Unavailable DAVID, TABBY PA Unavailable Unavailable DAVID, TABBY PA Unavailable Unavailable DAVID, TABBY PA Unavailable Unavailable DAVID, TABBY PA Unavailable Unavailable DAVID, TABBY PA Unavailable Unavailable DAVID, TABBY PA Unavailable Unavailable DAVID, TABBY PA Unavailable Unavailable DAVID, TABBY PA Unavailable Unavailable DAVID, TABBY PA Unavailable Unavailable DAVID, TABBY PA Unavailable Unavailable DAVID, TABBY PA Unavailable Unavailable DAVID, TABBY PA Unavailable Unavailable DAVID, TABBY PA Unavailable Unavailable DAVID, TABBY PA Unavailable Unavailable DAVID, TABBY PA Unavailable Unavailable DAVID, TABBY PA Unavailable Unavailable DAVID, TABBY PA Unavailable Unavailable DAVID, TABBY PA Unavailable Unavailable DAVID, TABBY PA Unavailable Unavailable DAVID, TABBY PA Unavailable Unavailable DAVID, TABBY PA Unavailable Unavailable DAVID, TABBY PA Unavailable Unavailable DAVID, TABBY PA Unavailable Unavailable DAVID, TABBY PA Unavailable Unavailable DAVID, TABBY PA Unavailable Unavailable DAVID, TABBY PA Unavailable Unavailable Reynders, L Katerine MD Unavailable Unavailable Reynders, L Katerine MD Unavailable Unavailable Reynders, L Katerine MD Unavailable Unavailable Reynders, L Katerine MD Unavailable Unavailable Reynders, L Katerine MD Unavailable Unavailable Reynders, L Katerine MD Unavailable Unavailable Reynders, L Katerine MD Unavailable Unavailable Reynders, L Katerine MD Unavailable Unavailable Reynders, L Katerine MD Unavailable Unavailable Reynders, L Katerine MD Unavailable Unavailable Reynders, L Katerine MD Unavailable Unavailable Reynders, L Katerine MD Unavailable Unavailable Reynders, L Katerine MD Unavailable Unavailable Reynders, L Katerine MD Unavailable Unavailable Reynders, L Katerine MD Unavailable Unavailable Reynders, L Katerine MD Unavailable Unavailable Reynders, L Katerine MD Unavailable Unavailable Reynders, L Katerine MD Unavailable Unavailable Reynders, L Katerine MD Unavailable Unavailable Reynders, L Katerine MD Unavailable Unavailable Reynders, L Katerine MD Unavailable Unavailable Reynders, L Katerine MD Unavailable Unavailable Reynders, L Katerine MD Unavailable Unavailable Reynders, L Katerine MD Unavailable Unavailable Reynders, L Katerine MD Unavailable Unavailable Reynders, L Katerine MD Unavailable Unavailable Reynders, L Katerine MD Unavailable Unavailable Reynders, L Katerine MD Unavailable Unavailable Reynders, L Katerine MD Unavailable Unavailable Reynders, L Katerine MD Unavailable Unavailable Reynders, L Katerine MD Unavailable Unavailable Reynders, L Katerine MD Unavailable Unavailable Reynders, L Katerine MD Unavailable Unavailable Reynders, L Katerine MD Unavailable Unavailable Reynders, L Katerine MD Unavailable Unavailable Reynders, L Katerine MD Unavailable Unavailable Reynders, L Katerine MD Unavailable Unavailable Reynders, L Katerine MD Unavailable Unavailable Reynders, L Katerine MD Unavailable Unavailable Reynders, L Katerine MD Unavailable Unavailable Reynders, L Katerine MD Unavailable Unavailable Reynders, L Katerine MD Unavailable Unavailable Reynders, L Katerine MD Unavailable Unavailable Reynders, L Katerine MD Unavailable Unavailable Reynders, L Katerine MD Unavailable Unavailable Reynders, L Katerine MD Unavailable Unavailable Reynders, L Katerine MD Unavailable Unavailable Reynders, L Katerine MD Unavailable Unavailable Reynders, L Katerine MD Unavailable Unavailable Reynders, L Katerine MD Unavailable Unavailable Reynders, L Katerine MD Unavailable Unavailable Reynders, L Katerine MD Unavailable Unavailable Reynders, L Katerine MD Unavailable Unavailable Reynders, L Katerine MD Unavailable Unavailable Reynders, L Katerine MD Unavailable Unavailable Reynders, L Katerine MD Unavailable Unavailable Reynders, L Katerine MD Unavailable Unavailable Reynders, L Katerine MD Unavailable Unavailable Reynders, L Katerine MD Unavailable Unavailable Reynders, L Katerine MD Unavailable Unavailable Reynders, L Katerine MD Unavailable Unavailable Reynders, L Katerine MD Unavailable Unavailable Reynders, L Katerine MD Unavailable Unavailable Reynders, L Katerine MD Unavailable Unavailable Reynders, L Katerine MD Unavailable Unavailable Reynders, L Katerine MD Unavailable Unavailable Reynders, L Katerine MD Unavailable Unavailable Reynders, L Katerine MD Unavailable Unavailable Reynders, L Katerine MD Unavailable Unavailable Reynders, L Katerine MD Unavailable Unavailable Reynders, L Katerine MD Unavailable Unavailable Reynders, L Katerine MD Unavailable Unavailable Reynders, L Katerine MD Unavailable Unavailable Reynders, L Katerine MD Unavailable Unavailable Reynders, L Katerine MD Unavailable Unavailable Gonzalez, Roxane TELEMARKETER SUPERVISOR Unavailable Unavailable Gonzalez, Roxane TELEMARKETER SUPERVISOR Unavailable Unavailable Gonzalez, Roxane TELEMARKETER SUPERVISOR Unavailable Unavailable Gonzalez, Roxane TELEMARKETER SUPERVISOR Unavailable Unavailable Gonzalez, Roxane TELEMARKETER SUPERVISOR Unavailable Unavailable Gonzalez, Roxane TELEMARKETER SUPERVISOR Unavailable Unavailable Gonzalez, Roxane TELEMARKETER SUPERVISOR Unavailable Unavailable Gonzalez, Roxane TELEMARKETER SUPERVISOR Unavailable Unavailable Gonzalez, Roxane TELEMARKETER SUPERVISOR Unavailable Unavailable Gonzalez, Roxane TELEMARKETER SUPERVISOR Unavailable Unavailable Gonzalez, Roxane TELEMARKETER SUPERVISOR Unavailable Unavailable LETTIERE, A [place] PA Unavailable Unavailable LETTIERE, A [place] PA Unavailable Unavailable LETTIERE, A [place] PA Unavailable Unavailable LETTIERE, A [place]IA PA Unavailable Unavailable LETTIERE, A VIRGINIA PA Unavailable Unavailable LETTIERE, A VIR[place]IA PA Unavailable Unavailable LETTIERE, A VIR[place]IA PA Unavailable Unavailable LETTIERE, A [place]IA PA Unavailable Unavailable LETTIERE, A [place]IA PA Unavailable Unavailable LETTIERE, A [place]IA PA Unavailable Unavailable LETTIERE, A VIR[place]IA PA Unavailable Unavailable LETTIERE, A VIR[place]IA PA Unavailable Unavailable LETTIERE, A V[place]IA PA Unavailable Unavailable LETTIERE, A [place] PA Unavailable Unavailable LETTIERE, A [place]IA PA Unavailable Unavailable LETTIERE, A VIR[place]IA PA Unavailable Unavailable LETTIERE, A [place]IA PA Unavailable Unavailable LETTIERE, A [place] PA Unavailable Unavailable LETTIERE, A [place] PA Unavailable Unavailable LETTIERE, A VIR[place]IA PA Unavailable Unavailable LETTIERE, A VIR[place]IA PA Unavailable Unavailable LETTIERE, A VIR[place]IA PA Unavailable Unavailable LETTIERE, A VIRGINIA PA Unavailable Unavailable LETTIERE, A [place] PA Unavailable Unavailable LETTIERE, A [place] PA Unavailable Unavailable LETTIERE, A [place] PA Unavailable Unavailable LETTIERE, A [place] PA Unavailable Unavailable LETTIERE, A [place] PA Unavailable Unavailable LETTIERE, A [place] PA Unavailable Unavailable SEARS, A GHAZAL DO Unavailable Unavailable SEARS, A GHAZAL DO Unavailable Unavailable SEARS, A GHAZAL DO Unavailable Unavailable SEARS, A GHAZAL DO Unavailable Unavailable SEARS, A GHAZAL DO Unavailable Unavailable SEARS, A GHAZAL DO Unavailable Unavailable SEARS, A GHAZAL DO Unavailable Unavailable SEARS, A GHAZAL DO Unavailable Unavailable SEARS, A GHAZAL DO Unavailable Unavailable SEARS, A GHAZLA DO Unavailable Unavailable SEARS, A GHAZAL DO Unavailable Unavailable SEARS, A GHAZAL DO Unavailable Unavailable SEARS, A GHAZAL DO Unavailable Unavailable SEARS, A GHAZAL DO Unavailable Unavailable SEARS, A GHAZAL DO Unavailable Unavailable SEARS, A GHAZAL DO Unavailable Unavailable SEARS, A GHAZAL DO Unavailable Unavailable SEARS, A GHAZAL DO Unavailable Unavailable SEARS, A GHAZAL DO Unavailable Unavailable SEARS, A GHAZAL DO Unavailable Unavailable SEARS, A GHAZAL DO Unavailable Unavailable SEARS, A GHAZAL DO Unavailable Unavailable SEARS, A GHAZAL DO Unavailable Unavailable SEARS, A GHAZAL DO Unavailable Unavailable SEARS, A GHAZAL DO Unavailable Unavailable SEARS, A GHAZAL DO Unavailable Unavailable SEARS, A GHAZAL DO Unavailable Unavailable SEARS, A GHAZAL DO Unavailable Unavailable SEARS, A GHAZAL DO Unavailable Unavailable SEARS, A GHAZAL DO Unavailable Unavailable SEARS, A GHAZAL DO Unavailable Unavailable SEARS, A GHAZAL DO Unavailable Unavailable SEARS, A GHAZAL DO Unavailable Unavailable SEARS, A GHAZAL DO Unavailable Unavailable SEARS, A GHAZAL DO Unavailable Unavailable SEARS, A GHAZAL DO Unavailable Unavailable SEARS, A GHAZAL DO Unavailable Unavailable SEARS, A GHAZAL DO Unavailable Unavailable SEARS, A GHAZAL DO Unavailable Unavailable SEARS, A GHAZAL DO Unavailable Unavailable SEARS, A GHAZAL DO Unavailable Unavailable SEARS, A GHAZAL DO Unavailable Unavailable SEARS, A GHAZAL DO Unavailable Unavailable SEARS, A GHAZAL DO Unavailable Unavailable SEARS, A GHAZAL DO Unavailable Unavailable SEARS, A GHAZAL DO Unavailable Unavailable Scordo, M Bushra PA Unavailable Unavailable Scordo, M Bushra PA Unavailable Unavailable Scordo, M Bushra PA Unavailable Unavailable Scordo, M Bushra PA Unavailable Unavailable Scordo, M Bushra PA Unavailable Unavailable Scordo, M Bushra PA Unavailable Unavailable Scordo, M Bushra PA Unavailable Unavailable Scordo, M Bushra PA Unavailable Unavailable Scordo, M Bushra PA Unavailable Unavailable Scordo, M Bushra PA Unavailable Unavailable Scordo, M Bushra PA Unavailable Unavailable Scordo, M Bushra PA Unavailable Unavailable Scordo, M Bushra PA Unavailable Unavailable Scordo, M Bushra PA Unavailable Unavailable Scordo, M Bushra PA Unavailable Unavailable Scordo, M Bushra PA Unavailable Unavailable Scordo, M Bushra PA Unavailable Unavailable Scordo, M Bushra PA Unavailable Unavailable Scordo, M Bushra PA Unavailable Unavailable Scordo, M Bushra PA Unavailable Unavailable Scordo, M Bushra PA Unavailable Unavailable Scordo, M Bushra PA Unavailable Unavailable Scordo, M Bushra PA Unavailable Unavailable Scordo, M Bushra PA Unavailable Unavailable Scordo, M Bushra PA Unavailable Unavailable Scordo, M Bushra PA Unavailable Unavailable Scordo, M Bushra PA Unavailable Unavailable Scordo, M Bushra PA Unavailable Unavailable Scordo, M Bushra PA Unavailable Unavailable Scordo, M Bushra PA Unavailable Unavailable Scordo, M Bushra PA Unavailable Unavailable Scordo, M Bushra PA Unavailable Unavailable Scordo, M Bushra PA Unavailable Unavailable Scordo, M Bushra PA Unavailable Unavailable Scordo, M Bushra PA Unavailable Unavailable Scordo, M Bushra PA Unavailable Unavailable Scordo, M Bushra PA Unavailable Unavailable Scordo, M Bushra PA Unavailable Unavailable Scordo, M Bushra PA Unavailable Unavailable Scordo, M Bushra PA Unavailable Unavailable Scordo, M Bushra PA Unavailable Unavailable NON, PHYSICIAN STAFF Unavailable Unavailable Pleskach, Ritu MOLD YARN SUPERVISOR Unavailable Unavailable Pleskach, Ritu MOLD YARN SUPERVISOR Unavailable Unavailable Pleskach, Ritu MOLD YARN SUPERVISOR Unavailable Unavailable Pleskach, Ritu MOLD YARN SUPERVISOR Unavailable Unavailable Pleskach, Ritu MOLD YARN SUPERVISOR Unavailable Unavailable Pleskach, Ritu MOLD YARN SUPERVISOR Unavailable Unavailable Pleskach, Ritu MOLD YARN SUPERVISOR Unavailable Unavailable Pleskach, Ritu MOLD YARN SUPERVISOR Unavailable Unavailable Pleskach, Ritu MOLD YARN SUPERVISOR Unavailable Unavailable Pleskach, Ritu MOLD YARN SUPERVISOR Unavailable Unavailable Pleskach, Ritu MOLD YARN SUPERVISOR Unavailable Unavailable Pleskach, Ritu MOLD YARN SUPERVISOR Unavailable Unavailable Pleskach, Ritu MOLD YARN SUPERVISOR Unavailable Unavailable Pleskach, Ritu MOLD YARN SUPERVISOR Unavailable Unavailable Pleskach, Ritu MOLD YARN SUPERVISOR Unavailable Unavailable Pleskach, Ritu MOLD YARN SUPERVISOR Unavailable Unavailable Pleskach, Ritu MOLD YARN SUPERVISOR Unavailable Unavailable Pleskach, Ritu MOLD YARN SUPERVISOR Unavailable Unavailable Pleskach, Ritu MOLD YARN SUPERVISOR Unavailable Unavailable Pleskach, Ritu MOLD YARN SUPERVISOR Unavailable Unavailable Pleskach, Ritu MOLD YARN SUPERVISOR Unavailable Unavailable Pleskach, Ritu MOLD YARN SUPERVISOR Unavailable Unavailable Pleskach, Ritu MOLD YARN SUPERVISOR Unavailable Unavailable Pleskach, Ritu MOLD YARN SUPERVISOR Unavailable Unavailable Pleskach, Ritu MOLD YARN SUPERVISOR Unavailable Unavailable Pleskach, Ritu MOLD YARN SUPERVISOR Unavailable Unavailable Pleskach, Ritu MOLD YARN SUPERVISOR Unavailable Unavailable Pleskach, Ritu MOLD YARN SUPERVISOR Unavailable Unavailable Petrancosta, Otero Rbi PA-C Unavailable Unavailabl e Petrancosta, Otero Bri PA-C Unavailable Unavailabl e Petrancosta, Otero Bri PA-C Unavailable Unavailabl e Petrancosta, Otero Bri PA-C Unavailable Unavailabl e Petrancosta, Otero Bri PA-C Unavailable Unavailabl e Petrancosta, Otero Bri PA-C Unavailable Unavailabl e Petrancosta, Otero Bri PA-C Unavailable Unavailabl e Petrancosta, Otero Bri PA-C Unavailable Unavailabl e Petrancosta, Otero Bri PA-C Unavailable Unavailabl e Petrancosta, Otero Bri PA-C Unavailable Unavailabl e Petrancosta, Otero Bri PA-C Unavailable Unavailabl e Petrancosta, Otero Bri PA-C Unavailable Unavailabl e Petrancosta, Otero Bri PA-C Unavailable Unavailabl e Petrancosta, Otero Bri PA-C Unavailable Unavailabl e Petrancosta, Otero Bri PA-C Unavailable Unavailabl e Petrancosta, Otero Bri PA-C Unavailable Unavailabl e Petrancosta, Otero Bri PA-C Unavailable Unavailabl e Petrancosta, Otero Bri PA-C Unavailable Unavailabl e Petrancosta, Otero Bri PA-C Unavailable Unavailabl e Petrancosta, Otero Bri PA-C Unavailable Unavailabl e Petrancosta, Otero Bri PA-C Unavailable Unavailabl e Petrancosta, Otero Bri PA-C Unavailable Unavailabl e Petrancosta, Otero Bri PA-C Unavailable Unavailabl e RING, K JOHNY PA Unavailable Unavailable RING, K JOHNY PA Unavailable Unavailable RING, K JOHNY PA Unavailable Unavailable RING, K JOHNY PA Unavailable Unavailable RING, K JOHNY PA Unavailable Unavailable RING, K JOHNY PA Unavailable Unavailable RING, K JOHNY PA Unavailable Unavailable RING, K JOHNY PA Unavailable Unavailable RING, K JOHNY PA Unavailable Unavailable RING, K JOHNY PA Unavailable Unavailable RING, K JOHNY PA Unavailable Unavailable RING, K JOHNY PA Unavailable Unavailable RING, K JOHNY PA Unavailable Unavailable RING, K JOHNY PA Unavailable Unavailable RING, K JOHNY PA Unavailable Unavailable RING, K JOHNY PA Unavailable Unavailable RING, K JOHNY PA Unavailable Unavailable RING, K JOHNY PA Unavailable Unavailable RING, K JOHNY PA Unavailable Unavailable RING, K JOHNY PA Unavailable Unavailable PARNES, Z LOLY MD Unavailable Unavailable PARNES, Z LOLY MD Unavailable Unavailable PARNES, Z LOLY MD Unavailable Unavailable PARNES, Z LOLY MD Unavailable Unavailable PARNES, Z LOLY MD Unavailable Unavailable PARNES, Z LOLY MD Unavailable Unavailable PARNES, Z LOLY MD Unavailable Unavailable PARNES, Z LOLY MD Unavailable Unavailable PARNES, Z LOLY MD Unavailable Unavailable PARNES, Z LOLY MD Unavailable Unavailable PARNES, Z LOLY MD Unavailable Unavailable PARNES, Z LOLY MD Unavailable Unavailable PARNES, Z LOLY MD Unavailable Unavailable PARNES, Z LOLY MD Unavailable Unavailable PARNES, Z LOLY MD Unavailable Unavailable PARNES, Z LOLY MD Unavailable Unavailable PARNES, Z LOLY MD Unavailable Unavailable PARNES, Z LOLY MD Unavailable Unavailable PARNES, Z LOLY MD Unavailable Unavailable PARNES, Z LOLY MD Unavailable Unavailable PARNES, Z LOLY MD Unavailable Unavailable PARNES, Z LOLY MD Unavailable Unavailable PARNES, Z LOLY MD Unavailable Unavailable PARNES, Z LOLY MD Unavailable Unavailable PARNES, Z LOLY MD Unavailable Unavailable PARNES, Z LOLY MD Unavailable Unavailable PARNES, Z LOLY MD Unavailable Unavailable PARNES, Z LOLY MD Unavailable Unavailable PARNES, Z LOLY MD Unavailable Unavailable PARNES, Z LOLY MD Unavailable Unavailable PARNES, Z LOLY MD Unavailable Unavailable PARNES, Z LOLY MD Unavailable Unavailable PARNES, Z LOLY MD Unavailable Unavailable PARNES, Z LOLY MD Unavailable Unavailable PARNES, Z LOLY MD Unavailable Unavailable PARNES, Z LOLY MD Unavailable Unavailable PARNES, Z LOLY MD Unavailable Unavailable PARNES, Z LOLY MD Unavailable Unavailable José, Kat Phoebe PA Unavailable Unavailable José, Kat Phoebe PA Unavailable Unavailable José, Kat Phoebe PA Unavailable Unavailable José, Kat Phoebe PA Unavailable Unavailable José, Kat Phoebe PA Unavailable Unavailable José, Kat Phoebe PA Unavailable Unavailable José, Kat Phoebe PA Unavailable Unavailable José, Kat Phoebe PA Unavailable Unavailable José, Kat Phoebe PA Unavailable Unavailable José, Kat Phoebe PA Unavailable Unavailable Sidney II, Dewey PA Unavailable Unavailable Sidney II, Dewey PA Unavailable Unavailable Sidney II, Dewey PA Unavailable Unavailable Sidney II, Dewey PA Unavailable Unavailable Sidney II, Dewey PA Unavailable Unavailable Sidney II, Dewey PA Unavailable Unavailable Sidney II, Dewey PA Unavailable Unavailable Sidney II, Dewey PA Unavailable Unavailable Sidney II, Dewey PA Unavailable Unavailable Sidney II, Dewey PA Unavailable Unavailable Sidney II, Dewey PA Unavailable Unavailable Sidney II, Dewey PA Unavailable Unavailable Sidney II, Dewey PA Unavailable Unavailable Sidney II, Dewey PA Unavailable Unavailable Sidney II, Dewey PA Unavailable Unavailable Sidney II, Dewey PA Unavailable Unavailable Sideny II, Dewey PA Unavailable Unavailable Re-disclosure Warning The records that you are about to access may contain information from federally-assisted alcohol or drug abuse programs. If such information is present, then the following federally mandated warning applies: This information has been disclosed to you from records protected by federal confidentiality rules (42 CFR part 2). The federal rules prohibit you from making any further disclosure of this information unless further disclosure is expressly permitted by the written consent of the person to whom it pertains or as otherwise permitted by 42 CFR part 2. A general authorization for the release of medical or other information is NOT sufficient for this purpose. The Federal rules restrict any use of the information to criminally investigate or prosecute any alcohol or drug abuse patient.The records that you are about to access may contain highly sensitive health information, the redisclosure of which is protected by Article 27-F of the [facility] Public Health law. If you continue you may have access to information: Regarding HIV / AIDS; Provided by facilities licensed or operated by the [facility] Office of Mental Health; or Provided by the [facility] Office for People With Developmental Disabilities. If such information is present, then the following [facility] mandated warning applies: This information has been disclosed to you from confidential records which are protected by state law. State law prohibits you from making any further disclosure of this information without the specific written consent of the person to whom it pertains, or as otherwise permitted by law. Any unauthorized further disclosure in violation of state law may result in a fine or long term sentence or both. A general authorization for the release of medical or other information is NOT sufficient authorization for further disc losure. Allergies and Adverse Reactions Type Description Substance Reaction Status Data Source(s ) Drug allergy Avelox moxifloxacin legs shakey Active eCW1 ([facility]) Drug allergy Doxycycline Hyclate Doxycycline ineffective Active eCW1 ([facility]) Drug allergy Cymbalta duloxetine Nausea/Vomiting Active eCW1 ( [facility]) Drug allergy Prozac Fluoxetine fatigue Active eCW1 ([facility]) codeine Codeine Sulfate Codeine Nausea/Vomiting Active eCW 1 ([facility]) No Known Food Allergies No Known Food Allergies [facility] Drug allergy sulfa sulfa [facility] BRANDNAME CYMBALTA CYMBALTA VOMITING [facility] BRANDNAME AVELOX AVELOX VOMITING [facility] Family History Family Member Name Family Member Gender Family Member Status Date o f Status Description Data Source(s) Unknown Unknown Problem MEDENT ([facility]) Unknown Male Problem MEDENT ([facility]) Unknown Unknown Problem MED[facility] ([facility]) mother Unknown Male Problem MEDENT ([facility]) Unknown Unknown Problem MED[facility] ([facility] Unknown Female Problem MEDENT ([facility]) Encounters Encounter Providers Location Date Indications Data Source(s ) Outpatient Attender: [place] mistryy 11/02/2020 07:10:00 AM EST MEDENT ([facility]) Outpatient Attender: Ritu Chavez [facility] Main Office 10/24/2020 1 0:45:00 AM EST MEDENT ([facility] Outpatient Attender: Katerine Meraz MD [facility] 10/11/2020 02:00:00 PM EST MEDENT ([facility]) Outpatient Attender: TABBY Myricka 10/05/2020 12:15:00 PM EST MEDENT ([facility]) Outpatient Attender: GHAZAL VANG DO [facility] 09/17/2020 07:30:00 AM EST MED[facility] ([facility] Outpatient Attender: Ritu Chavez [facility] Main Office 09/07/2020 1 0:30:00 AM EST MEDENT ([facility] Outpatient Attender: Phoebe Peter Prim luisa 08/23/2020 02:10:00 PM EDT MED[facility] Outpatient Attender: GHAZAL VANG DO [facility] 08/09/2020 03:00:00 PM EDT MEDENT ([facility]) Outpatient Attender: Dewey Little II [facility]/Rein dl 08/01/2020 10:30:00 AM EDT MEDENT ([facility]) Outpatient Attender: JOHNY Peter Primary 06/23/2020 08:55:00 AM EDT MED[facility] Outpatient Attender: GHAZAL VANG DO [facility] 05/31/2020 09:30:00 AM EDT MEDENT ([facility]) Outpatient Attender: Ritu Chavez [facility] Main Office 05/16/2020 1 0:00:00 AM EDT MEDENT ([facility] [place] [address] [facility] [id number] 05/16/2020 12:00:00 AM EDT eCW1 ([facility]) Outpatient [address] [place] [phone] 05/07/2020 12:00:00 AM EDT [facility]CW1 [facility] Outpatient Attender: TABBY hill 04/26/2020 11:45:00 AM EDT MEDENT ([facility]) Outpatient Attender: Roxane price 04/07/2020 11:25:00 AM EDT MEDENT ([facility]) Outpatient Attender: Ritu Chavez [facility] Main Office 03/30/2020 1 0:00:00 AM EDT MEDENT ([facility] Outpatient Attender: Ritu Chavez [facility] Main Office 03/07/2020 1 1:00:00 AM EDT MEDENT ([facility] Outpatient Attender: GHAZAL Art/Ugo/[facility]phraim/Arpit 03/06/2020 10:30:00 AM EDT MEDENT ([facility] [address] [place] [id number] 03/06/2020 12:00:00 AM EDT eCW1 ([facility]) [facility] [address] [place] [phone] 02/21/2020 12:00:00 AM EDT eCW1 ([facility]) [facility] [address] [place] [id number] 02/20/2020 12:00:00 AM EDT eCW1 ([facility]) [facility] [address] [place] [phone] 02/14/2020 12:00:00 AM EDT eCW1 ([facility]) [facility] [address] [place] [phone] 01/16/2020 12:00:00 AM EDT eCW1 ([facility]) Outpatient Attender: Bri Figueroa PA-C Main Office 01/02/2020 01:00:00 PM EDT MED[facility] ([facility] [address] [place] [phone] 01/02/2020 12:00:00 AM EDT eCW1 ([facility]) Outpatient Referrer: Bushra NEGRON 12/28/2019 10:56:00 AM EST [facility] Pain [address] 12/28/2019 12:00:00 AM EST eCW1 ([facility]) Outpatient Attender: TABBY hill 12/19/2019 11:45:00 AM EST MEDENT ([facility]) Outpatient Attender: Roxane price 12/05/2019 08:20:00 AM EST MEDENT ([facility]) Outpatient Attender: LOLY HOLGUIN MDConsultant: STAFF NON 11/21/2019 09:49:00 AM EST - 11/21/2019 09:49:00 AM EST [facility] Outpatient Attender: VIRGINIA moran 11/01/2019 09:45:00 AM EST MEDENT ([facility]) Outpatient Attender: Bri Figueroa PA-C Main Office 10/31/2019 01:15:00 PM EST MEDENT ([facility] Immunizations Vaccine Date Status Description Data Source(s) INFLUENZA VACCINE QUADRIVALENT (65 YR UP)/MF59 C.1/PF 07/06/2020 12:00:00 AM EDT completed [facility] Medications Medication Brand Name Start Date Product Form Dose Route Admi nistrative Instructions Pharmacy Instructions Status Indications Reaction Description Data Source(s) 90 mcg/actuation 11/16/2020 12:00:00 AM EST HFA aerosol inha ler 42 INHALE 2 PUFFS BY MOUTH EVERY 4 HOURS NEEDED INHALE 2 PUFFS BY MOUTH EVERY 4 HOURS NEEDED SOLD: 11/16/2020 [facility] 500-125 mg 11/14/2020 12:00:00 AM EST tablet 20 TAKE ONE TABLET BY MOUTH TWICE A DAY TAKE ONE TABLET BY MOUTH TWICE A DAY SOLD: 11/14/2020 [facility] Prednisone 20 MG Oral Tablet Prednisone 11/02/2020 12:00:00 AM EST active MEDENT ([facility]) 20 mg 11/02/2020 12:00:00 AM EST tablet 18 TAKE ONE TABLET BY MOUTH THREE TIMES A DAY FOR 3 DAYS , ONE TABLET TWO TIMES A DAY FOR 3 DAYS , THEN ONE TABLET DAILY FOR 3 DAYS TAKE ONE TABLET BY MOUTH THREE TIMES A D AY FOR 3 DAYS , ONE TABLET TWO TIMES A DAY FOR 3 DAYS , THEN ONE TABLET DAILY FOR 3 DAYS SOLD: 11/02/2020 [facility] 300 mg 11/02/2020 12:00:00 AM EST capsule 20 TAKE ONE CAPSULE BY MOUTH TWICE A DAY FOR 10 DAYS TAKE ONE CAPSULE BY MOUTH TWICE A DAY FOR 10 DAYS SOLD : 11/02/2020 [facility] cefdinir 300 MG Oral Capsule Cefdinir 11/02/2020 12:00:00 AM EST ORAL active MEDENT ([facility]) Nystatin [id number] UNT/ML Oral Suspension Nystatin 10/11/2020 12:00:00 AM EST active MEDENT ([facility]) 4 mg 10/05/2020 12:00:00 AM EST tablet 21 TAKE 6 TABLETS BY MOUTH TODAY THEN 5 TABLETS BY MOUTH ON DAY 2 THEN 4 TABLETS BY MOUTH ON DAY 3 THEN 3 TABLETS BY MOUTH ON DAY 4 THEN 2 TABLETS BY MOUTH ON DAY 5 THEN 1 TABLET BY MOUTH ON DAY 6 TAKE 6 TABLETS BY MOUTH TODAY THEN 5 TABLETS BY MOUTH ON DAY 2 THEN 4 TABLETS BY MOUTH ON DAY 3 THEN 3 TABLETS BY MOUTH ON DAY 4 THEN 2 TABLETS BY MOUTH ON DAY 5 THEN 1 TABLET BY MOUTH ON DAY 6 SOLD: 10/05/2020 [facility] 875-125 mg 10/05/2020 12:00:00 AM EST tablet 20 TAKE ONE TABLET BY MOUTH TWICE A DAY FOR 10 DAYS TAKE ONE TABLET BY MOUTH TWICE A DAY FOR 10 DAYS SOLD: 10/05/2020 [facility] Amoxicillin 875 MG / Clavulanate 125 MG Oral Tablet Am oxicillin/Clavulanate Potassium 10/05/2020 12:00:00 AM EST ORAL completed MEDENT ([facility]) Methylprednisolone 4 MG Oral Tablet Methylprednisolone 09/25 12:00:00 AM EST ORAL completed MEDENT ([facility]) Albuterol 0.83 MG/ML Inhalant Solution Albuterol Sulfate 1 11/17/2019 12:00:00 AM EST active MEDENT ([facility]) Prednisone 10 MG Oral Tablet Prednisone 09/17/2020 12:00:00 AM EST ORAL active MEDENT ([facility]) Levofloxacin 500 MG Oral Tablet Levofloxacin 09/17/2020 12:00:[address] ORAL active MEDENT ([facility]) cefdinir 300 MG Oral Capsule Cefdinir 08/23/2020 12:00:00 AM EDT ORAL completed MED[facility] ([facility]) 200 ACTUAT Albuterol 0.09 MG/ACTUAT Metered Dose Inhal er [Ventolin] Ventolin HFA 08/14/2020 12:00:00 AM EDT RESPIRATORY active MEDENT ([facility]) 200 ACTUAT Albuterol 0.09 MG/ACTUAT Metered Dose Inhal er [Ventolin] Ventolin HFA 08/09/2020 12:00:00 AM EDT RESPIRATORY completed MEDENT ([facility]) 30 ACTUAT fluticasone furoate 0.2 MG/ACT UAT / vilanterol 0.025 MG/ACTUAT Dry Powder Inhaler [Breo] Breo Ellipta 08/09/2020 12:00:00 AM EDT OR AL active MEDENT ([facility], ) Prednisone 10 MG Oral Tablet Prednisone 07/23/2020 12:00:00 AM EDT ORAL completed MEDENT ([facility]) Levofloxacin 500 MG Oral Tablet Levofloxacin 07/23/2020 12:00:00 AM E DT ORAL completed MEDENT ([facility], ) cefdinir 300 MG Oral Capsule Cefdinir 06/23/2020 12:00:00 AM EDT ORAL completed MED[facility] ([facility]) Suprep Bowel Prep Kit Suprep Bowel Prep Kit 06/12/2020 12:00:00 AM EDT completed [facility] ([facility], ) Doxycycline Monohydrate 100 MG Oral Capsule Doxycycline [place] hydrate 05/16/2020 12:00:00 AM EDT ORAL completed [facility] ([facility] Prednisone 20 MG Oral Tablet Prednisone 04/26/2020 12:00:00 AM EDT ORAL completed MED[facility] ([facility]) 12 HR Dextromethorphan Hydrobromide 30 M G / Guaifenesin 600 MG Extended Release Oral Tablet Mucinex DM 04/17/2020 12:00:00 AM EDT ORAL completed [facility] ([facility]) cefdinir 300 MG Oral Capsule Cefdinir 04/07/2020 12:00:00 AM EDT ORAL completed [facility] ([facility]) Azelastine HCL (Nasal) Azelastine HCL (Nasal) 04/02/2020 12:00:00 AM E DT active [facility] ([facility] Mometasone Furoate Mometasone Furoate 03/30/2020 12:00:00 AM EDT completed [facility] ([facility] benzonatate 100 MG Oral Capsule Benzonatate 03/30/2020 12:00:00 AM EDT ORAL active [facility] ([facility] Potassium ORAL active MED[facility] ( [facility], ) cefdinir 300 MG Oral Capsule Cefdinir 12/05/2019 12:00:00 AM EST ORAL completed [facility] ([facility]) 12 HR Dextromethorphan Hydrobromide 30 M G / Guaifenesin 600 MG Extended Release Oral Tablet [Mucinex DM] Mucinex DM 11/01/2019 12:00:00 AM EST completed [facility] ([facility]) Amoxicillin 875 MG Oral Tablet Amoxicillin 11/01/2019 12:00:00 AM EST completed MEDENT ([facility]) Insurance Providers Payer name Policy type / Coverage type Policy ID Covered alliance party ID Covered alliance party's relationship to corona Policy [place] Plan Information WELLCARE [id number] SP [id number] WELLCARE [id number] SP [id number] WELLCARE [id number] SP [id number] WELLCARE O [id number] S [id number] WELLCARE O [id number] S [id number] WELLCARE-CLINIC CO [id number] 18 [id number] WELLCARE [id number] SP [id number] WELLCARE -O/P [place] [id number] 18 [id number] WELLCARE - PHYSICIAN CO [id number] 18 [id number] TODAYS OPTIONS [id number] SP [id number] Wellcare-Clinic Commercial [id number] Self [id number] Wellcare-Clinic Commercial [id number] Self [id number] Wellcare Today's Options Commercial [id number] Self [id number] [employer] Commercial [id number] Self [id number] Wellcare Today's Options Commercial [id number] Self [id number] [employer] Plans Inc Commercial [id number] Self [id number] WELLCARE TODAY'S OPTIONS [id number] edicare Part B [id number] Wellcare Health Plans(To) Commercial [id number] Self [id number] Wellcare Today's Options Commercial [id number] Self [id number] Wellcare Today's Options Commercial [id number] Self [id number] ANSI-Medicare Part B [id number] ANSI-Medicare Part B [id number] MEDICARE PART A [facility] [id number] 18 [id number] Wellcare Today's Options Commercial [id number] Self [id number] Wellcare Today's Options Commercial [id number] Self [id number] Wellcare Health Plans Inc Commercial [id number] Self [id number] Wellcare Health Plans Inc Commercial [id number] Self [id number] Wellcare Health Plans Inc Commercial [id number] Self [id number] Wellcare Today's Options Commercial [id number] Self [id number] ANSI-Medicare Part B [id number] ANSI-Medicare Part B [id number] Medicare Part A [place] Medicare Primary [id number] Self [id number] Wellcare-Clinic Commercial [id number] Self [id number] Wellcare Today's Options Commercial [id number] Self [id number] Wellcare Today's Options Commercial [id number] Self [id number] Wellcare Today's Options Commercial [id number] Self [id number] Wellcare Health Plans(To) Commercial [id number] Self [id number] Wellcare Health Plans(To) Commercial [id number] Self [id number] [place] [id number] [place] [id number] Wellcare Health Plans(To) Commercial [id number] Self [id number] TODAYS OPTIONS [id number] SP [id number] ANSI-Medicare Part B [id number] ANSI-Medicare Part B [id number] WELLCARE O [id number] S [id number] ANSI-Medicare Part B [id number] ANSI-Medicare Part B [id number] [employer] Commercial [id number] Self [id number] MEDICARE [id number] SP [id number] ANSI-Medicare Part B [id number] ANSI-Medicare Part B [id number] [employer] Commercial [id number] Self [id number] ANSI-Medicare Part B [id number] ANSI-Medicare Part B [id number] [employer]ESE [employer]IVE [id number] SP [id number] [employer] Commercial [id number] Self [id number] [employer] Commercial [id number] Self [id number] ANSI-Medicare Part B [id number] ANSI-Medicare Part B [id number] ANSI-Medicare Part B [id number] ANSI-Medicare Part B [id number] [employer] Commercial [id number] Self [id number] [employer] Commercial [id number] Self [id number] ANSI-Medicare Part B [id number] ANSI-Medicare Part B [id number] ANSI-Medicare Part B [id number] ANSI-Medicare Part B [id number] [employer] Commercial [id number] Self [id number] TODAYS OPTIONS [id number] SP [id number] Todays Options Commercial [id number] Self [id number] TODAYS OPTIONS/VIETNAMESE O [id number] S [id number] Todays Options Commercial [id number] Self [id number] [employer] Commercial [id number] Self [id number] TODAYS OPTIONS [id number] SP [id number] [employer] Commercial [id number] Self [id number] Tod[employer] Options Commercial [id number] Self [id number] TODAYS OPTIONS/VIETNAMESE O [id number] S [id number] Today's Option Medicare Commercial [id number] Self [id number] Tod[employer] Options Commercial [id number] Self [id number] TODAYS OPTIONS [id number] SP [id number] [employer] Commercial [id number] Self [id number] [employer] Commercial [id number] Self [id number] [employer] Commercial [id number] Self [id number] Today's Option Medicare Commercial [id number] Self [id number] [employer] Commercial [id number] Self [id number] [employer] Commercial [id number] Self [id number] TODAYS OPTIONS [id number] SP [id number] Today's Options Ppo Commercial [id number] Self [id number] C[employer] Commercial [id number] Self [id number] Today's Options Ppo Commercial [id number] Self [id number] [employer] Commercial [id number] Self [id number] [employer] Commercial [id number] Self [id number] C[employer] Commercial [id number] Self [id number] [employer] Commercial [id number] Self [id number] TODAYS OPTIONS [id number] SP [id number] [employer] Commercial Self MEDICARE COMPLETE [id number] SP [id number] SECURE HORIZONS [id number] SP [id number] SECURE HORIZONS [id number] SP [id number] TODAYS OPTIONS [id number] SP [id number] TODAYS OPTIONS [id number] SP [id number] CSP OF [facility] [id number] SP [id number] CSP OF [facility] [id number] SP [id number] MEDICARE [id number] SP [id number] A Todays Options Commercial Self [id number] Problems, Conditions, and Diagnoses Code Display Name Description Problem Type Effective Dates Data Source(s) 26045550 Essential hypertension Essential hypertension Problem 09/07/2020 12:00:00 AM EST MEDENT ([facility] [id number] Mild intermittent asthma Mild intermittent asthma Prob beka 08/09/2020 12:00:00 AM EDT MEDENT ([facility], ) Other nonspecific abnormal finding of kiya ng field Other nonspecific abnormal finding of lung field Problem 05/31/2020 12:00:00 AM EDT MEDENT ([facility], ) M79.18 [id number] Myalgia, other site Problem 05/07/2020 12:00 :00 AM EDT eCW1 ([facility]) 90837500 Cough Cough Problem 03/06/2020 12:00:00 AM ED T MEDENT ([facility], ) M47.816 [id number] Lumbar Facet arthropathy Problem 02/21/2020 12:00:00 AM EDT eCW1 ([facility]) M43.06 697990463 Lumbar spondylolysis Problem 02/21/2020 12:0 0:00 AM EDT eCW1 ([facility]) M43.06 [id number] Lumbar spondylolysis Problem 02/21/2020 12:0 0:00 AM EDT eCW1 ([facility]) M47.816 047215137 Lumbar Facet arthropathy Problem 02/21/2020 12:00:00 AM EDT eCW1 ([facility]) Surgeries/Procedures Procedure Description Date Indications Data Source(s) Endoscopy Nasal Diagnostic 10/11/2020 12:00:00 AM EST MEDENT ([facility]) Spirometry 09/17/2020 12:00:00 AM EST M EDENT ([facility]) Airway Inhalation Treatment 09/17/2020 12:00:00 AM EST MEDENT ([facility]) Aerosol Or Vapor Inhalations 08/09/2020 12:00:00 AM ED T MEDENT ([facility]) Colonoscopy Flexible Proximal To Splenic Flexure Diagnostic W/Or 06/28/2020 12:00:00 AM EDT MED[facility] ([facility]) Bronchospasm Evaluation 05/29/2020 12:00:00 AM EDT MEDENT ([facility]) Maximum Breathing Capacity, Maximal Voluntary Ventilation 05/29/2020 12:00:00 AM EDT MEDENT ([facility]) Plethysmography Determination Lung Volumes & Per Airway Resi st 05/29/2020 12:00:00 AM EDT MEDENT ([facility]) DIFFUSING CAPACITY 05/29/2020 12:00:00 AM EDT MEDENT ([facility]) Bone Mineral Density Test 03/13/2020 12:00:00 AM EDT MED[facility] ([facility] WTW/ Dr. Fox Mammogram 03/13/2020 12:00:00 AM EDT M EDENT ([facility] Mammogram 03/13/2020 12:00:00 AM EDT M EDENT ([facility] WTWXray: 02/23/17 - Mammography, Bilater al, new order given 01/27/18 Spirometry 03/06/2020 12:00:00 AM EDT Khai MCWILLIAMS ([facility], ) PHYSICIAN TELEPHONE EVALUATION 11-20 MIN 03/06/2020 12 :00:00 AM EDT eCW1 ([facility]) INJ PARAVERT F JNT L/S 1 LEV 02/21/2020 12:00:00 AM ED T eCW1 ([facility]) INJ PARAVERT F JNT L/S 2 LEV 02/21/2020 12:00:00 AM ED T eCW1 ([facility]) RADXPS IN END [id number] 02/21/2020 12:00:00 AM ED T eCW1 ([facility]) Results ID Date Data Source [id number] 11/02/2020 12:00:00 AM EST [facility] Name Value Range Interpretation Code Description Data Indgio rce(s) Supporting Document(s) SARS-CoV2 Rapid Antigen Positive [facility] This lab was reported by [facility]. ID Date Data Source [id number] 10/05/2020 12:00:00 AM EST [facility] Name Value Range Interpretation Code Description Data Indigo rce(s) Supporting Document(s) SARS coronavirus 2 Ag [facility] This lab was ordered by [facility] and reported by [facility]. ID Date Data Source [id number] 09/18/2020 02:00:00 PM EST NICHOL ([facility], ) Name Value Range Interpretation Code Description Data Indigo rce(s) Supporting Document(s) Gram Stain Laboratory test result Normal (applies to non-n umeric results) [facility] ([facility], ) QUALITY: POOR MANY EPITHELIAL CELLS FEW GRAM POSITIVE COCCI IN PAIRS, CHAINS AND CLUSTERS Sputum Culture Laboratory test result [facility] ([facility], ) Sputum culture not performed due to orop haryngeal contamination. Further processing of such specimens would not yield useful information about the possible pathogens from the lower respiratory tract. Test not performed ID Date Data Source [id number] 09/17/2020 09:17:00 AM EST MEDYAHIR ([facility], ) Name Value Range Interpretation Code Description Data Indigo rce(s) Supporting Document(s) Gram Stain Laboratory test result Normal (applies to non-n umeric results) [facility] ([facility]) QUALITY: POOR MANY EPITHELIAL CELLS FEW WBCS MANY GRAM POSITIVE COCCI IN PAIRS, CHAINS AND CLUSTERS FEW GRAM POSITIVE RODS Sputum Culture Laboratory test result [facility] ([facility]) Sputum culture not performed due to orop haryngeal contamination. Further processing of such specimens would not yield useful information about the possible pathogens from the lower respiratory tract. Test not performed ID Date Data Source [id number] 09/17/2020 09:17:00 AM [facility] ([facility]) Name Value Range Interpretation Code Description Data Indigo rce(s) Supporting Document(s) Bacteria identified in Sputum by Aerobe culture Laboratory test resul t [facility] ([facility]) ID Date Data Source [id number] 09/17/2020 08:36:00 AM [facility] ([facility]) Name Value Range Interpretation Code Description Data Indigo rce(s) Supporting Document(s) PDFReport Laboratory test result [facility] ([facility]) FVC-Pred 2.34 L [facility] ([facility]) FVC-LLN 1.70 L [facility] ([facility]) FVC-Pre 2.04 L [facility] ([facility]) FVC-%Pred-Pre 87 L [facility] ([facility]) Fev1-%Pred-Pre 92 L [facility] ([facility]) Fev1-Pred 1.73 L [facility] ([facility]) Fev1-Pre 1.61 L [facility] ([facility]) Fev6-Pre 2.04 L [facility] ([facility]) Fev1-LLN 1.20 L [facility] ([facility]) Fev6-Pred 2.20 L [facility] ([facility]) Fev6-%Pred-Pre 92 L [facility] ([facility]) Fev6-LLN 1.59 L [facility] ([facility], ) Yrk6szq-Jnzm 74 % [facility] ([facility]) Vlu7yuq-Hry 79 % [facility] ([facility]) Rbl9mpp-%Pred-Pre 106 % [facility] ([facility]) Wuf7cmq-Fvoq 94 % [facility] ([facility]) Ato2csr-WFQ 64 % [facility] ([facility]) Ugi6cyg-Ush 100 % [facility] ([facility]) FEFMax-Pre 5.42 L/E/sec [facility] ([facility]) FEFMax-Pred 4.53 L/E/sec [facility] ([facility]) Chj1svd-%Pred-Pre 105 % [facility] ([facility]) FEFMax-LLN 2.97 L/E/sec [facility] ([facility]) Lnw7976-Lemm 1.34 L/E/sec [facility] ([facility]) FEFMax-%Pred-Pre 119 L/E/sec [facility] ([facility]) Umk1158-Jgp 1.45 L/E/sec [facility] ([facility]) Mry0954-%Pred-Pre 108 L/E/sec [facility] ([facility]) Njw0wcq2-Biib 78 % [facility] ([facility]) ExpTime-Pre 5.12 sec [facility] ([facility]) Clt3850-AFN 0.21 L/E/sec [facility] ([facility]) Zme8jpp0-Nxn 79 % [facility] ([facility]) Oyf8xii7-%Pred-Pre 101 % [facility] ([facility]) Ukw9hol9-FDD 69 % [facility] ([facility]) ID Date Data Source [id number] 09/13/2020 02:55:00 PM EST [facility] ([facility]) Name Value Range Interpretation Code Description Data Indigo rce(s) Supporting Document(s) Gram Stain Laboratory test result Normal (applies to non-n umeric results) [facility] ([facility], ) QUALITY: GOOD MODERATE WBCS FEW EPITHELIAL CELLS FEW GRAM POSITIVE COCCI IN PAIRS AND CHAINS FEW GRAM POSITIVE RODS Sputum Culture Laboratory test result Normal (applies to non-numeric results) [facility] ([facility], ) FULL REPORT IN LAB NOTES (eCW and [facility] ). NORMAL AUDREY PRESENT ID Date Data Source [id number] 09/07/2020 12:31:00 PM EST [facility] ([facility] Name Value Range Interpretation Code Description Data Indigo rce(s) Supporting Document(s) Thyrotropin [Units/volume] in Serum or Plasma 2.040 uIU/ML 0.358-3.74 0 [facility] ([facility] <content>note:<nlbl:demographic_changed></content>
<content>note:<nlbl:demog raphic_changed></content>
<content></content> Folate [Mass/volume] in Serum or Plasma 19.6 ng/mL [facility] ([facility] FOLATE NORMAL RANGE NORMAL GREATER THAN 5.4 NG/ML INDETERMINATE 3.4-5.4 NG/ML DEFICIENT LESS THAN 3.4 NG/ML Cobalamin (Vitamin B12) [Mass/volume] in Serum or Plasma 1921 pg/mL 2 47-911 [facility] ([facility] VITAMIN B12 NORMAL RANGE NORMAL 247 - 911 PG/ML INDETERMINATE 211 - 246 PG/ML DEFICIENT LESS THAN 211 PG/ML Thyroxine (T4) free [Mass/volume] in Serum or Plasma 1.04 ng/dL 0.76- 1.46 [facility] ([facility] <content>note:<nlbl:demographic_changed></content>
<content>note:<nlbl:demog raphic_changed></content>
<content></content> ID Date Data Source [id number] 09/07/2020 12:31:00 PM EST [facility] ([facility] Name Value Range Interpretation Code Description Data [facility](s) Supporting Document(s) Triglycerides Level 97 mg/dL [facility] ([facility] Cholesterol Level 217 mg/dL [facility] ([facility] HDL Cholesterol 82 mg/dL [facility] ([facility] LDL Cholesterol 116 mg/dL [facility] ([facility] Cholesterol Risk Ratio 2.646 [facility] ([facility] Non-HDL-C 135 mg/dL [facility] ID Date Data Source [id number] 09/07/2020 12:31:00 PM EST [facility] ([facility] Name Value Range Interpretation Code Description Data [facility]) Supporting Document(s) Blood Urea Nitrogen 20 mg/dL 7-18 [facility] ([facility] Glucose, Fasting 88 mg/dL 70-100 [facility] ([facility] Sodium Level 139 meq/L 136-145 [facility] ([facility] Glomerular Filtration Rate Laboratory test result [facility] ([facility] <content>Units are mL/min/1.73 m2</content>
<content></content>
<content>Chronic Kidney Disease Staging per [facility]:</content>
<content></content>
<content>Stage I & II GFR >=60 Normal to Mildly Decreased</content>
<content>Stage III GFR 30- 59 Moderately Decreased</content>
<content>Stage IV GFR 15-29 Severely Decreased</content>
<content>Stage V GFR <15 Very Little GFR Left</content>
<content>ESRD GFR <15 on 7TH GRADE SOCIAL STUDIES TEACHER</content>
<content></content> Creatinine For GFR 0.73 mg/dL 0.55-1.30 [facility] ([facility] Potassium Serum 4.2 meq/L 3.5-5.1 [facility] ([facility] Chloride Level 105 meq/L 98-107 [facility] ([facility] Carbon Dioxide Level 29 meq/L 21-32 [facility] ([facility] Calcium Level 9.6 mg/dL 8.8-10.2 [facility] ([facility] Anion Gap 5 meq/L 8-16 [facility] ([facility] Ast/Sgot 21 U/L 7-37 [facility] Alt/SGPT 26 U/L 12-78 [facility] Alkaline Phosphatase 71 U/L 45-117 [facility] ([facility] Total Protein 7.7 GM/DL 6.4-8.2 [facility] ([facility] Bilirubin,Total 0.3 mg/dL 0.2-1.0 [facility] ([facility] Albumin 4.3 GM/DL 3.2-5.2 [facility] ([facility] Albumin/Globulin Ratio 1.3 1.2-2.2 [facility] ([facility] ID Date Data Source [id number] 09/07/2020 12:31:00 PM EST [facility] ([facility] Name Value Range Interpretation Code Description Data Indigo rce(s) Supporting Document(s) White Blood Count 6.0 10 4.0-10.0 [facility] ([facility] Hematocrit 38.0 % 36.0-47.0 [facility] ([facility] Hemoglobin 12.0 g/dL 12.0-15.5 [facility] ([facility] Red Blood Count 3.83 10 4.00-5.40 [facility] ([facility] Mean Corpuscular HGB Conc 31.6 g/dL 32.0-36.5 [facility] ([facility] Mean Corpuscular Hemoglobin 31.3 pg 27.0-33.0 [facility] ([facility] Mean Corpuscular Volume 99.2 fl 80.0-96.0 M EDENT ([facility] Neutrophils % 60.4 % 36.0-66.0 [facility] ([facility] Platelet Count, Automated 241 10 150-450 [facility] ([facility] Red Cell Distribution Width 13.1 % 11.5-14.5 [facility] ([facility] Eos % 1.3 % 0.0-3.0 [facility] Lymph % 27.3 % 24.0-44.0 [facility] [place] % 9.5 % 0.0-5.0 [facility] Nucleated Red Blood Cell % 0.3 % 0-0 [facility] ([facility] Baso % 0.8 % 0.0-1.0 [facility] Immature Granulocyte % 0.7 % 0-3.0 [facility] ([facility] [place] # 0.6 10 0.0-0.8 [facility] ([facility] Neutrophils # 3.6 10 1.5-8.5 [facility] ([facility] Lymph # 1.6 10 1.5-5.0 [facility] Eos # 0.1 10 0.0-0.5 [facility] Baso # 0.1 10 0.0-0.2 [facility] ID Date Data Source [id number] 04/07/2020 11:53:00 AM EDT [facility] ([facility]) Name Value Range Interpretation Code Description Data Indigo rce(s) Supporting Document(s) Bacteria identified in Urine by Culture Laboratory test result [facility] ([facility]) FULL REPORT IN LAB NOTES (eCW and [facility] ). NO GROWTH CLINICAL SIGNIFICANCE 1 ORGANISM ID Date Data Source [id number] 03/29/2020 10:25:00 AM EDT [facility] ([facility] Name Value Range Interpretation Code Description Data Indigo rce(s) Supporting Document(s) Coronavirus 2019 Nasopharygeal Laboratory test result [facility] ([facility] Testing was performed using the maura(R) SARS-CoV-2 test. This test was developed and its performance characteristics determined by [employer]. This test has not been FDA cleared [...] detected) result in this assay. Performed at: [facility] [id number] Ordnance Officer: Caroline Aguilera MD, Phone: [phone] Not Detected ID Date Data Source [id number] 03/29/2020 10:25:00 AM EDT [facility] Name Value Range Interpretation Code Description Data Indigo rce(s) Supporting Document(s) SARS CORONAVIRUS 2 RNA [facility] This lab was ordered by [facility] and reported by [facility]. ID Date Data Source [id number] 03/13/2020 07:07:00 AM EDT [facility] ([facility] Name Value Range Interpretation Code Description Data Indigo rce(s) Supporting Document(s) Laboratory test finding (navigational concept) Laboratory test result [facility] ([facility] ID Date Data Source [id number] 03/06/2020 11:02:00 AM EDT [facility] ([facility], ) Name Value Range Interpretation Code Description Data Indigo rce(s) Supporting Document(s) Gram Stain Laboratory test result Normal (applies to non-n umeric results) [facility] ([facility], ) QUALITY: POOR MANY EPITHELIAL CELLS FEW WBCS MANY GRAM POSITIVE COCCI IN PAIRS, CHAINS AND CLUSTERS FEW GRAM POSITIVE RODS Sputum Culture Laboratory test result [facility] ([facility], ) Sputum culture not performed due to orop haryngeal contamination. Further processing of such specimens would not yield useful information about the possible pathogens from the lower respiratory tract. Test not performed ID Date Data Source [id number] 03/06/2020 10:21:00 AM EDT [facility] ([facility], ) Name Value Range Interpretation Code Description Data Indigo rce(s) Supporting Document(s) PDFReport Laboratory test result [facility] ([facility], ) FVC-Pred 2.34 L [facility] ([facility]) FVC-Pre 2.22 L [facility] ([facility]) FVC-%Pred-Pre 94 L [facility] ([facility], ) Fev1-Pred 1.73 L [facility] ([facility]) FVC-LLN 1.70 L [facility] ([facility]) Fev1-%Pred-Pre 101 L [facility] ([facility]) Fev1-Pre 1.76 L [facility] ([facility]) Fev1-LLN 1.20 L [facility] ([facility]) Fev6-Pre 2.22 L [facility] ([facility]) Fev6-Pred 2.20 L [facility] ([facility]) Fev6-%Pred-Pre 100 L [facility] ([facility]) Fev6-LLN 1.59 L [facility] ([facility]) Med2tqh-Azlp 74 % [facility] ([facility]) Jkl3shi-Mvu 79 % [facility] ([facility]) Soq5wll-BGT 64 % [facility] ([facility]) Bwc1hsd-%Pred-Pre 106 % [facility] ([facility]) Qtd5tpf-Bqk 100 % [facility] ([facility]) Loj2jxz-Ntfb 94 % [facility] ([facility]) Ymz8omh-%Pred-Pre 105 % [facility] ([facility]) FEFMax-Pred 4.53 L/E/sec [facility] ([facility]) FEFMax-%Pred-Pre 86 L/E/sec [facility] ([facility]) FEFMax-Pre 3.91 L/E/sec [facility] ([facility]) FEFMax-LLN 2.97 L/E/sec [facility] ([facility]) Opp5804-Uon 1.66 L/E/sec [facility] ([facility]) Feu6994-Xqfw 1.34 L/E/sec [facility] ([facility]) Atr4425-%Pred-Pre 123 L/E/sec [facility] ([facility]) Ghc3535-DLC 0.21 L/E/sec [facility] ([facility]) Cph0plw5-Tgci 78 % [facility] ([facility]) ExpTime-Pre 6.59 sec [facility] ([facility]) Nia1out0-Hpf 79 % [facility] ([facility]) Sfz8ozf1-%Pred-Pre 101 % [facility] ([facility]) Ksb5lvl9-YCU 69 % [facility] ([facility]) ID Date Data Source [id number] 03/01/2020 12:17:00 PM EDT [facility] ([facility] Name Value Range Interpretation Code Description Data Indigo rce(s) Supporting Document(s) Folate Laboratory test result [facility] ([facility] FOLATE NORMAL RANGE NORMAL GREATER THAN 5.4 NG/ML INDETERMINATE 3.4-5.4 NG/ML DEFICIENT LESS THAN 3.4 NG/ML Vitamin B12 Level 1425 pg/mL [facility] ([facility] VITAMIN B12 NORMAL RANGE NORMAL 247 - 911 PG/ML INDETERMINATE 211 - 246 PG/ML DEFICIENT LESS THAN 211 PG/ML ID Date Data Source [id number] 03/01/2020 12:17:00 PM EDT [facility] ([facility] Name Value Range Interpretation Code Description Data Indigo rce(s) Supporting Document(s) Calcitriol [Mass/volume] in Serum or Plasma 60.5 pg/mL 19.9-79.3 [facility] ([facility] Performed at: - [address] [id number] Ordnance Officer: Heike Rodríguez MD, Phone: [phone] ID Date Data Source [id number] 03/01/2020 12:17:00 PM EDT [facility] ([facility] Name Value Range Interpretation Code Description Data Indigo rce(s) Supporting Document(s) Glucose, Fasting 93 mg/dL 70-100 [facility] ([facility] Creatinine For GFR 0.68 mg/dL 0.55-1.30 [facility] ([facility] Blood Urea Nitrogen 24 mg/dL 7-18 [facility] ([facility] Glomerular Filtration Rate Laboratory test result [facility] ([facility] <content>Units are mL/min/1.73 m2</content>
<content></content>
<content>Chronic Kidney Disease Staging per NKF:</content>
<content></content>
<content>Stage I & II GFR >=60 Normal to Mildly Decreased</content>
<content>Stage III GFR 30- 59 Moderately Decreased</content>
<content>Stage IV GFR 15-29 Severely Decreased</content>
<content>Stage V GFR <15 Very Little GFR Left</content>
<content>ESRD GFR <15 on 7TH GRADE SOCIAL STUDIES TEACHER</content>
<content></content> Sodium Level 142 meq/L 136-145 [facility] ([facility] Potassium Serum 4.5 meq/L 3.5-5.1 [facility] ([facility] Anion Gap 6 meq/L 8-16 [facility] ([facility] Carbon Dioxide Level 28 meq/L 21-32 [facility] ([facility] Chloride Level 108 meq/L 98-107 [facility] ([facility] Calcium Level 9.3 mg/dL 8.8-10.2 [facility] ([facility] Alkaline Phosphatase 70 U/L 45-117 [facility] ([facility] Alt/SGPT 27 U/L 12-78 [facility] Ast/Sgot 20 U/L 7-37 [facility] ([facility] Bilirubin,Total 0.3 mg/dL 0.2-1.0 [facility] ([facility] Total Protein 6.9 GM/DL 6.4-8.2 [facility] ([facility] Albumin 3.8 GM/DL 3.2-5.2 [facility] ([facility] Albumin/Globulin Ratio 1.23 1.00-1.93 ME DENT ([facility] ID Date Data Source [id number] 03/01/2020 12:17:00 PM EDT [facility] ([facility] Name Value Range Interpretation Code Description Data Indigo rce(s) Supporting Document(s) Cholesterol Level 192 mg/dL [facility] ([facility] HDL Cholesterol 66 mg/dL [facility] ([facility] Triglycerides Level 77 mg/dL [facility] ([facility] Cholesterol Risk Ratio 2.909 [facility] ([facility] LDL Cholesterol 111 mg/dL [facility] ([facility] Non-HDL-C 126 mg/dL [facility] ([facility] ID Date Data Source [id number] 01/02/2020 02:30:00 PM EDT [facility] ([facility] Name Value Range Interpretation Code Description Data Indigo rce(s) Supporting Document(s) Appearance, Urine Laboratory test result [facility] ([facility] Specific [place] Urine Auto 1.011 1.002-1.035 [facility] ([facility] PH,Urine 5.0 units 5.0-9.0 [facility] ([facility] Color, Urine Laboratory test result [facility] ([facility] Urobilinogen, Urine Auto 0.2 mg/dL 0.0-2.0 [facility] ([facility] Protein, Urine Auto Laboratory test result [facility] ([facility] Ketone, Urine Auto Laboratory test result [facility] ([facility] Glucose, Urine (Ua) Auto Laboratory test result [facility] ([facility] Nitrite, Urine Auto Laboratory test result [facility] ([facility] Leukocyte Esterase, Urine Auto Laboratory test result [facility] ([facility] Bilirubin, Urine Auto Laboratory test result [facility] ([facility] RBC, Urine Auto 0 /HPF 0-3 [facility] ([facility] WBC, Urine Auto 0 /HPF 0-3 [facility] ([facility] Bacteria, Urine Auto Laboratory test result [facility] ([facility] Blood, Urine Blood Laboratory test result [facility] ([facility] Hyaline Cast, Urine Auto 1 /LPF 0-1 MED[facility] T ([facility] Squamous Epithelial Cell Ur AU 0 /HPF 0-6 [facility] ([facility] ID Date Data Source [id number] 01/02/2020 02:30:00 PM EDT [facility] ([facility] Name Value Range Interpretation Code Description Data Indigo rce(s) Supporting Document(s) Glucose, Fasting 88 mg/dL 70-100 [facility] ([facility] Blood Urea Nitrogen 17 mg/dL 7-18 [facility] ([facility] Glomerular Filtration Rate Laboratory test result [facility] ([facility] <content>Units are mL/min/1.73 m2</content>
<content></content>
<content>Chronic Kidney Disease Staging per NKF:</content>
<content></content>
<content>Stage I & II GFR >=60 Normal to Mildly Decreased</content>
<content>Stage III GFR 30- 59 Moderately Decreased</content>
<content>Stage IV GFR 15-29 Severely Decreased</content>
<content>Stage V GFR <15 Very Little GFR Left</content>
<content>ESRD GFR <15 on 7TH GRADE SOCIAL STUDIES TEACHER</content>
<content></content> Creatinine For GFR 0.68 mg/dL 0.55-1.30 [facility] ([facility] Sodium Level 142 meq/L 136-145 [facility] ([facility] Carbon Dioxide Level 29 meq/L 21-32 [facility] ([facility] Chloride Level 110 meq/L 98-107 [facility] ([facility] Potassium Serum 4.7 meq/L 3.5-5.1 [facility] ([facility] Anion Gap 3 meq/L 8-16 [facility] ([facility] Calcium Level 9.2 mg/dL 8.8-10.2 [facility] ([facility] Procedure Social History Code Duration Value Status Description Data Source(s ) Smoking 10/24/2020 12:00:00 AM EST Patient has never smoked co mpleted Patient has never smoked [facility] ([facility] Smoking 09/17/2020 12:00:00 AM EST Patient has never smoked co mpleted Patient has never smoked [facility] ([facility], ) Smoking 08/23/2020 12:00:00 AM EDT Patient has never smoked co mpleted Patient has never smoked [facility] ([facility]) Smoking 05/07/2020 12:00:00 AM EDT Never Smoker completed Never S moker eCW1 ([facility]) Smoking 05/07/2020 12:00:00 AM EDT Never Smoker completed Never S moker eCW1 ([facility]) Smoking 05/07/2020 12:00:00 AM EDT Never Smoker completed Never S moker eCW1 ([facility]) Vital Signs ID Date Data Source [id number] Name Value Range Interpretation Code Description Data Source(s) Body mass index (BMI) [Ratio] 25.7 kg/m2 25.7 k g/m2 [facility] ([facility]) Body height 61 [in_i] 61 [in_i] [facility] ([facility]) 5'1" Body weight 136.00 [lb_av] 136.00 [lb_av] [facility] T ([facility]) Body temperature 96.8 [degF] 96.8 [degF] [facility] Oxygen saturation in Arterial blood by Pulse oximetry 98 % 98 % [facility] ([facility]) Respiratory rate 16 /min 16 /min [facility] ( [facility]) Heart rate 67 /min 67 /min [facility] ([facility]) Diastolic blood pressure 81 mm[Hg] 81 mm[Hg] [facility] ([facility]) Systolic blood pressure 154 mm[Hg] 154 mm[Hg] M EDENT ([facility]) Body mass index (BMI) [Ratio] 28.3 kg/m2 28.3 k g/m2 [facility] ([facility] [place] body weight 100 [lb_av] 100 [lb_av] [facility] T ([facility] Oxygen saturation in Arterial blood by Pulse oximetry 98 % 98 % [facility] ([facility] Body weight 146.31 [lb_av] 146.31 [lb_av] [facility] T ([facility] Body height 60.25 [in_i] 60.25 [in_i] [facility] ([facility] 5'0.25" Respiratory rate 16 /min 16 /min [facility] ( [facility] Body temperature 97.1 [degF] 97.1 [degF] [facility] ([facility] Heart rate 78 /min 78 /min [facility] ([facility] Diastolic blood pressure 87 mm[Hg] 87 mm[Hg] [facility] ([facility] recheck Systolic blood pressure 165 mm[Hg] 165 mm[Hg] M EDENT ([facility] recheck Diastolic blood pressure 80 mm[Hg] 80 mm[Hg] [facility] ([facility] Systolic blood pressure 170 mm[Hg] 170 mm[Hg] [facility] ([facility] Body temperature 96.8 [degF] 96.8 [degF] [facility] ([facility]) Body mass index (BMI) [Ratio] 25.1 kg/m2 25.1 k g/m2 [facility] ([facility]) Body height 61 [in_i] 61 [in_i] [facility] ([facility]) 5'1" Body weight 133.00 [lb_av] 133.00 [lb_av] MEDEN T ([facility]) Body temperature 98.6 [degF] 98.6 [degF] [facility] ([facility]) Oxygen saturation in Arterial blood by Pulse oximetry 97 % 97 % [facility] ([facility]) Respiratory rate 20 /min 20 /min [facility] Heart rate 69 /min 69 /min [facility] ([facility]) Diastolic blood pressure 82 mm[Hg] 82 mm[Hg] [facility] ([facility]) Systolic blood pressure 147 mm[Hg] 147 mm[Hg] M EDENT ([facility]) Body surface area Derived from formula 1.62 m2 1.62 m2 [facility] Body weight 63.504 kg 63.504 kg [facility] ([facility]) [place] body weight 105 [lb_av] 105 [lb_av] [facility] Body mass index (BMI) [Ratio] 26.4 kg/m2 26.4 k g/m2 [facility] ([facility]) Body weight 140.00 [lb_av] 140.00 [lb_av] [facility] T ([facility]) Body height 61 [in_i] 61 [in_i] [facility] 5'1" Body temperature 97.2 [degF] 97.2 [degF] [facility] ([facility]) Oxygen saturation in Arterial blood by Pulse oximetry 97 % 97 % [facility] ([facility]) Heart rate 70 /min 70 /min [facility] ([facility]) Diastolic blood pressure 72 mm[Hg] 72 mm[Hg] [facility] ([facility], ) Systolic blood pressure 130 mm[Hg] 130 mm[Hg] [facility] ([facility]) Body mass index (BMI) [Ratio] 26.9 kg/m2 26.9 k g/m2 [facility] [place] body weight 100 [lb_av] 100 [lb_av] [facility] T ([facility] Oxygen saturation in Arterial blood by Pulse oximetry 96 % 96 % [facility] ([facility] Body weight 139.00 [lb_av] 139.00 [lb_av] [facility] T ([facility] Body height 60.25 [in_i] 60.25 [in_i] [facility] ([facility] 5'0.25" Respiratory rate 18 /min 18 /min [facility] ( [facility] Body temperature 97.7 [degF] 97.7 [degF] [facility] ([facility] Heart rate 81 /min 81 /min [facility] ([facility] Diastolic blood pressure 88 mm[Hg] 88 mm[Hg] [facility] ([facility] Systolic blood pressure 142 mm[Hg] 142 mm[Hg] [facility] ([facility] Body mass index (BMI) [Ratio] 25.1 kg/m2 25.1 k g/m2 [facility] ([facility]) Body height 61 [in_i] 61 [in_i] [facility] ([facility]) 5'1" Body weight 133.00 [lb_av] 133.00 [lb_av] MED[facility] T ([facility]) Body temperature 97.8 [degF] 97.8 [degF] [facility] ([facility]) Oxygen saturation in Arterial blood by Pulse oximetry 97 % 97 % [facility] ([facility]) Respiratory rate 16 /min 16 /min [facility] ( [facility]) Heart rate 69 /min 69 /min [facility] ([facility]) Diastolic blood pressure 78 mm[Hg] 78 mm[Hg] [facility]) Systolic blood pressure 168 mm[Hg] 168 mm[Hg] M EDENT ([facility]) Body surface area Derived from formula 1.62 m2 1.62 m2 [facility] ([facility]) Body weight 63.050 kg 63.050 kg [facility] ([facility]) [place] body weight 105 [lb_av] 105 [lb_av] MED[facility] T ([facility]) Body mass index (BMI) [Ratio] 26.3 kg/m2 26.3 k g/m2 [facility] ([facility]) Body weight 139.00 [lb_av] 139.00 [lb_av] MED[facility] T ([facility]) Body height 61 [in_i] 61 [in_i] [facility] ([facility]) 5'1" Body temperature 96.3 [degF] 96.3 [degF] [facility] ([facility]) Oxygen saturation in Arterial blood by Pulse oximetry 94 % 94 % [facility] ([facility]) Heart rate 89 /min 89 /min [facility] ([facility]) Diastolic blood pressure 70 mm[Hg] 70 mm[Hg] [facility] ([facility]) Systolic blood pressure 110 mm[Hg] 110 mm[Hg] [facility] ([facility]) Body mass index (BMI) [Ratio] 26.1 kg/m2 26.1 k g/m2 [facility] ([facility]) Body height 61 [in_i] 61 [in_i] [facility] ([facility]) 5'1" Body weight 138.00 [lb_av] 138.00 [lb_av] MEDEN T ([facility]) Body temperature 98.0 [degF] 98.0 [degF] [facility]) Oxygen saturation in Arterial blood by Pulse oximetry 97 % 97 % [facility] ([facility]) Respiratory rate 20 /min 20 /min [facility] ( [facility]) Heart rate 77 /min 77 /min [facility] ([facility]) Diastolic blood pressure 90 mm[Hg] 90 mm[Hg] [facility] ([facility]) Systolic blood pressure 145 mm[Hg] 145 mm[Hg] [facility]) Body weight 62.143 kg 62.143 kg [facility] ([facility]) [place] body weight 105 [lb_av] 105 [lb_av] MED[facility] T ([facility]) Body mass index (BMI) [Ratio] 25.9 kg/m2 25.9 k g/m2 [facility] ([facility]) Body weight 137.00 [lb_av] 137.00 [lb_av] [facility] T ([facility]) Body height 61 [in_i] 61 [in_i] [facility] ([facility]) 5'1" Diastolic blood pressure 80 mm[Hg] 80 mm[Hg] [facility] ([facility]) Systolic blood pressure 140 mm[Hg] 140 mm[Hg] [facility] Body weight 62.597 kg 62.597 kg [facility] ([facility]) [place] body weight 105 [lb_av] 105 [lb_av] [facility] ([facility]) Body mass index (BMI) [Ratio] 26.1 kg/m2 26.1 k g/m2 [facility] ([facility]) Body weight 138.00 [lb_av] 138.00 [lb_av] [facility] ([facility]) Body height 61 [in_i] 61 [in_i] [facility] ([facility]) 5'1" Body temperature 98.8 [degF] 98.8 [degF] [facility] ([facility] ) Oxygen saturation in Arterial blood by Pulse oximetry 98 % 98 % [facility] ([facility]) Heart rate 76 /min 76 /min [facility] ([facility]) Diastolic blood pressure 70 mm[Hg] 70 mm[Hg] [facility] ([facility]) Systolic blood pressure 130 mm[Hg] 130 mm[Hg] [facility] Body mass index (BMI) [Ratio] 26.4 kg/m2 26.4 k g/m2 [facility] ([facility] [place] body weight 100 [lb_av] 100 [lb_av] [facility] ([facility] Oxygen saturation in Arterial blood by Pulse oximetry 20 % 20 % [facility] ([facility] Body weight 136.56 [lb_av] 136.56 [lb_av] [facility] ([facility] Body height 60.25 [in_i] 60.25 [in_i] [facility] ([facility] 5'0.25" Respiratory rate 20 /min 20 /min [facility] ( [facility] [facility] Body temperature 97.7 [degF] 97.7 [degF] [facility] ([facility] Heart rate 68 /min 68 /min [facility] ([facility] Diastolic blood pressure 77 mm[Hg] 77 mm[Hg] [facility] ([facility] Systolic blood pressure 139 mm[Hg] 139 mm[Hg] [facility] ([facility] Diastolic blood pressure 75 mm[Hg] 75 mm[Hg] [facility] ([facility] Systolic blood pressure 158 mm[Hg] 158 mm[Hg] [facility]WILLI[facility] ([facility] Diastolic blood pressure 66 mm[Hg] 66 mm[Hg] eCW1 ([facility]) Systolic blood pressure 140 mm[Hg] 140 mm[Hg] e CW1 ([facility]) Body temperature 98.5 [degF] 98.5 [degF] eCW1 ( [facility]) Respiratory rate 18 /min 18 /min eCW1 ([facility]) Heart rate 74 /min 74 /min eCW1 ([facility]) Body mass index (BMI) [Ratio] 25.85 kg/m2 25.85 kg/m2 eCW1 ([facility]) Body height 61 [in_i] 61 [in_i] eCW1 ([facility]) Body weight 136.8 [lb_av] 136.8 [lb_av] eCW1 ([facility]) Diastolic blood pressure 66 mm[Hg] 66 mm[Hg] eCW1 ([facility]) Systolic blood pressure 140 mm[Hg] 140 mm[Hg] e CW1 ([facility]) Body temperature 98.5 [degF] 98.5 [degF] eCW1 ( [facility]) Respiratory rate 18 /min 18 /min eCW1 ([facility]) Heart rate 74 /min 74 /min eCW1 ([facility]) Body mass index (BMI) [Ratio] 25.85 kg/m2 25.85 kg/m2 eCW1 ([facility]) Body height 61 [in_i] 61 [in_i] eCW1 ([facility]) Body weight 136.8 [lb_av] 136.8 [lb_av] eCW1 ([facility]) Body height 61 [in_i] 61 [in_i] [facility] ([facility]) 5'1" Body weight 138.00 [lb_av] 138.00 [lb_av] MEDEN T ([facility], [facility]) Body temperature 98.7 [degF] 98.7 [degF] [facility] ([facility], [facility]) Oxygen saturation in Arterial blood by Pulse oximetry 97 % 97 % [facility] ([facility], [facility]) [facility] rate 70 /min 70 /[facility]) Diastolic blood pressure 80 mm[Hg] 80 mm[Hg] [facility] ([facility], [facility]) Systolic blood pressure 147 mm[Hg] 147 mm[Hg] [facility] ([facility], [facility]) Body mass index (BMI) [Ratio] 26.1 kg/m2 26.1 k g/m2 [facility] ([facility], [facility]) Body mass index (BMI) [Ratio] 26.1 kg/m2 26.1 k g/m2 [facility] ([facility], [facility]) Body height 61 [in_i] 61 [in_i] [facility] ([facility], [facility]) 5'1" Body weight 138.00 [lb_av] 138.00 [lb_av] MEDEN T ([facility], [facility]) Body temperature 99.1 [degF] 99.1 [degF] [facility]) Oxygen saturation in Arterial blood by Pulse oximetry 97 % 97 % [facility] ([facility], [facility]) Respiratory rate 17 /min 17 /min [facility] ( [facility], [facility]) Heart rate 76 /min 76 /min [facility] ([facility]) Diastolic blood pressure 74 mm[Hg] 74 mm[Hg] [facility] ([facility], [facility]) Systolic blood pressure 116 mm[Hg] 116 mm[Hg] [facility] ([facility], [facility]) Body mass index (BMI) [Ratio] 26.7 kg/m2 26.7 k g/m2 [facility] ([facility] Oxygen saturation in Arterial blood by Pulse oximetry 97 % 97 % [facility] ([facility] Body weight 138.00 [lb_av] 138.00 [lb_av] [facility] T ([facility] Body height 60.25 [in_i] 60.25 [in_i] [facility] ([facility] 5'0.25" Respiratory rate 17 /min 17 /min [facility] ( [facility] Body temperature 98.9 [degF] 98.9 [degF] [facility] ([facility] Heart rate 72 /min 72 /min [facility] ([facility] Diastolic blood pressure 53 mm[Hg] 53 mm[Hg] [facility] ([facility] Systolic blood pressure 99 mm[Hg] 99 mm[Hg] M [facility] ([facility] Oxygen saturation in Arterial blood by Pulse oximetry 96 % 96 % [facility] ([facility] Body weight 138.25 [lb_av] 138.25 [lb_av] [facility] T ([facility] Body height 60.25 [in_i] 60.25 [in_i] [facility] ([facility] 5'0.25" Respiratory rate 15 /min 15 /min [facility] ( [facility] Body temperature 98.5 [degF] 98.5 [degF] [facility] ([facility] Heart rate 70 /min 70 /min [facility] ([facility] Diastolic blood pressure 70 mm[Hg] 70 mm[Hg] [facility] ([facility] Systolic blood pressure 140 mm[Hg] 140 mm[Hg] M [facility] ([facility] Diastolic blood pressure 70 mm[Hg] 70 mm[Hg] [facility] ([facility] Systolic blood pressure 157 mm[Hg] 157 mm[Hg] [facility] Body mass index (BMI) [Ratio] 26.8 kg/m2 26.8 k g/m2 [facility] ([facility] Body temperature 97.8 [degF] 97.8 [degF] [facility] ([facility]) Oxygen saturation in Arterial blood by Pulse oximetry 97 % 97 % [facility] ([facility]) Heart rate 62 /min 62 /min [facility] ([facility]) Diastolic blood pressure 72 mm[Hg] 72 mm[Hg] [facility] ([facility]) Systolic blood pressure 130 mm[Hg] 130 mm[Hg] [facility] ([facility]) Body weight 63.050 kg 63.050 kg [facility] ([facility]) Body mass index (BMI) [Ratio] 26.3 kg/m2 26.3 k g/m2 [facility] ([facility]) Body weight 139.00 [lb_av] 139.00 [lb_av] MED[facility] T ([facility]) Body height 61 [in_i] 61 [in_i] [facility] ([facility]) 5'1" Systolic blood pressure 121 mm[Hg] 121 mm[Hg] e CW1 ([facility]) Body temperature 97.7 [degF] 97.7 [degF] eCW1 ( [facility]) Respiratory rate 18 /min 18 /min eCW1 ([facility]) Heart rate 75 /min 75 /min eCW1 ([facility]) Body mass index (BMI) [Ratio] 26.11 kg/m2 26.11 kg/m2 W1 ([facility]) Body height 61 [in_us] 61 [in_us] eCW1 ([facility]) Body weight Measured 138.2 [lb_av] 138.2 [lb_av ] eCW1 ([facility]) Diastolic blood pressure 74 mm[Hg] 74 mm[Hg] eCW1 ([facility]) Body mass index (BMI) [Ratio] 26.8 kg/m2 26.8 k g/m2 [facility] ([facility] Oxygen saturation in Arterial blood by Pulse oximetry 97 % 97 % [facility] ([facility] Body weight 138.25 [lb_av] 138.25 [lb_av] [facility] T ([facility] Body height 60.25 [in_i] 60.25 [in_i] [facility] ([facility] 5'0.25" Respiratory rate 17 /min 17 /min [facility] ( [facility] Body temperature 97.8 [degF] 97.8 [degF] [facility] ([facility] Heart rate 78 /min 78 /min [facility] ([facility] Diastolic blood pressure 78 mm[Hg] 78 mm[Hg] [facility] Systolic blood pressure 148 mm[Hg] 148 mm[Hg] [facility] ([facility] Diastolic blood pressure 76 mm[Hg] 76 mm[Hg] [facility] ([facility] Systolic blood pressure 154 mm[Hg] 154 mm[Hg] [facility] ([facility] Body weight 63.050 kg 63.050 kg [facility] ([facility], ) Body mass index (BMI) [Ratio] 26.3 kg/m2 26.3 k g/m2 [facility], ) Body weight 139.00 [lb_av] 139.00 [lb_av] MEDEN T ([facility], ) Body height 61 [in_i] 61 [in_i] [facility] ([facility], ) 5'1" Diastolic blood pressure 72 mm[Hg] 72 mm[Hg] [facility] ([facility], ) Systolic blood pressure 136 mm[Hg] 136 mm[Hg] [facility] Body mass index (BMI) [Ratio] 26.1 kg/m2 26.1 k g/m2 [facility] ([facility], [facility]) Body height 61 [in_i] 61 [in_i] [facility] ([facility], [facility]) 5'1" Body weight 138.00 [lb_av] 138.00 [lb_av] MEDEN T ([facility], [facility]) Body temperature 98.6 [degF] 98.6 [degF] [facility] ([facility], [facility]) Oxygen saturation in Arterial blood by Pulse oximetry 96 % 96 % [facility] ([facility], [facility]) Respiratory rate 14 /min 14 /min [facility] ( [facility], [facility]) Heart rate 91 /min 91 /min [facility] ([facility], [facility]) Diastolic blood pressure 82 mm[Hg] 82 mm[Hg] [facility] ([facility], [facility]) Systolic blood pressure 119 mm[Hg] 119 mm[Hg] [facility], [facility]) Body mass index (BMI) [Ratio] 26.1 kg/m2 26.1 k g/m2 [facility] ([facility], [facility]) Body height 61 [in_i] 61 [in_i] [facility] ([facility], [facility]) 5'1" Body weight 138.00 [lb_av] 138.00 [lb_av] MEDEN T ([facility], [facility]) Body temperature 98.1 [degF] 98.1 [degF] [facility] ([facility], [facility]) Oxygen saturation in Arterial blood by Pulse oximetry 97 % 97 % [facility] ([facility], [facility]) Respiratory rate 14 /min 14 /min [facility] ( [facility], [facility]) Heart rate 68 /min 68 /min [facility] ([facility], [facility]) Diastolic blood pressure 73 mm[Hg] 73 mm[Hg] [facility] ([facility], [facility]) Systolic blood pressure 165 mm[Hg] 165 mm[Hg] [facility] Body mass index (BMI) [Ratio] 26.1 kg/m2 26.1 k g/m2 [facility] ([facility]) Body height 61 [in_i] 61 [in_i] [facility] ([facility]) 5'1" Body weight 138.00 [lb_av] 138.00 [lb_av] MEDEN T ([facility]) Body temperature 98.0 [degF] 98.0 [degF] [facility] ([facility]) Oxygen saturation in Arterial blood by Pulse oximetry 94 % 94 % [facility] ([facility]) [facility] rate 17 /min 17 /[facility] Heart rate 80 /min 80 /min [facility] ([facility]) Diastolic blood pressure 77 mm[Hg] 77 mm[Hg] [facility] Systolic blood pressure 143 mm[Hg] 143 mm[Hg] [facility] Body mass index (BMI) [Ratio] 27.8 kg/m2 27.8 k g/m2 [facility] ([facility] Oxygen saturation in Arterial blood by Pulse oximetry 99 % 99 % [facility] ([facility] Body weight 143.38 [lb_av] 143.38 [lb_av] [facility] T ([facility] Body height 60.25 [in_i] 60.25 [in_i] [facility] ([facility] 5'0.25" Respiratory rate 16 /min 16 /min [facility] ( [facility] Body temperature 97.8 [degF] 97.8 [degF] [facility] ([facility] Heart rate 90 /min 90 /min [facility] ([facility] Diastolic blood pressure 73 mm[Hg] 73 mm[Hg] [facility] ([facility] Systolic blood pressure 131 mm[Hg] 131 mm[Hg] [facility] ([facility]
[2020-11-22] MEDS ORDERED: ALBUTEROL 90 MCG/ACT 8GM HFA INHALER INH ONE (07:30)
--- OUTSIDE RECORDS SUMMARY | 2020-11-22 07:31 | CCD ---
Author Author [facility] Organization [facility] Address Unknown Phone Unavailable Care Team Providers Care Outreach Associate Name Role Phone DAVID, TABBY PA Unavailable [...] L Katerine MD Unavailable Unavailable Gonzalez, Roxane TOBACCO WAREHOUSE MANAGER Unavailable Unavailable Gonzalez, Roxane TOBACCO WAREHOUSE MANAGER Unavailable Unavailable Gonzalez, Roxane TOBACCO WAREHOUSE MANAGER Unavailable Unavailable Gonzalez, Roxane TOBACCO WAREHOUSE MANAGER Unavailable Unavailable Gonzalez, Roxane TOBACCO WAREHOUSE MANAGER Unavailable Unavailable Gonzalez, Roxane TOBACCO WAREHOUSE MANAGER Unavailable Unavailable Gonzalez, Roxane TOBACCO WAREHOUSE MANAGER Unavailable Unavailable Gonzalez, Roxane TOBACCO WAREHOUSE MANAGER Unavailable Unavailable Gonzalez, Roxane TOBACCO WAREHOUSE MANAGER Unavailable Unavailable Gonzalez, Roxane TOBACCO WAREHOUSE MANAGER Unavailable Unavailable Gonzalez, Roxane TOBACCO WAREHOUSE MANAGER Unavailable Unavailable LETTIERE, A VIRGIN[place] PA Unavailable [...] NON, PHYSICIAN STAFF Unavailable Unavailable Pleskach, Ritu COMMUNITY ASSOCIATE Unavailable Unavailable Pleskach, Ritu COMMUNITY ASSOCIATE Unavailable Unavailable Pleskach, Ritu COMMUNITY ASSOCIATE Unavailable Unavailable Pleskach, Ritu COMMUNITY ASSOCIATE Unavailable Unavailable Pleskach, Ritu COMMUNITY ASSOCIATE Unavailable Unavailable Pleskach, Ritu COMMUNITY ASSOCIATE Unavailable Unavailable Pleskach, Ritu COMMUNITY ASSOCIATE Unavailable Unavailable Pleskach, Ritu COMMUNITY ASSOCIATE Unavailable Unavailable Pleskach, Ritu COMMUNITY ASSOCIATE Unavailable Unavailable Pleskach, Ritu COMMUNITY ASSOCIATE Unavailable Unavailable Pleskach, Ritu COMMUNITY ASSOCIATE Unavailable Unavailable Pleskach, Ritu COMMUNITY ASSOCIATE Unavailable Unavailable Pleskach, Ritu COMMUNITY ASSOCIATE Unavailable Unavailable Pleskach, Ritu COMMUNITY ASSOCIATE Unavailable Unavailable Pleskach, Ritu COMMUNITY ASSOCIATE Unavailable Unavailable Pleskach, Ritu COMMUNITY ASSOCIATE Unavailable Unavailable Pleskach, Ritu COMMUNITY ASSOCIATE Unavailable Unavailable Pleskach, Ritu COMMUNITY ASSOCIATE Unavailable Unavailable Pleskach, Ritu COMMUNITY ASSOCIATE Unavailable Unavailable Pleskach, Ritu COMMUNITY ASSOCIATE Unavailable Unavailable Pleskach, Ritu COMMUNITY ASSOCIATE Unavailable Unavailable Pleskach, Ritu COMMUNITY ASSOCIATE Unavailable Unavailable Pleskach, Ritu COMMUNITY ASSOCIATE Unavailable Unavailable Pleskach, Ritu COMMUNITY ASSOCIATE Unavailable Unavailable Pleskach, Ritu COMMUNITY ASSOCIATE Unavailable Unavailable Pleskach, Ritu COMMUNITY ASSOCIATE Unavailable Unavailable Pleskach, Ritu COMMUNITY ASSOCIATE Unavailable Unavailable Pleskach, Ritu COMMUNITY ASSOCIATE Unavailable Unavailable Petrancosta, Lagrange Bri PA-C Unavailable Unavailabl e Petrancosta, Lagrange Bri PA-C Unavailable Unavailabl e Petrancosta, Lagrange Bri PA-C Unavailable Unavailabl e Petrancosta, Lagrange Bri PA-C Unavailable Unavailabl e Petrancosta, Lagrange Bri PA-C Unavailable Unavailabl e Petrancosta, Lagrange Bri PA-C Unavailable Unavailabl e Petrancosta, Lagrange Bri PA-C Unavailable Unavailabl e Petrancosta, Lagrange Bri PA-C Unavailable Unavailabl e Petrancosta, Lagrange Bri PA-C Unavailable Unavailabl e Petrancosta, Lagrange Bri PA-C Unavailable Unavailabl e Petrancosta, Lagrange Bri PA-C Unavailable Unavailabl e Petrancosta, Lagrange Bri PA-C Unavailable Unavailabl e Petrancosta, Lagrange Bri PA-C Unavailable Unavailabl e Petrancosta, Lagrange Bri PA-C Unavailable Unavailabl e Petrancosta, Lagrange Bri PA-C Unavailable Unavailabl e Petrancosta, Lagrange Bri PA-C Unavailable Unavailabl e Petrancosta, Lagrange Bri PA-C Unavailable Unavailabl e Petrancosta, Lagrange Bri PA-C Unavailable Unavailabl e Petrancosta, Lagrange Bri PA-C Unavailable Unavailabl e Petrancosta, Lagrange Bri PA-C Unavailable Unavailabl e Petrancosta, Lagrange Bri PA-C Unavailable Unavailabl e Petrancosta, Lagrange Bri PA-C Unavailable Unavailabl e Petrancosta, Lagrange Bir PA-C Unavailable Unavailabl e RING, K JOHNY [...] Unavailable Sidney II, Dewey PA Unavailable Unavailable Sindey II, Dewey PA Unavailable Unavailable Sidney II, [...] Unavailable Sidney II, Dewey PA Unavailable Unavailable Re-disclosure Warning [...] is protected by Article 27-F of the [facility] Public Health law. If you continue you may have access to information: Regarding HIV / AIDS; Provided by facilities licensed or operated by the [facility] Office of Mental Health; or Provided by the [facility] Office for People With Developmental Disabilities. If such information is present, then the following [facility] mandated warning applies: This information has been [...] law may result in a fine or retirement sentence or both. A general authorization for the release of medical or other information is NOT sufficient authorization for further disc losure. Allergies and Adverse Reactions Type Description Substance Reaction Status Data Source(s ) Drug allergy Avelox moxifloxacin legs shakey Active eCW1 ([facility]) Drug allergy Doxycycline Hyclate Doxycycline ineffective Active eCW1 ([facility]) Drug allergy Cymbalta duloxetine Nausea/Vomiting Active eCW1 ( [facility]) Drug allergy Prozac Fluoxetine fatigue Active eCW1 ([facility]) codeine Codeine Sulfate Codeine Nausea/Vomiting Active eCW 1 ([facility]) No Known Food Allergies No Known Food Allergies [facility] Drug allergy sulfa sulfa RASH [facility] BRANDNAME CYMBALTA CYMBALTA VOMITING [facility] BRANDNAME AVELOX AVELOX VOMITING [facility] Family History Family Member Name Family Member Gender Family Member Status Date o f Status Description Data Source(s) Unknown Unknown Problem MEDENT ([facility]) Unknown Male Problem MEDENT ([facility]) Unknown Unknown Problem MED[facility] ([facility] mother Unknown Male Problem MEDENT ([facility]) Unknown [facility] Problem MED[facility] ([facility] Unknown Female Problem MEDENT ([facility]) Encounters Encounter Providers Location Date Indications Data Source(s ) Outpatient Attender: VIR[place] mistryy 11/02/2020 07:10:00 AM EST MEDENT ([facility] Outpatient Attender: Ritu Chavez [facility] Main Office 10/24/2020 1 0:45:00 AM EST MEDENT ([facility] Outpatient Attender: Katerine Meraz MD [facility] 10/11/2020 02:00:00 PM EST MEDENT ([facility]) Outpatient Attender: TABBY Myricka 10/05/2020 12:15:00 PM EST MEDENT ([facility]) Outpatient Attender: GHAZAL VANG DO [place] 09/17/2020 07:30:00 AM EST MEDENT ([facility] Outpatient Attender: Ritu Chavez [facility] Main Office 09/07/2020 1 0:30:00 AM EST MEDENT ([facility] Outpatient Attender: Phoebe Peter Prim luisa 08/23/2020 02:10:00 PM EDT MEDENT [facility] Outpatient Attender: GHAZAL VANG DO [place] 08/09/2020 03:00:00 PM EDT MEDENT ([facility]) Outpatient Attender: Dewey Little II [place] 08/01/2020 10:30:00 AM EDT MEDENT ([facility]) Outpatient Attender: JOHNY Peter Primary 06/23/2020 08:55:00 AM EDT MEDENT ([facility] Outpatient Attender: GHAZAL VANG DO [place] 05/31/2020 09:30:00 AM EDT MEDENT ([facility]) Outpatient Attender: Ritu Chavez [facility] Main Office 05/16/2020 1 0:00:00 AM EDT MEDENT ([facility] [place] [address] [facility] [address] 05/16/2020 12:00:00 AM EDT eCW1 ([facility]) Outpatient [address] [place] [phone] 05/07/2020 12:00:00 AM EDT [facility] Outpatient Attender: TABBY hill 04/26/2020 11:45:00 AM EDT MEDENT ([facility]) Outpatient Attender: Roxane price 04/07/2020 11:25:00 AM EDT MEDENT ([facility]) Outpatient Attender: Ritu Chavez [facility] Main Office 03/30/2020 1 0:00:00 AM EDT MEDENT ([facility] Outpatient Attender: Ritu Chavez [facility] Main Office 03/07/2020 1 1:00:00 AM EDT MEDENT ([facility] Outpatient Attender: GHAZAL [place] 03/06/2020 10:30:00 AM EDT MEDENT ([facility] [address] [place] [phone] 03/06/2020 12:00:00 AM EDT eCW1 ([facility] [place]) [facility] [address] [place] [phone] 02/21/2020 12:00:00 AM EDT eCW1 ([facility] [place]) [facility] [address] [place] [address] 02/20/2020 12:00:00 AM EDT eCW1 ([facility] [place]) [facility] [address] [place] [phone] 02/14/2020 12:00:00 AM EDT eCW1 ([facility] [place]) [facility] [address] [place] [phone] 01/16/2020 12:00:00 AM EDT eCW1 ([facility]) Outpatient Attender: Bri Figueroa PA-C Main Office 01/02/2020 01:00:00 PM EDT MED[facility] ([facility] [address] [place] [phone] 01/02/2020 12:00:00 AM EDT eCW1 ([facility]) Outpatient Referrer: Bushra NEGRON 12/28/2019 10:56:00 AM EST [facility] [address] 12/28/2019 12:00:00 AM EST eCW1 ([facility]) Outpatient Attender: TABBY hill 12/19/2019 11:45:00 AM EST MEDENT ([facility]) Outpatient Attender: Roxane price 12/05/2019 08:20:00 AM EST MEDENT ([facility]) Outpatient Attender: LOLY HOLGUIN MDConsultant: STAFF NON 11/21/2019 09:49:00 AM EST - 11/21/2019 09:49:00 AM EST [facility] Outpatient Attender: VIRGINIA moran 11/01/2019 09:45:00 AM EST MEDENT ([facility]) Outpatient Attender: Bri Figueroa PA-C Main Office 10/31/2019 01:15:00 PM EST MEDENT ([facility] Immunizations Vaccine Date Status Description Data Source(s) INFLUENZA VACCINE QUADRIVALENT (65 YR UP)/MF59 C.1/PF 07/06/2020 12:00:00 AM EDT completed [facility] Medications Medication Brand Name Start Date [...] MOUTH TWICE A DAY SOLD: 11/14/2020 [facility] Prednisone 20 MG Oral Tablet Prednisone 11/02/2020 12:00:00 AM EST active MEDENT ([facility] 20 mg 11/02/2020 12:00:00 AM EST tablet [...] FOR 10 DAYS SOLD : 11/02/2020 [facility] cefdinir 300 MG Oral Capsule Cefdinir 11/02/2020 12:00:00 AM EST ORAL active MEDENT ([facility] Nystatin [id number] UNT/ML Oral Suspension Nystatin 10/11/2020 12:00:00 AM EST active MEDENT ([facility]) 4 mg 10/05/2020 12:00:00 AM EST tablet [...] A DAY FOR 10 DAYS SOLD: 10/05/2020 [facility] Amoxicillin 875 MG / Clavulanate 125 MG Oral Tablet Am oxicillin/Clavulanate Potassium 10/05/2020 12:00:00 AM EST ORAL completed MEDENT ([facility]) Methylprednisolone 4 MG Oral Tablet Methylprednisolone 09/25 12:00:00 AM EST ORAL completed MEDENT ([facility]) Albuterol 0.83 MG/ML Inhalant Solution Albuterol Sulfate 1 11/17/2019 12:00:00 AM EST active MEDENT ([facility]) Prednisone 10 MG Oral Tablet Prednisone 09/17/2020 12:00:00 AM EST ORAL active MEDENT ([facility]) Levofloxacin 500 MG Oral Tablet Levofloxacin 09/17/2020 12:00:[address] ORAL active MEDENT ([facility]) cefdinir 300 MG Oral Capsule Cefdinir 08/23/2020 12:00:00 AM EDT ORAL completed MEDENT ([facility]) 200 ACTUAT Albuterol 0.09 MG/ACTUAT Metered Dose Inhal er [Ventolin] Ventolin HFA 08/14/2020 12:00:00 AM EDT RESPIRATORY active MEDENT ([facility]) 200 ACTUAT Albuterol 0.09 MG/ACTUAT Metered Dose Inhal er [Ventolin] Ventolin HFA 08/09/2020 12:00:00 AM EDT RESPIRATORY completed MEDENT ([facility]) 30 ACTUAT fluticasone furoate 0.2 MG/ACT UAT / vilanterol 0.025 MG/ACTUAT Dry Powder Inhaler [Breo] Breo Ellipta 08/09/2020 12:00:00 AM EDT OR AL active MEDENT ([facility] ) Prednisone 10 MG Oral Tablet Prednisone 07/23/2020 12:00:00 AM EDT ORAL completed MEDENT ([facility]) Levofloxacin 500 MG Oral Tablet Levofloxacin 07/23/2020 12:00:00 AM E DT ORAL completed MEDENT ([facility], ) cefdinir 300 MG Oral Capsule Cefdinir 06/23/2020 12:00:00 AM EDT ORAL completed MEDENT ([facility]) Suprep Bowel Prep Kit Suprep Bowel Prep Kit 06/12/2020 12:00:00 AM EDT completed MEDENT ([facility], ) Doxycycline Monohydrate 100 MG Oral Capsule Doxycycline [place] hydrate 05/16/2020 12:00:00 AM EDT ORAL completed [facility] ([facility] Prednisone 20 MG Oral Tablet Prednisone 04/26/2020 12:00:00 AM EDT ORAL completed MEDENT ([facility]) 12 HR Dextromethorphan Hydrobromide 30 M G / Guaifenesin 600 MG Extended Release Oral Tablet Mucinex DM 04/17/2020 12:00:00 AM EDT ORAL completed MEDENT ([facility]) cefdinir 300 MG Oral Capsule Cefdinir 04/07/2020 12:00:00 AM EDT ORAL completed MEDENT ([facility]) Azelastine HCL (Nasal) Azelastine HCL (Nasal) 04/02/2020 12:00:00 AM E DT active MEDENT ([facility] Mometasone Furoate Mometasone Furoate 03/30/2020 12:00:00 AM EDT completed [facility] ([facility] benzonatate 100 MG Oral Capsule Benzonatate 03/30/2020 12:00:00 AM EDT ORAL active MED[facility] ([facility] Potassium ORAL active MEDENT ( [facility], ) cefdinir 300 MG Oral Capsule Cefdinir 12/05/2019 12:00:00 AM EST ORAL completed MEDENT ([facility] 12 HR Dextromethorphan Hydrobromide 30 M G / Guaifenesin 600 MG Extended Release Oral Tablet [Mucinex DM] Mucinex DM 11/01/2019 12:00:00 AM EST completed MEDENT ([facility]) Amoxicillin 875 MG Oral Tablet Amoxicillin 11/01/2019 12:00:00 AM EST completed MEDENT ([facility]) Insurance Providers Payer name Policy type / Coverage type Policy ID Covered republican ID Covered republican's relationship to corona Policy Corona Plan Information WELLCARE [id number] SP [id number] WELLCARE [id number] SP [id number] WELLCARE [id number] SP [id number] WELLCARE O [id number] S [id number] WELLCARE O [id number] S [id number] WELLCARE-CLINIC [place] [id number] 18 [id number] WELLCARE [id number] SP [id number] WELLCARE -O/P [place] [id number] 18 [id number] WELLCARE - PHYSICIAN CO [id number] 18 [id number] TODAYS OPTIONS [id number] SP [id number] Well[facility]Clinic Commercial [id number] Self [id number] [facility] Commercial [id number] Self [id number] Wellcare Today's Options Commercial [id number] Self [id number] [employer] Commercial [id number] Self [id number] Wellcare Today's Options Commercial [id number] Self [id number] [employer] Plans Inc Commercial [id number] Self [id number] WELLCARE TODAY'S OPTIONS [id number] M edicare Part B [id number] Wellcare Health Plans(To) Commercial [id number] Self [id number] Wellcare Today's Options Commercial [id number] Self [id number] Wellcare Today's Options Commercial [id number] Self [id number] ANSI-Medicare Part B [id number] ANSI-Medicare Part B [id number] MEDICARE PART A [facility] [id number] 18 [id number] Wellcare Today's Options Commercial [id number] Self [id number] Wellcare Today's Options Commercial [id number] Self [id number] Well[employer] Inc Commercial [id number] Self [id number] Well[employer] Plans Inc Commercial [id number] Self [id number] Well[employer] Plans Inc Commercial [id number] Self [id number] Wellcare Today's Options Commercial [id number] Self [id number] ANSI-Medicare Part B [id number] ANSI-Medicare Part B [id number] Medicare Part A [place] Primary [id number] Self [id number] Wellcare[facility]Clinic Commercial [id number] Self [id number] Wellcare Today[employer] Options Commercial [id number] Self [id number] Wellcare Today's Options Commercial [id number] Self [id number] Wellcare Today's Options Commercial [id number] Self [id number] Wellcare Health Plans(To) Commercial [id number] Self [id number] Well[employer] Health Plans(To) Commercial [id number] Self [id number] TODAYS OPTIONS [id number] SP [id number] Wellcare Health Plans(To) Commercial [id number] Self [id number] TODAYS OPTIONS [id number] SP [id number] ANSI-Medicare Part B [id number] ANSI-Medicare Part B [id number] WELLCARE O [id number] S [id number] ANSI-Medicare Part B [id number] ANSI-Medicare Part B [id number] [employer] Commercial [id number] Self [id number] MEDICARE [id number] SP [id number] ANSI-Medicare Part B [id number] ANSI-Medicare Part B [id number] [employer] Commercial [id number] Self [id number] ANSI-Medicare Part B [id number] ANSI-Medicare Part B [id number] [employer]IVE [id number] SP [id number] [employer] Commercial [id number] Self [id number] [employer] Commercial [id number] Self [id number] ANSI-Medicare Part B [id number] ANSI-Medicare Part B [id number] ANSI-Medicare Part B [id number] ANSI-Medicare Part B [id number] [employer] Commercial [id number] Self [id number] [employer] Commercial [id number] Self [id number] ANSI-Medicare Part B [id number] ANSI-Medicare Part B [id number] ANSI-Medicare Part B [id number] ANSI-Medicare Part B [id number] [employer] Commercial [id number] Self [id number] TODAYS OPTIONS [id number] SP [id number] [employer] Options Commercial [id number] Self [id number] TODAYS OPTIONS/TAIWANESE O [id number] S [id number] [employer] Options Commercial [id number] Self [id number] [employer] Commercial [id number] Self [id number] TODAYS OPTIONS [id number] SP [id number] [employer] Commercial [id number] Self [id number] [employer] Commercial [id number] Self [id number] TODAYS OPTIONS/TAIWANESE O [id number] S [id number] Today's Option Medicare Commercial [id number] Self [id number] [employer] Commercial [id number] Self [id number] TODAYS OPTIONS [id number] SP [id number] [employer] Commercial [id number] Self [id number] [employer] Commercial [id number] Self [id number] [employer] Commercial [id number] Self [id number] Today's Option Medicare Commercial [id number] Self [id number] [employer] Commercial [id number] Self [id number] [employer] Commercial [id number] Self [id number] TODAYS OPTIONS [id number] SP [id number] Today's Options Ppo Commercial [id number] Self [id number] [employer] Commercial [id number] Self [id number] Today's Options Ppo Commercial [id number] Self [id number] [employer] Commercial [id number] Self [id number] [employer] Commercial [id number] Self [id number] [employer] Commercial [id number] Self [id number] [employer] Commercial [id number] Self [id number] TODAYS OPTIONS [id number] SP [id number] [employer] Commercial Self MEDICARE COMPLETE [id number] SP [id number] SECURE HORIZONS [id number] SP [id number] SECURE H[employer]IZONS [id number] SP [id number] TODAYS OPTIONS [id number] SP [id number] TODAYS OPTIONS [id number] SP [id number] [facility] [id number] SP [id number] [facility] [id number] SP [id number] MEDICARE [id number] SP [id number] A [employer] Commercial Self [id number] Problems, Conditions, and Diagnoses Code Display Name Description Problem Type Effective Dates Data Source(s) 07259642 Essential hypertension Essential hypertension Problem 09/07/2020 12:00:00 AM EST MEDENT ([facility] [id number] Mild intermittent asthma Mild intermittent asthma Prob beka 08/09/2020 12:00:00 AM EDT MEDENT ([facility] ) Other nonspecific abnormal finding of kiya ng field Other nonspecific abnormal finding of lung field Problem 05/31/2020 12:00:00 AM EDT MEDENT ([facility], ) M79.18 45494689 Myalgia, other site Problem 05/07/2020 12:00 :00 AM EDT eCW1 ([facility]) 55660041 Cough Cough Problem 03/06/2020 12:00:00 AM ED T MEDENT ([facility], ) M47.816 944312284 Lumbar Facet arthropathy Problem 02/21/2020 12:00:00 AM EDT eCW1 ([facility]) M43.06 488645384 Lumbar spondylolysis Problem 02/21/2020 12:0 0:00 AM EDT eCW1 ([facility]) M43.06 487763411 Lumbar spondylolysis Problem 02/21/2020 12:0 0:00 AM EDT eCW1 ([facility]) M47.816 616852417 Lumbar Facet arthropathy Problem 02/21/2020 12:00:00 AM EDT eCW1 ([facility]) Surgeries/Procedures Procedure Description Date Indications Data Source(s) Endoscopy Nasal Diagnostic 10/11/2020 12:00:00 AM EST MEDENT ([facility]) Spirometry 09/17/2020 12:00:00 AM EST M EDENT ([facility]) Airway Inhalation Treatment 09/17/2020 12:00:00 AM EST MEDENT ([facility]) Aerosol Or Vapor Inhalations 08/09/2020 12:00:00 AM ED T MEDENT ([facility]) Colonoscopy Flexible Proximal To Splenic Flexure Diagnostic W/Or 06/28/2020 12:00:00 AM EDT MEDENT ([facility]) Bronchospasm Evaluation 05/29/2020 12:00:00 AM EDT MEDENT ([facility]) Maximum Breathing Capacity, Maximal Voluntary Ventilation 05/29/2020 12:00:00 AM EDT MEDENT ([facility]) Plethysmography Determination Lung Volumes & Per Airway Resi st 05/29/2020 12:00:00 AM EDT MEDENT ([facility]) DIFFUSING CAPACITY 05/29/2020 12:00:00 AM EDT MEDENT ([facility]) Bone Mineral Density Test 03/13/2020 12:00:00 AM EDT MED[facility] ([facility] WTW/ Dr. Fox Mammogram 03/13/2020 12:00:00 AM EDT M EDENT ([facility] Mammogram 03/13/2020 12:00:00 AM EDT M EDENT ([facility] WTWXray: 02/23/17 - Mammography, Bilater al, new order given 01/27/18 Spirometry 03/06/2020 12:00:00 AM EDT Khai MCWILLIAMS ([facility], ) PHYSICIAN TELEPHONE EVALUATION 11-20 MIN 03/06/2020 12 :00:00 AM EDT eCW1 ([facility]) INJ PARAVERT F JNT L/S 1 LEV 02/21/2020 12:00:00 AM ED T eCW1 ([facility]) INJ PARAVERT F JNT L/S 2 LEV 02/21/2020 12:00:00 AM ED T eCW1 ([facility]) RADXPS IN END [id number] 02/21/2020 12:00:00 AM ED T eCW1 ([facility]) Results ID Date Data Source [id number] 11/02/2020 12:00:00 AM EST [facility] Name Value Range Interpretation Code Description Data Indigo rce(s) Supporting Document(s) SARS-CoV2 Rapid Antigen Positive [facility] This lab was reported by [facility]. ID Date Data Source [id number] 10/05/2020 12:00:00 AM EST [facility] Name Value Range Interpretation Code Description Data Indigo rce(s) Supporting Document(s) SARS coronavirus 2 Ag [facility] This lab was ordered by [facility] and reported by [facility]. ID Date Data Source [id number] 09/18/2020 02:00:00 PM EST NICHOL ([facility], ) Name Value Range Interpretation Code Description Data Indigo rce(s) Supporting Document(s) Gram Stain Laboratory test result Normal (applies to non-n umeric results) [facility] ([facility], ) QUALITY: POOR MANY EPITHELIAL CELLS FEW GRAM POSITIVE COCCI IN PAIRS, CHAINS AND CLUSTERS Sputum Culture Laboratory test result [facility] ([facility], ) Sputum culture not performed due to orop haryngeal contamination. Further processing of such specimens would not yield useful information about the possible pathogens from the lower respiratory tract. Test not performed ID Date Data Source [id number] 09/17/2020 09:17:00 AM EST MEDYAHIR ([facility], ) Name Value Range Interpretation Code Description Data Indigo rce(s) Supporting Document(s) Gram Stain Laboratory test result Normal (applies to non-n umeric results) [facility] ([facility]) QUALITY: POOR MANY EPITHELIAL CELLS FEW WBCS MANY GRAM POSITIVE COCCI IN PAIRS, CHAINS AND CLUSTERS FEW GRAM POSITIVE RODS Sputum Culture Laboratory test result [facility] ([facility]) Sputum culture not performed due to orop haryngeal contamination. Further processing of such specimens would not yield useful information about the possible pathogens from the lower respiratory tract. Test not performed ID Date Data Source [id number] 09/17/2020 09:17:00 AM [facility] ([facility]) Name Value Range Interpretation Code Description Data Indigo rce(s) Supporting Document(s) Bacteria identified in Sputum by Aerobe culture Laboratory test resul t [facility] ([facility]) ID Date Data Source [id number] 09/17/2020 08:36:00 AM [facility] ([facility]) Name Value Range Interpretation Code Description Data Indigo rce(s) Supporting Document(s) PDFReport Laboratory test result [facility] ([facility]) FVC-Pred 2.34 L [facility] ([facility]) FVC-LLN 1.70 L [facility] ([facility]) FVC-Pre 2.04 L [facility] ([facility]) FVC-%Pred-Pre 87 L [facility] ([facility]) Fev1-%Pred-Pre 92 L [facility] ([facility]) Fev1-Pred 1.73 L [facility] ([facility]) Fev1-Pre 1.61 L [facility] ([facility]) Fev6-Pre 2.04 L [facility] ([facility]) Fev1-LLN 1.20 L [facility] ([facility]) Fev6-Pred 2.20 L [facility] ([facility]) Fev6-%Pred-Pre 92 L [facility] ([facility]) Fev6-LLN 1.59 L [facility] ([facility], ) Kqb1oin-Jjai 74 % [facility] ([facility]) Xaq8fwm-Tvl 79 % [facility] ([facility]) Ief2zxg-%Pred-Pre 106 % [facility] ([facility]) Ghr2kat-Dhge 94 % [facility] ([facility]) Aap1quu-HJP 64 % [facility] ([facility]) Rbm3vai-Vva 100 % [facility] ([facility]) FEFMax-Pre 5.42 L/E/sec [facility] ([facility]) FEFMax-Pred 4.53 L/E/sec [facility] ([facility]) Cpy4fwi-%Pred-Pre 105 % [facility] ([facility]) FEFMax-LLN 2.97 L/E/sec [facility] ([facility]) Qco8670-Riri 1.34 L/E/sec [facility] ([facility]) FEFMax-%Pred-Pre 119 L/E/sec [facility] ([facility]) Yae0488-Fwb 1.45 L/E/sec [facility] ([facility]) Vtj2826-%Pred-Pre 108 L/E/sec [facility] ([facility]) Iib2idd8-Hpqp 78 % [facility] ([facility]) ExpTime-Pre 5.12 sec [facility] ([facility]) Vxb5816-GNZ 0.21 L/E/sec [facility] ([facility]) Svr6ieu8-Vrm 79 % [facility] ([facility]) Bwh7wjf7-%Pred-Pre 101 % [facility] ([facility]) Cpi0zbt4-VWZ 69 % [facility] ([facility]) ID Date Data Source [id number] 09/13/2020 02:55:00 PM EST [facility] ([facility]) Name Value Range Interpretation Code Description Data Indigo rce(s) Supporting Document(s) Gram Stain Laboratory test result Normal (applies to non-n umeric results) [facility] ([facility], ) QUALITY: GOOD MODERATE WBCS FEW EPITHELIAL CELLS FEW GRAM POSITIVE COCCI IN PAIRS AND CHAINS FEW GRAM POSITIVE RODS Sputum Culture Laboratory test result Normal (applies to non-numeric results) [facility] ([facility], ) FULL REPORT IN LAB NOTES (eCW and [facility] ). NORMAL AUDREY PRESENT ID Date Data Source [id number] 09/07/2020 12:31:00 PM EST [facility] ([facility] [...]
<content>note:<nlbl:demog raphic_changed></content>
<content></content> ID Date Data Source [id number] 09/07/2020 12:31:00 PM EST [facility] ([facility] Name Value Range Interpretation Code Description Data [facility](s) Supporting Document(s) Triglycerides Level 97 mg/dL [facility] ([facility] Cholesterol Level 217 mg/dL [facility] ([facility] HDL Cholesterol 82 mg/dL [facility] ([facility] LDL Cholesterol 116 mg/dL [facility] ([facility] Cholesterol Risk Ratio 2.646 [facility] ([facility] Non-HDL-C 135 mg/dL [facility] ([facility] ID Date Data Source [id number] 09/07/2020 12:31:00 PM EST [facility] ([facility] Name Value Range Interpretation Code Description Data [facility](s) Supporting Document(s) Blood Urea Nitrogen 20 mg/dL [...] Little GFR Left</content>
<content>ESRD GFR <15 on CYTOGENETICS TECHNOLOGIST</content>
<content></content> Creatinine For GFR 0.73 mg/dL 0.55-1.30 [...] [facility] ID Date Data Source [id number] 09/07/2020 12:31:00 PM EST [facility] ([facility] [...] % 24.0-44.0 [facility] ([facility] Winona % 9.5 % 0.0-5.0 [facility] ([facility] Nucleated Red Blood Cell % 0.3 % 0-0 [facility] ([facility] Baso % 0.8 % 0.0-1.0 [facility] ([facility] Immature Granulocyte % 0.7 % 0-3.0 [facility] ([facility] Winona # 0.6 10 0.0-0.8 [facility] ([facility] Neutrophils # 3.6 10 1.5-8.5 [facility] ([facility] Lymph # 1.6 10 1.5-5.0 [facility] ([facility] Eos # 0.1 10 0.0-0.5 [facility] ([facility] Baso # 0.1 10 0.0-0.2 [facility] ([facility] ID Date Data Source [id number] 04/07/2020 11:53:00 AM EDT [facility] ([facility]) Name Value Range Interpretation Code Description Data Indigo rce(s) Supporting Document(s) Bacteria identified in Urine by Culture Laboratory test result [facility] ([facility]) FULL REPORT IN LAB NOTES (eCW and [facility] ). NO GROWTH CLINICAL SIGNIFICANCE 1 ORGANISM ID Date Data Source [id number] 03/29/2020 10:25:00 AM EDT [facility] ([facility] Name Value Range Interpretation Code Description Data Indigo rce(s) Supporting Document(s) Coronavirus 2019 Nasopharygeal Laboratory test result [facility] ([facility] Testing was performed using the maura(R) SARS-CoV-2 test. This test was developed and its performance characteristics determined by [employer]. This test has not been FDA cleared [...] detected) result in this assay. Performed at: [facility] [id number] Grocery Packer: Caroline Aguilera MD, Phone: [phone] Not Detected ID Date Data Source [id number] 03/29/2020 10:25:00 AM EDT [facility] Name Value Range Interpretation Code Description Data Indigo rce(s) Supporting Document(s) SARS CORONAVIRUS 2 RNA [facility] This lab was ordered by [facility] and reported by [facility]. ID Date Data Source [id number] 03/13/2020 07:07:00 AM EDT [facility] ([facility] Name Value Range Interpretation Code Description Data Indigo rce(s) Supporting Document(s) Laboratory test finding (navigational concept) Laboratory test result [facility] ([facility] ID Date Data Source [id number] 03/06/2020 11:02:00 AM EDT [facility] ([facility], ) Name Value Range Interpretation Code Description Data Indigo rce(s) Supporting Document(s) Gram Stain Laboratory test result Normal (applies to non-n umeric results) [facility] ([facility], ) QUALITY: POOR MANY EPITHELIAL CELLS FEW WBCS MANY GRAM POSITIVE COCCI IN PAIRS, CHAINS AND CLUSTERS FEW GRAM POSITIVE RODS Sputum Culture Laboratory test result [facility] ([facility], ) Sputum culture not performed due to orop haryngeal contamination. Further processing of such specimens would not yield useful information about the possible pathogens from the lower respiratory tract. Test not performed ID Date Data Source [id number] 03/06/2020 10:21:00 AM EDT [facility] ([facility], ) Name Value Range Interpretation Code Description Data Indigo rce(s) Supporting Document(s) PDFReport Laboratory test result [facility] ([facility], ) FVC-Pred 2.34 L [facility] ([facility]) FVC-Pre 2.22 L [facility] ([facility]) FVC-%Pred-Pre 94 L [facility] ([facility], ) Fev1-Pred 1.73 L [facility] ([facility]) FVC-LLN 1.70 L [facility] ([facility]) Fev1-%Pred-Pre 101 L [facility] ([facility]) Fev1-Pre 1.76 L [facility] ([facility]) Fev1-LLN 1.20 L [facility] ([facility]) Fev6-Pre 2.22 L [facility] ([facility]) Fev6-Pred 2.20 L [facility] ([facility]) Fev6-%Pred-Pre 100 L [facility] ([facility]) Fev6-LLN 1.59 L [facility] ([facility]) Pfy4kyw-Nwpq 74 % [facility] ([facility]) Qds1gou-Bgp 79 % [facility] ([facility]) Ucd2vio-FJR 64 % [facility] ([facility]) Pih3nja-%Pred-Pre 106 % [facility] ([facility]) Ixp6osq-Ahs 100 % [facility] ([facility]) Yap3arn-Zrem 94 % [facility] ([facility]) Pic7pdv-%Pred-Pre 105 % [facility] ([facility]) FEFMax-Pred 4.53 L/E/sec [facility] ([facility]) FEFMax-%Pred-Pre 86 L/E/sec [facility] ([facility]) FEFMax-Pre 3.91 L/E/sec [facility] ([facility]) FEFMax-LLN 2.97 L/E/sec [facility] ([facility]) Uav4578-Hye 1.66 L/E/sec [facility] ([facility]) Svy4821-Txzw 1.34 L/E/sec [facility] ([facility]) Mmr0693-%Pred-Pre 123 L/E/sec [facility] ([facility]) Sly7460-AWG 0.21 L/E/sec [facility] ([facility]) Rin0fkt9-Mwor 78 % [facility] ([facility]) ExpTime-Pre 6.59 sec [facility] ([facility]) Itl5wkv9-Ary 79 % [facility] ([facility]) Qif4ots1-%Pred-Pre 101 % [facility] ([facility]) Wim4bdm6-FNE 69 % [facility] ([facility]) ID Date Data Source [id number] 03/01/2020 12:17:00 PM EDT [facility] ([facility]camp[facility] [...] THAN 211 PG/ML ID Date Data Source [id number] 03/01/2020 12:17:00 PM EDT [facility] ([facility] Name Value Range Interpretation Code Description Data Indigo rce(s) Supporting Document(s) Calcitriol [Mass/volume] in Serum or Plasma 60.5 pg/mL 19.9-79.3 [facility] ([facility] Performed at: - [address] [id number] Grocery Packer: Heike Rodríguez MD, Phone: [phone] ID Date Data Source [id number] 03/01/2020 12:17:00 PM EDT [facility] ([facility] [...] Little GFR Left</content>
<content>ESRD GFR <15 on CYTOGENETICS TECHNOLOGIST</content>
<content></content> Sodium Level 142 meq/L 136-145 [facility] [...] Alkaline Phosphatase 70 U/L 45-117 [facility] ([facility] Alt/SGPT 27 U/L 12-78 [facility] ([facility] Ast/Sgot 20 U/L 7-37 [facility] ([facility] Bilirubin,Total 0.3 mg/dL 0.2-1.0 [facility] ([facility] Total Protein 6.9 GM/DL 6.4-8.2 [facility] ([facility] Albumin 3.8 GM/DL 3.2-5.2 [facility] ([facility] Albumin/Globulin Ratio 1.23 1.00-1.93 [facility] ([facility] ID Date Data Source [id number] 03/01/2020 12:17:00 PM EDT [facility] ([facility]camp[facility] [...] [facility] ID Date Data Source [id number] 01/02/2020 02:30:00 PM EDT [facility] ([facility] Name Value Range Interpretation Code Description Data Indigo rce(s) Supporting Document(s) Appearance, Urine Laboratory test result [facility] ([facility] Specific [place] Urine Auto 1.011 1.002-1.035 [facility] ([facility]ia Ocampo [...] [facility] ID Date Data Source [id number] 01/02/2020 02:30:00 PM EDT [facility] ([facility] [...] Little GFR Left</content>
<content>ESRD GFR <15 on CYTOGENETICS TECHNOLOGIST</content>
<content></content> Creatinine For GFR 0.68 mg/dL 0.55-1.30 [...] co mpleted Patient has never smoked [facility] ([facility], ) Smoking 08/23/2020 12:00:00 AM EDT Patient has never smoked co mpleted Patient has never smoked [facility] ([facility]) Smoking 05/07/2020 12:00:00 AM EDT Never Smoker completed Never S moker eCW1 ([facility]) Smoking 05/07/2020 12:00:00 AM EDT Never Smoker completed Never S moker eCW1 ([facility]) Smoking 05/07/2020 12:00:00 AM EDT Never Smoker completed Never S moker eCW1 ([facility]) Vital Signs ID Date Data Source [id number] Name Value Range Interpretation Code Description Data Source(s) Body mass index (BMI) [Ratio] 25.7 kg/m2 25.7 k g/m2 [facility] ([facility]) Body height 61 [in_i] 61 [in_i] [facility] ([facility]) 5'1" Body weight 136.00 [lb_av] 136.00 [lb_av] MED[facility] T ([facility]) Body temperature 96.8 [degF] 96.8 [degF] [facility]) Oxygen saturation in Arterial blood by Pulse oximetry 98 % 98 % [facility] ([facility]) Respiratory rate 16 /min 16 /min [facility] ( [facility]) Heart rate 67 /min 67 /min [facility] ([facility] Diastolic blood pressure 81 mm[Hg] 81 mm[Hg] [facility] ([facility]) Systolic blood pressure 154 mm[Hg] 154 mm[Hg] M EDENT ([facility]) Body mass index (BMI) [Ratio] 28.3 kg/m2 28.3 k g/m2 [facility] ([facility] [place] body weight 100 [lb_av] 100 [lb_av] MEDEN [...] [degF] 96.8 [degF] [facility] ([facility]) Body mass index (BMI) [Ratio] 25.1 kg/m2 25.1 k g/m2 [facility] ([facility]) Body height 61 [in_i] 61 [in_i] [facility] ([facility]) 5'1" Body weight 133.00 [lb_av] 133.00 [lb_av] MED[facility] T ([facility]) Body temperature 98.6 [degF] 98.6 [degF] [facility] ([facility]) Oxygen saturation in Arterial blood by Pulse oximetry 97 % 97 % [facility] ([facility]) Respiratory rate 20 /min 20 /min [facility] ( [facility]) Heart rate 69 /min 69 /min [facility] ([facility]) Diastolic blood pressure 82 mm[Hg] 82 mm[Hg] [facility] ([facility]) Systolic blood pressure 147 mm[Hg] 147 mm[Hg] M EDENT ([facility], [facility]) Body surface area Derived from formula 1.62 m2 1.62 m2 [facility] Body weight 63.504 kg 63.504 kg [facility] ([facility]) Har[place] body weight 105 [lb_av] 105 [lb_av] [facility] Body mass index (BMI) [Ratio] 26.4 kg/m2 26.4 k g/m2 [facility] ([facility]) Body weight 140.00 [lb_av] 140.00 [lb_av] [facility] T ([facility]) Body height 61 [in_i] 61 [in_i] [facility] ([facility]) 5'1" Body temperature 97.2 [degF] 97.2 [degF] [facility] ([facility]) Oxygen saturation in Arterial blood by Pulse oximetry 97 % 97 % [facility] ([facility]) Heart rate 70 /min 70 /min [facility] ([facility]) Diastolic blood pressure 72 mm[Hg] 72 mm[Hg] [facility] ([facility], ) Systolic blood pressure 130 mm[Hg] 130 mm[Hg] [facility] ([facility]) Body mass index (BMI) [Ratio] 26.9 kg/m2 26.9 k g/m2 [facility] ([facility] [place] body weight 100 [lb_av] 100 [lb_av] MED[facility] [...] P.C.) Heart rate 81 /min 81 /min [facility] ([facility] Diastolic blood pressure 88 mm[Hg] 88 mm[Hg] [facility] ([facility] Systolic blood pressure 142 mm[Hg] 142 mm[Hg] [facility] ([facility] Body mass index (BMI) [Ratio] 25.1 kg/m2 25.1 k g/m2 [facility] ([facility]) Body height 61 [in_i] 61 [in_i] [facility] ([facility]) 5'1" Body weight 133.00 [lb_av] 133.00 [lb_av] MED[facility] T ([facility]) Body temperature 97.8 [degF] 97.8 [degF] [facility] ([facility]) Oxygen saturation in Arterial blood by Pulse oximetry 97 % 97 % [facility] ([facility]) Respiratory rate 16 /min 16 /min [facility] ( [facility]) Heart rate 69 /min 69 /min [facility] ([facility]) Diastolic blood pressure 78 mm[Hg] 78 mm[Hg] [facility] ([facility]) Systolic blood pressure 168 mm[Hg] 168 mm[Hg] M EDENT ([facility]) Body surface area Derived from formula 1.62 m2 1.62 m2 [facility] ([facility]) Body weight 63.050 kg 63.050 kg [facility] ([facility]) Harrod body weight 105 [lb_av] 105 [lb_av] MED[facility] T ([facility]) Body mass index (BMI) [Ratio] 26.3 kg/m2 26.3 k g/m2 [facility] ([facility]) Body weight 139.00 [lb_av] 139.00 [lb_av] [facility] T ([facility]) Body height 61 [in_i] 61 [in_i] [facility] ([facility]) 5'1" Body temperature 96.3 [degF] 96.3 [degF] [facility] ([facility]) Oxygen saturation in Arterial blood by Pulse oximetry 94 % 94 % [facility] ([facility]) Heart rate 89 /min 89 /min [facility] ([facility]) Diastolic blood pressure 70 mm[Hg] 70 mm[Hg] [facility] ([facility]) Systolic blood pressure 110 mm[Hg] 110 mm[Hg] [facility] ([facility]) Body mass index (BMI) [Ratio] 26.1 kg/m2 26.1 k g/m2 [facility] ([facility]) Body height 61 [in_i] 61 [in_i] [facility] ([facility]) 5'1" Body weight 138.00 [lb_av] 138.00 [lb_av] MED[facility] T ([facility]) Body temperature 98.0 [degF] 98.0 [degF] [facility] ([facility]) Oxygen saturation in Arterial blood by Pulse oximetry 97 % 97 % [facility] ([facility]) Respiratory rate 20 /min 20 /min [facility] ( [facility]) Heart rate 77 /min 77 /min [facility] ([facility]) Diastolic blood pressure 90 mm[Hg] 90 mm[Hg] [facility] ([facility]) Systolic blood pressure 145 mm[Hg] 145 mm[Hg] [facility] Body weight 62.143 kg 62.143 kg [facility] ([facility]) [place] body weight 105 [lb_av] 105 [lb_av] [facility] T ([facility]) Body mass index (BMI) [Ratio] 25.9 kg/m2 25.9 k g/m2 [facility] ([facility]) Body weight 137.00 [lb_av] 137.00 [lb_av] [facility] T ([facility]) Body height 61 [in_i] 61 [in_i] [facility] ([facility]) 5'1" Diastolic blood pressure 80 mm[Hg] 80 mm[Hg] [facility] ([facility]) Systolic blood pressure 140 mm[Hg] 140 mm[Hg] [facility] Body weight 62.597 kg 62.597 kg [facility] ([facility]) Harrod body weight 105 [lb_av] 105 [lb_av] [facility] T ([facility]) Body mass index (BMI) [Ratio] 26.1 kg/m2 26.1 k g/m2 [facility] ([facility]) Body weight 138.00 [lb_av] 138.00 [lb_av] [facility] T ([facility]) Body height 61 [in_i] 61 [in_i] [facility] ([facility]) 5'1" Body temperature 98.8 [degF] 98.8 [degF] [facility] ([facility], ) Oxygen saturation in Arterial blood by Pulse oximetry 98 % 98 % [facility] ([facility]) Heart rate 76 /min 76 /min [facility] ([facility]) Diastolic blood pressure 70 mm[Hg] 70 mm[Hg] [facility] ([facility]) Systolic blood pressure 130 mm[Hg] 130 mm[Hg] [facility] Body mass index (BMI) [Ratio] 26.4 kg/m2 26.4 k g/m2 [facility] ([facility] [place] body weight 100 [lb_av] 100 [lb_av] MEDEN [...] Systolic blood pressure 139 mm[Hg] 139 mm[Hg] [facility] ([facility] Diastolic blood pressure 75 mm[Hg] 75 mm[Hg] [facility] ([facility] Systolic blood pressure 158 mm[Hg] 158 mm[Hg] Khai MCWILLIAMS ([facility] Diastolic blood pressure 66 mm[Hg] 66 mm[Hg] eCW1 ([facility]) Systolic blood pressure 140 mm[Hg] 140 mm[Hg] e CW1 ([facility]) Body temperature 98.5 [degF] 98.5 [degF] eCW1 ( [facility]) Respiratory rate 18 /min 18 /min eCW1 ([facility]) Heart rate 74 /min 74 /min eCW1 ([facility]) Body mass index (BMI) [Ratio] 25.85 kg/m2 25.85 kg/m2 eCW1 ([facility]) Body height 61 [in_i] 61 [in_i] eCW1 ([facility]) Body weight 136.8 [lb_av] 136.8 [lb_av] eCW1 ([facility]) Diastolic blood pressure 66 mm[Hg] 66 mm[Hg] eCW1 ([facility]) Systolic blood pressure 140 mm[Hg] 140 mm[Hg] e CW1 ([facility]) Body temperature 98.5 [degF] 98.5 [degF] eCW1 ( [facility]) Respiratory rate 18 /min 18 /min eCW1 ([facility]) Heart rate 74 /min 74 /min eCW1 ([facility]) Body mass index (BMI) [Ratio] 25.85 kg/m2 25.85 kg/m2 eCW1 ([facility]) Body height 61 [in_i] 61 [in_i] eCW1 ([facility]) Body weight 136.8 [lb_av] 136.8 [lb_av] eCW1 ([facility]) Body height 61 [in_i] 61 [in_i] [facility] ([facility] 5'1" Body weight 138.00 [lb_av] 138.00 [lb_av] MEDEN T ([facility]) Body temperature 98.7 [degF] 98.7 [degF] [facility] ([facility]) Oxygen saturation in Arterial blood by Pulse oximetry 97 % 97 % [facility] ([facility]) Heart rate 70 /min 70 /min [facility] [facility] Diastolic blood pressure 80 mm[Hg] 80 mm[Hg] [facility] ([facility] Systolic blood pressure 147 mm[Hg] 147 mm[Hg] [facility] ([facility] Body mass index (BMI) [Ratio] 26.1 kg/m2 26.1 k g/m2 [facility] Body mass index (BMI) [Ratio] 26.1 kg/m2 26.1 k g/m2 [facility] ([facility] Body height 61 [in_i] 61 [in_i] [facility] ([facility] 5'1" Body weight 138.00 [lb_av] 138.00 [lb_av] [facility] ([facility] Body temperature 99.1 [degF] 99.1 [degF] [facility] Oxygen saturation in Arterial blood by Pulse oximetry 97 % 97 % [facility] ([facility] Respiratory rate 17 /min 17 /min [facility] ( [facility] Heart rate 76 /min 76 /min [facility] ([facility] Diastolic blood pressure 74 mm[Hg] 74 mm[Hg] [facility] ([facility] Systolic blood pressure 116 mm[Hg] 116 mm[Hg] [facility] ([facility] Body mass index (BMI) [Ratio] 26.7 kg/m2 [...] blood pressure 157 mm[Hg] 157 mm[Hg] [facility] Body mass index (BMI) [Ratio] 26.8 kg/m2 26.8 k g/m2 [facility] ([facility] Body temperature 97.8 [degF] 97.8 [degF] [facility] ([facility]) Oxygen saturation in Arterial blood by Pulse oximetry 97 % 97 % [facility] ([facility]) Heart rate 62 /min 62 /min [facility] ([facility]) Diastolic blood pressure 72 mm[Hg] 72 mm[Hg] [facility] ([facility]) Systolic blood pressure 130 mm[Hg] 130 mm[Hg] [facility] ([facility]) Body weight 63.050 kg 63.050 kg [facility] ([facility]) Body mass index (BMI) [Ratio] 26.3 kg/m2 26.3 k g/m2 [facility] ([facility]) Body weight 139.00 [lb_av] 139.00 [lb_av] [facility] ([facility]) Body height 61 [in_i] 61 [in_i] [facility] ([facility]) 5'1" Systolic blood pressure 121 mm[Hg] 121 mm[Hg] e CW1 ([facility]) Body temperature 97.7 [degF] 97.7 [degF] eCW1 ( [facility]) Respiratory rate 18 /min 18 /min eCW1 ([facility]) Heart rate 75 /min 75 /min eCW1 ([facility]) Body mass index (BMI) [Ratio] 26.11 kg/m2 26.11 kg/m2 W1 ([facility]) Body height 61 [in_us] 61 [in_us] eCW1 ([facility]) Body weight Measured 138.2 [lb_av] 138.2 [lb_av ] eCW1 ([facility]) Diastolic blood pressure 74 mm[Hg] 74 mm[Hg] eCW1 ([facility]) Body mass index (BMI) [Ratio] 26.8 kg/m2 [...] Diastolic blood pressure 78 mm[Hg] 78 mm[Hg] [facility] ([facility] Systolic blood pressure 148 mm[Hg] 148 mm[Hg] [facility] ([facility] Diastolic blood pressure 76 mm[Hg] 76 mm[Hg] [facility] ([facility] Systolic blood pressure 154 mm[Hg] 154 mm[Hg] [facility] ([facility] la Body weight 63.050 kg 63.050 kg [facility] ([facility], ) Body mass index (BMI) [Ratio] 26.3 kg/m2 26.3 k g/m2 [facility] ([facility], ) Body weight 139.00 [lb_av] 139.00 [lb_av] [facility] ([facility], ) Body height 61 [in_i] 61 [in_i] [facility] ([facility], ) 5'1" Diastolic blood pressure 72 mm[Hg] 72 mm[Hg] [facility] ([facility], ) Systolic blood pressure 136 mm[Hg] 136 mm[Hg] [facility]) Body mass index (BMI) [Ratio] 26.1 kg/m2 26.1 k g/m2 [facility] ([facility] Body height 61 [in_i] 61 [in_i] [facility] ([facility] 5'1" Body weight 138.00 [lb_av] 138.00 [lb_av] [facility] ([facility] Body temperature 98.6 [degF] 98.6 [degF] [facility] ([facility] Oxygen saturation in Arterial blood by Pulse oximetry 96 % 96 % [facility] ([facility] Respiratory rate 14 /min 14 /min [facility] ( [facility] Heart rate 91 /min 91 /min [facility] ([facility] Diastolic blood pressure 82 mm[Hg] 82 mm[Hg] [facility] ([facility] Systolic blood pressure 119 mm[Hg] 119 mm[Hg] [facility] ([facility] Body mass index (BMI) [Ratio] 26.1 kg/m2 26.1 k g/m2 [facility] ([facility] Body height 61 [in_i] 61 [in_i] [facility] ([facility] 5'1" Body weight 138.00 [lb_av] 138.00 [lb_av] [facility] ([facility] Body temperature 98.1 [degF] 98.1 [degF] [facility] ([facility] Oxygen saturation in Arterial blood by Pulse oximetry 97 % 97 % [facility] ([facility]) Respiratory rate 14 /min 14 /min [facility] ( [facility] Heart rate 68 /min 68 /min [facility] ([facility] Diastolic blood pressure 73 mm[Hg] 73 mm[Hg] [facility] ([facility] Systolic blood pressure 165 mm[Hg] 165 mm[Hg] [facility]) Body mass index (BMI) [Ratio] 26.1 kg/m2 26.1 k g/m2 [facility] ([facility]) Body height 61 [in_i] 61 [in_i] [facility] ([facility]) 5'1" Body weight 138.00 [lb_av] 138.00 [lb_av] [facility] ([facility]) Body temperature 98.0 [degF] 98.0 [degF] [facility] ([facility]) Oxygen saturation in Arterial blood by Pulse oximetry 94 % 94 % [facility] ([facility]) Respiratory rate 17 /min 17 /min [facility] Heart rate 80 /min 80 /min [facility] ([facility] Diastolic blood pressure 77 mm[Hg] 77 mm[Hg] [facility] Systolic blood pressure 143 mm[Hg] 143 mm[Hg] [facility]) Body mass index (BMI) [Ratio] 27.8 kg/m2 [...]
[2020-11-22] MEDS ORDERED: AMOX500T2 (07:48)
[2020-11-22] MEDS ORDERED: ALBU8.5H (07:56)
[2020-11-22] MEDS ORDERED: BREO1INH3 (07:56)
[2020-11-22] MEDS ORDERED: ALBU83IN (07:56)
[2020-11-22] MEDS ORDERED: FAMO40TA3 (07:56)
--- NOTE | 2020-11-22 08:00 | REP ---
INDICATION: Coronavirus workup COMPARISON: 12/19/2019 TECHNIQUE: Portable AP view of the chest FINDINGS: The mediastinum and cardiac silhouette are stable and within normal limits for portable technique. The lung rincon demonstrate chronic changes with subtle scattered airspace disease primarily involving the lower lobes (right greater than left). No discrete focal consolidation. No effusion. No pneumothorax. IMPRESSION: Subtle early primarily bilateral lower lobe airspace disease. <Electronically signed by Teofilo Baca > 11/22/20 0758
[2020-11-22 08:13] LABS: BASO % 0.8 % (0.0-1.0); EOS # 0.1 10^3/uL (0.0-0.5); EOS % 3.4 % (0.0-3.0); HEMATOCRIT 34.1 % (36.0-47.0); HEMOGLOBIN 10.8 g/dl (12.0-15.5); LYMPH # 0.9 10^3/uL (1.5-5.0); LYMPH % 26.3 % (24.0-44.0); MEAN CORPUSCULAR HGB CONC 31.7 g/dl (32.0-36.5); MEAN CORPUSCULAR VOLUME 100.9 fl (80.0-96.0); MONO # 0.3 10^3/uL (0.0-0.8); MONO % 7.5 % (0.0-5.0); NEUTROPHILS # 2.2 10^3/uL (1.5-8.5); NEUTROPHILS % 61.7 % (36.0-66.0); PLATELET COUNT, AUTOMATED 266 10^3/uL (150-450); RED BLOOD COUNT 3.38 10^6/uL (4.00-5.40); WHITE BLOOD COUNT 3.6 10^3/uL (4.0-10.0)
[2020-11-22 08:35] LABS: ALBUMIN 3.6 GM/DL (3.2-5.2); ALT/SGPT 22 U/L (12-78); BILIRUBIN,TOTAL 0.2 MG/DL (0.2-1.0); BLOOD UREA NITROGEN 12 MG/DL (7-18); CALCIUM LEVEL 9.1 MG/DL (8.8-10.2); CARBON DIOXIDE LEVEL 27 MEQ/L (21-32); CHLORIDE LEVEL 106 MEQ/L (98-107); CK-MB VALUE MASS 2.2 NG/ML (<3.6); CPK CREATINE PHOSPHOKINASE 73 U/L (26-192); GLOMERULAR FILTRATION RATE > 60.0 (>39); GLUCOSE, FASTING 96 MG/DL (70-100); LDH LACTATE DEHYDROGENASE 219 U/L (84-246); MB/CK RELATIVE INDEX 3.01 (< OR =4); POTASSIUM SERUM 4.4 MEQ/L (3.5-5.1); SODIUM LEVEL 142 MEQ/L (136-145); TOTAL PROTEIN 6.9 GM/DL (6.4-8.2)
[2020-11-22 08:36] LABS: C REACTIVE PROTEIN QUANTITATIV 0.46 MG/DL (0.00-0.30); FERRITIN 193 NG/ML (8-252); TROPONIN I < 0.02 NG/ML (< 0.10)
[2020-11-22] MEDS ORDERED: NS 500 ML IV ONE (08:45)
[2020-11-22] MEDS ORDERED: ISOVUE-370 76% 100ML VIAL As Ordered ONE (08:54)
--- NOTE | 2020-11-22 09:24 | REP ---
INDICATION: + covid, sob elevated d-dimer r/o PE COMPARISON: 08/06/2020 TECHNIQUE: Axial contrast enhanced images from the thoracic inlet to the upper abdomen using pulmonary embolus technique with multiplanar re-formations. 75 ml Isovue 370 intravenous contrast material administered without complication. This CT examination was performed using the following dose reduction techniques: Automated exposure control, adjustment of mA and/or kv according to the patient's size, and use of iterative reconstruction technique. FINDINGS: Satisfactory enhancement of the pulmonary vasculature is achieved and no filling defects are identified to suggest pulmonary embolus. The lung rincon demonstrate moderate patchy bilateral infiltrates consistent with COVID-19 pulmonary disease. No effusion. No pneumothorax. No obvious acute adenopathy. Chronic partially calcified lymph nodes are again noted and unchanged from prior examination. Further evaluation of the mediastinum demonstrates relatively normal thoracic aorta without aneurysm or dissection. No cardiomegaly or pericardial effusion. Tracheobronchial tree is patent. IMPRESSION: 1. No evidence for pulmonary embolus. 2. 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 3. Partially calcified mediastinal adenopathy unchanged and consistent with chronic granulomatous disease. <Electronically signed by Teofilo Baca > 11/22/20 [id number]
[2020-11-22] MEDS ORDERED: TESS100C PO (11:04)
[2020-11-22] MEDS ORDERED: PRED20TA PO (11:04)
[2020-11-22 11:17] VITALS: BP 169/91
== END 2020-11-22 11:20 | disposition home or self-care (01) ==
LOC: M ED 06:19
DX: J12.82 Pneumonia due to coronavirus disease 2019 (principal); J45.909 Unspecified asthma, uncomplicated; G47.33 Obstructive sleep apnea (adult) (pediatric); K21.9 Gastro-esophageal reflux disease without esophagitis; F33.9 Major depressive disorder, recurrent, unspecified; Z88.1 Allergy status to other antibiotic agents; Z88.2 Allergy status to sulfonamides; Z88.8 Allergy status to other drugs, medicaments and biological substances; Z79.51 Long term (current) use of inhaled steroids; Z79.899 Other long term (current) drug therapy
CPT/HCPCS: 36415; 71045; 71275; 80053; 82550; 82553; 82728; 83615; 84484; 85025; 85379; 86140; 94640; 96360; 99284; Q9967

== ENCOUNTER → 2020-12-26 | Outpatient (CLI) | payer MEDICARE ==
[~2020-12-26] MED LIST changes: +ALBU8.5H; +ALBU83IN; +AMOX500T2; +BREO1INH3; +FAMO40TA3; +TESS100C PO
--- NOTE | 2020-12-27 | ECWPNPC ---
PATIENT NAME: RENEE JACOBSEN : 1940 GENDER: FEMALE VISIT DATE: 12/26/2020 DISCHARGE DATE: 12/26/20 1017 VISIT LOCKED DATE TIME: PHYSICIAN: HECTOR DOAN RESOURCE: HECTOR DOAN REASON FOR APPOINTMENT 1. BACK HISTORY OF PRESENT ILLNESS DEPRESSION SCREENING: PHQ-2 (2015 EDITION) LITTLE INTEREST OR PLEASURE IN DOING THINGS?NOT AT ALL FEELING DOWN, DEPRESSED, OR HOPELESS?NOT AT ALL TOTAL SCORE0 GENERAL: HERE FOR FOLLOW-UP OF CHRONIC LOW BACK PAIN. WAS DOING WELL AFTER TRIGGER POINT INJECTIONS SEVERAL MONTHS AGO UP UNTIL A FEW MONTHS AGO. PAIN IS LOCATED ACROSS LOW BACK RIGHT GREATER THAN LEFT. REPORTING PAIN THAT RADIATES INTO HER RIGHT THIGH. HAS RESPONDED WELL TO RIGHT THERAPEUTIC LUMBAR FACET BLOCKS IN THE PAST. REVIEWED MRI OF THE LS-SPINE AND DISCUSSED TREATMENT PLAN. -. FALL RISK SCREENING: SCREENING :NO FALLS REPORTED IN THE LAST YEAR PAIN SCREENING: PATIENT HAS A COMPLAINT OF ACUTE OR CHRONIC PAIN :YES LOCATION OF PAIN:LOW BACK GOES DOWN RIGHT LEG INTENSITY OF PAIN (SCALE OF 1 TO 10):8 WHAT DOES YOUR PAIN FEEL LIKE:BURNING DURATION:INTERMITTENT PAIN IS INCREASED BY:ACTIVITIES PAIN IS DECREASED BY:OTHERS HEAT AND ICE PACK NURSING NOTE: - HAD COIVD 10/28/2020. PAIN CENTER INTAKE QUESTIONS: DO YOU HAVE A HISTORY OF MRSA? :NO DO YOU TAKE A BLOOD THINNERS? :NO DO YOU HAVE ANY BLEEDING DISORDERS? :NO ANY NEW NUMBNESS OR WEAKNESS IN YOUR LEGS OR ARMS? :NO ANY PACEMAKER,DEFIBRILLATOR, OR DORSAL COLUMN STIMULATOR? :NO DO YOU HAVE ANY RASHES OR OPEN SORES? :NO ARE YOU ALLERGIC TO IV DYE? :NO ARE YOU DIABETIC? :NO ANY NEW PROBLEMS WITH YOUR MEDICATIONS? :NO HAVE YOU RECEIVED A VACCINE IN THE PAST 30 DAYS? :NO DO YOU PLAN TO RECEIVE A VACCINE IN THE NEXT 21 DAYS? :NO DO YOU NEED ANY PRESCRIPTION? :NO DO YOU TAKE ANY IMMUNOSUPPRESSIVE MEDICATIONS? :NO IS THERE A CHANCE YOU COULD BE ? :NO ARE YOU BREAST FEEDING? :NO CURRENT MEDICATIONS TAKING SALINE NASAL SPRAY 0.65 % SOLUTION 2 SRAYS IN EACH NOSTRIL NEEDED NASALLY EVERY 4 HRS NEEDED TAKING LOPERAMIDE HCL 2 MG CAPSULE 1 CAPSULE ORALLY ONCE A DAY TAKING OMEPRAZOLE 20 MG CAPSULE DELAYED RELEASE 1 CAPSULE ORALLY DAILY TAKING VITAMIN C 1000 MG TABLET 1.5 TAB(S) ORALLY DAILY TAKING VITAMIN D3 2000 UNIT CAPSULE 1 CAPSULE ORALLY ONCE A DAY TAKING ACIDOPHILUS 10 MG CAPSULE DIRECTED ORALLY BID TAKING CALCIUM 600+D HIGH POTENCY 600-400 MG-UNIT TABLET 1 TABLET ORALLY ONCE A DAY TAKING VITAMIN B12 1000 MCG TABLET 2 TABLETS ORALLY ONCE A DAY TAKING SIMVASTATIN 40 MG TABLET 1/2 TABLET ORALLY DAILY IN THE EVENING TAKING TYLENOL 500MGS 1 TAB ORAL EVERY 4 HOURS NEEDED TAKING IBUPROFEN 800 MGS DAILY NEEDED TAKING FLONASE 50 MCG/ACT SUSPENSION 1 SPRAY IN EACH NOSTRIL NASALLY ONCE A DAY TAKING RANITIDINE ACID TRUST MAIL CLERK 75 MG TABLET 1 TABLET NEEDED ORALLY DAILY TAKING FOLIC ACID 800 MCG TABLET 1 TABLET ORALLY ONCE A DAY TAKING HAIR SKIN & NAILS ADVANCED - TABLET DIRECTED ORALLY TAKING POTASSIUM 99 MG TABLET 1 TABLET ORALLY ONCE A DAY TAKING TURMERIC 500 MG CAPSULE DIRECTED ORALLY DAILY TAKING SUPER B-COMPLEX - TABLET DIRECTED ORALLY DAILY TAKING BIOFLEX - TABLET DIRECTED ORALLY DAILY TAKING CLARITIN 10 MG TABLET 1 TABLET ORALLY ONCE A DAY TAKING VITAMIN E 400 UNIT CAPSULE 1 CAPSULE ORALLY ONCE A DAY TAKING GLUCOSAMINE 1500 COMPLEX - CAPSULE ORALLY DAILY TAKING MUCINEX DM 30-600 MG TABLET EXTENDED RELEASE 12 HOUR 1 TABLET NEEDED ORALLY EVERY 12 HRS TAKING FISH OIL 1000 MG CAPSULE 1 CAPSULE ORALLY ONCE A DAY TAKING CHERI 500 MG CAPSULE DIRECTED ORALLY DAILY NOT-TAKING ASTELIN 2 SPRAYS EACH NOSTRIL ONCE DAILY NOT-TAKING NAPROXEN 250 MG TABLET 1 TABLET WITH FOOD OR MILK ORALLY TWICE A DAY, NOTES: NEEDED NOT-TAKING VITAMIN E 200 UNIT CAPSULE 1 CAPSULE ORALLY ONCE A DAY NOT-TAKING BUPROPION HCL 150 MG TABLET EXTENDED RELEASE ORALLY DAILY NOT-TAKING CHERI 500 MG CAPSULE DIRECTED ORALLY NOT-TAKING ASPIR-81 81 MG TABLET DELAYED RELEASE 1 TABLET ORALLY ONCE A DAY NOT-TAKING PREDNISOLONE 5 MG (21) TABLET THERAPY PACK DIRECTED ORALLY , NOTES: FOR BRONCHITIS NOT-TAKING CARAFATE 1 GM TABLET 1 TABLET ON AN EMPTY STOMACH ORALLY THREE TIMES A DAY NOT-TAKING DYMISTA 137-50 MCG/ACT SUSPENSION 1 SPRAY, TO BOTH NOSTRILS NASALLY TWICE A DAY NOT-TAKING PROTONIX 40 MG TABLET DELAYED RELEASE 1 TABLET ORALLY BID NOT-TAKING CARAFATE 1 GM TABLET 1 TABLET ON AN EMPTY STOMACH ORALLY THREE TIMES A DAY NOT-TAKING REPLENS - GEL DIRECTED VAGINAL , NOTES: HAVEN'T GOTTEN YET MEDICATION LIST REVIEWED AND RECONCILED WITH THE PATIENT PAST MEDICAL HISTORY ALLERGIC RHINITIS/CONJUNCTIVITIS/CHRONIC RECURRENT SINUSITIS-01/2015 - ZONE 1, IGE < 3.6 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 BY NOVEMBER 2010 CT/GRADE 1 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 X-RAY BILATERAL HAND OSTEOARTHRITIS-2007 NEGATIVE RHEUMATOLOGICAL WORKUP IMANI-02/2012 NPSG C RDI 25-ALLEN HYPERLIPIDEMIA 2B GERD-08/2014 NORMAL EGD-REINDL 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[address] OF THE PELVIS STONE PROTOCOL AND RENAL ULTRASOUND BILATERAL DEPRESSION FIBROMYALGIA ALLERGIC RHINITIS/CONJUNCTIVITIS IMPAIRED FASTING GLUCOSE LEUKOPENIA, 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, CHRONIC 2 SMALL ADENOMATOUS POLYPS, DIVERTICULOSIS, SIGMOID, 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-06/2011-REINDL/ MODERATE SIGMOID DIVERTICULOSIS-REINDL L HIP MILD OA BY 08/2013 XRAY 11/2018 ECOLI IN URINE 12/2018 BRONCHITIS ALLERGIES AVELOX: LEGS SHAKEY - SIDE EFFECTS CYMBALTA: NAUSEA/VOMITING - SIDE EFFECTS DOXYCYCLINE HYCLATE: INEFFECTIVE - SIDE EFFECTS PROZAC: FATIGUE - SIDE EFFECTS SULFA (FOR ALLERGY USE ONLY): RASH - ALLERGY CODEINE SULFATE: NAUSEA/VOMITING - SIDE EFFECTS SOCIAL HISTORY GENERAL: TOBACCO USE ARE YOU A:NONSMOKER LATEX QUESTIONNAIRE LATEX ALLERGY : HAVE YOU EVER DEVELOPED ANY TYPE OF REACTION AFTER HANDLING LATEX PRODUCTS SUCH RUBBER GLOVES, CONDOMS, DIAPHRAGMS, BALLOONS, SOCKS, OR UNDERWEAR?NO LATEX ALLERGY : HAVE YOU EVER DEVELOPED ANY TYPE OF REACTION DURING OR AFTER DENTAL APPOINTMENT, VAGINAL/RECTAL EXAMINATION, SURGICAL PROCEDURE, OR ANY OTHER EXPOSURE?NO LATEX RISK : HAVE YOU EVER HAD ANY DIFFICULTY BREATHING OR HIVES AFTER EATING OR HANDLING ANY FRUITS, OR VEGETABLES; SUCH KIWI, BANANAS, STONE FRUITS, OR CHESTNUTSNO LATEX RISK : DO YOU HAVE A PREVIOUS PERSONAL HISTORY OF MORE THAN NINE SURGERIES, SPINA BIFIDA, OR REPEATED CATHERIZATIONS? NO LATEX RISK : ARE YOU FREQUENTLY EXPOSED TO LATEX PRODUCTS IN YOUR OCCUPATION?NO DATE ASKED : 12/26/2020 ALCOHOL USE: YES. ALCOHOL SCREENING DID YOU HAVE A DRINK CONTAINING ALCOHOL IN THE PAST YEAR?YES HOW OFTEN DID YOU HAVE SIX OR MORE DRINKS ON ONE OCCASION IN THE PAST YEAR?NEVER (0 POINTS) HOW MANY DRINKS DID YOU HAVE ON A TYPICAL DAY WHEN YOU WERE DRINKING IN THE PAST YEAR?3 OR 4 (1 POINT) HOW OFTEN DID YOU HAVE A DRINK CONTAINING ALCOHOL IN THE PAST YEAR?MONTHLY OR LESS (1 POINT) POINTS2 INTERPRETATIONNEGATIVE RECREATIONAL DRUG USE DRUG USE?NO DENIES 03/06/20 CAFFEINE DECAF COFFEE ONLY.. SEXUAL HX HAD SEX IN THE LAST 12 MONTHS (VAGINAL, ORAL, OR ANAL)?NO LMP:POST MENOPAUSE HAVE YOU EVER HAD AN STD?NO SIKHISM [id number] SCIENTOLOGY LANGUAGE LANGUAGES SPOKEN:VINCENTIAN EDUCATION LEVEL OF EDUCATION:HIGH SCHOOL LEARNING BARRIERS / SPECIAL NEEDS CHANGE FROM LAST VISIT?NO BARRIERS TO LEARNING?NO HEARING IMPAIRED?NO VISION IMPAIRED?YES :CORRECTIVE LENSES COGNITIVELY IMPAIRED?NO READINESS TO LEARN?YES LEARNING PREFERENCES?NO LEARNING CAPABILITIES PRESENT?YES EMOTIONAL BARRIERS?NO SPECIAL DEVICES?NO SENIOR DATA DEVELOPER NEEDED?NO DOMESTIC VIOLENCE DENIES. DIET: "TERRIBLE". EATS TOO MUCH DESSERT.. MARITAL STATUS: . OTHERS AT HOME: NONE. TODAY'S VISIT 03/06/2020 PATIENT DESCRIBES PAIN :ACHING, IT COMES AND GOES, SORE, OTHER NUMB FROM 0-10, WHAT LEVEL IS YOUR PAIN TODAY?3 PRECIPITATING FACTORS WALKING, LIFTING, RAISING ARMS OVER HER HEAD ALLEVIATING FACTORS LAYING DONE, IBUPROFEN, TYLENOL, STRETCHING EXERCISING IMPACT ON FUNCTION LIMITS HER ON WHAT SHE IS ABLE TO DO. - WAS THE PROVIDER NOTIFIED OF ANY PERTINENT INFO?YES HAS THE PATIENT BEEN EDUCATED REGARDING HIS/HER PLAN OF CARE?YES HAS THE PATIENT BEEN EDUCATED REGARDING PAIN, THE RISK FOR PAIN, THE IMPORTANCE OF EFFECTIVE PAIN MANAGEMENT, AND THE PAIN ASSESSMENT PROCESS?YES ADVANCE DIRECTIVE ADVANCE DIRECTIVE DISCUSSED WITH PATIENT:YES HCP JOHN DIXON [phone] PRE-SCREENING COMPLETED 02/20/2020 1630 JS. REVIEW OF SYSTEMS CONSTITUTIONAL: ANY RECENT FEVER NO . CHILLS NO . WEIGHT CHANGE OF UNKNOWN REASONS NO . GASTROENTEROLOGY: NEW UNEXPLAINABLE CHANGES IN BOWEL CONTROL NO . CONSTIPATION NO . GENITOURINARY: ANY NEW CHANGE IN BLADDER CONTROL? NO . NEUROLOGY: NEW ONSET DIZZINESS OR NEUROLOGICAL CHANGES NOT MENTIONED NO . NEW NUMBNESS OR PAIN PATTERNS NOT MENTIONED AND PERTINENT TO TODAY'S VISIT NO . CARDIOLOGY: NEW CHEST PRESSURE NO . PATIENT DENIES NO . RESPIRATORY: UNEXPLAINABLE COUGH NO . NEW SHORTNESS OF BREATH NO . VITAL SIGNS WT 145 LBS, HT 61 IN, BMI 27.39 INDEX, BP 152/74 MM HG, HR 81 /MIN, RR 18 /MIN, TEMP 97.5 F, OXYGEN SAT % 95%, SAFE IN ENV? (Y/N) YEST.SHOSHANA CHASE. EXAMINATION GENERAL EXAMINATION: GENERALNO ACUTE DISTRESS, WELL NOURISHED AND HYDRATED. PSYCHAPPROPRIATE MOOD AND AFFECT . NECK:NO LYMPHADENOPATHY, SUPPLE. LUNGS:CLEAR TO AUSCULTATION BILATERALLY, NO WHEEZES, RHONCHI, RALES. HEART:NO MURMURS, REGULAR RATE AND RHYTHM. MUSCULOSKELETAL:TRIGGER POINTS ELICITED WITH PALPATION OVER LUMBAR PARASPINALS PAIN IN THIS AREA IS AGGRAVATED WITH RANGE OF JOINT MOTION OF THE SPINE . DIAGNOSTIC TESTS REVIEWED MRI L/S SPINE 2017. ASSESSMENTS MYALGIA, OTHER SITE - M79.18 (PRIMARY) OTHER CHRONIC PAIN - G89.29 TREATMENT MYALGIA, OTHER SITE MEDICATION: VALIUM TAB 2MG ORALLY (DIAZEPAM) (ORDERED FOR 01/02/2021) NOTES: TRIGGER POINTS BILATERAL LOW BACK WITHOUT STEROIDS PRINTED AN REVIEWED PRE PROCEDURE WITH PATIENT DEEPA CHASE. OTHER CHRONIC PAIN PAIN PROCEDURE LOGDATE OF PROCEDURE06/08/20PROCEDURE:BILATERAL LOW BACK TRIGGER POINT INJECTIONSAMOUNT OF PRE SEDATEVALIUM 2MGRESULT:REPORTS IMPROVEMENT FOR SEVERAL MONTHS POST PROCEDURE PROCEDURE CODES FA211 ESTABILISHED PATIENT [facility] DISPOSITION & COMMUNICATION FOLLOW UP POST PROCEDURE (REASON: TRIGGER POINTS BILATERAL LOW BACK WITHOUT STEROIDS) ELECTRONICALLY SIGNED BY BYRON WHITTAKER ON 12/26/2020 AT 03:25 PM EST DISCLAIMER : THIS IS A VISIT SUMMARY EXTRACTED FROM THE [employer] CHART. IT IS NOT A COPY OF THE [employer] PROGRESS NOTE. JOZEF
== END ==
LOC: M PAIN 09:45
PROVIDERS: ATTEND Nurse Practitioner Family
DX: M79.18 Myalgia, other site (principal); G47.33 Obstructive sleep apnea (adult) (pediatric); K21.9 Gastro-esophageal reflux disease without esophagitis; M79.7 Fibromyalgia; Z86.59 Personal history of other mental and behavioral disorders; Z88.1 Allergy status to other antibiotic agents; Z88.2 Allergy status to sulfonamides; Z88.5 Allergy status to narcotic agent; Z88.8 Allergy status to other drugs, medicaments and biological substances; Z79.899 Other long term (current) drug therapy

== ENCOUNTER → 2021-01-30 | Outpatient (CLI) | payer MEDICARE ==
--- NOTE | 2021-01-30 11:44 | REP ---
INDICATION: ABNORMAL FINDING OF LUNG FIELD. COMPARISON: Chest CT without IV contrast dated 04/03/2020, chest CT without IV contrast dated 08/06/2020, chest CT with IV contrast dated 11/22/2020. TECHNIQUE: The study today is a chest CT without IV contrast. FINDINGS: The multiple bilateral patchy infiltrates identified on 11/22/2020 have resolved.. There are no acute or infiltrates or pleural effusions on the study today. There is a 12 mm ground-glass density in the apex of the right upper lobe, unchanged from all prior studies. There is a 10 by 4 mm nodule in the left lung along the major fissure on image 42, unchanged from all prior studies. There are no other lung nodules or masses. On the prior CTs without IV contrast there is a questionable right perihilar nodular density. When comparing this study to the chest CT with IV contrast this parahilar density can be seen as artifact from pulmonary arteries. There are numerous calcified and noncalcified mediastinal and hilar nodes, unchanged in size or number from the prior studies. No new or enlarging lymph nodes are identified. The thoracic aorta is unremarkable. Cardiac size normal. No pericardial effusion. The visualized upper abdominal contents identify no adrenal nodule or mass. There are surgical clips in the gallbladder fossa. IMPRESSION: The multifocal infiltrates identified on the most recent prior study dated 11/22/2020 have resolved. There are no acute infiltrates or effusions on the study today. There is a stable 12 mm ground-glass density in the apex of the right lung, unchanged. There is a stable left 4 x 10 mm lung nodule, unchanged. There is stable mediastinal and hilar calcified and noncalcified adenopathy. <Electronically signed by Vincent Nieves > 01/30/21 [id number]
== END ==
LOC: M RAD 10:32
PROVIDERS: ATTEND Internal Medicine Pulmonary Disease
DX: R91.8 Other nonspecific abnormal finding of lung field (principal)

== ENCOUNTER → 2021-02-07 | Outpatient (CLI) | payer MEDICARE | LOC: M LABSMTC 10:11 | PROVIDERS: ATTEND Anesthesiology | DX: Z01.812 Encounter for preprocedural laboratory examination (principal); Z20.822 Contact with and (suspected) exposure to COVID-19 ==

== ENCOUNTER 2021-02-20 08:30 | Outpatient (RCR) | payer MEDICARE | END 2021-02-22 | LOC: M PT 08:30 | PROVIDERS: ATTEND Nurse Practitioner Family | DX: M25.511 Pain in right shoulder (principal) ==

== ENCOUNTER → 2021-02-27 | Outpatient (CLI) | payer MEDICARE ==
--- NOTE | 2021-02-27 16:59 | REP ---
INDICATION: CHRONIC SINUSITIS, POST NASAL DRIP. COMPARISON: Comparison maxillofacial CT study March 11, 2019.. TECHNIQUE: Helical scanning is acquired and 2 mm axial images re-formatted. Coronal MPR images are generated and reviewed. FINDINGS: Preliminary digital bark peeler radiographs are unremarkable. Patient is a again noted be status post bilateral uncinectomy and ethmoid bullectomy. The frontal sinuses are clear. There is mild mucosal thickening in the remaining ethmoid air cells. There is bony sinus wall thickening in the maxillary sinuses and minimal mucosal thickening is seen in the inferior aspect of the maxillary sinuses. There is a mucous retention cyst in the floor of the left maxillary sinus which is unchanged. Sphenoid sinus air cells are clear. Mastoid aeration is normal and symmetric. The middle ear cavities appear to be aerated fully. No nasal polyp is appreciated. Bony nasal septum is essentially in the midline. The mucosal changes in the maxillary sinuses have improved somewhat since the March 11, 2019 study. Otherwise unchanged. IMPRESSION: Bilateral uncinectomy and ethmoid bullectomy. Mild mucosal changes in the ethmoid and maxillary sinuses. Maxillary sinuses somewhat improved. <Electronically signed by Mark Cabrera > 02/27/21 [id number]
== END ==
LOC: M RAD 16:13
PROVIDERS: ATTEND Otolaryngology
DX: J32.0 Chronic maxillary sinusitis (principal); J32.2 Chronic ethmoidal sinusitis; R09.82 Postnasal drip

== ENCOUNTER → 2021-03-07 | Outpatient (REF) | payer MEDICARE ==
[2021-03-07 17:27] LABS: BASO # 0.1 10^3/uL (0.0-0.2); BASO % 1.3 % (0.0-1.0); EOS # 0.2 10^3/uL (0.0-0.5); EOS % 3.5 % (0.0-3.0); HEMATOCRIT 34.7 % (36.0-47.0); HEMOGLOBIN 11.3 g/dl (12.0-15.5); LYMPH # 1.7 10^3/uL (1.5-5.0); LYMPH % 32.8 % (24.0-44.0); MEAN CORPUSCULAR HEMOGLOBIN 32.4 pg (27.0-33.0); MEAN CORPUSCULAR HGB CONC 32.6 g/dl (32.0-36.5); MEAN CORPUSCULAR VOLUME 99.4 fl (80.0-96.0); MONO # 0.5 10^3/uL (0.0-0.8); MONO % 9.4 % (2.0-8.0); NEUTROPHILS # 2.8 10^3/uL (1.5-8.5); NEUTROPHILS % 52.8 % (36.0-66.0); PLATELET COUNT, AUTOMATED 245 10^3/uL (150-450); RED BLOOD COUNT 3.49 10^6/uL (4.00-5.40); WHITE BLOOD COUNT 5.2 10^3/uL (4.0-10.0)
[2021-03-07 17:39] LABS: ALBUMIN 3.9 GM/DL (3.2-5.2); ALT/SGPT 21 U/L (12-78); BILIRUBIN,TOTAL 0.6 MG/DL (0.2-1.0); BLOOD UREA NITROGEN 18 MG/DL (7-18); CALCIUM LEVEL 8.7 MG/DL (8.8-10.2); CARBON DIOXIDE LEVEL 29 MEQ/L (21-32); CHLORIDE LEVEL 108 MEQ/L (98-107); CHOLESTEROL LEVEL 196 MG/DL (<200); CHOLESTEROL RISK RATIO 2.419 (<5); CREATININE FOR GFR 0.66 MG/DL (0.55-1.30); FREE T4 0.93 NG/DL (0.76-1.46); GLOMERULAR FILTRATION RATE > 60.0 (>39); GLUCOSE, FASTING 79 MG/DL (70-100); HDL CHOLESTEROL 81 MG/DL (>40); LDL CHOLESTEROL 105 MG/DL (<100); NON-HDL-C 115 MG/DL; POTASSIUM SERUM 4.1 MEQ/L (3.5-5.1); SODIUM LEVEL 141 MEQ/L (136-145); TRIGLYCERIDES LEVEL 51 MG/DL (<150)
[2021-03-07 17:41] LABS: FOLATE 19.2 NG/ML; VITAMIN B12 LEVEL 1273 PG/ML
== END ==
LOC: M PLALAB 16:36
PROVIDERS: ATTEND Nurse Practitioner Family
DX: I10 Essential (primary) hypertension (principal)

== ENCOUNTER 2021-03-13 09:15 | Outpatient (RCR) | payer MEDICARE | END 2021-03-25 | LOC: M PT 09:15 | PROVIDERS: ATTEND Nurse Practitioner Family | DX: M25.511 Pain in right shoulder (principal) ==

== ENCOUNTER → 2021-03-16 | Outpatient (CLI) | payer MEDICARE | LOC: M LABSMTC 08:54 | PROVIDERS: ATTEND Anesthesiology | DX: Z01.812 Encounter for preprocedural laboratory examination (principal); Z11.52 Encounter for screening for COVID-19 ==

== ENCOUNTER → 2021-03-21 | Outpatient (CLI) | payer MEDICARE ==
[~2021-03-21] MED LIST changes: +BUPIVACAINE HCL 0.25% 10ML VIAL As Ordered ONE; +BUPIVACAINE HCL 0.25% 30ML VIAL As Ordered ONE; +diazePAM 2 MG TAB As Ordered ONE
--- NOTE | 2021-03-21 23:59 | ECWPNPC ---
PATIENT NAME: RENEE JACOBSEN : 1940 GENDER: FEMALE VISIT DATE: 03/21/2021 DISCHARGE DATE: 03/21/21956 VISIT LOCKED DATE TIME: PHYSICIAN: LOTUS QUINTANA MD RESOURCE: LOTUS QUINTANA MD REASON FOR APPOINTMENT 1. TRIGGER POINT INJECTIONS TO BILATERAL LOW BACK HISTORY OF PRESENT ILLNESS GENERAL: -. FALL RISK SCREENING: SCREENING : NO FALLS REPORTED IN THE LAST YEAR. PAIN SCREENING: PATIENT HAS A COMPLAINT OF ACUTE OR CHRONIC PAIN :YES LOCATION OF PAIN:LOW BACK INTENSITY OF PAIN (SCALE OF 1 TO 10):6 WHAT DOES YOUR PAIN FEEL LIKE:ACHING, THROBBING DURATION:INTERMITTENT PAIN IS INCREASED BY:OTHERS BENDING, LIFTING, REACHING PAIN IS DECREASED BY:USE OF PAIN MEDICATIONS, OTHERS HEAT, ICE NURSING NOTE: -. PAIN CENTER INTAKE QUESTIONS: DO YOU HAVE A HISTORY OF MRSA? :NO DO YOU TAKE A BLOOD THINNERS? :NO DO YOU HAVE ANY BLEEDING DISORDERS? :NO ANY NEW NUMBNESS OR WEAKNESS IN YOUR LEGS OR ARMS? :NO ANY PACEMAKER,DEFIBRILLATOR, OR DORSAL COLUMN STIMULATOR? :NO DO YOU HAVE ANY RASHES OR OPEN SORES? :NO ARE YOU ALLERGIC TO IV DYE? :NO ARE YOU DIABETIC? :NO ANY NEW PROBLEMS WITH YOUR MEDICATIONS? :NO HAVE YOU RECEIVED A VACCINE IN THE PAST 30 DAYS? :NO DO YOU PLAN TO RECEIVE A VACCINE IN THE NEXT 21 DAYS? :NO DO YOU TAKE ANY IMMUNOSUPPRESSIVE MEDICATIONS? :NO ANY HISTORY OF SEIZURES? :NO ANY HISTORY OF CARDIAC ISSUES OR EVENTS? :NO DO YOU HAVE ANY KIDNEY OR LIVER DISEASE? :NO DO YOU HAVE SLEEP APNEA? :YES DO YOU WEAR A CPAP?NO ANY RECENT HEAD INJURY? :NO DO YOU HAVE ANY NEW INFECTIONS? :NO IS THERE A CHANCE YOU COULD BE ? :NO ARE YOU BREAST FEEDING? :NO WHEN DID YOU LAST EAT? : 03/20/21 1700 WHEN DID YOU LAST DRINK? : 0600 WHAT DID YOU LAST DRINK? : CHERI [employer]ANE [employer] WATER NAME OF PERSON DRIVING YOU HOME? : HENRY VALDEZ DO YOU HAVE ANY OTHER QUESTIONS OR CONCERNS? : - CURRENT MEDICATIONS TAKING SALINE NASAL SPRAY 0.65 % SOLUTION 2 SRAYS IN EACH NOSTRIL NEEDED NASALLY EVERY 4 HRS NEEDED TAKING LOPERAMIDE HCL 2 MG CAPSULE 1 CAPSULE ORALLY BID TAKING OMEPRAZOLE 20 MG CAPSULE DELAYED RELEASE 1 CAPSULE ORALLY DAILY TAKING VITAMIN C 1000 MG TABLET 1 TABLET ORALLY DAILY TAKING VITAMIN D3 2000 UNIT CAPSULE 1 CAPSULE ORALLY ONCE A DAY TAKING ACIDOPHILUS 10 MG CAPSULE DIRECTED ORALLY BID TAKING CALCIUM 600+D HIGH POTENCY 600-400 MG-UNIT TABLET 1 TABLET ORALLY ONCE A DAY TAKING VITAMIN B12 1000 MCG TABLET 2 TABLETS ORALLY ONCE A DAY TAKING SIMVASTATIN 40 MG TABLET 1/2 TABLET ORALLY WEEKLY TAKING TYLENOL 500MGS 1 TAB ORAL EVERY 4 HOURS NEEDED, NOTES: 0600 TAKING IBUPROFEN 800 MGS DAILY NEEDED, NOTES: 03/20/21 0600 TAKING FLONASE 50 MCG/ACT SUSPENSION 1 SPRAY IN EACH NOSTRIL NASALLY ONCE A DAY TAKING RANITIDINE ACID DEVOPS ENGINEER 75 MG TABLET 1 TABLET NEEDED ORALLY DAILY TAKING FOLIC ACID 800 MCG TABLET 1 TABLET ORALLY ONCE A DAY TAKING HAIR SKIN & NAILS ADVANCED - TABLET DIRECTED ORALLY TAKING POTASSIUM 99 MG TABLET 1095 MG, 1 TABLET ORALLY ONCE A DAY TAKING TURMERIC 500 MG CAPSULE DIRECTED ORALLY DAILY TAKING SUPER B-COMPLEX - TABLET DIRECTED ORALLY DAILY TAKING BIOFLEX - TABLET DIRECTED ORALLY DAILY TAKING CLARITIN 10 MG TABLET 1 TABLET ORALLY ONCE A DAY TAKING VITAMIN E 400 UNIT CAPSULE 1 CAPSULE ORALLY ONCE A DAY TAKING MUCINEX DM 30-600 MG TABLET EXTENDED RELEASE 12 HOUR 1 TABLET NEEDED ORALLY EVERY 12 HRS, NOTES: NONE RECENT TAKING FISH OIL 1000 MG CAPSULE 1 CAPSULE ORALLY ONCE A DAY TAKING MAGNESIUM 500 MG TABLET 1 TABLET WITH A MEAL ORALLY ONCE A DAY TAKING OSTEO BI-FLEX ADV TRIPLE ST - TABLET DIRECTED ORALLY DAILY TAKING GARLIC 500 MG CAPSULE DIRECTED ORALLY DAILY NOT-TAKING GLUCOSAMINE 1500 COMPLEX - CAPSULE ORALLY DAILY, NOTES: 2000 COMPLEX NOT-TAKING CHERI 500 MG CAPSULE DIRECTED ORALLY DAILY NOT-TAKING ASTELIN 2 SPRAYS EACH NOSTRIL ONCE DAILY NOT-TAKING NAPROXEN 250 MG TABLET 1 TABLET WITH FOOD OR MILK ORALLY TWICE A DAY, NOTES: NEEDED NOT-TAKING VITAMIN E 200 UNIT CAPSULE 1 CAPSULE ORALLY ONCE A DAY NOT-TAKING BUPROPION HCL 150 MG TABLET EXTENDED RELEASE ORALLY DAILY NOT-TAKING CHERI 500 MG CAPSULE DIRECTED ORALLY NOT-TAKING ASPIR-81 81 MG TABLET DELAYED RELEASE 1 TABLET ORALLY ONCE A DAY NOT-TAKING PREDNISOLONE 5 MG (21) TABLET THERAPY PACK DIRECTED ORALLY , NOTES: FOR BRONCHITIS NOT-TAKING CARAFATE 1 GM TABLET 1 TABLET ON AN EMPTY STOMACH ORALLY THREE TIMES A DAY NOT-TAKING DYMISTA 137-50 MCG/ACT SUSPENSION 1 SPRAY, TO BOTH NOSTRILS NASALLY TWICE A DAY NOT-TAKING PROTONIX 40 MG TABLET DELAYED RELEASE 1 TABLET ORALLY BID NOT-TAKING CARAFATE 1 GM TABLET 1 TABLET ON AN EMPTY STOMACH ORALLY THREE TIMES A DAY NOT-TAKING REPLENS - GEL DIRECTED VAGINAL , NOTES: HAVEN'T GOTTEN YET MEDICATION LIST REVIEWED AND RECONCILED WITH THE PATIENT PAST MEDICAL HISTORY ALLERGIC RHINITIS/CONJUNCTIVITIS/CHRONIC RECURRENT SINUSITIS-01/2015 - ZONE 1, IGE < 3.6 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 BY NOVEMBER 2010 CT/GRADE 1 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 X-RAY BILATERAL HAND OSTEOARTHRITIS-2007 NEGATIVE RHEUMATOLOGICAL WORKUP IMANI-02/2012 NPSG C RDI 25-ALLEN HYPERLIPIDEMIA 2B GERD-08/2014 NORMAL EGD-REINDL 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[address] OF THE PELVIS STONE PROTOCOL AND RENAL ULTRASOUND BILATERAL DEPRESSION FIBROMYALGIA ALLERGIC RHINITIS/CONJUNCTIVITIS IMPAIRED FASTING GLUCOSE LEUKOPENIA, 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, CHRONIC 2 SMALL ADENOMATOUS POLYPS, DIVERTICULOSIS, SIGMOID, 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-06/2011-REINDL MODERATE SIGMOID DIVERTICULOSIS-REINDL L HIP MILD OA BY 08/2013 XRAY 11/2018 ECOLI IN URINE 12/2018 BRONCHITIS ASTHMA ALLERGIES AVELOX: LEGS SHAKEY - SIDE EFFECTS CYMBALTA: NAUSEA/VOMITING - SIDE EFFECTS DOXYCYCLINE HYCLATE: INEFFECTIVE - SIDE EFFECTS PROZAC: FATIGUE - SIDE EFFECTS SULFA (FOR ALLERGY USE ONLY): RASH - ALLERGY CODEINE SULFATE: NAUSEA/VOMITING - SIDE EFFECTS SOCIAL HISTORY GENERAL: TOBACCO USE ARE YOU A:NONSMOKER LATEX QUESTIONNAIRE LATEX ALLERGY : HAVE YOU EVER DEVELOPED ANY TYPE OF REACTION AFTER HANDLING LATEX PRODUCTS SUCH RUBBER GLOVES, CONDOMS, DIAPHRAGMS, BALLOONS, SOCKS, OR UNDERWEAR?NO LATEX ALLERGY : HAVE YOU EVER DEVELOPED ANY TYPE OF REACTION DURING OR AFTER DENTAL APPOINTMENT, VAGINAL/RECTAL EXAMINATION, SURGICAL PROCEDURE, OR ANY OTHER EXPOSURE?NO LATEX RISK : HAVE YOU EVER HAD ANY DIFFICULTY BREATHING OR HIVES AFTER EATING OR HANDLING ANY FRUITS, OR VEGETABLES; SUCH KIWI, BANANAS, STONE FRUITS, OR CHESTNUTSNO LATEX RISK : DO YOU HAVE A PREVIOUS PERSONAL HISTORY OF MORE THAN NINE SURGERIES, SPINA BIFIDA, OR REPEATED CATHERIZATIONS? NO LATEX RISK : ARE YOU FREQUENTLY EXPOSED TO LATEX PRODUCTS IN YOUR OCCUPATION?NO DATE ASKED : 12/26/2020 ALCOHOL USE: YES. ALCOHOL SCREENING DID YOU HAVE A DRINK CONTAINING ALCOHOL IN THE PAST YEAR?YES HOW OFTEN DID YOU HAVE SIX OR MORE DRINKS ON ONE OCCASION IN THE PAST YEAR?NEVER (0 POINTS) HOW MANY DRINKS DID YOU HAVE ON A TYPICAL DAY WHEN YOU WERE DRINKING IN THE PAST YEAR?3 OR 4 (1 POINT) HOW OFTEN DID YOU HAVE A DRINK CONTAINING ALCOHOL IN THE PAST YEAR?MONTHLY OR LESS (1 POINT) POINTS2 INTERPRETATIONNEGATIVE RECREATIONAL DRUG USE DRUG USE?NO DENIES 03/06/20 CAFFEINE DECAF COFFEE ONLY.. SEXUAL HX HAD SEX IN THE LAST 12 MONTHS (VAGINAL, ORAL, OR ANAL)?NO LMP:POST MENOPAUSE HAVE YOU EVER HAD AN STD?NO CHRISTIAN [id number] [employer] LANGUAGE LANGUAGES SPOKEN:SERBIAN EDUCATION LEVEL OF EDUCATION:HIGH SCHOOL LEARNING BARRIERS / SPECIAL NEEDS CHANGE FROM LAST VISIT?NO BARRIERS TO LEARNING?NO HEARING IMPAIRED?NO VISION IMPAIRED?YES :CORRECTIVE LENSES COGNITIVELY IMPAIRED?NO READINESS TO LEARN?YES LEARNING PREFERENCES?NO LEARNING CAPABILITIES PRESENT?YES EMOTIONAL BARRIERS?NO SPECIAL DEVICES?NO INBOUND SALES CONSULTANT NEEDED?NO DOMESTIC VIOLENCE DENIES. DIET: "TERRIBLE". EATS TOO MUCH DESSERT.. MARITAL STATUS: . OTHERS AT HOME: NONE. TODAY'S VISIT 03/06/2020 PATIENT DESCRIBES PAIN :ACHING, IT COMES AND GOES, SORE, OTHER NUMB FROM 0-10, WHAT LEVEL IS YOUR PAIN TODAY?3 PRECIPITATING FACTORS WALKING, LIFTING, RAISING ARMS OVER HER HEAD ALLEVIATING FACTORS LAYING DONE, IBUPROFEN, TYLENOL, STRETCHING EXERCISING IMPACT ON FUNCTION LIMITS HER ON WHAT SHE IS ABLE TO DO. - WAS THE PROVIDER NOTIFIED OF ANY PERTINENT INFO?YES HAS THE PATIENT BEEN EDUCATED REGARDING HIS/HER PLAN OF CARE?YES HAS THE PATIENT BEEN EDUCATED REGARDING PAIN, THE RISK FOR PAIN, THE IMPORTANCE OF EFFECTIVE PAIN MANAGEMENT, AND THE PAIN ASSESSMENT PROCESS?YES ADVANCE DIRECTIVE ADVANCE DIRECTIVE DISCUSSED WITH PATIENT:YES HCP JOHN DIXON [phone] VITAL SIGNS WT 138.4 LBS, HT 61 IN, BMI 26.15 INDEX, BP 178/72 MM HG, HR 60 /MIN, RR 18 /MIN, TEMP 97.4 F, OXYGEN SAT % 99, SAFE IN ENV? (Y/N) YES, REVIEWED BY: APA. STEVE RN. EXAMINATION GENERAL: THE PATIENT IS ALERT, ORIENTED TIMES THREE AND COOPERATIVE. LUNGS ARE CLEAR TO AUSCULTATION. HEART SHOWS REGULAR RHYTHM, NO MURMURS AND NO GALLOPS. ASSESSMENTS MYALGIA, OTHER SITE - M79.18 (PRIMARY) TREATMENT MYALGIA, OTHER SITE COMPLETION OF PROCEDURAL VISIT WHEN MEETS CRITERIAPEANGELIC PURVISIL R 03/21/2021 9:43:37 AM > CRITERIA MET MEDICATION: VALIUM TAB 2MG ORALLY (DIAZEPAM)NIRMALA MCGILLTH 03/21/2021 8:51:52 AM > VERIFIED STEVETIM R 03/21/2021 9:02:24 AM > ADMINISTERED OTHERS NOTES: 03/20/21 1320 PAT COMPLETED. Gilberto WEIR RN. PROCEDURES PAIN NURSING RECORD PROCEDURE IN ROOM 0820, PHYSICIAN IN ROOM 0925, START 0928, FINISH 0932, PHYSICIAN OUT OF ROOM 0932, OUT OF ROOM 0956, ECG N/A, PATIENT SHIELDED N/A, SAFETY STRAP N/A STRETCHER BEDSIDE RAILS UP, PREP ALCOHOL DR. QUINTANA, DRESSING TEGADERM Sea WILSON RN LOC: STEVETIM R 03/21/2021 9:30:57 AM > , 1. ALERT, ORIENTED RESP: PETRAS,TIM R 03/21/2021 9:30:16 AM > , 1. REGULAR, NO DYSPNEA COLOR: PETRASTIM R 03/21/2021 9:30:21 AM > , 1. PINK SKIN: PETRRAVEN,TIM R 03/21/2021 9:30:27 AM > , 1. WARM, DRY POSITION: PETRRAVENTIM R 03/21/2021 9:30:37 AM > , 5. SITTING VITALS: PETRASTIM R 03/21/2021 9:42:46 AM > 163/72, 57, 18, 96% COMPLETION OF PROCEDURE APPOINTMENT: POST PAIN 0, DRESSING SITE DRY AND INTACT, IV N/A, TEACHING COMPLETED, PATIENT ACKNOWLEDGES UNDERSTANDING YES, PROCEDURE APPOINTMENT COMPLETED AT BY: Sea WILSON RN PN TRIGGER POINT INJECTION NO STEROIDS PRE PROCEDURE DIAGNOSIS 1. MYALGIA 2. PAIN AT BILATERAL LOW BACK AREA POST PROCEDURE DIAGNOSIS 1. MYALGIA 2. PAIN AT BILATERAL LOW BACK AREA PROCEDURE TRIGGER POINT INJECTION AT BILATERAL LOW BACK AREA SURGEON DR. LOTUS QUINTANA SAFETY COMPANION NONE ANESTHESIA LOCAL PRE PROCEDURE NOTE PATIENT WITH HISTORY OF CHRONIC PAIN AT RIGHT AND LEFT LOW BACK AREA. I EVALUATED THE PATIENT AND REVIEWED THE CHART. THERE IS EVIDENCE OF BANDS OF TISSUE WITH RESTRICTION OF MOVEMENT AND PRESENCE OF TRIGGER POINT AT THE RIGHT AND LEFT LOW BACK AREA. I WENT OVER THE RISKS, ALTERNATIVES, AND BENEFITS ASSOCIATED WITH THIS PROCEDURE. THE PATIENT WOULD LIKE TO PROCEED AND GAVE CONSENT TO PERFORM THE PROCEDURE. THE PATIENT DENIES UNEXPLAINABLE WEIGHT LOSS, FEVER, CHILLS, OR NEW CHANGES IN URINARY OR BOWEL CONTROL. THE PATIENT IS COVID-19 NEGATIVE DESCRIPTION OF PROCEDURE THE PATIENT WAS BROUGHT TO THE PROCEDURE ROOM AND PLACED IN THE SITTING POSITION. THE AREA WAS CLEANED WITH ALCOHOL. THE PROCEDURE WAS DONE USING ASEPTIC STERILE TECHNIQUES. A TIMEOUT WAS PERFORMED WHERE THE CONSENTED SITE WAS VERIFIED WITH EVERYONE IN THE ROOM. USING A 25-GAUGE NEEDLE, TRIGGER POINTS WERE INJECTED INTO THE RIGHT AND LEFT LOW BACK AREA WITH A TOTAL OF 40 ML OF BUPIVACAINE 0.25%. AGREED WITH THE PATIENT THE PROCEDURE WAS DONE WITHOUT STEROIDS. THERE WAS NO EVIDENCE OF BLOOD, PARESTHESIA OR CEREBROSPINAL FLUID DURING THE PROCEDURE. THE PATIENT WAS SENT TO THE RECOVERY ROOM. THE PATIENT WAS MOVING THE EXTREMITIES AND DOING WELL. THERE WAS NO COMPLICATION DURING THE PROCEDURE. EBL LESS THAN 5 ML. POST PROCEDURE NOTE IF USING NO STEROIDS CONTINUES TO WORK FOR HER THEN THAT IS THE WAY TO GO. THE PROCEDURE DONE WAS DISCUSSED WITH THE PATIENT. THE PATIENT WILL BE SEEN IN A FOLLOW UP IN THE NEXT FEW WEEKS. I AM LOOKING FOR LONG LASTING PAIN RELIEF FOR THE PATIENT WITH THIS INTERVENTION. INSTRUCTIONS WERE GIVEN, QUESTIONS WERE ANSWERED, AND THE PATIENT EXPRESSED UNDERSTANDING AND AGREES WITH THE PLAN. I, SRUTHI MARTIN, DOCUMENTED THE ABOVE INFORMATION ACTING A SCRIBE FOR DR. QUINTANA. I HAVE REVIEWED THE ABOVE DOCUMENT, WRITTEN BY SRUTHI MARTIN, RAIL CAR WELDER, AND I VERIFY THAT IT IS ACCURATE PROCEDURE CODES 87412 INJ TRIGGER POINT /2 MUSCL DISPOSITION & COMMUNICATION FOLLOW UP FOLLOW UP WITH ENSEMBLE MEMBER (REASON: POST TRIGGER POINT INJECTIONS BILATERAL LOW BACK) ELECTRONICALLY SIGNED BY LOTUS QUINTANA MD, MD ON 03/21/2021 AT 05:35 PM EDT DISCLAIMER : THIS IS A VISIT SUMMARY EXTRACTED FROM THE P21 CHART. IT IS NOT A COPY OF THE P21 PROGRESS NOTE. JOZEF
== END ==
LOC: M PAIN 08:30
PROVIDERS: ATTEND Anesthesiology
DX: M79.18 Myalgia, other site (principal); G47.33 Obstructive sleep apnea (adult) (pediatric); K21.9 Gastro-esophageal reflux disease without esophagitis; R73.01 Impaired fasting glucose; J45.909 Unspecified asthma, uncomplicated; Z86.59 Personal history of other mental and behavioral disorders; Z88.1 Allergy status to other antibiotic agents; Z88.2 Allergy status to sulfonamides; Z88.5 Allergy status to narcotic agent; Z88.8 Allergy status to other drugs, medicaments and biological substances; Z79.899 Other long term (current) drug therapy

== ENCOUNTER → 2021-03-26 | Outpatient (CLI) | payer MEDICARE ==
[~2021-03-26] MED LIST changes: -BUPIVACAINE HCL 0.25% 10ML VIAL As Ordered ONE; -BUPIVACAINE HCL 0.25% 30ML VIAL As Ordered ONE; -diazePAM 2 MG TAB As Ordered ONE
--- NOTE | 2021-03-26 15:47 | REPMRS ---
Patient History The patient states she has not had a clinical breast exam in over a year. No known family history of cancer. No breast complaints today Patient signed the MRS sheets Patient has had both covid vaccines but doesn't remember when or what she had. 2D only Best views possible due to patient condition-patient very arthritic and unable to move much Priors on PACS Patient Identification Verified Digital Woman Screen Mammo: March 26, 2021 - Exam #: [id number] Bilateral CC and MLO view(s) were taken. Technologist: Jennifer Clark, Technologist Prior study comparison: March 13, 2020, bilateral digital woman screen mammo performed at [facility]. February 25, 2019, bilateral digital woman screen mammo performed at [facility]. FINDINGS: There are scattered fibroglandular densities. Screening. Digital screening (2D) mammography was performed bilaterally in the CC and MLO projections. Todays exam was compared to the prior exams. By history, the patient has no complaints of a palpable breast abnormality or other significant breast complaints. The breasts are unchanged in size and shape. There are no mark-soft tissue densities or spiculated masses. There is no internal architectural distortion.Once again, stable benign appearing calcifications are seen. There are no suspicious mark-calcific clusters. Skin thickening or nipple retraction is not present. IMPRESSION: BI-RADS Category 2- Benign Findings. There is no evidence of malignant alteration of the breasts. Followup examination recommended in one year. The Volpara volumetric breast density category is B, there are scattered areas of fibroglandular density. This mammogram was read with the assistance of [facility],an FDA approved computer aided detection system for mammography. The lifetime Tyrer-Cuzick score is 2 % Negative x-ray reports should not delay surgical consultation if a dominant or clinically suspicious mass is present. Not all breast cancers can be identified by mammography. Therefore, we recommend that you continue to perform regular breast self-examination and physical examination and then promptly contact your physician of any concerns or changes. Adenosis and dense breasts may obscure an underlying neoplasm. Assessment: BI-RADS/ACR category 2 mammogram. Benign Findings. Recommendation Routine screening mammogram in 1 year. Electronically Signed By: Mark Banda DO 03/26/21 [id number]
== END ==
LOC: M WHC 14:55
PROVIDERS: ATTEND Physician Assistant Medical
DX: Z12.31 Encounter for screening mammogram for malignant neoplasm of breast (principal)

== ENCOUNTER → 2021-04-01 | Outpatient (CLI) | payer MEDICARE ==
--- NOTE | 2021-04-01 21:55 | REP ---
INDICATION: PAIN IN RIGHT HIP Status post arthroplasty. COMPARISON: None. TECHNIQUE: AP view of the pelvis with neutral and frog-lateral views of the right hip. FINDINGS: No acute fracture or dislocation. Advanced osteoarthritic degenerative changes include increased sclerosis to the acetabular roof with marginal spurring/osteophyte formation and joint space narrowing. Small loose bodies along the inferior margin of the joint cannot be excluded. IMPRESSION: Early advanced osteoarthritic degenerative changes. <Electronically signed by Teofilo Baca > 04/01/21 [id number]
== END ==
LOC: M SOG 09:17
PROVIDERS: ATTEND Orthopaedic Surgery Adult Reconstructive Orthopaedic Surgery
DX: M25.551 Pain in right hip (principal)

== ENCOUNTER → 2021-04-10 | Outpatient (CLI) | payer MEDICARE ==
[~2021-04-10] MED LIST changes: +OMEP40CA4 PO; -OMEP40CA97 PO
--- NOTE | 2021-04-16 02:24 | ECWPNPC ---
PATIENT NAME: RENEE JACOBSEN : 1940 GENDER: FEMALE VISIT DATE: 04/10/2021 DISCHARGE DATE: 04/10/21 1053 VISIT LOCKED DATE TIME: PHYSICIAN: HECTOR DOAN RESOURCE: HECTOR DOAN REASON FOR APPOINTMENT 1. POST TRIGER POINT INJECTION HISTORY OF PRESENT ILLNESS GENERAL: HERE FOR POST PROCEDURE FOLLOW-UP. HAD TRIGGER POINT INJECTIONS TO HER LOWER BACK ON 03/21/2021. THESE WERE DONE WITHOUT STEROIDS. PATIENT NOTICED IMPROVEMENT FOR A COUPLE OF WEEKS AND THEN PAIN RETURNED. REPORTS DOING A LOT OF PHYSICAL ACTIVITY. SHE IS IN POOR CONDITION TODAY. SHE IS IN A WHEELCHAIR. CURRENTLY BEING TREATED FOR A LUNG INFECTION WITH ANTIBIOTICS AND STEROIDS. HAD AN APPOINTMENT WITH [facility] RECENTLY AND HAD RIGHT HIP X-RAY. SHE IS SCHEDULED TO HAVE RIGHT HIP INJECTION IN A FEW WEEKS. NO RECENT MRI IMAGING OF THE LUMBOSACRAL SPINE. -. FALL RISK SCREENING: SCREENING : NO FALLS REPORTED IN THE LAST YEAR. PAIN SCREENING: PATIENT HAS A COMPLAINT OF ACUTE OR CHRONIC PAIN :YES LOCATION OF PAIN:LOW BACK INTENSITY OF PAIN (SCALE OF 1 TO 10):8 WHAT DOES YOUR PAIN FEEL LIKE:THROBBING, SORE, OTHER RIGHT HIP HAD A KNOT PAIN GOES DOWN THE RIGHT LEG DURATION:STEADY PAIN IS INCREASED BY:ACTIVITIES, PROLONGED STANDING PAIN IS DECREASED BY:USE OF PAIN MEDICATIONS NURSING NOTE: -. PAIN CENTER INTAKE QUESTIONS: DO YOU HAVE A HISTORY OF MRSA? :NO DO YOU TAKE A BLOOD THINNERS? :NO DO YOU HAVE ANY BLEEDING DISORDERS? :NO ANY NEW NUMBNESS OR WEAKNESS IN YOUR LEGS OR ARMS? :NO ANY PACEMAKER,DEFIBRILLATOR, OR DORSAL COLUMN STIMULATOR? :NO DO YOU HAVE ANY RASHES OR OPEN SORES? :NO ARE YOU ALLERGIC TO IV DYE? :NO ARE YOU DIABETIC? :NO ANY NEW PROBLEMS WITH YOUR MEDICATIONS? :NO HAVE YOU RECEIVED A VACCINE IN THE PAST 30 DAYS? :NO DO YOU PLAN TO RECEIVE A VACCINE IN THE NEXT 21 DAYS? :NO DO YOU NEED ANY PRESCRIPTION? :NO DO YOU TAKE ANY IMMUNOSUPPRESSIVE MEDICATIONS? :NO IS THERE A CHANCE YOU COULD BE ? :NO ARE YOU BREAST FEEDING? :NO CURRENT MEDICATIONS TAKING SALINE NASAL SPRAY 0.65 % SOLUTION 2 SRAYS IN EACH NOSTRIL NEEDED NASALLY EVERY 4 HRS NEEDED TAKING LOPERAMIDE HCL 2 MG CAPSULE 1 CAPSULE ORALLY BID TAKING OMEPRAZOLE 20 MG CAPSULE DELAYED RELEASE 1 CAPSULE ORALLY DAILY TAKING VITAMIN C 1000 MG TABLET 1 TABLET ORALLY DAILY TAKING VITAMIN D3 2000 UNIT CAPSULE 1 CAPSULE ORALLY ONCE A DAY TAKING ACIDOPHILUS 10 MG CAPSULE DIRECTED ORALLY BID TAKING CALCIUM 600+D HIGH POTENCY 600-400 MG-UNIT TABLET 1 TABLET ORALLY ONCE A DAY TAKING VITAMIN B12 1000 MCG TABLET 2 TABLETS ORALLY ONCE A DAY TAKING SIMVASTATIN 40 MG TABLET 1/2 TABLET ORALLY WEEKLY TAKING TYLENOL 500MGS 1 TAB ORAL EVERY 4 HOURS NEEDED TAKING FLONASE 50 MCG/ACT SUSPENSION 1 SPRAY IN EACH NOSTRIL NASALLY ONCE A DAY TAKING RANITIDINE ACID IMPLEMENTATION PROJECT MANAGER 75 MG TABLET 1 TABLET NEEDED ORALLY DAILY TAKING FOLIC ACID 800 MCG TABLET 1 TABLET ORALLY ONCE A DAY TAKING HAIR SKIN & NAILS ADVANCED - TABLET DIRECTED ORALLY TAKING POTASSIUM 99 MG TABLET 1095 MG, 1 TABLET ORALLY ONCE A DAY TAKING TURMERIC 500 MG CAPSULE DIRECTED ORALLY DAILY TAKING SUPER B-COMPLEX - TABLET DIRECTED ORALLY DAILY TAKING CLARITIN 10 MG TABLET 1 TABLET ORALLY ONCE A DAY TAKING VITAMIN E 400 UNIT CAPSULE 1 CAPSULE ORALLY ONCE A DAY TAKING MUCINEX DM 30-600 MG TABLET EXTENDED RELEASE 12 HOUR 1 TABLET NEEDED ORALLY EVERY 12 HRS, NOTES: NONE RECENT TAKING FISH OIL 1000 MG CAPSULE 1 CAPSULE ORALLY ONCE A DAY TAKING MAGNESIUM 500 MG TABLET 1 TABLET WITH A MEAL ORALLY ONCE A DAY TAKING OSTEO BI-FLEX ADV TRIPLE ST - TABLET DIRECTED ORALLY DAILY TAKING GARLIC 500 MG CAPSULE DIRECTED ORALLY DAILY TAKING PREDNISOLONE 5 MG TABLET 1 TABLET IN THE MORNING WITH FOOD OR MILK ORALLY ONCE A DAY NOT-TAKING IBUPROFEN 800 MGS DAILY NEEDED NOT-TAKING BIOFLEX - TABLET DIRECTED ORALLY DAILY NOT-TAKING GLUCOSAMINE 1500 COMPLEX - CAPSULE ORALLY DAILY, NOTES: 2000 COMPLEX NOT-TAKING CHERI 500 MG CAPSULE DIRECTED ORALLY DAILY NOT-TAKING ASTELIN 2 SPRAYS EACH NOSTRIL ONCE DAILY NOT-TAKING NAPROXEN 250 MG TABLET 1 TABLET WITH FOOD OR MILK ORALLY TWICE A DAY, NOTES: NEEDED NOT-TAKING VITAMIN E 200 UNIT CAPSULE 1 CAPSULE ORALLY ONCE A DAY NOT-TAKING BUPROPION HCL 150 MG TABLET EXTENDED RELEASE ORALLY DAILY NOT-TAKING CHERI 500 MG CAPSULE DIRECTED ORALLY NOT-TAKING ASPIR-81 81 MG TABLET DELAYED RELEASE 1 TABLET ORALLY ONCE A DAY NOT-TAKING PREDNISOLONE 5 MG (21) TABLET THERAPY PACK DIRECTED ORALLY , NOTES: FOR BRONCHITIS NOT-TAKING CARAFATE 1 GM TABLET 1 TABLET ON AN EMPTY STOMACH ORALLY THREE TIMES A DAY NOT-TAKING DYMISTA 137-50 MCG/ACT SUSPENSION 1 SPRAY, TO BOTH NOSTRILS NASALLY TWICE A DAY NOT-TAKING PROTONIX 40 MG TABLET DELAYED RELEASE 1 TABLET ORALLY BID NOT-TAKING CARAFATE 1 GM TABLET 1 TABLET ON AN EMPTY STOMACH ORALLY THREE TIMES A DAY NOT-TAKING REPLENS - GEL DIRECTED VAGINAL , NOTES: HAVEN'T GOTTEN YET MEDICATION LIST REVIEWED AND RECONCILED WITH THE PATIENT PAST MEDICAL HISTORY ALLERGIC RHINITIS/CONJUNCTIVITIS/CHRONIC RECURRENT SINUSITIS-01/2015 - ZONE 1, IGE < 3.6 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 BY NOVEMBER 2010 CT/GRADE 1 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 X-RAY BILATERAL HAND OSTEOARTHRITIS-2007 NEGATIVE RHEUMATOLOGICAL WORKUP IMANI-02/2012 NPSG C RDI 25-ALLEN HYPERLIPIDEMIA 2B GERD-08/2014 NORMAL EGD-REINDL 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[address] OF THE PELVIS STONE PROTOCOL AND RENAL ULTRASOUND BILATERAL DEPRESSION FIBROMYALGIA ALLERGIC RHINITIS/CONJUNCTIVITIS IMPAIRED FASTING GLUCOSE LEUKOPENIA, 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, CHRONIC 2 SMALL ADENOMATOUS POLYPS, DIVERTICULOSIS, SIGMOID, 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-06/2011-REINDL//08/2014 MODERATE SIGMOID DIVERTICULOSIS-REINDL L HIP MILD OA BY 08/2013 XRAY 11/2018 ECOLI IN URINE 12/2018 BRONCHITIS ASTHMA ALLERGIES AVELOX: LEGS SHAKEY - SIDE EFFECTS CYMBALTA: NAUSEA/VOMITING - SIDE EFFECTS DOXYCYCLINE HYCLATE: INEFFECTIVE - SIDE EFFECTS PROZAC: FATIGUE - SIDE EFFECTS SULFA (FOR ALLERGY USE ONLY): RASH - ALLERGY CODEINE SULFATE: NAUSEA/VOMITING - SIDE EFFECTS SURGICAL HISTORY BILATERAL BLEPHAROPLASTY-BRAD 09/2010 DEVIATED SEPTUM REPAIR TUBAL LIGATION KIDNEY STONE LASER COLONOSCOPY 08/2014 BILAT EYELID REPAIR LUNG INFECTION 04/06/2021 SOCIAL HISTORY GENERAL: TOBACCO USE ARE YOU A:NONSMOKER LATEX QUESTIONNAIRE LATEX ALLERGY : HAVE YOU EVER DEVELOPED ANY TYPE OF REACTION AFTER HANDLING LATEX PRODUCTS SUCH RUBBER GLOVES, CONDOMS, DIAPHRAGMS, BALLOONS, SOCKS, OR UNDERWEAR?NO LATEX ALLERGY : HAVE YOU EVER DEVELOPED ANY TYPE OF REACTION DURING OR AFTER DENTAL APPOINTMENT, VAGINAL/RECTAL EXAMINATION, SURGICAL PROCEDURE, OR ANY OTHER EXPOSURE?NO LATEX RISK : HAVE YOU EVER HAD ANY DIFFICULTY BREATHING OR HIVES AFTER EATING OR HANDLING ANY FRUITS, OR VEGETABLES; SUCH KIWI, BANANAS, STONE FRUITS, OR CHESTNUTSNO LATEX RISK : DO YOU HAVE A PREVIOUS PERSONAL HISTORY OF MORE THAN NINE SURGERIES, SPINA BIFIDA, OR REPEATED CATHERIZATIONS? NO LATEX RISK : ARE YOU FREQUENTLY EXPOSED TO LATEX PRODUCTS IN YOUR OCCUPATION?NO DATE ASKED : 04/10/2021 ALCOHOL USE: YES. ALCOHOL SCREENING DID YOU HAVE A DRINK CONTAINING ALCOHOL IN THE PAST YEAR?YES HOW OFTEN DID YOU HAVE SIX OR MORE DRINKS ON ONE OCCASION IN THE PAST YEAR?NEVER (0 POINTS) HOW MANY DRINKS DID YOU HAVE ON A TYPICAL DAY WHEN YOU WERE DRINKING IN THE PAST YEAR?3 OR 4 (1 POINT) HOW OFTEN DID YOU HAVE A DRINK CONTAINING ALCOHOL IN THE PAST YEAR?MONTHLY OR LESS (1 POINT) POINTS2 INTERPRETATIONNEGATIVE RECREATIONAL DRUG USE DRUG USE?NO DENIES 03/06/20 CAFFEINE DECAF COFFEE ONLY.. SEXUAL HX HAD SEX IN THE LAST 12 MONTHS (VAGINAL, ORAL, OR ANAL)?NO LMP:POST MENOPAUSE HAVE YOU EVER HAD AN STD?NO Z[employer]RIAN [id number] [employer] LANGUAGE LANGUAGES SPOKEN:[place] EDUCATION LEVEL OF EDUCATION:HIGH SCHOOL LEARNING BARRIERS / SPECIAL NEEDS CHANGE FROM LAST VISIT?NO BARRIERS TO LEARNING?NO HEARING IMPAIRED?YES : STARTING TO HAVING DIFFICULTY HEARING VISION IMPAIRED?YES :CORRECTIVE LENSES COGNITIVELY IMPAIRED?NO READINESS TO LEARN?YES LEARNING PREFERENCES?NO LEARNING CAPABILITIES PRESENT?YES EMOTIONAL BARRIERS?NO SPECIAL DEVICES?YES :CANE, WALKER NEEDED CHANGE LEAD NEEDED?NO DOMESTIC VIOLENCE DENIES. DIET: "TERRIBLE". EATS TOO MUCH DESSERT.. MARITAL STATUS: . OTHERS AT HOME: NONE. TODAY'S VISIT 03/06/2020 PATIENT DESCRIBES PAIN :ACHING, IT COMES AND GOES, SORE, OTHER NUMB FROM 0-10, WHAT LEVEL IS YOUR PAIN TODAY?3 PRECIPITATING FACTORS WALKING, LIFTING, RAISING ARMS OVER HER HEAD ALLEVIATING FACTORS LAYING DONE, IBUPROFEN, TYLENOL, STRETCHING EXERCISING IMPACT ON FUNCTION LIMITS HER ON WHAT SHE IS ABLE TO DO. - WAS THE PROVIDER NOTIFIED OF ANY PERTINENT INFO?YES HAS THE PATIENT BEEN EDUCATED REGARDING HIS/HER PLAN OF CARE?YES HAS THE PATIENT BEEN EDUCATED REGARDING PAIN, THE RISK FOR PAIN, THE IMPORTANCE OF EFFECTIVE PAIN MANAGEMENT, AND THE PAIN ASSESSMENT PROCESS?YES ADVANCE DIRECTIVE ADVANCE DIRECTIVE DISCUSSED WITH PATIENT:YES HCP JOHN DIXON [phone] HOSPITALIZATION/MAJOR DIAGNOSTIC PROCEDURE ABOVE CHILDBIRTH REVIEW OF SYSTEMS CONSTITUTIONAL: ANY RECENT FEVER NO . CHILLS NO . WEIGHT CHANGE OF UNKNOWN REASONS NO . GASTROENTEROLOGY: NEW UNEXPLAINABLE CHANGES IN BOWEL CONTROL NO . CONSTIPATION NO . GENITOURINARY: ANY NEW CHANGE IN BLADDER CONTROL? NO . NEUROLOGY: NEW ONSET DIZZINESS OR NEUROLOGICAL CHANGES NOT MENTIONED NO . NEW NUMBNESS OR PAIN PATTERNS NOT MENTIONED AND PERTINENT TO TODAY'S VISIT NO . CARDIOLOGY: NEW CHEST PRESSURE NO . PATIENT DENIES NO . RESPIRATORY: UNEXPLAINABLE COUGH NO . NEW SHORTNESS OF BREATH NO . VITAL SIGNS WT 135.8 LBS, HT 61 IN, BMI 25.66 INDEX, BP 149/70 MM HG, HR 67 /MIN, RR 18 /MIN, TEMP 98.2 F, OXYGEN SAT % 95%, SAFE IN ENV? (Y/N) YES, NA INITIALS AW 1016T.SHOSHANA CHASE. EXAMINATION GENERAL EXAMINATION: GENERAL AWAKE,ALERT ,PLEAASANT . PSYCH AFFECT NORMAL . LUNGS: LUNG GROSS ARE CLEAR TO AUSCULTATION BILATERALLY. GOOD MOVEMENT OF AIR . HEART: S1, S2 IN A REGULAR RATE AND RHYTHM. NO SIGNIFICANT MURMURS, RUBS OR GALLOPS NOTED . LUMBAR:PALPATION:TENDER OVER RIGHT . L3/4-L4/5 LUMBAR FACETS WITH FACET LOADING. PAIN IS AGGRAVATED WITH ROTATION OF SPINE AND WITH EXTENSION OF SPINE. DIAGNOSTIC TESTS REVIEWEDMRI L/S SPINE 04/05/2018 -DIFFUSE DEGENERATIVE SPONDYLOSIS. THESE CHANGES ARE MUCH MORE PRONOUNCED AT L1-2, L2-3 AND L3-4 . ASSESSMENTS LUMBOSACRAL SPONDYLOSIS WITHOUT MYELOPATHY - M47.817 (PRIMARY) OTHER CHRONIC PAIN - G89.29 MYALGIA, OTHER SITE - M79.18 TREATMENT LUMBOSACRAL SPONDYLOSIS WITHOUT MYELOPATHY [facility] MRI SPINE, L.S. WITHOUT [id number] NOTES: DUE TO SEVERE INCREASE IN LOW BACK PAIN WITH LITTLE RESPONSE TO TRIGGER POINT INJECTIONS TO THE LOWER BACK AND FAILURE OF CONSERVATIVE TREATMENT TO INCLUDE HOME STRETCHING AND EXERCISES AND ACTIVITY MODIFICATIONS IT IS MEDICALLY NECESSARY TO DO A MRI OF THE LUMBOSACRAL SPINE. OTHER CHRONIC PAIN PAIN PROCEDURE LOGDATE OF GYELMUSYW26/27/2021PROCEDURE:TRIGGER POINT INJECTIONS TO BILATERAL LOWER BACKAMOUNT OF PRE SEDATEVALIUM 2MGRESULT:IMPROVEMENT X2 WEEKS PROCEDURE CODES FA211 ESTABILISHED PATIENT [facility] CHARGE DISPOSITION & COMMUNICATION FOLLOW UP 6-8WKS (REASON: MRI REVIEW) ELECTRONICALLY SIGNED BY BYRON WHITTAKER ON 04/15/2021 AT 08:19 PM EDT DISCLAIMER : THIS IS A VISIT SUMMARY EXTRACTED FROM THE [employer] CHART. IT IS NOT A COPY OF THE [employer] PROGRESS NOTE. JOZEF
== END ==
LOC: M PAIN 10:00
PROVIDERS: ATTEND Nurse Practitioner Family
DX: M47.817 Spondylosis without myelopathy or radiculopathy, lumbosacral region (principal); M79.18 Myalgia, other site; G47.33 Obstructive sleep apnea (adult) (pediatric); K21.9 Gastro-esophageal reflux disease without esophagitis; J45.909 Unspecified asthma, uncomplicated; Z86.59 Personal history of other mental and behavioral disorders; Z88.1 Allergy status to other antibiotic agents; Z88.2 Allergy status to sulfonamides; Z88.5 Allergy status to narcotic agent; Z88.8 Allergy status to other drugs, medicaments and biological substances; Z79.899 Other long term (current) drug therapy

== ENCOUNTER → 2021-05-02 | Outpatient (CLI) | payer MEDICARE ==
[~2021-05-02] MED LIST changes: +BUPIVACAINE HCL 0.5% 10ML VIAL As Ordered ONE; +ISOVUE-300 61% 50ML VIAL As Ordered ONE; +methylPREDNISolone 80MG/ML SUSP 1ML VIAL (J1040) As Ordered ONE
--- NOTE | 2021-05-02 17:04 | REP ---
INDICATION: UNILATERAL OSTEOARTHITIS RESULTING FROM HIP DYSPLASIA. COMPARISON: None. TECHNIQUE: The procedure was performed under the direct supervision of Dr. Hare. The benefits and risks including but not limited to pain infection and bleeding and anaphylaxis were explained to the patient and informed consent was obtained. The right femoral neck was localized using fluoroscopic guidance. The skin was prepped and draped in a sterile fashion. 1% lidocaine was used as a local anesthetic. Using fluoroscopic guidance, and last image hold technology, a 22-gauge spinal needle was inserted and advanced to the femoral neck. 0.5 ml of Isovue-300 was injected to verify placement. Four ml of a solution containing 3 ml of 0.5% Marcaine and 1 mL of Depo-Medrol 80 mg was injected. The needle was then removed. The patient tolerated the procedure well and there were no immediate complications. Less than 6 seconds of fluoro time was utilized for this procedure. FINDINGS: None IMPRESSION: Fluoro guidance for right hip injection. <Electronically signed by Marshall Byers > 05/02/21 [id number] <Electronically signed by Vincent Hare > 05/02/21 1709
== END ==
LOC: M RADPRO 11:33
PROVIDERS: ATTEND Orthopaedic Surgery Adult Reconstructive Orthopaedic Surgery
DX: M16.31 Unilateral osteoarthritis resulting from hip dysplasia, right hip (principal)
CPT/HCPCS: 20610; 77002; J1040; Q9967

== ENCOUNTER → 2021-05-27 | Outpatient (CLI) | payer MEDICARE ==
[~2021-05-27] MED LIST changes: -BUPIVACAINE HCL 0.5% 10ML VIAL As Ordered ONE; -ISOVUE-300 61% 50ML VIAL As Ordered ONE; -methylPREDNISolone 80MG/ML SUSP 1ML VIAL (J1040) As Ordered ONE
[2021-05-27 17:41] LABS: BASO % 1.1 % (0.0-1.0); EOS # 0.2 10^3/uL (0.0-0.5); EOS % 4.6 % (0.0-3.0); HEMATOCRIT 35.6 % (36.0-47.0); HEMOGLOBIN 11.4 g/dl (12.0-15.5); LYMPH # 1.1 10^3/uL (1.5-5.0); LYMPH % 29.7 % (24.0-44.0); MEAN CORPUSCULAR HEMOGLOBIN 33.2 pg (27.0-33.0); MEAN CORPUSCULAR VOLUME 103.8 fl (80.0-96.0); MONO # 0.4 10^3/uL (0.0-0.8); MONO % 10.3 % (2.0-8.0); PLATELET COUNT, AUTOMATED 234 10^3/uL (150-450); RED BLOOD COUNT 3.43 10^6/uL (4.00-5.40); WHITE BLOOD COUNT 3.7 10^3/uL (4.0-10.0)
[2021-05-27 18:19] LABS: ALT/SGPT 27 U/L (12-78); BILIRUBIN,TOTAL 0.4 MG/DL (0.2-1.0); BLOOD UREA NITROGEN 23 MG/DL (7-18); CARBON DIOXIDE LEVEL 28 MEQ/L (21-32); CHLORIDE LEVEL 108 MEQ/L (98-107); CREATININE FOR GFR 0.72 MG/DL (0.55-1.30); GLOMERULAR FILTRATION RATE > 60.0 (>39); GLUCOSE, FASTING 86 MG/DL (70-100); POTASSIUM SERUM 4.3 MEQ/L (3.5-5.1); RHEUMATOID FACTOR QUANT < 10.0 IU/ML (<15.0); SODIUM LEVEL 140 MEQ/L (136-145); TOTAL PROTEIN 7.2 GM/DL (6.4-8.2)
[2021-05-27 19:23] LABS: ERYTHROCYTE SEDIMENTATION RATE 29 mm/hr (0-30)
== END ==
LOC: M LAB 17:05
PROVIDERS: ATTEND Nurse Practitioner Family
DX: M12.9 Arthropathy, unspecified (principal)

== ENCOUNTER → 2021-05-31 | Outpatient (CLI) | payer MEDICARE ==
--- NOTE | 2021-06-01 19:47 | REPVR ---
PROCEDURE INFORMATION: Exam: MR Lumbar Spine Without Contrast Exam date and time: 05/31/2021 7:24 PM Age: 81 years old Clinical indication: Condition or disease; Spondylosis, lumbosacral; Lumbar region; Without myelopathy or radiculopathy; Additional info: Spondylosis lumbar region TECHNIQUE: Imaging protocol: Multiplanar magnetic resonance images of the lumbar spine without intravenous contrast. COMPARISON: MRI-Spine, L.S. without con 04/05/2018 10:56 AM FINDINGS: Vertebral body heights are maintained. Prominent Modic type 1 edematous degenerative endplate change at L2-L3. 0.4 cm grade 1 anterolisthesis of L3 on L4. 0.8 cm grade 1 anterolisthesis of L4 on L5. No cord compression. No abnormal cord signal. Conus medullaris terminates at the L1 level. Paravertebral soft tissues are unremarkable. L1-L2: Broad-based disc bulge and facet hypertrophy cause mild to moderate canal narrowing with effacement of the bilateral lateral recesses. Moderate left and severe right foraminal narrowing. L2-L3: Broad-based disc bulge and facet hypertrophy cause severe canal narrowing with crowding of the cauda equina. Mild left and severe right foraminal narrowing with compression of the exiting right L2 nerve root. L3-L4: Combination of anterolisthesis, broad-based disc bulge, and facet hypertrophy cause moderate to severe canal narrowing with slight crowding of the cauda equina. Moderate left and severe right foraminal narrowing. Compression of the exiting right L3 nerve root. L4-L5: Combination of anterolisthesis, broad-based disc bulge, and facet hypertrophy cause moderate canal narrowing with effacement of the bilateral lateral recesses. Mild left and moderate right foraminal narrowing. L5-S1: Broad-based disc bulge and facet hypertrophy cause moderate right and severe left foraminal narrowing. Mild canal narrowing. IMPRESSION: Multilevel advanced spondylotic changes of the lumbar spine, most pronounced at L2-L3 with severe canal narrowing and crowding of the cauda equina, as detailed above. Electronically signed by: Cyrus Olguin On 06/01/2021 19:47:20 PM
== END ==
LOC: M RAD 18:14
PROVIDERS: ATTEND Nurse Practitioner Family
DX: M47.817 Spondylosis without myelopathy or radiculopathy, lumbosacral region (principal)

== ENCOUNTER → 2021-07-25 | Outpatient (REF) | payer MEDICARE | LOC: M WUC 20:21 | PROVIDERS: ATTEND Physician Assistant | DX: J06.9 Acute upper respiratory infection, unspecified (principal) ==

== ENCOUNTER → 2021-07-31 | Outpatient (CLI) | payer MEDICARE | LOC: M PAIN 10:30 | PROVIDERS: ATTEND Anesthesiology | DX: M79.18 Myalgia, other site (principal); M47.816 Spondylosis without myelopathy or radiculopathy, lumbar region; M54.16 Radiculopathy, lumbar region; G47.33 Obstructive sleep apnea (adult) (pediatric); K21.9 Gastro-esophageal reflux disease without esophagitis; J45.909 Unspecified asthma, uncomplicated; Z86.59 Personal history of other mental and behavioral disorders; Z88.1 Allergy status to other antibiotic agents; Z88.2 Allergy status to sulfonamides; Z88.5 Allergy status to narcotic agent; Z88.8 Allergy status to other drugs, medicaments and biological substances; Z79.899 Other long term (current) drug therapy ==

== ENCOUNTER → 2021-08-02 | Outpatient (CLI) | payer MEDICARE ==
[~2021-08-02] MED LIST changes: +BUPIVACAINE HCL 0.5% 10ML VIAL As Ordered ONE; +ISOVUE-300 61% 50ML VIAL As Ordered ONE; +LIDOCAINE 1% MDV 20ML VIAL As Ordered ONE; +methylPREDNISolone 80MG/ML SUSP 1ML VIAL (J1040) As Ordered ONE
--- NOTE | 2021-08-02 16:17 | REP ---
INDICATION: OSTEOARTHRITIS RT HIP. COMPARISON: None. TECHNIQUE: The procedure was performed under the direct supervision of Dr. Cabrera. The benefits and risks including but not limited to pain infection and bleeding and anaphylaxis were explained to the patient and informed consent was obtained. The right femoral neck was localized using fluoroscopic guidance. The skin was prepped and draped in a sterile fashion. 1% lidocaine was used as a local anesthetic. Using fluoroscopic guidance, and last image hold technology, a 22-gauge spinal needle was inserted and advanced to the femoral neck. 0.5 ml of Isovue-300 was injected to verify placement. Four ml of a solution containing 3 ml of 0.5% Marcaine and 1 mL of Depo-Medrol 80 mg was injected. The needle was then removed. The patient tolerated the procedure well and there were no immediate complications. Less than 6 seconds of fluoro time was utilized for this procedure. FINDINGS: None IMPRESSION: Fluoro guidance for right hip injection. <Electronically signed by Marshall Byers > 08/02/21 [id number] <Electronically signed by Mark Cabrera > 08/02/21 [id number]
== END ==
LOC: M RADPRO 10:36
PROVIDERS: ATTEND Orthopaedic Surgery Adult Reconstructive Orthopaedic Surgery
DX: M16.31 Unilateral osteoarthritis resulting from hip dysplasia, right hip (principal)
CPT/HCPCS: 20610; 77002; J1040; Q9967

== ENCOUNTER → 2021-08-16 | Outpatient (CLI) | payer MEDICARE ==
[~2021-08-16] MED LIST changes: -BUPIVACAINE HCL 0.5% 10ML VIAL As Ordered ONE; -ISOVUE-300 61% 50ML VIAL As Ordered ONE; -LIDOCAINE 1% MDV 20ML VIAL As Ordered ONE; -methylPREDNISolone 80MG/ML SUSP 1ML VIAL (J1040) As Ordered ONE
--- NOTE | 2021-08-19 03:38 | REP ---
INDICATION: ABN FINDING OF LUNG COMPARISON: 01/30/2021, 04/03/2020 TECHNIQUE: Axial noncontrast images from the thoracic inlet to the upper abdomen with coronal and sagittal reformations. This CT examination was performed using the following dose reduction techniques: Automated exposure control, adjustment of mA and/or kv according to the patient's size, and use of iterative reconstruction technique. FINDINGS: The 12 mm non solid ground-glass opacity in the right apex and the somewhat ovoid perifissural density in the posterobasilar aspect left upper lobe are stable as compared through 2019. Similar areas of opacity along with scattered scarring, mild bronchiectasis and partially calcified mediastinal/hilar adenopathy also remains stable and suggest changes related to chronic granulomatous disease. Few small 2 mm nodular densities (ex.: Series 201; images 36, 39) represent new findings, but are again likely related to granulomatous disease. No acute consolidation or effusion. No pneumothorax. Tracheobronchial tree is patent. Mediastinum demonstrates stable atherosclerotic changes to the thoracic aorta and coronary arteries without aortic aneurysm or cardiomegaly. No pericardial effusion. Musculoskeletal structures demonstrate degenerative changes. Limited upper abdomen demonstrates normal bilateral adrenal glands and evidence for prior cholecystectomy. IMPRESSION: Findings described above are predominately stable and likely all represent findings related to granulomatous disease. <Electronically signed by Teofilo Baca > 08/19/21 1094
== END ==
LOC: M RAD 13:49
PROVIDERS: ATTEND Internal Medicine Pulmonary Disease
DX: R91.8 Other nonspecific abnormal finding of lung field (principal)

== ENCOUNTER → 2021-08-21 | Outpatient (REF) | payer MEDICARE ==
[2021-08-22 12:07] LABS: PERCENT SATURATION 24.9 % (13.2-45.0)
[2021-08-22 12:19] LABS: FOLATE 16.4 NG/ML
== END ==
LOC: M LAB REF 11:26
PROVIDERS: ATTEND Internal Medicine
DX: D64.9 Anemia, unspecified (principal)

== ENCOUNTER 2021-08-22 10:54 | Outpatient (RCR) | payer MEDICARE | END 2021-08-25 | LOC: M PT 10:54 | PROVIDERS: ATTEND Internal Medicine | DX: M25.511 Pain in right shoulder (principal) ==

== ENCOUNTER 2021-09-11 10:45 | Outpatient (RCR) | payer MEDICARE | END 2021-09-24 | LOC: M PT 10:45 | PROVIDERS: ATTEND Internal Medicine | DX: M25.511 Pain in right shoulder (principal) ==

== ENCOUNTER → 2021-09-18 | Outpatient (CLI) | payer MEDICARE | LOC: M LABSMTC 11:55 | PROVIDERS: ATTEND Anesthesiology | DX: Z01.812 Encounter for preprocedural laboratory examination (principal); Z20.822 Contact with and (suspected) exposure to COVID-19 ==

== ENCOUNTER → 2021-09-24 | Outpatient (CLI) | payer MEDICARE ==
[~2021-09-24] MED LIST changes: +BUPIVACAINE HCL 0.25% 10ML VIAL As Ordered ONE; +BUPIVACAINE HCL 0.25% 30ML VIAL As Ordered ONE; +diazePAM 2 MG TAB As Ordered ONE
== END ==
LOC: M PAIN 08:30
PROVIDERS: ATTEND Anesthesiology
DX: M79.18 Myalgia, other site (principal); G47.33 Obstructive sleep apnea (adult) (pediatric); K21.9 Gastro-esophageal reflux disease without esophagitis; J45.909 Unspecified asthma, uncomplicated; Z86.59 Personal history of other mental and behavioral disorders; Z88.1 Allergy status to other antibiotic agents; Z88.2 Allergy status to sulfonamides; Z88.5 Allergy status to narcotic agent; Z88.8 Allergy status to other drugs, medicaments and biological substances; Z79.899 Other long term (current) drug therapy

== ENCOUNTER 2021-10-14 10:43 | Outpatient (RCR) | payer MEDICARE ==
[~2021-10-14 10:43] MED LIST changes: -BUPIVACAINE HCL 0.25% 10ML VIAL As Ordered ONE; -BUPIVACAINE HCL 0.25% 30ML VIAL As Ordered ONE; -diazePAM 2 MG TAB As Ordered ONE
== END 2021-10-25 ==
LOC: M PT 10:43
PROVIDERS: ATTEND Internal Medicine
DX: M25.511 Pain in right shoulder (principal)

== ENCOUNTER → 2021-11-20 | Outpatient (REF) | payer MEDICARE | LOC: M LAB REF 16:08 | PROVIDERS: ATTEND Nurse Practitioner Adult Health | DX: M79.10 Myalgia, unspecified site (principal) ==

== ENCOUNTER → 2021-12-05 | Outpatient (CLI) | payer MEDICARE | LOC: M RAD 09:33 | PROVIDERS: ATTEND Internal Medicine | DX: J01.11 Acute recurrent frontal sinusitis (principal) ==

== ENCOUNTER → 2022-01-06 | Outpatient (CLI) | payer MEDICARE | LOC: M RAD 15:05 | PROVIDERS: ATTEND Physician Assistant | DX: S00.83XA Contusion of other part of head, initial encounter (principal); X58.XXXA Exposure to other specified factors, initial encounter; Y92.9 Unspecified place or not applicable; Y93.9 Activity, unspecified; Y99.9 Unspecified external cause status; R51.9 Headache, unspecified ==

== ENCOUNTER 2022-02-22 08:54 | Emergency (ER) | payer MEDICARE ==
[~2022-02-22] VITALS: Ht 157.5 cm; Wt 61.8 kg
[2022-02-22] MEDS ORDERED: ONDANSETRON 4MG/2ML VIAL IV ONE (09:05)
[2022-02-22] MEDS: MORPHINE 2 MG/ML 1ML VIAL IV PRN ×2 (09:35→10:39)
[2022-02-22 09:56] LABS: BASO % 0.8 % (0.0-1.0); EOS # 0.1 10^3/uL (0.0-0.5); HEMATOCRIT 35.7 % (36.0-47.0); HEMOGLOBIN 11.6 g/dl (12.0-15.5); LYMPH # 1.1 10^3/uL (1.5-5.0); LYMPH % 26.3 % (24.0-44.0); MEAN CORPUSCULAR HEMOGLOBIN 32.5 pg (27.0-33.0); MEAN CORPUSCULAR HGB CONC 32.5 g/dl (32.0-36.5); MONO # 0.3 10^3/uL (0.0-0.8); MONO % 8.5 % (2.0-8.0); NEUTROPHILS # 2.4 10^3/uL (1.5-8.5); NEUTROPHILS % 61.1 % (36.0-66.0); PLATELET COUNT, AUTOMATED 199 10^3/uL (150-450); RED BLOOD COUNT 3.57 10^6/uL (4.00-5.40)
[2022-02-22 10:27] LABS: ALBUMIN 4.1 GM/DL (3.2-5.2); ALT/SGPT 29 U/L (12-78); BILIRUBIN,DIRECT < 0.1 MG/DL (0.0-0.2); BILIRUBIN,TOTAL 0.4 MG/DL (0.2-1.0); LIPASE 51 U/L (73-393); TOTAL PROTEIN 7.5 GM/DL (6.4-8.2)
[2022-02-22] MEDS ORDERED: ACETAMINOPHEN 500 MG TAB PO ONE (10:50)
[2022-02-22] MEDS ORDERED: LIDOCAINE 5% (LIDODERM) PATCH TD ONE (10:50)
[2022-02-22] MEDS ORDERED: traMADol 50 MG TAB PO ONE (13:25)
[2022-02-22] MEDS ORDERED: TRAM50TA2 PO ×3 (14:33→14:41)
[2022-02-22 14:47] VITALS: BP 177/80
[2022-02-22] MEDS ORDERED: **NOTE PATIENT COMMENT** MISC XX ONE (23:00)
== END 2022-02-22 15:25 | disposition home or self-care (01) ==
LOC: M ED 08:54 → EDBD 08:54 → M ED 15:25
DX: M54.50 Low back pain, unspecified (principal); I44.7 Left bundle-branch block, unspecified; E78.5 Hyperlipidemia, unspecified; F32.A Depression, unspecified; J45.909 Unspecified asthma, uncomplicated; K58.9 Irritable bowel syndrome, unspecified; G47.33 Obstructive sleep apnea (adult) (pediatric); Z88.2 Allergy status to sulfonamides; Z88.5 Allergy status to narcotic agent; Z88.8 Allergy status to other drugs, medicaments and biological substances; Z79.899 Other long term (current) drug therapy
CPT/HCPCS: 72131; 74176; 80047; 80076; 81001; 83605; 83690; 84484; 85025; 93005; 93041; 96374; 96375; 99285; J2270; J2405

== ENCOUNTER → 2022-03-26 | Outpatient (CLI) | payer MEDICARE ==
[~2022-03-26] MED LIST changes: +ALBU2.5V10; -ALBU83IN; +TRAM50TA2 PO
== END ==
LOC: M PAIN 10:00
PROVIDERS: ATTEND Anesthesiology
DX: M79.10 Myalgia, unspecified site (principal); M54.50 Low back pain, unspecified; G47.33 Obstructive sleep apnea (adult) (pediatric); J45.909 Unspecified asthma, uncomplicated; Z86.59 Personal history of other mental and behavioral disorders; Z88.1 Allergy status to other antibiotic agents; Z88.2 Allergy status to sulfonamides; Z88.5 Allergy status to narcotic agent; Z88.8 Allergy status to other drugs, medicaments and biological substances; Z79.51 Long term (current) use of inhaled steroids; Z79.899 Other long term (current) drug therapy

== ENCOUNTER → 2022-04-08 | Outpatient (CLI) | payer MEDICARE ==
[2022-04-08 18:24] LABS: BASO % 0.8 % (0.0-1.0); EOS # 0.1 10^3/uL (0.0-0.5); EOS % 2.6 % (0.0-3.0); HEMATOCRIT 33.1 % (36.0-47.0); HEMOGLOBIN 10.7 g/dl (12.0-15.5); LYMPH # 1.5 10^3/uL (1.5-5.0); LYMPH % 29.5 % (24.0-44.0); MEAN CORPUSCULAR HEMOGLOBIN 32.8 pg (27.0-33.0); MEAN CORPUSCULAR HGB CONC 32.3 g/dl (32.0-36.5); MEAN CORPUSCULAR VOLUME 101.5 fl (80.0-96.0); MONO # 0.5 10^3/uL (0.0-0.8); NEUTROPHILS # 2.9 10^3/uL (1.5-8.5); NEUTROPHILS % 57.7 % (36.0-66.0); PLATELET COUNT, AUTOMATED 241 10^3/uL (150-450); RED BLOOD COUNT 3.26 10^6/uL (4.00-5.40)
[2022-04-08 18:55] LABS: ALBUMIN 3.7 GM/DL (3.2-5.2); ALT/SGPT 28 U/L (12-78); BILIRUBIN,TOTAL 0.4 MG/DL (0.2-1.0); BLOOD UREA NITROGEN 20 MG/DL (7-18); CALCIUM LEVEL 8.7 MG/DL (8.8-10.2); CARBON DIOXIDE LEVEL 26 MEQ/L (21-32); CHLORIDE LEVEL 109 MEQ/L (98-107); CREATININE FOR GFR 0.65 MG/DL (0.55-1.30); GLOMERULAR FILTRATION RATE > 60.0 (>32); GLUCOSE, FASTING 88 MG/DL (70-100); RHEUMATOID FACTOR QUANT < 10.0 IU/ML (<15.0); SODIUM LEVEL 141 MEQ/L (136-145); TOTAL PROTEIN 6.9 GM/DL (6.4-8.2)
[2022-04-08 19:12] LABS: ERYTHROCYTE SEDIMENTATION RATE 30 mm/hr (0-30)
== END ==
LOC: M PLALAB 15:57
PROVIDERS: ATTEND Internal Medicine Rheumatology
DX: M25.50 Pain in unspecified joint (principal)

== ENCOUNTER → 2022-04-09 | Outpatient (CLI) | payer MEDICARE ==
[2022-04-09 16:25] LABS: BASO % 1.1 % (0.0-1.0); EOS % 1.1 % (0.0-3.0); HEMATOCRIT 32.9 % (36.0-47.0); HEMOGLOBIN 10.7 g/dl (12.0-15.5); LYMPH # 0.6 10^3/uL (1.5-5.0); LYMPH % 15.5 % (24.0-44.0); MEAN CORPUSCULAR HEMOGLOBIN 33.2 pg (27.0-33.0); MEAN CORPUSCULAR HGB CONC 32.5 g/dl (32.0-36.5); MEAN CORPUSCULAR VOLUME 102.2 fl (80.0-96.0); MONO # 0.2 10^3/uL (0.0-0.8); MONO % 6.4 % (2.0-8.0); NEUTROPHILS # 2.7 10^3/uL (1.5-8.5); NEUTROPHILS % 74.8 % (36.0-66.0); PLATELET COUNT, AUTOMATED 217 10^3/uL (150-450); RED BLOOD COUNT 3.22 10^6/uL (4.00-5.40); WHITE BLOOD COUNT 3.6 10^3/uL (4.0-10.0)
[2022-04-09 17:10] LABS: ERYTHROCYTE SEDIMENTATION RATE 37 mm/hr (0-30)
[2022-04-09 17:19] LABS: IMMUNOGLOBULIN E 19.6 IU/ML (<100); IMMUNOGLOBULIN G 820 MG/DL (681-1648); IMMUNOGLOBULIN M 35.5 MG/DL (40-230)
== END ==
LOC: M PLALAB 12:42
PROVIDERS: ATTEND Allergy & Immunology Allergy
DX: D84.9 Immunodeficiency, unspecified (principal)

== ENCOUNTER → 2022-04-16 | Outpatient (CLI) | payer MEDICARE | LOC: M WHC 12:19 | PROVIDERS: ATTEND Internal Medicine | DX: Z12.31 Encounter for screening mammogram for malignant neoplasm of breast (principal); Z13.820 Encounter for screening for osteoporosis; M85.852 Other specified disorders of bone density and structure, left thigh ==

== ENCOUNTER → 2022-06-04 | Outpatient (CLI) | payer MEDICARE | LOC: M PAIN 09:00 | PROVIDERS: ATTEND Anesthesiology | DX: M25.511 Pain in right shoulder (principal); M19.011 Primary osteoarthritis, right shoulder; G89.29 Other chronic pain; G47.33 Obstructive sleep apnea (adult) (pediatric); M79.7 Fibromyalgia; J45.909 Unspecified asthma, uncomplicated; Z86.59 Personal history of other mental and behavioral disorders; Z88.1 Allergy status to other antibiotic agents; Z88.2 Allergy status to sulfonamides; Z88.5 Allergy status to narcotic agent; Z88.8 Allergy status to other drugs, medicaments and biological substances; Z79.51 Long term (current) use of inhaled steroids; Z79.899 Other long term (current) drug therapy ==

== ENCOUNTER → 2022-06-11 | Outpatient (CLI) | payer MEDICARE | LOC: M LABSMTC 11:00 | PROVIDERS: ATTEND Anesthesiology | DX: Z20.822 Contact with and (suspected) exposure to COVID-19 (principal) ==

== ENCOUNTER → 2022-06-16 | Outpatient (CLI) | payer MEDICARE ==
[~2022-06-16] MED LIST changes: +BUPIVACAINE HCL 0.25% 10ML VIAL As Ordered ONE; +BUPIVACAINE HCL 0.25% 30ML VIAL As Ordered ONE; +TRIAMCINOLONE ACETONIDE SUSP 40 MG/ML VIAL (J3301) As Ordered ONE; +diazePAM 2 MG TAB As Ordered ONE
== END ==
LOC: M PAIN 08:30
PROVIDERS: ATTEND Anesthesiology
DX: M79.18 Myalgia, other site (principal); J32.9 Chronic sinusitis, unspecified; M51.37 Other intervertebral disc degeneration, lumbosacral region; M48.061 Spinal stenosis, lumbar region without neurogenic claudication; M19.041 Primary osteoarthritis, right hand; M19.042 Primary osteoarthritis, left hand; G47.33 Obstructive sleep apnea (adult) (pediatric); J45.909 Unspecified asthma, uncomplicated; E78.5 Hyperlipidemia, unspecified; K21.9 Gastro-esophageal reflux disease without esophagitis; F32.A Depression, unspecified; M79.7 Fibromyalgia; R73.01 Impaired fasting glucose; D72.819 Decreased white blood cell count, unspecified; Z86.010 Personal history of colon polyps; Z79.899 Other long term (current) drug therapy; Z88.2 Allergy status to sulfonamides; Z88.5 Allergy status to narcotic agent; Z88.1 Allergy status to other antibiotic agents; Z88.8 Allergy status to other drugs, medicaments and biological substances
CPT/HCPCS: 20552; J3301

== ENCOUNTER → 2022-06-19 | Outpatient (CLI) | payer MEDICARE ==
[~2022-06-19] MED LIST changes: -BUPIVACAINE HCL 0.25% 10ML VIAL As Ordered ONE; -BUPIVACAINE HCL 0.25% 30ML VIAL As Ordered ONE; -TRIAMCINOLONE ACETONIDE SUSP 40 MG/ML VIAL (J3301) As Ordered ONE; -diazePAM 2 MG TAB As Ordered ONE
== END ==
LOC: M SOG 08:27
PROVIDERS: ATTEND Orthopaedic Surgery
DX: M19.011 Primary osteoarthritis, right shoulder (principal)

== ENCOUNTER 2022-06-24 13:17 | Outpatient (RCR) | payer MEDICARE | END 2022-06-25 | LOC: M PT 13:17 | PROVIDERS: ATTEND Anesthesiology | DX: M25.511 Pain in right shoulder (principal) ==

== ENCOUNTER → 2022-07-02 | Outpatient (REF) | payer MEDICARE | LOC: M LAB REF 13:15 | PROVIDERS: ATTEND Internal Medicine | DX: D64.9 Anemia, unspecified (principal) ==

== ENCOUNTER 2022-07-03 10:40 | Outpatient (RCR) | payer MEDICARE | END 2022-07-25 | LOC: M PT 10:40 | PROVIDERS: ATTEND Anesthesiology | DX: M25.511 Pain in right shoulder (principal) ==

== ENCOUNTER → 2022-07-21 | Outpatient (CLI) | payer MEDICARE | LOC: M PAIN 10:00 | PROVIDERS: ATTEND Nurse Practitioner Family | DX: M79.18 Myalgia, other site (principal); G89.29 Other chronic pain; G47.33 Obstructive sleep apnea (adult) (pediatric); M79.7 Fibromyalgia; J45.909 Unspecified asthma, uncomplicated; Z86.59 Personal history of other mental and behavioral disorders; Z88.1 Allergy status to other antibiotic agents; Z88.2 Allergy status to sulfonamides; Z88.5 Allergy status to narcotic agent; Z88.8 Allergy status to other drugs, medicaments and biological substances; Z79.51 Long term (current) use of inhaled steroids; Z79.899 Other long term (current) drug therapy ==

== ENCOUNTER → 2022-07-29 | Outpatient (CLI) | payer MEDICARE | LOC: M RAD 12:43 | PROVIDERS: ATTEND Internal Medicine | DX: I73.9 Peripheral vascular disease, unspecified (principal) ==

== ENCOUNTER → 2022-08-07 | Outpatient (CLI) | payer MEDICARE | LOC: M PLAIMG 15:36 | PROVIDERS: ATTEND Orthopaedic Surgery | DX: M19.011 Primary osteoarthritis, right shoulder (principal); S46.011A Strain of muscle(s) and tendon(s) of the rotator cuff of right shoulder, initial encounter ==

== ENCOUNTER → 2022-08-11 | Outpatient (CLI) | payer MEDICARE | LOC: M PLAIMG 11:02 | PROVIDERS: ATTEND Internal Medicine Pulmonary Disease | DX: R91.8 Other nonspecific abnormal finding of lung field (principal) ==

== ENCOUNTER → 2022-08-14 | Outpatient (CLI) | payer MEDICARE | LOC: M SOG 09:31 | PROVIDERS: ATTEND Orthopaedic Surgery Adult Reconstructive Orthopaedic Surgery | DX: M16.51 Unilateral post-traumatic osteoarthritis, right hip (principal) ==

== ENCOUNTER → 2022-08-15 | Outpatient (CLI) | payer MEDICARE | LOC: M SOG 08:34 | PROVIDERS: ATTEND Orthopaedic Surgery | DX: M19.011 Primary osteoarthritis, right shoulder (principal) ==

== ENCOUNTER → 2022-09-01 | Outpatient (CLI) | payer MEDICARE ==
[~2022-09-01] MED LIST changes: +**SFHN** BUPIVACAINE HCL 0.5% 10ML VIAL ONE; +**SFHN** LIDOCAINE 1% MDV 20ML VIAL ONE; +ISOVUE-300 61% 50ML VIAL ONE; +methylPREDNISolone 80MG/ML SUSP 1ML VIAL (J1040) ONE
== END ==
LOC: M PLAIMG 14:10
PROVIDERS: ATTEND Orthopaedic Surgery Adult Reconstructive Orthopaedic Surgery
DX: M25.551 Pain in right hip (principal)
CPT/HCPCS: 20610; 76000; J1040; Q9967

== ENCOUNTER → 2022-09-08 | Outpatient (CLI) | payer MEDICARE ==
[~2022-09-08] MED LIST changes: -**SFHN** BUPIVACAINE HCL 0.5% 10ML VIAL ONE; -**SFHN** LIDOCAINE 1% MDV 20ML VIAL ONE; -ISOVUE-300 61% 50ML VIAL ONE; -methylPREDNISolone 80MG/ML SUSP 1ML VIAL (J1040) ONE
== END ==
LOC: M PAIN 09:45
PROVIDERS: ATTEND Nurse Practitioner Family
DX: M79.18 Myalgia, other site (principal); G89.29 Other chronic pain; G47.33 Obstructive sleep apnea (adult) (pediatric); M79.7 Fibromyalgia; J45.909 Unspecified asthma, uncomplicated; Z86.59 Personal history of other mental and behavioral disorders; Z88.1 Allergy status to other antibiotic agents; Z88.2 Allergy status to sulfonamides; Z88.5 Allergy status to narcotic agent; Z88.8 Allergy status to other drugs, medicaments and biological substances; Z79.51 Long term (current) use of inhaled steroids; Z79.899 Other long term (current) drug therapy

== ENCOUNTER → 2022-09-11 | Outpatient (CLI) | payer MEDICARE | LOC: M PLAIMG 15:52 | PROVIDERS: ATTEND Physician Assistant Medical | DX: R05.9 Cough, unspecified (principal) ==

== ENCOUNTER → 2022-10-14 | Outpatient (CLI) | payer MEDICARE | LOC: M LABSMTC 13:13 | PROVIDERS: ATTEND Anesthesiology | DX: Z01.818 Encounter for other preprocedural examination (principal); Z20.822 Contact with and (suspected) exposure to COVID-19 ==

== ENCOUNTER → 2022-10-14 | Outpatient (CLI) | payer MEDICARE ==
[~2022-10-14] MED LIST changes: +BUPIVACAINE HCL 0.25% 10ML VIAL As Ordered ONE; +BUPIVACAINE HCL 0.25% 30ML VIAL As Ordered ONE; +TRIAMCINOLONE ACETONIDE SUSP 40MG/ML 1ML VIAL As Ordered ONE; +diazePAM 2 MG TAB As Ordered ONE
== END ==
LOC: M PAIN 13:45
PROVIDERS: ATTEND Anesthesiology
DX: M79.18 Myalgia, other site (principal); G89.29 Other chronic pain; G47.33 Obstructive sleep apnea (adult) (pediatric); M79.7 Fibromyalgia; J45.909 Unspecified asthma, uncomplicated; Z86.59 Personal history of other mental and behavioral disorders; Z88.1 Allergy status to other antibiotic agents; Z88.2 Allergy status to sulfonamides; Z88.5 Allergy status to narcotic agent; Z88.8 Allergy status to other drugs, medicaments and biological substances; Z79.51 Long term (current) use of inhaled steroids; Z79.899 Other long term (current) drug therapy

== ENCOUNTER → 2022-12-26 | Outpatient (CLI) | payer MEDICARE ==
[~2022-12-26] MED LIST changes: -BUPIVACAINE HCL 0.25% 10ML VIAL As Ordered ONE; -BUPIVACAINE HCL 0.25% 30ML VIAL As Ordered ONE; -TRIAMCINOLONE ACETONIDE SUSP 40MG/ML 1ML VIAL As Ordered ONE; -diazePAM 2 MG TAB As Ordered ONE
== END ==
LOC: M PAIN 11:00
PROVIDERS: ATTEND Nurse Practitioner Family
DX: M79.18 Myalgia, other site (principal); G89.29 Other chronic pain; G47.33 Obstructive sleep apnea (adult) (pediatric); M79.7 Fibromyalgia; Z86.59 Personal history of other mental and behavioral disorders; Z88.1 Allergy status to other antibiotic agents; Z88.2 Allergy status to sulfonamides; Z88.5 Allergy status to narcotic agent; Z88.8 Allergy status to other drugs, medicaments and biological substances; Z79.51 Long term (current) use of inhaled steroids; Z79.899 Other long term (current) drug therapy

== ENCOUNTER → 2023-02-02 | Outpatient (CLI) | payer MEDICARE | LOC: M WUC 12:26 | PROVIDERS: ATTEND Student in an Organized Health Care Education/Training Program | DX: M54.50 Low back pain, unspecified (principal) ==

== ENCOUNTER → 2023-04-01 | Outpatient (REF) | payer MEDICARE ==
[2023-04-01 16:52] LABS: PERCENT SATURATION 19.6 % (13.2-45.0)
== END ==
LOC: M LAB REF 16:04
PROVIDERS: ATTEND Internal Medicine
DX: D64.9 Anemia, unspecified (principal)

== ENCOUNTER → 2023-04-20 | Outpatient (CLI) | payer MEDICARE ==
[~2023-04-20] MED LIST changes: +TRIAMCINOLONE ACETONIDE SUSP 40MG/ML 1ML VIAL As Ordered ONE; +diazePAM 2 MG TAB As Ordered ONE
== END ==
LOC: M PAIN 12:30
PROVIDERS: ATTEND Anesthesiology
DX: M79.18 Myalgia, other site (principal); G89.29 Other chronic pain; G47.33 Obstructive sleep apnea (adult) (pediatric); M79.7 Fibromyalgia; J45.909 Unspecified asthma, uncomplicated; Z86.59 Personal history of other mental and behavioral disorders; Z88.1 Allergy status to other antibiotic agents; Z88.2 Allergy status to sulfonamides; Z88.5 Allergy status to narcotic agent; Z88.8 Allergy status to other drugs, medicaments and biological substances; Z79.51 Long term (current) use of inhaled steroids; Z79.899 Other long term (current) drug therapy
CPT/HCPCS: 20552; J3301

== ENCOUNTER → 2023-08-20 | Outpatient (CLI) | payer MEDICARE ==
[~2023-08-20] MED LIST changes: -TRIAMCINOLONE ACETONIDE SUSP 40MG/ML 1ML VIAL As Ordered ONE; -diazePAM 2 MG TAB As Ordered ONE
== END ==
LOC: M SOG 07:46
PROVIDERS: ATTEND Orthopaedic Surgery
DX: M19.011 Primary osteoarthritis, right shoulder (principal); M24.111 Other articular cartilage disorders, right shoulder; M25.711 Osteophyte, right shoulder

== ENCOUNTER → 2023-09-04 | Outpatient (CLI) | payer MEDICARE | LOC: M SOG 08:14 | PROVIDERS: ATTEND Orthopaedic Surgery | DX: M25.551 Pain in right hip (principal); M76.891 Other specified enthesopathies of right lower limb, excluding foot; M76.892 Other specified enthesopathies of left lower limb, excluding foot ==

== ENCOUNTER → 2023-09-16 | Outpatient (CLI) | payer MEDICARE ==
[2023-09-16 13:38] LABS: BASO % 0.1 % (0.0-1.0); HEMATOCRIT 33.5 % (36.0-47.0); LYMPH # 0.9 10^3/uL (1.5-5.0); MEAN CORPUSCULAR HEMOGLOBIN 33.7 pg (27.0-33.0); MEAN CORPUSCULAR HGB CONC 32.8 g/dl (32.0-36.5); MEAN CORPUSCULAR VOLUME 102.8 fl (80.0-96.0); MONO # 0.6 10^3/uL (0.0-0.8); MONO % 3.8 % (2.0-8.0); NEUTROPHILS # 14.1 10^3/uL (1.5-8.5); NEUTROPHILS % 89.5 % (36.0-66.0); PLATELET COUNT, AUTOMATED 240 10^3/uL (150-450); RED BLOOD COUNT 3.26 10^6/uL (4.00-5.40); WHITE BLOOD COUNT 15.7 10^3/uL (4.0-10.0)
[2023-09-16 13:46] LABS: FOLATE > 24.0 NG/ML (>5.4); IRON (FE) 62 UG/DL (50-170); VITAMIN B12 LEVEL 204 PG/ML (211-911)
[2023-09-16 13:47] LABS: PERCENT SATURATION 18.3 % (13.2-45.0); THYROID STIMULATING HORMONE 0.353 uIU/ML (0.55-4.78); TOTAL IRON BINDING CAPACITY 338 UG/DL (250-425)
[2023-09-16 13:48] LABS: ALKALINE PHOSPHATASE 55 U/L (46-116); ALT/SGPT 24 U/L (7.0-40); AST/SGOT 18 U/L (<34); BILIRUBIN,TOTAL 0.3 MG/DL (0.3-1.2); BLOOD UREA NITROGEN 35 MG/DL (9-23); CALCIUM LEVEL 9.4 MG/DL (8.3-10.6); CARBON DIOXIDE LEVEL 26 MMOL/L (20-31); CHLORIDE LEVEL 104 MMOL/L (98-107); CHOLESTEROL LEVEL 218 MG/DL (<200); CHOLESTEROL RISK RATIO 2.34 (<5); FREE T4 0.98 NG/DL (0.89-1.76); GLOMERULAR FILTRATION RATE > 60.0 (>32); GLUCOSE, FASTING 128 MG/DL (74-106); HDL CHOLESTEROL 93.1 MG/DL (>40); LDL CHOLESTEROL 110.9 MG/DL (<100); NON-HDL-C 124.9 MG/DL; POTASSIUM SERUM 5.1 MMOL/L (3.5-5.1); SODIUM LEVEL 137 MMOL/L (136-145); TOTAL PROTEIN 7.1 G/DL (5.7-8.2); TRIGLYCERIDES LEVEL 70 MG/DL (<150)
== END ==
LOC: M PLALAB 11:00
PROVIDERS: ATTEND Nurse Practitioner Adult Health
DX: D64.9 Anemia, unspecified (principal); Z13.220 Encounter for screening for lipoid disorders; Z13.29 Encounter for screening for other suspected endocrine disorder; Z79.52 Long term (current) use of systemic steroids; Z79.899 Other long term (current) drug therapy

== ENCOUNTER → 2023-09-24 | Outpatient (CLI) | payer MEDICARE ==
[2023-09-24 15:51] LABS: BASO % 0.5 % (0.0-1.0); EOS # 0.1 10^3/uL (0.0-0.5); EOS % 0.9 % (0.0-3.0); HEMATOCRIT 34.2 % (36.0-47.0); HEMOGLOBIN 11.1 g/dl (12.0-15.5); LYMPH # 1.5 10^3/uL (1.5-5.0); LYMPH % 24.7 % (24.0-44.0); MEAN CORPUSCULAR HEMOGLOBIN 33.5 pg (27.0-33.0); MEAN CORPUSCULAR HGB CONC 32.5 g/dl (32.0-36.5); MEAN CORPUSCULAR VOLUME 103.3 fl (80.0-96.0); MONO # 0.3 10^3/uL (0.0-0.8); MONO % 5.3 % (2.0-8.0); NEUTROPHILS % 67.9 % (36.0-66.0); PLATELET COUNT, AUTOMATED 219 10^3/uL (150-450); RED BLOOD COUNT 3.31 10^6/uL (4.00-5.40); WHITE BLOOD COUNT 5.9 10^3/uL (4.0-10.0)
== END ==
LOC: M LAB 15:04
PROVIDERS: ATTEND Nurse Practitioner Adult Health
DX: D72.829 Elevated white blood cell count, unspecified (principal); D64.9 Anemia, unspecified

== ENCOUNTER 2023-10-14 09:24 | Outpatient (RCR) | payer MEDICARE ==
[2023-10-20] MEDS ORDERED: MELO7.5T35 (16:10)
[2023-10-20] MEDS ORDERED: CEFU1TAB22 (16:10)
== END 2023-10-25 ==
LOC: M PT 09:24
PROVIDERS: ATTEND Internal Medicine
DX: M54.50 Low back pain, unspecified (principal); M25.559 Pain in unspecified hip; M25.519 Pain in unspecified shoulder

== ENCOUNTER 2023-11-10 12:01 | Outpatient (RCR) | payer MEDICARE, OTHER | END 2023-11-25 | LOC: M PT 12:01 | PROVIDERS: ATTEND Internal Medicine | DX: M54.50 Low back pain, unspecified (principal); M25.559 Pain in unspecified hip; M25.519 Pain in unspecified shoulder ==

== ENCOUNTER → 2023-11-10 | Outpatient (CLI) | payer MEDICARE, OTHER ==
[~2023-11-10] MED LIST changes: +CEFU1TAB22; +MELO7.5T35
== END ==
LOC: M PAIN 15:00
PROVIDERS: ATTEND Nurse Practitioner Family
DX: M79.18 Myalgia, other site (principal); M51.36 Other intervertebral disc degeneration, lumbar region; M48.062 Spinal stenosis, lumbar region with neurogenic claudication; G47.33 Obstructive sleep apnea (adult) (pediatric); M19.041 Primary osteoarthritis, right hand; M19.042 Primary osteoarthritis, left hand; E78.5 Hyperlipidemia, unspecified; K21.9 Gastro-esophageal reflux disease without esophagitis; F32.A Depression, unspecified; R73.01 Impaired fasting glucose; J45.909 Unspecified asthma, uncomplicated; Z79.899 Other long term (current) drug therapy; Z88.1 Allergy status to other antibiotic agents; Z88.2 Allergy status to sulfonamides; Z88.5 Allergy status to narcotic agent; Z88.8 Allergy status to other drugs, medicaments and biological substances

== ENCOUNTER → 2023-12-02 | Outpatient (REF) | payer OTHER | LOC: M LAB REF 16:38 | PROVIDERS: ATTEND Internal Medicine Pulmonary Disease | DX: R05.9 Cough, unspecified (principal) ==

== ENCOUNTER → 2023-12-07 | Outpatient (CLI) | payer OTHER | LOC: M PLAIMG 12:02 | PROVIDERS: ATTEND Nurse Practitioner Adult Health | DX: K59.00 Constipation, unspecified (principal) ==

== ENCOUNTER → 2024-01-01 | Outpatient (CLI) | payer MEDICARE, OTHER ==
[~2024-01-01] MED LIST changes: +TRIAMCINOLONE ACETONIDE SUSP 40MG/ML 1ML VIAL As Ordered ONE
== END ==
LOC: M PAIN 08:30
PROVIDERS: ATTEND Anesthesiology
DX: M79.18 Myalgia, other site (principal); G89.29 Other chronic pain; M47.816 Spondylosis without myelopathy or radiculopathy, lumbar region; G47.33 Obstructive sleep apnea (adult) (pediatric); E78.5 Hyperlipidemia, unspecified; K21.9 Gastro-esophageal reflux disease without esophagitis; F32.A Depression, unspecified; R73.01 Impaired fasting glucose; J45.909 Unspecified asthma, uncomplicated; M19.041 Primary osteoarthritis, right hand; M19.042 Primary osteoarthritis, left hand; M16.12 Unilateral primary osteoarthritis, left hip; Z79.899 Other long term (current) drug therapy; Z88.1 Allergy status to other antibiotic agents; Z88.2 Allergy status to sulfonamides; Z88.5 Allergy status to narcotic agent; Z88.8 Allergy status to other drugs, medicaments and biological substances
CPT/HCPCS: 20552; J0665; J3301

== ENCOUNTER → 2024-01-11 | Outpatient (CLI) | payer OTHER ==
[~2024-01-11] MED LIST changes: +ISOVUE-300 61% 100ML VIAL As Ordered ONE; +LIDOCAINE 1% MDV 20ML VIAL As Ordered ONE; -TRIAMCINOLONE ACETONIDE SUSP 40MG/ML 1ML VIAL As Ordered ONE; +methylPREDNISolone 80MG/ML SUSP 1ML VIAL As Ordered ONE
== END ==
LOC: M RAD 10:27
PROVIDERS: ATTEND Orthopaedic Surgery Hand Surgery
DX: M25.551 Pain in right hip (principal)
CPT/HCPCS: 20610; 77002; J0665; J1040; Q9967

== ENCOUNTER → 2024-04-05 | Outpatient (CLI) | payer OTHER ==
[~2024-04-05] MED LIST changes: -ISOVUE-300 61% 100ML VIAL As Ordered ONE; -LIDOCAINE 1% MDV 20ML VIAL As Ordered ONE; -methylPREDNISolone 80MG/ML SUSP 1ML VIAL As Ordered ONE
== END ==
LOC: M RAD 10:42
PROVIDERS: ATTEND Nurse Practitioner Adult Health
DX: I73.9 Peripheral vascular disease, unspecified (principal)

== ENCOUNTER → 2024-04-20 | Outpatient (CLI) | payer OTHER ==
[~2024-04-20] MED LIST changes: +GASTROGRAFIN SOLUTION 30ML As Ordered ONE; +ISOVUE-370 76% 100ML VIAL As Ordered ONE
== END ==
LOC: M RAD 12:15
PROVIDERS: ATTEND Nurse Practitioner Adult Health
DX: R10.9 Unspecified abdominal pain (principal); K57.30 Diverticulosis of large intestine without perforation or abscess without bleeding
CPT/HCPCS: 74177; Q9963; Q9967

== ENCOUNTER → 2024-04-26 | Outpatient (CLI) | payer OTHER ==
[~2024-04-26] MED LIST changes: -GASTROGRAFIN SOLUTION 30ML As Ordered ONE; -ISOVUE-370 76% 100ML VIAL As Ordered ONE
== END ==
LOC: M LAB 07:36
PROVIDERS: ATTEND Nurse Practitioner Adult Health
DX: R19.7 Diarrhea, unspecified (principal); A04.72 Enterocolitis due to Clostridium difficile, not specified as recurrent

== ENCOUNTER → 2024-05-01 | Outpatient (REF) | payer OTHER | LOC: M LAB REF 09:19 | PROVIDERS: ATTEND Nurse Practitioner Adult Health | DX: R19.7 Diarrhea, unspecified (principal) ==

== ENCOUNTER → 2024-05-03 | Outpatient (CLI) | payer OTHER ==
[2024-05-12 13:31] LABS: DEAMIDATED GLIADIN ABS, IgA < 1.0 U/mL (<15.0); DEAMIDATED GLIADIN ABS, IgG < 1.0 U/mL (<15.0); IMMUNOGLOBULIN A CELIAC 193 mg/dL (70-320); t-TRANSGLUTAMINASE(tTG) IgA < 1.0 U/mL (<15.0); t-TRANSGLUTAMINASE(tTG) IgG < 1.0 U/mL (<15.0)
== END ==
LOC: M LAB 05-02 08:37
PROVIDERS: ATTEND Nurse Practitioner Adult Health
DX: R19.7 Diarrhea, unspecified (principal)

== ENCOUNTER 2024-06-20 10:38 | Outpatient (RCR) | payer OTHER | END 2024-06-25 | LOC: M PT 10:38 | PROVIDERS: ATTEND Nurse Practitioner Adult Health | DX: M25.511 Pain in right shoulder (principal) ==

== ENCOUNTER → 2024-07-06 | Outpatient (CLI) | payer OTHER ==
[2024-07-06 13:53] LABS: BLOOD UREA NITROGEN 22 MG/DL (9-23); CREATININE FOR GFR 0.64 MG/DL (0.55-1.30); GLOMERULAR FILTRATION RATE > 60.0 (>32)
== END ==
LOC: M LAB 12:42
PROVIDERS: ATTEND Nurse Practitioner Adult Health
DX: K58.0 Irritable bowel syndrome with diarrhea (principal); R01.1 Cardiac murmur, unspecified

== ENCOUNTER 2024-07-15 10:00 | Outpatient (RCR) | payer OTHER | END 2024-07-25 | LOC: M PT 10:00 | PROVIDERS: ATTEND Nurse Practitioner Adult Health | DX: M25.511 Pain in right shoulder (principal) ==

== ENCOUNTER 2024-07-18 07:47 | Emergency (ER) | payer OTHER ==
[~2024-07-18] VITALS: Ht 157.5 cm; Wt 62.4 kg
[2024-07-18 07:47] VITALS: BP 169/77; TEMP 97; O2SAT 96
[2024-07-18 08:42] LABS: BASO % 1.1 % (0.0-1.0); EOS # 0.1 10^3/uL (0.0-0.5); EOS % 1.6 % (0.0-3.0); HEMOGLOBIN 10.5 g/dl (12.0-15.5); LYMPH # 0.8 10^3/uL (1.5-5.0); LYMPH % 21.5 % (24.0-44.0); MEAN CORPUSCULAR HGB CONC 32.8 g/dl (32.0-36.5); MEAN CORPUSCULAR VOLUME 103.6 fl (80.0-96.0); MONO # 0.3 10^3/uL (0.0-0.8); MONO % 6.6 % (2.0-8.0); NEUTROPHILS # 2.6 10^3/uL (1.5-8.5); NEUTROPHILS % 68.9 % (36.0-66.0); PLATELET COUNT, AUTOMATED 204 10^3/uL (150-450); RED BLOOD COUNT 3.09 10^6/uL (4.00-5.40); WHITE BLOOD COUNT 3.8 10^3/uL (4.0-10.0)
[2024-07-18 09:11] LABS: LIPASE 29 U/L (12-53)
[2024-07-18 09:14] LABS: ALBUMIN 3.6 G/DL (3.2-5.2); ALKALINE PHOSPHATASE 63 U/L (46-116); ALT/SGPT 22 U/L (7.0-40); AST/SGOT 21 U/L (<34); BILIRUBIN,DIRECT 0.2 MG/DL (<0.4); BILIRUBIN,TOTAL 0.5 MG/DL (0.3-1.2); BLOOD UREA NITROGEN 21 MG/DL (9-23); CALCIUM LEVEL 8.7 MG/DL (8.3-10.6); CARBON DIOXIDE LEVEL 31 MMOL/L (20-31); CHLORIDE LEVEL 111 MMOL/L (98-107); CREATININE FOR GFR 0.68 MG/DL (0.55-1.30); GLOMERULAR FILTRATION RATE > 60.0 (>32); GLUCOSE, FASTING 109 MG/DL (74-106); POTASSIUM SERUM 3.7 MMOL/L (3.5-5.1); SODIUM LEVEL 143 MMOL/L (136-145); TOTAL PROTEIN 6.6 G/DL (5.7-8.2)
== END 2024-07-18 14:55 | disposition left against medical advice (07) ==
LOC: M ED 07:47
DX: R10.9 Unspecified abdominal pain (principal); K57.30 Diverticulosis of large intestine without perforation or abscess without bleeding; K58.9 Irritable bowel syndrome, unspecified; Z87.820 Personal history of traumatic brain injury; Z88.1 Allergy status to other antibiotic agents; Z88.2 Allergy status to sulfonamides; Z88.5 Allergy status to narcotic agent; Z88.8 Allergy status to other drugs, medicaments and biological substances; Z79.52 Long term (current) use of systemic steroids; Z79.899 Other long term (current) drug therapy; Z53.9 Procedure and treatment not carried out, unspecified reason

== ENCOUNTER → 2024-07-22 | Outpatient (CLI) | payer MEDICARE, OTHER | LOC: M PAIN 09:15 | PROVIDERS: ATTEND Nurse Practitioner Family | DX: M79.18 Myalgia, other site (principal); G89.29 Other chronic pain; M47.816 Spondylosis without myelopathy or radiculopathy, lumbar region; M19.041 Primary osteoarthritis, right hand; M19.042 Primary osteoarthritis, left hand; G47.33 Obstructive sleep apnea (adult) (pediatric); E78.2 Mixed hyperlipidemia; K21.9 Gastro-esophageal reflux disease without esophagitis; F32.A Depression, unspecified; R73.01 Impaired fasting glucose; M16.12 Unilateral primary osteoarthritis, left hip; J45.909 Unspecified asthma, uncomplicated; Z79.899 Other long term (current) drug therapy; Z88.2 Allergy status to sulfonamides; Z88.5 Allergy status to narcotic agent; Z88.1 Allergy status to other antibiotic agents; Z88.8 Allergy status to other drugs, medicaments and biological substances ==

== ENCOUNTER 2024-08-05 11:40 | Outpatient (RCR) | payer OTHER | END 2024-08-25 | LOC: M PT 11:40 | PROVIDERS: ATTEND Nurse Practitioner Adult Health | DX: R52 Pain, unspecified (principal) ==

== ENCOUNTER → 2024-08-23 | Outpatient (CLI) | payer OTHER, MEDICARE ==
[~2024-08-23] MED LIST changes: +TRIAMCINOLONE ACETONIDE SUSP 40MG/ML 1ML VIAL As Ordered ONE; +diazePAM 2 MG TAB As Ordered ONE
== END ==
LOC: M PAIN 10:00
PROVIDERS: ATTEND Anesthesiology
DX: M79.18 Myalgia, other site (principal); G89.29 Other chronic pain; M47.816 Spondylosis without myelopathy or radiculopathy, lumbar region; M19.041 Primary osteoarthritis, right hand; M19.042 Primary osteoarthritis, left hand; G47.33 Obstructive sleep apnea (adult) (pediatric); E78.2 Mixed hyperlipidemia; K21.9 Gastro-esophageal reflux disease without esophagitis; F32.A Depression, unspecified; M16.12 Unilateral primary osteoarthritis, left hip; J45.909 Unspecified asthma, uncomplicated; R73.01 Impaired fasting glucose; Z79.899 Other long term (current) drug therapy; Z88.1 Allergy status to other antibiotic agents; Z88.2 Allergy status to sulfonamides; Z88.5 Allergy status to narcotic agent; Z88.8 Allergy status to other drugs, medicaments and biological substances
CPT/HCPCS: 20552; J0665; J3301

== ENCOUNTER → 2024-10-18 | Outpatient (CLI) | payer OTHER ==
[~2024-10-18] MED LIST changes: -TRIAMCINOLONE ACETONIDE SUSP 40MG/ML 1ML VIAL As Ordered ONE; -diazePAM 2 MG TAB As Ordered ONE
== END ==
LOC: M PLAIMG 09:49
PROVIDERS: ATTEND Otolaryngology
DX: J32.0 Chronic maxillary sinusitis (principal)

== ENCOUNTER → 2024-10-31 | Outpatient (CLI) | payer MEDICARE, OTHER | LOC: M PAIN 10:45 | PROVIDERS: ATTEND Nurse Practitioner Family | DX: M79.18 Myalgia, other site (principal); G89.29 Other chronic pain; M54.50 Low back pain, unspecified; M47.816 Spondylosis without myelopathy or radiculopathy, lumbar region; M47.817 Spondylosis without myelopathy or radiculopathy, lumbosacral region; M48.07 Spinal stenosis, lumbosacral region; M19.041 Primary osteoarthritis, right hand; M19.042 Primary osteoarthritis, left hand; E78.2 Mixed hyperlipidemia; K21.9 Gastro-esophageal reflux disease without esophagitis; F32.A Depression, unspecified; R73.01 Impaired fasting glucose; J45.909 Unspecified asthma, uncomplicated; Z79.899 Other long term (current) drug therapy; Z88.5 Allergy status to narcotic agent; Z88.1 Allergy status to other antibiotic agents; Z88.2 Allergy status to sulfonamides; Z88.8 Allergy status to other drugs, medicaments and biological substances ==

== ENCOUNTER → 2024-11-25 | Outpatient (CLI) | payer MEDICARE ==
[2024-11-25 16:01] LABS: BASO # 0.1 10^3/uL (0.0-0.2); EOS # 0.1 10^3/uL (0.0-0.5); EOS % 1.2 % (0.0-3.0); HEMATOCRIT 36.1 % (36.0-47.0); HEMOGLOBIN 11.6 g/dl (12.0-15.5); LYMPH # 1.3 10^3/uL (1.5-5.0); MEAN CORPUSCULAR HEMOGLOBIN 32.8 pg (27.0-33.0); MEAN CORPUSCULAR HGB CONC 32.1 g/dl (32.0-36.5); MONO # 0.5 10^3/uL (0.0-0.8); MONO % 9.6 % (2.0-8.0); NEUTROPHILS # 3.1 10^3/uL (1.5-8.5); NEUTROPHILS % 61.8 % (36.0-66.0); PLATELET COUNT, AUTOMATED 235 10^3/uL (150-450); RED BLOOD COUNT 3.54 10^6/uL (4.00-5.40); WHITE BLOOD COUNT 5.1 10^3/uL (4.0-10.0)
[2024-11-25 16:03] LABS: ALBUMIN 3.9 G/DL (3.2-5.2); ALKALINE PHOSPHATASE 63 U/L (35-104); ALT/SGPT 26 U/L (7.0-40); AST/SGOT 26 U/L (<34); BILIRUBIN,TOTAL 0.4 MG/DL (0.3-1.2); BLOOD UREA NITROGEN 20 MG/DL (9-23); CALCIUM LEVEL 9.4 MG/DL (8.3-10.6); CARBON DIOXIDE LEVEL 27 MMOL/L (20-31); CHLORIDE LEVEL 109 MMOL/L (98-107); CREATININE FOR GFR 0.66 MG/DL (0.55-1.30); GLOMERULAR FILTRATION RATE > 60.0 (>32); GLUCOSE, FASTING 88 MG/DL (74-106); POTASSIUM SERUM 4.7 MMOL/L (3.5-5.1); SODIUM LEVEL 140 MMOL/L (136-145)
[2024-11-25 16:05] LABS: IMMUNOGLOBULIN A 194.7 MG/DL (40-350); IMMUNOGLOBULIN G 808 MG/DL (650-1600); IMMUNOGLOBULIN M 27.6 MG/DL (50-300)
[2024-11-25 16:13] LABS: ERYTHROCYTE SEDIMENTATION RATE 25 mm/hr (0-30)
== END ==
LOC: M PLALAB 12:18
PROVIDERS: ATTEND Allergy & Immunology Allergy
DX: D84.9 Immunodeficiency, unspecified (principal)

== ENCOUNTER 2025-02-16 12:57 | Outpatient (RCR) | payer MEDICARE | END 2025-02-22 | LOC: M PT 12:57 | PROVIDERS: ATTEND Physician Assistant | DX: M25.511 Pain in right shoulder (principal); M19.011 Primary osteoarthritis, right shoulder ==

== ENCOUNTER → 2025-06-05 | Outpatient (REF) | payer MEDICARE ==
[~2025-06-05] MED LIST changes: +LIDO1ADH93 TD; -LIDO5DIS41 TD
== END ==
LOC: M LAB REF 16:42
PROVIDERS: ATTEND Internal Medicine Pulmonary Disease
DX: R05.9 Cough, unspecified (principal)

== ENCOUNTER → 2025-07-24 | Outpatient (CLI) | payer MEDICARE ==
[2025-07-24 18:47] LABS: VITAMIN B12 LEVEL 484 PG/ML (211-911)
[2025-07-24 18:48] LABS: BASO # 0.0 10^3/uL (0.0-0.2); BASO % 0.8 % (0.0-1.0); EOS # 0.2 10^3/uL (0.0-0.5); EOS % 3.4 % (0.0-3.0); LYMPH # 1.4 10^3/uL (1.5-5.0); LYMPH % 29.7 % (24.0-44.0); MONO # 0.5 10^3/uL (0.0-0.8); MONO % 10.9 % (2.0-8.0); NEUTROPHILS # 2.6 10^3/uL (1.5-8.5); NEUTROPHILS % 55.0 % (36.0-66.0); PLATELET COUNT, AUTOMATED 244 10^3/uL (150-450)
== END ==
LOC: M PLALAB 14:53
PROVIDERS: ATTEND Family Medicine
DX: D51.9 Vitamin B12 deficiency anemia, unspecified (principal)

== ENCOUNTER → 2025-08-02 | Outpatient (CLI) | payer MEDICARE | LOC: M WUC 11:11 | PROVIDERS: ATTEND Nurse Practitioner Family | DX: S20.212A Contusion of left front wall of thorax, initial encounter (principal); S22.42XA Multiple fractures of ribs, left side, initial encounter for closed fracture; X58.XXXA Exposure to other specified factors, initial encounter; Y92.9 Unspecified place or not applicable; Y93.9 Activity, unspecified; Y99.9 Unspecified external cause status ==

== ENCOUNTER → 2025-09-13 | Outpatient (CLI) | payer MEDICARE ==
[2025-09-13 13:29] LABS: BASO # 0.0 10^3/uL (0.0-0.2); BASO % 0.8 % (0.0-1.0); EOS # 0.1 10^3/uL (0.0-0.5); EOS % 2.8 % (0.0-3.0); LYMPH # 1.3 10^3/uL (1.5-5.0); LYMPH % 25.4 % (24.0-44.0); MONO # 0.5 10^3/uL (0.0-0.8); MONO % 9.8 % (2.0-8.0); NEUTROPHILS # 3.0 10^3/uL (1.5-8.5); NEUTROPHILS % 60.8 % (36.0-66.0); PLATELET COUNT, AUTOMATED 239 10^3/uL (150-450)
[2025-09-13 13:58] LABS: C REACTIVE PROTEIN QUANTITATIV < 0.50 MG/DL (<1.0)
[2025-09-13 13:59] LABS: CALCIUM LEVEL 8.8 MG/DL (8.3-10.6); CARBON DIOXIDE LEVEL 29 MMOL/L (20-31); CHLORIDE LEVEL 104 MMOL/L (98-107); CREATININE FOR GFR 0.74 MG/DL (0.55-1.30); GLOMERULAR FILTRATION RATE 80.2 (>32); POTASSIUM SERUM 4.6 MMOL/L (3.5-5.1); SODIUM LEVEL 144 MMOL/L (136-145)
== END ==
LOC: M PLAIMG 10:39
PROVIDERS: ATTEND Nurse Practitioner Adult Health
DX: R06.02 Shortness of breath (principal)